=== PATIENT | male | born 1935 | race Caucasian/White ===

== ENCOUNTER 2020-09-10 10:03 | Outpatient (REF) | payer MEDICARE, SELFPAY ==
--- NOTE | 2020-09-10 | US_ITS ---
EXAMINATION: COLOR-FLOW DUPLEX IMAGING OF THE BILATERAL LOWER EXTREMITY ARTERIAL SYSTEM. VELOCITY MEASUREMENTS THROUGHOUT THE FEMORAL ARTERIES WITH ANKLE-BRACHIAL PERIPHERAL ARTERIAL TESTING. CLINICAL INFORMATION: This is an 85-year-old male with a history of hypertension, hyperlipidemia, diabetes, left distal superficial femoral artery stent. Interventional Radiologist: Alex Mohr M.D., F.S.I.R., F.Leia.C.R. Comparison is made to a previous study dated 05/29/2020 which demonstrated possible distal left superficial femoral artery stenosis. RIGHT FEMORAL RUNOFF VELOCITIES: The right common femoral artery measures 70 cm/s and biphasic. The right profunda femoral artery is 53 cm/s and is biphasic. Right proximal superficial femoral artery measures 81 cm/s and biphasic. Mid superficial femoral artery is 264 cm/s and triphasic. There is at least a 2:1 shift. Distal right superficial femoral artery measures 58 cm/s and is biphasic. Right popliteal velocity measures 58 cm/s and is biphasic. The posterior tibial artery velocity measures 46 cm/s and was biphasic. The right ankle-brachial index is 1.52. LEFT FEMORAL RUNOFF VELOCITIES: The left common femoral artery measures 65 cm/s and biphasic. The left profunda femoral artery is 66 cm/s and is biphasic. Left proximal superficial femoral artery measures 92 cm/s and triphasic. Mid superficial femoral artery is 79 cm/s and triphasic. Distal left superficial femoral artery measures 92 cm/s and is biphasic. Left popliteal velocity measures 52 cm/s and is biphasic. The posterior tibial artery velocity measures 58 cm/s and was biphasic. There is a stent seen in the distal left superficial femoral artery. The stent velocities are as follows: [place] artery proximal to the stent: 68 cm/s and triphasic. Proximal stent: 82 cm/s and triphasic. Mid stent: 92 cm/s and biphasic. Distal stent: 85 cm/s and biphasic. [place] artery distal to the stent: 91 cm/s and biphasic. The left ankle-brachial index is 1.69. US/US GILDA complete IMPRESSION: 1. There appears to be a hemodynamically significant high-grade stenosis in the mid right superficial femoral artery. This appears to be compensated with a normal right ankle-brachial index. 2. The patient is status post stent placement in the distal left superficial femoral artery. There is not a hemodynamically significant stenosis present at the present time.
--- NOTE | 2020-09-10 | US_ITS ---
EXAMINATION: COLOR-FLOW DUPLEX IMAGING OF THE BILATERAL LOWER EXTREMITY ARTERIAL SYSTEM. VELOCITY MEASUREMENTS THROUGHOUT THE FEMORAL ARTERIES WITH ANKLE-BRACHIAL PERIPHERAL ARTERIAL TESTING. CLINICAL INFORMATION: This is an 85-year-old male with a history of hypertension, hyperlipidemia, diabetes, left distal superficial femoral artery stent. Interventional Radiologist: Alex Mohr M.D., F.S.I.R., F.A.C.R. Comparison is made to a previous study dated 05/29/2020 which demonstrated possible distal left superficial femoral artery stenosis. RIGHT FEMORAL RUNOFF VELOCITIES: The right common femoral artery measures 70 cm/s and biphasic. The right profunda femoral artery is 53 cm/s and is biphasic. Right proximal superficial femoral artery measures 81 cm/s and biphasic. Mid superficial femoral artery is 264 cm/s and triphasic. There is at least a 2:1 shift. Distal right superficial femoral artery measures 58 cm/s and is biphasic. Right popliteal velocity measures 58 cm/s and is biphasic. The posterior tibial artery velocity measures 46 cm/s and was biphasic. The right ankle-brachial index is 1.52. LEFT FEMORAL RUNOFF VELOCITIES: The left common femoral artery measures 65 cm/s and biphasic. The left profunda femoral artery is 66 cm/s and is biphasic. Left proximal superficial femoral artery measures 92 cm/s and triphasic. Mid superficial femoral artery is 79 cm/s and triphasic. Distal left superficial femoral artery measures 92 cm/s and is biphasic. Left popliteal velocity measures 52 cm/s and is biphasic. The posterior tibial artery velocity measures 58 cm/s and was biphasic. There is a stent seen in the distal left superficial femoral artery. The stent velocities are as follows: [place] artery proximal to the stent: 68 cm/s and triphasic. Proximal stent: 82 cm/s and triphasic. Mid stent: 92 cm/s and biphasic. Distal stent: 85 cm/s and biphasic. [place] artery distal to the stent: 91 cm/s and biphasic. The left ankle-brachial index is 1.69. US/US arterial duplex LE BI IMPRESSION: 1. There appears to be a hemodynamically significant high-grade stenosis in the mid right superficial femoral artery. This appears to be compensated with a normal right ankle-brachial index. 2. The patient is status post stent placement in the distal left superficial femoral artery. There is not a hemodynamically significant stenosis present at the present time.
== END 2020-09-10 10:04 | disposition home or self-care (01) ==
LOC: HO.US 10:03
PROVIDERS: PCP Internal Medicine; Visit Provider Surgery Vascular Surgery
DX: I73.9 Peripheral vascular disease, unspecified (principal)
CPT/HCPCS: 93923; 93925

== ENCOUNTER → 2020-09-20 09:57 | Outpatient (BNVA) | payer MEDICARE, SELFPAY | PROVIDERS: PCP Internal Medicine; Visit Provider Surgery Vascular Surgery | DX: I83.11 Varicose veins of right lower extremity with inflammation (principal); I73.9 Peripheral vascular disease, unspecified | CPT/HCPCS: 99212 ==

== ENCOUNTER → 2020-11-01 10:08 | Outpatient (BNVA) | payer MEDICARE, SELFPAY | PROVIDERS: PCP Internal Medicine; Visit Provider Urology | DX: Z13.89 Encounter for screening for other disorder (principal) | CPT/HCPCS: Q3014 ==

== ENCOUNTER 2020-11-02 18:37 | Outpatient (REF) | payer MEDICARE, SELFPAY | END 2020-11-02 18:38 | disposition home or self-care (01) | LOC: HO.LNP 18:37 | PROVIDERS: Visit Provider Family Medicine | DX: Z20.822 Contact with and (suspected) exposure to COVID-19 (principal) | CPT/HCPCS: U0003 ==

== ENCOUNTER 2020-11-04 11:11 | Emergency (ER) | payer MEDICARE, SELFPAY ==
[2020-11-04 11:16] VITALS: BP 133/85; PULSE 132; RESP 18; TEMP 36.8; O2SAT 96; BMI 27.6
--- NOTE | 2020-11-04 11:46 | XR_ITS ---
EXAMINATION: XR CHEST CLINICAL INFORMATION: Suspected COVID pneumonia. COMPARISON: Chest done on 04/03/2018. TECHNIQUE: Frontal view of the chest was obtained. FINDINGS: Hyperinflated lung field is present bilaterally without evidence of any dense airspace consolidation. No evidence of any pulmonary venous congestion is present. Cardiac mediastinal silhouette is within normal limit. There is no pleural effusion or pneumothorax present. Overall no significant change. XR/XR chest 1V IMPRESSION: No radiographic evidence of COVID pneumonia.
[2020-11-04 12:12] LABS: COVID-19 Test Negative (Negative)
--- NOTE | 2020-11-04 12:17 | ED.GENADULT ---
HPI - General Adult General Chief complaint: General Medical Stated complaint: sore throat Time Seen by Provider: 11/04/20 11:45 Source: patient Mode of arrival: ambulatory Limitations: no limitations History of Present Illness HPI narrative: Patient complaining of sore throat for last 3 days seen for the same and urgent care center 2 days ago and started on Z-Aly no COVID testing was done patient denies any fever or chills no cough no shortness of breath no body ache no loss of taste sensation Patient feeling these symptoms of nasal congestion and sore throat since he noticed squirrel in his bedroom Related Data Home Medications Medication Instructions Recorded Confirmed amlodipine 10 mg tablet 10 mg PO DAILY 08/14/20 11/04/20 aspirin 81 mg tablet,delayed 81 mg PO DAILY 08/14/20 11/04/20 release cholecalciferol (vitamin D3) 25 25 mcg PO DAILY 08/14/20 11/04/20 mcg (1,000 unit) capsule dorzolamide 22.3 mg-timolol 6.8 1 drp OPHTHALMIC (EYE) BID 08/14/20 11/04/20 mg/mL eye drops fluticasone propionate 110 2 puff PO BID 08/14/20 11/04/20 mcg/actuation HFA aerosol inhaler latanoprost 0.005 % eye drops 1 drp OPHTHALMIC (EYE) DAILY ml 08/14/20 11/04/20 rosuvastatin 20 mg tablet 20 mg PO BEDTIME 08/14/20 11/04/20 tamsulosin 0.4 mg capsule 0.4 mg PO DAILY 08/14/20 11/04/20 furosemide 20 mg tablet 20 mg PO DAILY 11/01/20 11/04/20 losartan 50 mg PO DAILY 11/04/20 11/04/20 Previous Rx's Medication Instructions Recorded mirabegron 50 mg tablet,extended 50 mg PO DAILY 90 Days #90 tab 09/20/20 release 24 hr isosorbide mononitrate 30 mg 30 mg PO QAM #90 tab 10/16/20 tablet,extended release 24 hr azithromycin 250 mg tablet See Rx Instructions PO .COMPLEX 5 11/02/20 Days #6 tab prednisone 20 mg tablet 20 mg PO DAILY 4 Days #4 tab 11/02/20 Allergies Allergy/AdvReac Type Severity Reaction Status Date / Time ciprofloxacin [CIPROFLOXACIN] Allergy Unknown ITCHY FEET Verified 11/02/20 13:12 oxycodone [Percocet] AdvReac Unknown Unknown Verified 11/02/20 13:12 Review of Systems Review of Systems: Constitutional : No Weight loss, No Fever, No Chills ENT/Mouth : ++ sore throat, No Rhinorrhea Eyes: No Eye Pain, No Swelling Cardiovascular : No Chest Pain, no palpitations Respiratory : No Cough, No Sputum, no shortness of breath Gastrointestinal : no Nausea, No Vomiting, No Diarrhea, No abdominal Pain, no black stools Genitourinary : No Dysuria, No Urinary Frequency Musculoskeletal : No joint pain, No Myalgias, No Joint Swelling Skin : No Skin Lesions, No rash Neuro : No Weakness, No Numbness, No Dizziness, No Headache Psych : No Anxiety/Panic, No Depression Heme/Lymph: No Bruising, No Lymphadenopathy Endocrine : No Polyuria, No Polydipsia All other systems reviewed and are negative PMF Past Medical History Medical History Bladder neck contracture BPH (benign prostatic hyperplasia) CAD (coronary artery disease) COPD (chronic obstructive pulmonary disease) Hypercholesterolemia Hypertension Hypotonic bladder Paraphimosis Peripheral vascular disease Pulmonary nodule Tubular adenoma of colon Type 2 diabetes mellitus with hyperglycemia Vitamin D deficiency Surgical History H/O inguinal hernia repair H/O vascular surgery History of appendectomy History of cataract surgery History of prostate surgery Family History Family History Father No problems noted. Mother CVD (cardiovascular disease) Social History Social History Alcohol intake: never Smoking Status: Never smoker Smoked in Last 30 Days: No Use of substances other than those prescribed or required for medical reasons: No Advance Directives: No Advance Directives Information Provided: No Physical Exam Vital Signs: Vital Signs: Last Vital Signs Temp 98.2 F 11/04/20 11:16 Pulse 131 H 11/04/20 12:34 Resp 16 11/04/20 12:34 BP 113/77 11/04/20 12:34 Pulse Ox 95 11/04/20 12:34 Body Mass Index 27.6 Appearance: Alert. Oriented X3. No acute distress. Eyes: Pupils equal, round and reactive to light. ENT: Pharynx slight erythema no exudate Neck: Normal inspection. Neck supple. CVS: Normal heart rate and rhythm. Pulses normal. Respiratory: No respiratory distress. Breath sounds normal. Abdomen: Soft and nontender. Bowel sounds are present, no mass palpable, no CVA tenderness Skin: Skin warm and dry. Normal skin color. Normal skin turgor. Extremities: No lower extremity edema. Neuro: Oriented X 3. No motor deficit. No sensory deficit. Course Course Course Narrative: Patient x-ray negative COVID-19 negative strep throat is also negative with nonspecific nasal congestion likely viral patient already on Zithromax advised to continue follow with PCP Medical Decision Making Lab Data Lab results reviewed: Yes I reviewed the patient's lab results. Labs: Lab Results 11/04/20 Range/Units 11:50 COVID-19 (CARLOS) Negative (Negative) COVID-19 Clin Com See Note Discharge Plan Discharge Clinical Impression: URI (upper respiratory infection) Qualifiers: URI type: acute pharyngitis Pharyngitis/tonsillitis etiology: other specified organisms Qualified Code(s): J02.8 - Acute pharyngitis due to other specified organisms Patient Disposition: Home, Self-Care Instructions: Pharyngitis (ED) Additional Instructions: Continue antibiotic as prescribed. Follow-up with your PCP if not better Prescriptions: No Action Myrbetriq 50 mg tablet extended release 24 hr 50 mg PO DAILY 90 Days Qty: 90 RF: 2 isosorbide mononitrate 30 mg tablet extended release 24 hr 30 mg PO QAM Qty: 90 RF: 2 losartan 50 mg tablet 50 mg PO DAILY RF: 0 tamsulosin 0.4 mg capsule 0.4 mg PO DAILY RF: 0 dorzolamide-timolol 22.3-6.8 mg/mL drops 1 drp ophthalmic (eye) BID RF: 0 amlodipine 10 mg tablet 10 mg PO DAILY RF: 0 rosuvastatin 20 mg tablet 20 mg PO BEDTIME RF: 0 Flovent HFA 110 mcg/actuation HFA aerosol inhaler 2 puff PO BID RF: 0 latanoprost 0.005 % drops 1 drp ophthalmic (eye) DAILY RF: 0 aspirin [Adult Low Dose Aspirin] 81 mg tablet,delayed release (DR/EC) 81 mg PO DAILY RF: 0 cholecalciferol (vitamin D3) 25 mcg (1,000 unit) capsule 25 mcg PO DAILY RF: 0 azithromycin [Zithromax Z-Aly] 250 mg tablet See Rx Instructions PO .COMPLEX 5 Days Qty: 6 RF: 0 prednisone 20 mg tablet 20 mg PO DAILY 4 Days Qty: 4 RF: 0 furosemide 20 mg tablet 20 mg PO DAILY RF: 0 Interventions: ED Discharge Assessment Last Done: 11/04/20 13:27 Discharge Date/Time: 11/04/20 13:28
[2020-11-04 12:34] VITALS: BP 113/77; PULSE 131; RESP 16; O2SAT 95
== END 2020-11-04 13:28 | disposition home or self-care (01) ==
PROVIDERS: Emergency Provider Internal Medicine; PCP Internal Medicine
DX: J02.8 Acute pharyngitis due to other specified organisms (principal); Z20.822 Contact with and (suspected) exposure to COVID-19; Z79.899 Other long term (current) drug therapy
CPT/HCPCS: 36415; 71045; 87071; 87635; 87880; 99283; 99284

== ENCOUNTER 2020-12-04 13:34 | Outpatient (REF) | payer MEDICARE, SELFPAY ==
[2020-12-04 15:19] LABS: Hematocrit 44.8 % (42-52); Hemoglobin 14.7 g/dl (14.0-18.0); Mean Corpuscular HGB Conc 32.8 g/dl (31.0-36.0); Mean Corpuscular Hemoglobin 30.9 pg (27.0-33.0); Mean Corpuscular Volume 94.3 fL (80-98); Platelet Count 277 X10*3/uL (160-400); Red Blood Count 4.75 X10*6/uL (4.60-5.80); White Blood Count 8.1 X10*3/uL (4.8-10.8)
[2020-12-04 15:44] LABS: Anion Gap 12 (12-20); Blood Urea Nitrogen 23 mg/dL (9-16); Calcium 8.8 mg/dL (8.4-10.2); Carbon Dioxide 27 mmol/L (22-29); Chloride 107 mmol/L (96-108); Estimated Glomerular Filt Rate > 60; Glucose Random 77 mg/dL (60-115); Potassium 4.4 mmol/L (3.3-5.1); Sodium 142 mmol/L (135-145)
== END 2020-12-04 13:35 | disposition home or self-care (01) ==
LOC: HO.LAB 13:34
PROVIDERS: PCP Internal Medicine; Visit Provider Internal Medicine Cardiovascular Disease
DX: I48.92 Unspecified atrial flutter (principal); I50.30 Unspecified diastolic (congestive) heart failure; I25.10 Atherosclerotic heart disease of native coronary artery without angina pectoris; Z79.899 Other long term (current) drug therapy
CPT/HCPCS: 36415; 80048; 85027; 93005; 99212

== ENCOUNTER → 2020-12-07 11:29 | Outpatient (REF) | payer MEDICARE, SELFPAY ==
--- NOTE | 2020-12-07 11:33 | CA_ITS ---
Transthoracic Echocardiogram Patient (Last, First, Middle): Jonatan Del Toro J Gender: Male Date of : 1935 Age: 85 Procedure Date: 12/07/2020 Procedure Type: Transthoracic Echocardiogram Location: OP Height: 170.18 cm Weight: 75.3 kg BSA: 1.87 m2 Heart Rate: bpm BP: 120 / 70 mmHg Extruder Operator Helper: RAKESH Referring MD: Ferdinand Abdalla MD Environmental Services Assistant: Ferdinand Abdalla MD Symptoms: I48.92 - Unspecified atrial flutter Study Quality: Fair ECG Rhythm: Atrial flutter Conclusions: - 1. Normal LV systolic function 2. Mild biatrial enlargement 3. Normal cardiac valvular Doppler 4. Normal RV systolic pressure 5. No pericardial effusion Findings Left Ventricle Normal left ventricular size, thickness, and systolic function. The visually estimated ejection fraction is between 55-60%. Diastolic function is indeterminate on the basis of available data. Right Ventricle Mildly increased right ventricular cavity size. There is borderline right ventricular systolic function. Atria The left atrium is mildly dilated. Interatrial shunt cannot be excluded. The right atrium is mildly dilated. Aortic Valve There is mild calcification of the aortic valve. There is no aortic valve stenosis. There is no aortic valve regurgitation. Mitral Valve There is mild anterior and posterior mitral leaflet thickening. There is mild mitral annular calcification. There is trace mitral valve regurgitation. There is no mitral valve stenosis. Pulmonic Valve The pulmonic valve was not well visualized. Tricuspid Valve Likely normal tricuspid valve structure and function. There is mild tricuspid valve regurgitation. The right ventricular systolic pressure is normal. The right ventricular systolic pressure is 32 mmHg. Normal right atrial pressure. There is no evidence of pulmonary hypertension. Great Vessels All visible segments of the aorta are normal in size. The pulmonary artery was not well visualized. Venous The inferior vena cava is normal in size and collapses greater than 50% with inspiration. Pericardium/Pleural There is no evidence of pericardial effusion. Prior Study Comparison Changes noted compared to prior study dated: 10/26/2018. Compared to prior study LV systolic function is the lower although still within normal limits Measurements M-Mode Liner Measurements Normals - Women/Men AOV Cusps: 1.50 1.5-2.6 cm/m2 2D Linear Measurements IVSd: 1.12 0.6-0.9/0.6-1.0 cm LVIDd: 3.95 3.9-5.3/4.2-5.9 cm LVIDd Index: 2.11 2.4-3.2/2.2-3.1 cm/m2 LVIDs: 2.58 2.0-3.6 cm LVPWd: 1.13 0.7-1.1 cm Ao Root: 3.50 2.1-3.5 cm LA Diam: 3.80 2.7-3.8/3.0-4.0 cm LAIDs Index: 2.03 1.5-2.3 cm/m2 LV Mass: 183.77 67-162/88-224 g LV Mass Index: 98.27 43-95/49-115 g/m2 LVOT Diam: 2.10 3.0+(-)1.3 cm 2D Systolic Function EF 4C: 53.80 >55% EF 2C: 54.20 >55% EF BiP: 52.50 >55% Mitral Valve MV Pk E: 1.09 MV Decel Time: 109.00 PHT: 32.00 MVA PHT: 6.88 Decel Barren: 10.00 Aortic Valve AoV Pk Michel: 0.94 AoV Pk Grad: 4.00 LVOT LVOT Pk Michel: 0.80 LVOT Mn Michel: 0.59 LVOT VTI: 0.17 LVOT Pk Grad: 3.00 LVOT Mn Grad: 2.00 LVOT Diam: 2.10 LVOT Area: 3.46 Diastolic Function MV Pk E: 1.09 Tricuspid Valve TR Pk Michel: 2.67 TR Pk Grad: 29.00 RA Press: 3.00 RVSP: 32.00 Great Vessels Aorta Ao Root-2D: 3.50 2.0-3.7 cm Ao Asc: 3.00 2.1-3.4 cm Pulmonary Valve PV Pk Michel: 0.98 Peak PV Grad: 4.00 Updated in Other Vendor System with Status of Final Ferdinand Abdalla MD electronically signed on 12/08/2020 1:21:05 PM with status of Final
== END ==
LOC: HO.CARD 11:29
PROVIDERS: Visit Provider Internal Medicine Cardiovascular Disease
DX: I25.10 Atherosclerotic heart disease of native coronary artery without angina pectoris (principal); I48.92 Unspecified atrial flutter; I50.30 Unspecified diastolic (congestive) heart failure
CPT/HCPCS: 93306

== ENCOUNTER 2020-12-19 07:35 | Inpatient (IN) | payer OTHER, MEDICARE, SELFPAY ==
[2020-12-19] VITALS (14 sets, daily range): BP systolic 104–152; BP diastolic 61–81; PULSE 84–190; RESP 16–24; TEMP 36.2–36.7; O2SAT 85–96; BMI 27.6; BMI 26.8
--- NOTE | ~2020-12-19 | CT_ITS ---
EXAMINATION: CT CHEST WITHOUT CONTRAST CLINICAL INFORMATION: Hypoxia. Evaluate for fluid overload versus pneumonia. COMPARISON: Previous chest x-ray most recent 12/21/2020 TECHNIQUE: Multidetector volumetric CT imaging of the chest was done. Axial MIP volume rendering provided. Sagittal and coronal reformatted images were obtained. This CT examination was performed using dose optimization techniques as appropriate, variously including the following: *Automated exposure control *Adjustment of mA and/or kV according to patient size (this includes techniques or standardized protocols for targeted exams where dose is matched to indication/reason for exam; i.e. extremities or head) *Use of iterative reconstruction technique DLP: 172 mGy-cm FINDINGS: LUNGS: There is evidence of emphysema. There is a partially cystic partially solid abnormal parenchymal density or irregularly-shaped nodule in the right upper lobe. This measures approximately 3 x 5 cm in AP and transverse dimension and 1.4 cm in length axial image 178 series 4. This is new from [address] scan. There is a partially calcified irregularly shaped nodule in the right upper lobe measuring 2 x 8 mm axial image 214 series 4. This is unchanged. There is a new heterogeneous groundglass attenuation nodule in the peripheral posterior segment of the right upper lobe near the major fissure and adjacent pleural thickening axial image 218 series 4. There is innumerable small round noncalcified and calcified pulmonary nodules. The largest pulmonary nodule is a calcified left lower lobe peripheral or subpleural nodule adjacent to the fissure axial image 322 series 4. There is question of a nodule versus atelectasis or small infiltrate in the right middle lobe adjacent to the major fissure for example axial image 4 54-4 70 series 4. This measures maximum 7 x 12 mm axial image 453 series 4 that is new. There are bilateral lower lobe atelectasis or small infiltrates adjacent to the bilateral pleural effusions that is new. No evidence of pulmonary edema is seen. There is increasing volume loss to the right upper lobe. MEDIASTINUM: The visualized thyroid gland is unremarkable. The heart is upper normal in size. There is moderate to severe coronary artery calcification. There is no pericardial effusion. The thoracic aorta is normal in caliber. The pulmonary arteries are prominent, main pulmonary artery measuring 2.9 cm questionable for pulmonary artery hypertension. PLEURA: There are bilateral pleural effusions, moderate on the right and small on the left. AXILLA: No lymphadenopathy. UPPER ABDOMEN: There is a 3 x 2.2 cm left adrenal cyst with wall calcification that is stable. OSSEOUS STRUCTURES: There are severe degenerative changes of the spine with ossification of the anterior longitudinal ligament. CT/CT chest wo con IMPRESSION: Emphysema. Atelectasis or small infiltrates in both lower lobes. Question atelectasis or small infiltrate versus nodule in the right middle lobe. New irregularly-shaped partially solid partially cystic and new smaller groundglass attenuation right upper lobe nodules. Chest CT follow-up in 6-12 months recommended. No evidence of pulmonary edema. Bilateral pleural effusions, right greater than left. Coronary artery calcification.
--- NOTE | ~2020-12-19 | XR_ITS ---
EXAMINATION: XR CHEST CLINICAL INFORMATION: Shortness of breath COMPARISON: 12/19/2020 TECHNIQUE: Frontal view of the chest was obtained. FINDINGS: Lung volumes are symmetric. In comparison to the prior examination there is increased prominence of the central vasculature and surrounding interstitium suspicious for interstitial edema. Small right pleural effusion is redemonstrated. No appreciable pneumothorax. Cardiac silhouette appears near the upper limits of normal in size. Calcification is present at the aortic arch. Degenerative changes are present in the glenohumeral joints. XR/XR chest 1V IMPRESSION: Findings suspicious for worsening vascular congestion and interstitial edema.
--- NOTE | ~2020-12-19 | XR_ITS ---
EXAMINATION: XR CHEST CLINICAL INFORMATION: Shortness of breath COMPARISON: Chest radiographs 11/04/2020, 04/03/2018 TECHNIQUE: Portable upright AP view of the chest was obtained. FINDINGS: There is even distribution pulmonary vascularity with mild bronchovascular coughing. There are small bibasilar effusions, greater on left with bibasilar passive atelectasis. There is a heart is upper limits of normal size. There is no lobar segmental airspace consolidation. There is some convexity retrocardiac soft tissues which may represent tortuous descending thoracic aorta or sliding hiatal hernia. XR/XR chest 1V IMPRESSION: 1. Mild pulmonary vascular congestion with small bibasilar effusions and bibasilar passive atelectasis. 2. No lobar or segmental airspace consolidation. 3. Possible hiatal hernia or tortuous thoracoabdominal aorta.
--- NOTE | 2020-12-19 07:53 | ECG_ITS ---
Test Reason : SOB Blood Pressure : / mmHG Vent. Rate : 114 BPM Atrial Rate : 127 BPM P-R Int : 000 ms QRS Dur : 098 ms QT Int : 292 ms P-R-T Axes : 000 -13 075 degrees QTc Int : 402 ms Atrial fibrillation with rapid ventricular response Nonspecific T wave abnormality Abnormal ECG When compared to the previous EKG of Atrial fibrillation Present Referred By: Generic ED Physician Electronically Signed By:Margarito Mcarthur
--- NOTE | 2020-12-19 08:07 | PC.NURSE ---
pt placed on 4l nc d/t being spo2 85% on ra. spo2 up to 92-94% att. awaiting primary eval.
[2020-12-19 08:11] LABS: MANUAL DIFF FLAG NO
[2020-12-19 08:12] LABS: Basophils Percent Auto 0.4 % (0-2); Eosinophils Absolute Auto 0.1 X10*3/uL (0.0-0.4); Hematocrit 43.6 % (42-52); Hemoglobin 14.1 g/dl (14.0-18.0); Imm Gran Abs Auto 0.03 X10*3/uL (0.00-0.03); Imm Gran Pct Auto 0.3 % (0.0-0.4); Lymphocytes Absolute Auto 1.1 X10*3/uL (1.2-4.9); Lymphocytes Percent Auto 11.2 % (20-40); Mean Corpuscular HGB Conc 32.3 g/dl (31.0-36.0); Mean Corpuscular Hemoglobin 30.2 pg (27.0-33.0); Mean Corpuscular Volume 93.4 fL (80-98); Mean Platelet Volume 9.2 fL (9.4-12.4); Monocytes Absolute Auto 0.7 X10*3/uL (0.1-1.2); Monocytes Percent Auto 6.8 % (2-11); Neutrophils Absolute Auto 7.7 X10*3/uL (2.0-8.3); Neutrophils Percent Auto 80.3 % (45-73); Platelet Count 291 X10*3/uL (160-400); Red Blood Count 4.67 X10*6/uL (4.60-5.80); Red Cell Distribution Width 13.2 % (11.0-16.0); White Blood Count 9.6 X10*3/uL (4.8-10.8)
--- NOTE | 2020-12-19 08:21 | ED.GENADULT ---
HPI - General Adult General Chief complaint: Dyspnea Stated complaint: sob/rapid afib Time Seen by Provider: 12/19/20 08:10 Source: patient and EMS Mode of arrival: EMS History of Present Illness HPI narrative: 85-year-old male who was brought to the emergency department for evaluation shortness of breath and atrial fibrillation with rapid ventricular response. The patient states that he woke up this morning at 5:00 a.m. and had difficulty breathing. He states that he could not catch his breath. He states that the symptoms got worse therefore he called an ambulance was brought to emergency department. In route the patient was noted to have atrial fibrillation with a rate ventricular rate ranging from 125-130. His O2 saturation on room air was 85%. To paramedics, the reports that the patient was recently diagnosed with atrial fibrillation is been on metoprolol. The patient denied chest pain, fever, chills, cough, nausea, vomiting, diarrhea. Denies myalgias, arthralgias or loss of sense of taste and smell. He states he has had 1 COVID 19 vaccination and will get his 2nd 1 in 1-2 weeks. Related Data Home Medications Medication Instructions Recorded Confirmed amlodipine 10 mg tablet 10 mg PO DAILY 08/14/20 12/04/20 cholecalciferol (vitamin D3) 25 25 mcg PO DAILY 08/14/20 12/04/20 mcg (1,000 unit) capsule dorzolamide 22.3 mg-timolol 6.8 1 drp OPHTHALMIC (EYE) BID 08/14/20 12/04/20 mg/mL eye drops fluticasone propionate 110 2 puff PO BID 08/14/20 12/04/20 mcg/actuation HFA aerosol inhaler latanoprost 0.005 % eye drops 1 drp OPHTHALMIC (EYE) DAILY ml 08/14/20 12/04/20 tamsulosin 0.4 mg capsule 0.4 mg PO DAILY 08/14/20 12/04/20 losartan 50 mg PO DAILY 11/04/20 12/04/20 Previous Rx's Medication Instructions Recorded mirabegron 50 mg tablet,extended 50 mg PO DAILY 90 Days #90 tab 09/20/20 release 24 hr azithromycin 250 mg tablet See Rx Instructions PO .COMPLEX 5 11/02/20 Days #6 tab furosemide 20 mg tablet 20 mg PO DAILY 90 Days #90 tab 11/06/20 rosuvastatin 20 mg tablet 20 mg PO BEDTIME #90 tab 11/21/20 apixaban 5 mg tablet 5 mg PO BID #60 tab 12/04/20 metoprolol succinate 25 mg 25 mg PO DAILY #30 tab 12/04/20 tablet,extended release 24 hr [employer] #1 ea 12/18/20 Allergies Allergy/AdvReac Type Severity Reaction Status Date / Time ciprofloxacin [CIPROFLOXACIN] Allergy Unknown ITCHY FEET Verified 11/02/20 13:12 oxycodone [Percocet] AdvReac Unknown Unknown Verified 11/02/20 13:12 Review of Systems Review of Systems: Yes all other systems are reviewed and are negative [facility] Past Medical History [facility] Narrative: The patient states he lives with his . He denies tobacco use but states he was a former smoker and quit 50 years prior, he denies alcohol and drug use. Medical History (HFpEF) heart failure with preserved ejection fraction Atrial flutter Bladder neck contracture BPH (benign prostatic hyperplasia) CAD (coronary artery disease) COPD (chronic obstructive pulmonary disease) Hypercholesterolemia Hypertension Hypotonic bladder Paraphimosis Peripheral vascular disease Pulmonary nodule Tubular adenoma of colon Type 2 diabetes mellitus with hyperglycemia Vitamin D deficiency Surgical History H/O inguinal hernia repair H/O vascular surgery History of appendectomy History of cataract surgery History of prostate surgery Family History Family History Father No problems noted. Mother CVD (cardiovascular disease) Social History Social History Alcohol intake: never Smoking Status: Never smoker Use of substances other than those prescribed or required for medical reasons: No Advance Directives: Yes Advance Directives Information Provided: Yes Advance Directives on File: No Physical Exam Vital Signs: Vital Signs: Last Vital Signs Temp 98.1 F 12/19/20 07:48 Pulse 124 H 12/19/20 08:32 Resp 20 12/19/20 08:32 BP 134/63 12/19/20 08:32 Pulse Ox 96 12/19/20 08:32 Body Mass Index 27.6 Const: General: cooperative Orientation/consciousness: oriented to person and oriented to place Limitations: no limitations HENMT: Head: Yes normal to inspection, Yes normocephalic and Yes atraumatic Ears: external ears normal General nose exam: Normal external nose present Face and sinus: Yes normal facial exam Mouth: Normal oral and palatal mucosa present Throat: Yes posterior oropharynx normal Eyes: Periorbital: periorbital findings normal Eyelids: Yes eyelids normal Conjunctivae: conjunctivae normal Sclerae: sclerae normal Corneas: corneas normal Pupils: Equal, round and reactive pupils present Direct Ophthalmoscopy: normal light reflex Neck: Neck: Yes full ROM, Yes no lymphadenopathy, Yes no meningeal signs, Yes trachea midline and Yes supple Chest: Chest palpation & inspection: normal inspection of the chest and normal palpation of entire chest wall Resp: Effort & Inspection: normal respiratory effort and able to speak in complete sentences Auscultation: rales bilateral at the base Cardio: Rate: tachycardic Rhythm: abnormal rhythm irregularly irregular Heart sounds: S1 normal heart sound present, S2 normal heart sound present and no murmurs GI: Inspection: Yes normal to inspection Palpation (GI): Soft to palpation, nontender, no guarding, not rigid and No hepatosplenomegaly present : General: Yes no CVA tenderness Back/Spine/Pelvis: Back: no CVA tenderness Cervical Spine: normal cervical lordosis Thoracic/Lumbar Spine: thoracic and lumbar spine normal to inspection Skin: Lesions: no lesions Rashes: no rashes Wounds: no wounds Neuro: General: oriented to person, oriented to place and no meningeal signs Cranial nerves: Yes CN's II-XII intact bilaterally and Yes Equal, round and reactive pupils present Cognition (Neuro): normal cognition Motor exam (neuro): 5/5 motor strength present throughout Extrem: Other: 2+ pitting edema, symmetric, slight erythema to the right pretibial area, blanching, no increased warmth General: Yes normal to inspection and Yes full ROM Psych: Appearance: well kempt Mental Status: mental status grossly normal Speech and movement: Normal speech and movement present Affect: normal affect Attitude: cooperative Thought process: Normal thought process present Thought content: Normal thought content present Course Course Course Narrative: 85-year-old male who presents emergency department for evaluation of sudden onset of shortness of breath with atrial fibrillation with rapid ventricular response. Patient was noted to have a low O2 saturation of 85% by the paramedics and a ventricular rate of 125-130. Emergency department patient was documented to be 85% on room air and 93% on 2 L of nasal cannula. Lung exam did reveal rales at the bases and the patient does have 1+ pitting edema. I suspect the patient has CHF. I ordered a cardiac workup on this patient to include CBC, BMP,BNP, troponin, EKG, chest x-ray and COVID 19 testing. The patient's rapid rate will be treated with diltiazem 10 mg IV. 0904: The patient's heart rate did improve with the IV diltiazem. The patient's laboratory evaluation revealed an elevated BNP of 408, detectable but not elevated troponin at 5.2, chest x-ray consistent with small bilateral pleural effusions, left greater than right and mild pulmonary congestion. Given these findings, the patient's shortness of breath is most likely triggered by atrial fibrillation with a rapid ventricular response causing CHF. The patient was ordered to get Lasix 40 mg IV. Given the severity of his hypoxia, I will discuss admission with the covering hospitalist. 0918: I did order a 3 hour troponin to be done at 11:00 a.m.. The patient's COVID-19 test is negative. I did discuss the admission with the covering hospitalist the patient will be admitted for further management of his CHF and atrial fibrillation with RVR. Medical Decision Making Lab Data Result diagrams: 12/19/20 08:04 12/19/20 08:04 Labs: Lab Results 12/19/20 12/19/20 12/19/20 Range/Units 08:04 08:04 08:04 WBC 9.6 (4.8-10.8) X10*3/uL RBC 4.67 (4.60-5.80) X10*6/uL Hgb 14.1 (14.0-18.0) g/dl Hct 43.6 (42-52) % MCV 93.4 (80-98) fL MCH 30.2 (27.0-33.0) pg MCHC 32.3 (31.0-36.0) g/dl RDW 13.2 (11.0-16.0) % Plt Count 291 (160-400) X10*3/uL MPV 9.2 L (9.4-12.4) fL Immature Gran % (Auto) 0.3 (0.0-0.4) % Neut % (Auto) 80.3 H (45-73) % Lymph % (Auto) 11.2 L (20-40) % Weston % (Auto) 6.8 (2-11) % Eos % (Auto) 1.0 (0-4) % Baso % (Auto) 0.4 (0-2) % Lymph # (Auto) 1.1 L (1.2-4.9) X10*3/uL Weston # (Auto) 0.7 (0.1-1.2) X10*3/uL Eos # (Auto) 0.1 (0.0-0.4) X10*3/uL Baso # (Auto) 0.0 (0.0-0.2) X10*3/uL Abs Immat Gran (auto) 0.03 (0.00-0.03) X10*3/uL Absolute Neuts (auto) 7.7 (2.0-8.3) X10*3/uL Absolute Nucleated RBC 0.000 (0.0-0.012) X10*3/uL Nucleated RBC % (auto) 0.0 (0.0-0.2) /100WBC Hold Blue Top Sodium 142 (135-145) mmol/L Potassium 3.6 (3.3-5.1) mmol/L Chloride 109 H (96-108) mmol/L Carbon Dioxide 24 (22-29) mmol/L Anion Gap 13 (12-20) BUN 19 H (9-16) mg/dL Creatinine 0.83 (0.5-1.4) mg/dL Estim Creat Clear Calc 68.2 Estimated GFR > 60 Random Glucose 133 H D (60-115) mg/dL Calcium 8.5 (8.4-10.2) mg/dL Troponin I High Sens 5.2 (<3.5-35.0) ng/L B-Natriuretic Peptide 403 H (<100) pg/mL COVID-19 (CARLOS) (Negative) COVID-19 Clin Com 12/19/20 12/19/20 Range/Units 08:05 08:38 WBC (4.8-10.8) X10*3/uL RBC (4.60-5.80) X10*6/uL Hgb (14.0-18.0) g/dl Hct (42-52) % MCV (80-98) fL MCH (27.0-33.0) pg MCHC (31.0-36.0) g/dl RDW (11.0-16.0) % Plt Count (160-400) X10*3/uL MPV (9.4-12.4) fL Immature Gran % (Auto) (0.0-0.4) % Neut % (Auto) (45-73) % Lymph % (Auto) (20-40) % Weston % (Auto) (2-11) % Eos % (Auto) (0-4) % Baso % (Auto) (0-2) % Lymph # (Auto) (1.2-4.9) X10*3/uL Weston # (Auto) (0.1-1.2) X10*3/uL Eos # (Auto) (0.0-0.4) X10*3/uL Baso # (Auto) (0.0-0.2) X10*3/uL Abs Immat Gran (auto) (0.00-0.03) X10*3/uL Absolute Neuts (auto) (2.0-8.3) X10*3/uL Absolute Nucleated RBC (0.0-0.012) X10*3/uL Nucleated RBC % (auto) (0.0-0.2) /100WBC Hold Blue Top SEE NOTE Sodium (135-145) mmol/L Potassium (3.3-5.1) mmol/L Chloride (96-108) mmol/L Carbon Dioxide (22-29) mmol/L Anion Gap (12-20) BUN (9-16) mg/dL Creatinine (0.5-1.4) mg/dL Estim Creat Clear Calc Estimated GFR Random Glucose (60-115) mg/dL Calcium (8.4-10.2) mg/dL Troponin I High Sens (<3.5-35.0) ng/L B-Natriuretic Peptide (<100) pg/mL COVID-19 (CARLOS) Negative (Negative) COVID-19 Clin Com See Note Discharge Plan Discharge Prescriptions: No Action Myrbetriq 50 mg tablet extended release 24 hr 50 mg PO DAILY 90 Days Qty: 90 RF: 2 furosemide 20 mg tablet 20 mg PO DAILY 90 Days Qty: 90 RF: 1 rosuvastatin 20 mg tablet 20 mg PO BEDTIME Qty: 90 RF: 1 (DME) [employer] See Rx Instructions .Route .MEDSUPPLY Qty: 1 RF: 0 losartan 50 mg tablet 50 mg PO DAILY RF: 0 tamsulosin 0.4 mg capsule 0.4 mg PO DAILY RF: 0 dorzolamide-timolol 22.3-6.8 mg/mL drops 1 drp ophthalmic (eye) BID RF: 0 amlodipine 10 mg tablet 10 mg PO DAILY RF: 0 Flovent HFA 110 mcg/actuation HFA aerosol inhaler 2 puff PO BID RF: 0 latanoprost 0.005 % drops 1 drp ophthalmic (eye) DAILY RF: 0 cholecalciferol (vitamin D3) 25 mcg (1,000 unit) capsule 25 mcg PO DAILY RF: 0 azithromycin [Zithromax Z-Aly] 250 mg tablet See Rx Instructions PO .COMPLEX 5 Days Qty: 6 RF: 0 metoprolol succinate [Toprol XL] 25 mg tablet extended release 24 hr 25 mg PO DAILY Qty: 30 RF: 1 Eliquis 5 mg tablet 5 mg PO BID Qty: 60 RF: 1
[2020-12-19] MEDS: dilTIAZem HCL 50 MG/10 ML VIAL 10 MG IVPUSH ×2 (08:32→11:11)
[2020-12-19 08:35] LABS: Anion Gap 13 (12-20); Blood Urea Nitrogen 19 mg/dL (9-16); Calcium 8.5 mg/dL (8.4-10.2); Carbon Dioxide 24 mmol/L (22-29); Chloride 109 mmol/L (96-108); Creatinine Clr Calc Pharmacy 68.2; Estimated Glomerular Filt Rate > 60; Glucose Random 133 mg/dL (60-115); Potassium 3.6 mmol/L (3.3-5.1); Sodium 142 mmol/L (135-145)
[2020-12-19 08:43] LABS: B Type Natriuretic Peptide 403 pg/mL (<100); Troponin-I High Sensitivity 5.2 ng/L (<3.5-35.0)
[2020-12-19] MEDS: Furosemide 40 MG/4 ML VIAL IVPUSH (08:55)
[2020-12-19 09:15] LABS: COVID-19 Test Negative (Negative); IDNOW Serial# 9DD0AD1C
[2020-12-19 11:07] LABS: Troponin-I High Sensitivity 5.3 ng/L (<3.5-35.0)
[2020-12-19] MEDS: dilTIAZem HCL 125 MG in 0.9 % Sodium Chloride 100 ML IVCONT (11:33)
--- NOTE | 2020-12-19 12:20 | PM.IMHP ---
History of Present Illness Date of Service: 12/19/20 Chief Complaint: Shortness of breath This is a 85-year-old male with a past medical history of recently diagnosed atrial fibrillation relation on metoprolol and Eliquis, Echo in 11/2020 showing perserved EF, who is not not the greatest of historian and presents to the hospital with complaints of progressive shortness of breath which worsened significantly this morning and so he presented to the hospital. He denied any chest pain or palpitations. He reports that over the last few days he has found it difficult to breathe particularly in the morning. He denies any palpitations. He does endorse increasing bilateral lower extremity edema. He is unaware if his weight has changed. He is perseverating on the fact that he thinks his symptoms are due to a squirrel in his attic. When the patient arrived to the emergency room he was noted to be hypoxic in the mid 80s on room air upon arrival, heart rate was elevated to 120s. His blood work showed an elevated BNP with a chest x-ray consistent with fluid overload. He was given a bolus of Cardizem IV without much improvement and subsequently started on a Cardizem drip with heart rates improving into the 100s. He was also treated with a dose of IV Lasix and reportedly has already put out 1 L. Review of Systems Review of Systems: Constitutional - Awake and Alert, No apparent distress Eyes - PERRLA, EOMI Cardiovascular - Denies chest pain, denies palpitations Respiratory - shortness of breath, orthopnea Gastrointestinal - NT / ND; +BS; No rebound or guarding - No CVA tenderness Extremities - no calf tenderness bilaterally, no swelling Musculoskeletal - Normal inspection, normal ROM Skin - Warm/Dry Neurological - Alert & oriented x3, No focal deficit Psychological - Appropriate affect [facility] Medical History (HFpEF) heart failure with preserved ejection fraction Atrial flutter Bladder neck contracture BPH (benign prostatic hyperplasia) CAD (coronary artery disease) COPD (chronic obstructive pulmonary disease) Hypercholesterolemia Hypertension Hypotonic bladder Paraphimosis Peripheral vascular disease Pulmonary nodule Tubular adenoma of colon Type 2 diabetes mellitus with hyperglycemia Vitamin D deficiency Family History Father No problems noted. Mother CVD (cardiovascular disease) Surgical History H/O inguinal hernia repair H/O vascular surgery History of appendectomy History of cataract surgery History of prostate surgery Social History Alcohol intake: never Smoking Status: Never smoker Use of substances other than those prescribed or required for medical reasons: No Advance Directives: Yes Advance Directives Information Provided: Yes Advance Directives on File: No Meds Allergies Allergy/AdvReac Type Severity Reaction Status Date / Time ciprofloxacin [CIPROFLOXACIN] Allergy Unknown ITCHY FEET Verified 11/02/20 13:12 oxycodone [Percocet] AdvReac Unknown Unknown Verified 11/02/20 13:12 Active Medications: Current Medications Generic Name Dose Route Start Last Admin Trade Name Freq PRN Reason Stop Dose Admin Furosemide 20 mg 12/19/20 18:00 Furosemide 20 Mg/2 Ml Vial IVPUSH BID@0900,1800 [facility] Protocol Diltiazem HCl 125 mg/ Sodium 125 mls @ 0 mls/hr 12/19/20 11:30 12/19/20 11:33 Chloride IVCONT 5 mg/hr .Q0M KVNG 5 mls/hr Administration Protocol Per Protocol Pharmacy Consult 1 each 12/19/20 12:12 Consult Rx Perform Med Rec MISCELLANE ONCE PRN Consult order Sodium Chloride 3 ml 12/19/20 16:00 0.9 % Sodium Chloride Flush 3 Ml Syringe IVFLUSH QSHIFT [facility] Home Medications Medication Instructions Recorded Confirmed Last Taken Type amlodipine 10 mg tablet 10 mg PO DAILY 08/14/20 12/19/20 12/18/20 History cholecalciferol (vitamin D3) 25 50 mcg PO DAILY 08/14/20 12/19/20 12/18/20 History mcg (1,000 unit) capsule dorzolamide 22.3 mg-timolol 6.8 1 drp OPHTHALMIC (EYE) BID 08/14/20 12/19/20 12/18/20 History mg/mL eye drops fluticasone propionate 110 2 puff PO BID 08/14/20 12/19/20 12/18/20 History mcg/actuation HFA aerosol inhaler latanoprost 0.005 % eye drops 1 drp OPHTHALMIC (EYE) DAILY ml 08/14/20 12/19/20 12/18/20 History tamsulosin 0.4 mg capsule 0.4 mg PO DAILY 08/14/20 12/19/20 12/18/20 History losartan 50 mg PO DAILY 11/04/20 12/19/20 12/18/20 History C,E,zinc,copper [id number]-arl 1 cap PO DAILY 12/19/20 12/19/20 12/18/20 History [Ocuvite Adult 50 Plus] Lactobacill 46-B.animal-inulin 1 cap PO DAILY 12/19/20 12/19/20 Unknown History [Probiotic-10 (with inulin)] calcium carb-mag ox-zinc sulf 1 tab PO DAILY 12/19/20 12/19/20 Unknown History Physical Exam Vital Signs and Narrative: Vital Signs: Last Vital Signs Temp 98.1 F 12/19/20 07:48 Pulse 125 H 12/19/20 11:33 Resp 23 H 12/19/20 11:13 BP 134/65 12/19/20 11:33 Pulse Ox 94 12/19/20 11:13 Body Mass Index 27.6 Const: Other: Constitutional - Awake and Alert, No apparent distress Eyes - PERRLA, EOMI Cardiovascular - IRR rates initially 120s, now 100s; 2+ bilateral LE edema Respiratory - Rales throughout, saturating 95% on 3L; Gastrointestinal - NT / ND; +BS; No rebound or guarding - No CVA tenderness Extremities - +edema Musculoskeletal - Normal inspection, normal ROM Skin - Warm/Dry Neurological - Alert & oriented x3, No focal deficit Psychological - Appropriate affect Results Labs CBC and Chem 7: 12/19/20 08:04 12/19/20 08:04 Labs: Laboratory Results - last 24 hr 12/19/20 12/19/20 12/19/20 08:04 08:04 08:04 MCV 93.4 MCH 30.2 MCHC 32.3 RDW 13.2 Plt Count 291 MPV 9.2 L Immature Gran % (Auto) 0.3 Neut % (Auto) 80.3 H Lymph % (Auto) 11.2 L Pender % (Auto) 6.8 Eos % (Auto) 1.0 Baso % (Auto) 0.4 Lymph # (Auto) 1.1 L Pender # (Auto) 0.7 Eos # (Auto) 0.1 Baso # (Auto) 0.0 Abs Immat Gran (auto) 0.03 Absolute Neuts (auto) 7.7 Absolute Nucleated RBC 0.000 Nucleated RBC % (auto) 0.0 Hold Blue Top Anion Gap 13 Estim Creat Clear Calc 68.2 Estimated GFR > 60 Random Glucose 133 H D Calcium 8.5 Troponin I High Sens 5.2 B-Natriuretic Peptide 403 H COVID-19 (CARLOS) COVID-19 Clin Com 12/19/20 12/19/20 12/19/20 08:05 08:38 10:06 MCV MCH MCHC RDW Plt Count MPV Immature Gran % (Auto) Neut % (Auto) Lymph % (Auto) Pender % (Auto) Eos % (Auto) Baso % (Auto) Lymph # (Auto) Pender # (Auto) Eos # (Auto) Baso # (Auto) Abs Immat Gran (auto) Absolute Neuts (auto) Absolute Nucleated RBC Nucleated RBC % (auto) Hold Blue Top SEE NOTE Anion Gap Estim Creat Clear Calc Estimated GFR Random Glucose Calcium Troponin I High Sens 5.3 B-Natriuretic Peptide COVID-19 (CARLOS) Negative COVID-19 Clin Com See Note Imaging Radiologist's Impressions: Impressions Chest X-Ray 12/19/20 07:53 IMPRESSION: 1. Mild pulmonary vascular congestion with small bibasilar effusions and bibasilar passive atelectasis. 2. No lobar or segmental airspace consolidation. 3. Possible hiatal hernia or tortuous thoracoabdominal aorta. Assessment and Plan (1) Atrial fibrillation with rapid ventricular response: Status: Acute This is a 85 yo M with a recently diagnosed A. Fib who presents with progressive SOB and is found to be in RVR and acute CHF. 1. Acute Respiratory Failure with hypoxia due to CHF continue oxygen, wean as tolerated 2. Acute Diastolic CHF due to A. Fib Last Echo showing preserved EF IV lasix 20mg BID i/o 3. A Fib with RVR Cardizem drip - titrate to his home metoprolol Eliquis will consult cardiolgoy 4. HTN hold BP meds while on cardizem gtt, will start them if remains hypertensive (metoprolol, norvsasc, losartan) Continue other baseline meds Presumed full code -- he is specifically unable to tell me his wishes. Called , unanswered. Cast Mgmt looking into see if he has MOLST. DVT ppx - [place]
--- NOTE | 2020-12-19 12:22 | PC.NURSE ---
ASSISTED TO CHANGE BRIEF D/T SOME DAMPNESS W FREQUENT URINATIONS IN URINAL. LINEN CHANGED. PT BACK TO BED W/O ISSUE.
[2020-12-19] MEDS: Apixaban 5 MG TABLET PO ×2 (16:48→21:06)
[2020-12-19] MEDS: Furosemide 20 MG/2 ML VIAL IVPUSH (16:48)
[2020-12-19] MEDS: 0.9 % Sodium Chloride Flush 3 ML SYRINGE IVFLUSH ×2 (16:49→21:07)
[2020-12-19] MEDS: Tamsulosin HCL 0.4 MG CAPSULE PO (21:06)
[2020-12-19] MEDS: Atorvastatin Calcium 80 MG TABLET PO (21:06)
[2020-12-19] MEDS: Dorzolamide/Timolo 2.23%/0.68% 10 ML DRBTL 1 DROP EYE-BOTH (21:06)
[2020-12-20] VITALS (14 sets, daily range): BP systolic 113–161; BP diastolic 65–88; PULSE 79–138; RESP 16–28; TEMP 36.4–36.9; O2SAT 85–92
[2020-12-20] MEDS: dilTIAZem HCL 125 MG in 0.9 % Sodium Chloride 100 ML 10 MG IVCONT (03:33)
[2020-12-20 06:47] LABS: Anion Gap 13 (12-20); Carbon Dioxide 24 mmol/L (22-29); Chloride 109 mmol/L (96-108); Estimated Glomerular Filt Rate > 60; Glucose Random 135 mg/dL (60-115); Potassium 3.5 mmol/L (3.3-5.1)
[2020-12-20 06:53] LABS: Blood Urea Nitrogen 19 mg/dL (9-16); Calcium 8.2 mg/dL (8.4-10.2); Sodium 142 mmol/L (135-145)
--- NOTE | 2020-12-20 09:07 | MHC.CM.PN ---
PATIENT LIVES WITH HIS /HCP (COPY ON FILE AND ONE IN PAPER CHART.) HE HAS A CANE AND WHEELED WALKER IN THE HOME. AND CHILDREN PROVIDE MOST OF TRANSPORT NEEDS. THERE ARE NO SERVICES IN THE HOME. IMM 12/20 IN CHART.
[2020-12-20] MEDS: Cholecalciferol (Vitamin D3) 25 MCG TABLET 50 MCG PO (09:45)
[2020-12-20] MEDS: Mirabegron 50 MG TAB.ER.24H PO (09:47)
[2020-12-20] MEDS: Metoprolol Tartrate 50 MG TABLET 25 MG PO ×4 (09:47→19:27)
[2020-12-20] MEDS: Furosemide 20 MG/2 ML VIAL IVPUSH (09:49)
[2020-12-20] MEDS: Apixaban 5 MG TABLET PO ×2 (09:49→19:26)
--- NOTE | 2020-12-20 10:53 | P.CONCA_ITS ---
History of Present Illness History of Present Illness Date of Service: 12/20/20 Requesting physician: Jaylen Koch Chief complaint: sob/rapid afib Narrative: Pleasant 85-year-old gentleman who follows with Dr. Abdalla and has background history of diastolic heart failure, atrial flutter, BPH, coronary artery disease, hypertension, hyperlipidemia, peripheral vascular disease and diabetes who is presenting with shortness of breath over the last few days. He said he was short of breath for a week or so but progressively worsened and then came to the ER. He was found to be in congestive heart failure as well as was diagnosed with new onset atrial fibrillation with rapid ventricular response. He was started on Cardizem drip. He still is quite short of breath. Rates are ranging from 110 to 120s. The Toprol dose was also increased from 25 b.i.d. to q.i.d.. He was given 20 mg IV b.i.d. Lasix. [facility] Past Medical History Medical History (HFpEF) heart failure with preserved ejection fraction Atrial flutter Bladder neck contracture BPH (benign prostatic hyperplasia) CAD (coronary artery disease) COPD (chronic obstructive pulmonary disease) Hypercholesterolemia Hypertension Hypotonic bladder Paraphimosis Peripheral vascular disease Pulmonary nodule Tubular adenoma of colon Type 2 diabetes mellitus with hyperglycemia Vitamin D deficiency Family History Family History Father No problems noted. Mother CVD (cardiovascular disease) Surgical History Surgical History H/O inguinal hernia repair H/O vascular surgery History of appendectomy History of cataract surgery History of prostate surgery Social History Social History Alcohol intake: never Smoking Status: Never smoker Use of substances other than those prescribed or required for medical reasons: No Advance Directives: Yes Advance Directives Information Provided: Yes Advance Directives on File: No Do you have thoughts of harming others: None Do you have a plan to hurt others: No Plan service: Yes Current occupational status: retired Meds Allergies Allergy/AdvReac Type Severity Reaction Status Date / Time ciprofloxacin [CIPROFLOXACIN] Allergy Unknown ITCHY FEET Verified 11/02/20 13:12 oxycodone [Percocet] AdvReac Unknown Unknown Verified 11/02/20 13:12 Active Medications: Current Medications Generic Name Dose Route Start Last Admin Trade Name Freq PRN Reason Stop Dose Admin Apixaban 5 mg 12/19/20 15:31 12/20/20 09:49 Apixaban 5 Mg Tablet PO 5 mg BID KVNG Administration Atorvastatin Calcium 80 mg 12/19/20 21:00 12/19/20 21:06 Atorvastatin Calcium 80 Mg Tablet PO 80 mg BEDTIME KVNG Administration Dorzolamide/Timolol 1 drop 12/19/20 21:00 12/19/20 21:06 Dorzolamide/Timolo 2.23%/0.68% 10 Ml Drbtl EYE-BOTH 1 drop BID KVNG Administration Furosemide 20 mg 12/19/20 18:00 12/20/20 09:49 Furosemide 20 Mg/2 Ml Vial IVPUSH 20 mg BID@0900,1800 KVNG Administration Protocol Diltiazem HCl 125 mg/ Sodium 125 mls @ 0 mls/hr 12/19/20 11:30 12/20/20 07:27 Chloride IVCONT 5 mg/hr .Q0M KVNG 5 mls/hr Titration Protocol Per Protocol Latanoprost 1 drop 12/20/20 09:00 Latanoprost 0.005 % Ophth Susana 2.5 Ml Drops EYE-BOTH DAILY [facility] Metoprolol Tartrate 25 mg 12/20/20 09:00 12/20/20 09:47 Metoprolol Tartrate 50 Mg Tablet PO 25 mg QID KVNG Administration Protocol Mirabegron 50 mg 12/20/20 09:00 12/20/20 09:47 Mirabegron 50 Mg Tab.Er.24h PO 50 mg DAILY [facility] Administration Pharmacy Consult 1 each 12/19/20 12:12 Consult Rx Perform Med Rec MISCELLANE ONCE PRN Consult order Sodium Chloride 3 ml 12/19/20 16:00 12/19/20 21:07 0.9 % Sodium Chloride Flush 3 Ml Syringe IVFLUSH 3 ml QSHIFT KVNG Administration Tamsulosin HCl 0.4 mg 12/19/20 21:00 12/19/20 21:06 Tamsulosin Hcl 0.4 Mg Capsule PO 0.4 mg BEDTIME KVNG Administration Vitamin D 50 mcg 12/20/20 09:00 12/20/20 09:45 Cholecalciferol (Vitamin D3) 25 Mcg Tablet PO 50 mcg DAILY KVNG Administration Home Medications Medication Instructions Recorded Confirmed Last Taken Type amlodipine 10 mg tablet 10 mg PO DAILY 08/14/20 12/19/20 12/18/20 History cholecalciferol (vitamin D3) 25 50 mcg PO DAILY 08/14/20 12/19/20 12/18/20 History mcg (1,000 unit) capsule dorzolamide 22.3 mg-timolol 6.8 1 drp OPHTHALMIC (EYE) BID 08/14/20 12/19/20 12/18/20 History mg/mL eye drops fluticasone propionate 110 2 puff PO BID 08/14/20 12/19/20 12/18/20 History mcg/actuation HFA aerosol inhaler latanoprost 0.005 % eye drops 1 drp OPHTHALMIC (EYE) DAILY ml 08/14/20 12/19/20 12/18/20 History tamsulosin 0.4 mg capsule 0.4 mg PO DAILY 08/14/20 12/19/20 12/18/20 History losartan 50 mg PO DAILY 11/04/20 12/19/20 12/18/20 History C,E,zinc,copper 17-swmne6p-jqa 1 cap PO DAILY 12/19/20 12/19/20 12/18/20 History [Ocuvite Adult 50 Plus] Lactobacill 46-B.animal-inulin 1 cap PO DAILY 12/19/20 12/19/20 Unknown History [Probiotic-10 (with inulin)] calcium carb-mag ox-zinc sulf 1 tab PO DAILY 12/19/20 12/19/20 Unknown History Physical Exam Vital Signs: Vital Signs: Last Vital Signs Temp 98.0 F 12/20/20 07:58 Pulse 99 12/20/20 09:47 Resp 17 12/20/20 07:58 BP 143/80 H 12/20/20 09:47 Pulse Ox 92 12/20/20 07:58 Body Mass Index 26.8 GENERAL APPEARANCE: Short of breath. HEENT: unremarkable. HEAD: normocephalic, atraumatic. NECK/THYROID: no carotid bruit, JVD to angle of jaw SKIN: no suspicious lesions, warm and dry. HEART: no murmurs, irregular rate and rhythm, S1, S2 normal. LUNGS: clear to auscultation bilaterally. ABDOMEN: normal, bowel sounds present, soft, nontender, nondistended. EXTREMITIES: no clubbing, cyanosis. 2+ edema. PERIPHERAL PULSES: equal. NEUROLOGIC: nonfocal, alert and oriented. PSYCH: mood/affect full range. Results Labs and Meds Result diagrams: 12/19/20 08:04 12/20/20 05:56 Lab results: Laboratory Results - last 24 hr 12/19/20 12/20/20 10:06 05:56 Sodium 142 Potassium 3.5 Chloride 109 H Carbon Dioxide 24 Anion Gap 13 BUN 19 H Creatinine 0.78 Estim Creat Clear Calc 67.0 Estimated GFR > 60 Random Glucose 135 H Calcium 8.2 L Troponin I High Sens 5.3 Assessment and Plan (1) Atrial fibrillation with rapid ventricular response: Status: Acute (2) CHF (congestive heart failure): Qualifiers: Heart failure chronicity: acute Heart failure type: unspecified Qualified Code(s): I50.9 - Heart failure, unspecified Status: Acute 85-year-old gentleman with background of diastolic heart failure who is presenting with AFib with RVR and congestive heart failure. He was started on Cardizem drip but I do not think he is tolerating the Cardizem well appears very short of breath. I think we should stop the Cardizem. He can stay on the metoprolol and I am starting some digoxin loading dose for him. I am increasing his Lasix to 40 mg IV b.i.d.. He is significantly volume overloaded. He was started on Eliquis. Depending on his response to diuretics and metoprolol digoxin combination we will see whether we can continue a rate control strategy versus rhythm control strategy. If he does not tolerate this strategy or continues to have dyspnea despite diuresis then he may need cardioversion. He will need GAUTAM for that. He had echocardiography in November. I will not repeat transthoracic echo on him at this stage. If he continues to be fast and keep him NPO after midnight because then he may need GAUTAM cardioversion tomorrow. Thank you for allowing me to participate in the care of your patient. Please feel free to contact me if you have any questions.
[2020-12-20] MEDS: Latanoprost 0.005 % Ophth Sol 2.5 ML DROPS 1 DROP EYE-BOTH (11:01)
[2020-12-20] MEDS: Dorzolamide/Timolo 2.23%/0.68% 10 ML DRBTL 1 DROP EYE-BOTH ×2 (11:01→19:32)
[2020-12-20] MEDS: Digoxin 0.5 MG/2 ML AMPUL 0.25 MG IVPUSH ×2 (12:39→17:55)
[2020-12-20] MEDS: Furosemide 20 MG/2 ML VIAL 40 MG IVPUSH ×2 (12:41→17:58)
--- NOTE | 2020-12-20 13:02 | P.PNIM_ITS ---
Subjective Subjective Date of Service: 12/20/20 Interval History: the patient was seen and evaluated this morning Laying in bed, looks in distress, short of breath, tachypneic on oxygen law pplement Denies any fever, chills but reports dyspnea and shortness of breath No reported other overnight events. Systemic review: No fever, chills or weakness Has atrial fibrillation with RVR Reporting shortness of breath or coughing No abdominal pain, nausea or vomiting No urinary symptoms No any rash or wounds Physical Exam Vital Signs: Vital Signs: Last Vital Signs Temp 98.1 F 12/20/20 11:34 Pulse 79 12/20/20 12:47 Resp 16 12/20/20 11:34 BP 113/72 12/20/20 12:47 Pulse Ox 92 12/20/20 11:34 Body Mass Index 26.8 Const: Other: Constitutional : Alert, oriented, not in distress Neck : Normal inspection, Supple Cardiovascular : Irregularly irregular, tachycardia, S1 S2, +2 bilateral lower extremity edema Respiratory : Fair bilateral air entry, basal bilateral crackles, wheezes or rhonchi Gastrointestinal: soft, lax, Normal bowel sounds, Non tender Skin : Warm/Dry, No rash Neurological : Alert & oriented x3, No focal deficit Objective Data Current Medications Generic Name Dose Route Start Last Admin Trade Name Freq PRN Reason Stop Dose Admin Apixaban 5 mg 12/19/20 15:31 12/20/20 09:49 Apixaban 5 Mg Tablet PO 5 mg BID KVNG Administration Atorvastatin Calcium 80 mg 12/19/20 21:00 12/19/20 21:06 Atorvastatin Calcium 80 Mg Tablet PO 80 mg BEDTIME KVNG Administration Digoxin 0.25 mg 12/20/20 11:00 12/20/20 12:39 Digoxin 0.5 Mg/2 Ml Ampul IVPUSH 12/20/20 17:01 0.25 mg Q6H KVNG Administration Digoxin 0.25 mg 12/21/20 09:00 Digoxin 0.25 Mg Tablet PO DAILY KVNG Dorzolamide/Timolol 1 drop 12/19/20 21:00 12/20/20 11:01 Dorzolamide/Timolo 2.23%/0.68% 10 Ml Drbtl EYE-BOTH 1 drop BID KVNG Administration Furosemide 40 mg 12/20/20 11:00 12/20/20 12:41 Furosemide 20 Mg/2 Ml Vial IVPUSH 40 mg BID@0900,1800 KVNG Administration Protocol Latanoprost 1 drop 12/20/20 09:00 12/20/20 11:01 Latanoprost 0.005 % Ophth Susana 2.5 Ml Drops EYE-BOTH 1 drop DAILY K[facility]NG Administration Metoprolol Tartrate 25 mg 12/20/20 09:00 12/20/20 12:47 Metoprolol Tartrate 50 Mg Tablet PO 25 mg QID KVNG Administration Protocol Mirabegron 50 mg 12/20/20 09:00 12/20/20 09:47 Mirabegron 50 Mg Tab.Er.24h PO 50 mg DAILY K[facility]NG Administration Pharmacy Consult 1 each 12/19/20 12:12 Consult Rx Perform Med Rec MISCELLANE ONCE PRN Consult order Sodium Chloride 3 ml 12/19/20 16:00 12/19/20 21:07 0.9 % Sodium Chloride Flush 3 Ml Syringe IVFLUSH 3 ml QSHIFT KVNG Administration Tamsulosin HCl 0.4 mg 12/19/20 21:00 12/19/20 21:06 Tamsulosin Hcl 0.4 Mg Capsule PO 0.4 mg BEDTIME KVNG Administration Vitamin D 50 mcg 12/20/20 09:00 12/20/20 09:45 Cholecalciferol (Vitamin D3) 25 Mcg Tablet PO 50 mcg DAILY KVNG Administration Labs CBC & Chem 7: 12/19/20 08:04 12/20/20 05:56 Assessment and Plan (1) Atrial fibrillation with rapid ventricular response: Status: Acute (2) Acute respiratory failure with hypoxia: Status: Acute (3) Acute diastolic CHF (congestive heart failure): Status: Acute (4) (HFpEF) heart failure with preserved ejection fraction: Status: Acute Assessment and Plan: This is a 85 yo M with a recently diagnosed A. Fib who presents with progressive SOB and is found to be in RVR and acute CHF. Acute Respiratory Failure with hypoxia Acute Diastolic CHF Still requiring oxygen supplement to keep sats in 90s Wean down as tolerated Increase Lasix to 40 mg b.i.d. Last Echo showing preserved EF Monitor intake and output Cardiology input appreciated, will try medications otherwise will consider cardioversion To keep NPO overnight A Fib with RVR Discontinue Cardizem drip Start digoxin loading dose Start metoprolol 25 q.i.d. Continue Eliquis Given telemetry HTN Restart metoprolol Continue to hold norvsasc, losartan HLD Atorvastatin DVT ppx - Eliquis
[2020-12-20 16:33] LABS: B Type Natriuretic Peptide 371 pg/mL (<100)
[2020-12-20] MEDS: 0.9 % Sodium Chloride Flush 3 ML SYRINGE IVFLUSH ×2 (17:53→19:28)
[2020-12-20] MEDS: polyethylene glycoL 3350 17 GM POWD.PACK PO (18:37)
[2020-12-20] MEDS: Tamsulosin HCL 0.4 MG CAPSULE PO (19:28)
[2020-12-20] MEDS: Atorvastatin Calcium 80 MG TABLET PO (19:28)
[2020-12-20] MEDS: Haloperidol Lactate 5 MG/ML VIAL 2.5 MG IVPUSH (23:10)
[2020-12-21] VITALS (14 sets, daily range): BP systolic 126–165; BP diastolic 65–83; PULSE 75–126; RESP 14–22; TEMP 36–37.1; O2SAT 90–94
--- NOTE | 2020-12-21 01:39 | P.EN_ITS ---
Event Note Date of Service: 12/21/20 Event Note: Patient developed respiratory distress requiring increased O2 from 4 L to 10 L. he has wheezing. Will order a stat chest x-ray portable, order Solu- Medrol given his history of COPD, receiving Xopenex for wheezing. Patient is also in AFib with RVR, will attempt initially to control this rate with metoprolol IV pushes
--- NOTE | 2020-12-21 01:41 | PM.EVENT ---
Event Note Date of Service: 12/21/20 Event Note: Patient developed fever
[2020-12-21] MEDS: Metoprolol Tartrate 5 MG/5 ML VIAL 2.5 MG IVPUSH (02:05)
[2020-12-21] MEDS: methylPREDNISolone Sod Succ 40 MG/ML VIAL IVPUSH ×2 (02:06→15:11)
[2020-12-21 07:11] LABS: Anion Gap 14 (12-20); Blood Urea Nitrogen 19 mg/dL (9-16); Calcium 8.4 mg/dL (8.4-10.2); Carbon Dioxide 26 mmol/L (22-29); Chloride 108 mmol/L (96-108); Creatinine Clr Calc Pharmacy 69.7; Estimated Glomerular Filt Rate > 60; Glucose Random 140 mg/dL (60-115); Potassium 3.6 mmol/L (3.3-5.1); Sodium 144 mmol/L (135-145)
[2020-12-21] MEDS: Cholecalciferol (Vitamin D3) 25 MCG TABLET 50 MCG PO (09:37)
[2020-12-21] MEDS: Metoprolol Tartrate 50 MG TABLET 25 MG PO ×4 (09:38→19:59)
[2020-12-21] MEDS: Mirabegron 50 MG TAB.ER.24H PO (09:38)
[2020-12-21] MEDS: Digoxin 0.25 MG TABLET PO (09:39)
[2020-12-21] MEDS: Furosemide 20 MG/2 ML VIAL 40 MG IVPUSH (09:40)
[2020-12-21] MEDS: Apixaban 5 MG TABLET PO ×2 (09:40→20:34)
[2020-12-21] MEDS: 0.9 % Sodium Chloride Flush 3 ML SYRINGE IVFLUSH ×2 (09:42→15:11)
[2020-12-21] MEDS: Dorzolamide/Timolo 2.23%/0.68% 10 ML DRBTL 1 DROP EYE-BOTH ×2 (09:46→20:03)
[2020-12-21] MEDS: Latanoprost 0.005 % Ophth Sol 2.5 ML DROPS 1 DROP EYE-BOTH (09:46)
--- NOTE | 2020-12-21 11:27 | MHC.CM.PN ---
PER PHYSICIAN ROUNDS, PATIENT REMAINS ON IV MEDICATION. PLAN IS FOR TWO MORE DAYS HERE AND THEN DISCHARGE; LIKELY THURSDAY.
--- NOTE | 2020-12-21 11:49 | P.PNIM_ITS ---
Subjective Subjective Date of Service: 12/21/20 Interval History: the patient was seen and evaluated this morning Laying in bed, still short of breath, he tachypneic and requiring oxygen s upplement Heart rate better controlled but still running up to 100s a Denies any fever, chills but reports dyspnea and shortness of breath No reported other overnight events. Systemic review: No fever, chills or weakness Has atrial fibrillation with RVR Reporting shortness of breath or coughing No abdominal pain, nausea or vomiting No urinary symptoms No any rash or wounds Physical Exam Vital Signs: Vital Signs: Last Vital Signs Temp 98.7 F 12/21/20 11:40 Pulse 98 12/21/20 11:40 Resp 19 12/21/20 11:40 BP 144/65 H 12/21/20 11:40 Pulse Ox 94 12/21/20 11:40 Body Mass Index 26.8 Const: Other: Constitutional : Alert, oriented, not in distress Neck : Normal inspection, Supple Cardiovascular : Irregularly irregular, tachycardia, S1 S2, +2 bilateral lower extremity edema Respiratory : Fair bilateral air entry, basal bilateral crackles, wheezes or rhonchi Gastrointestinal: soft, lax, Normal bowel sounds, Non tender Skin : Warm/Dry, No rash Neurological : Alert & oriented x3, No focal deficit Objective Data Current Medications Generic Name Dose Route Start Last Admin Trade Name Pardeepq PRN Reason Stop Dose Admin Apixaban 5 mg 12/19/20 15:31 12/21/20 09:40 Apixaban 5 Mg Tablet PO 5 mg BID KVNG Administration Atorvastatin Calcium 80 mg 12/19/20 21:00 12/20/20 19:28 Atorvastatin Calcium 80 Mg Tablet PO 80 mg BEDTIME KVNG Administration Digoxin 0.25 mg 12/21/20 09:00 12/21/20 09:39 Digoxin 0.25 Mg Tablet PO 0.25 mg DAILY KVNG Administration Dorzolamide/Timolol 1 drop 12/19/20 21:00 12/21/20 09:46 Dorzolamide/Timolo 2.23%/0.68% 10 Ml Drbtl EYE-BOTH 1 drop BID KVNG Administration Furosemide 80 mg 12/21/20 18:00 Furosemide 20 Mg/2 Ml Vial IVPUSH BID@0900,1800 [facility] Protocol Latanoprost 1 drop 12/20/20 09:00 12/21/20 09:46 Latanoprost 0.005 % Ophth Susana 2.5 Ml Drops EYE-BOTH 1 drop DAILY KVNG Administration Levalbuterol HCl 1.25 mg 12/20/20 17:28 12/21/20 01:40 Levalbuterol Hcl 1.25 Mg/0.5 Ml Vial.Neb INHALE 1.25 mg Q4H PRN Administration Shortness of Breath Methylprednisolone Sodium Succinate 40 mg 12/21/20 02:00 12/21/20 02:06 Methylprednisolone Sod Succ 40 Mg/Ml Vial IVPUSH 40 mg Q12H KVNG Administration Metoprolol Tartrate 25 mg 12/20/20 09:00 12/21/20 09:38 Metoprolol Tartrate 50 Mg Tablet PO 25 mg QID KVNG Administration Protocol Mirabegron 50 mg 12/20/20 09:00 12/21/20 09:38 Mirabegron 50 Mg Tab.Er.24h PO 50 mg DAILY K[facility]NG Administration Pharmacy Consult 1 each 12/19/20 12:12 Consult Rx Perform Med Rec MISCELLANE ONCE PRN Consult order Sodium Chloride 3 ml 12/19/20 16:00 12/21/20 09:42 0.9 % Sodium Chloride Flush 3 Ml Syringe IVFLUSH 3 ml QSHIFT KVNG Administration Tamsulosin HCl 0.4 mg 12/19/20 21:00 12/20/20 19:28 Tamsulosin Hcl 0.4 Mg Capsule PO 0.4 mg BEDTIME KVNG Administration Vitamin D 50 mcg 12/20/20 09:00 12/21/20 09:37 Cholecalciferol (Vitamin D3) 25 Mcg Tablet PO 50 mcg DAILY KVNG Administration Labs CBC & Chem 7: 12/19/20 08:04 12/21/20 06:06 Assessment and Plan (1) Atrial fibrillation with rapid ventricular response: Status: Acute (2) Acute respiratory failure with hypoxia: Status: Acute (3) Acute diastolic CHF (congestive heart failure): Status: Acute (4) (HFpEF) heart failure with preserved ejection fraction: Status: Acute Assessment and Plan: This is a 85 yo M with a recently diagnosed A. Fib who presents with progressive SOB and is found to be in RVR and acute CHF. Acute Respiratory Failure with hypoxia Acute Diastolic CHF Still requiring oxygen supplement to keep sats in 90s Wean down as tolerated Increase Lasix to 80 mg b.i.d. Last Echo showing preserved EF Monitor intake and output Cardiology input appreciated, hold on cardioversion To try BiPAP at night A Fib with RVR Discontinue Cardizem drip Continue Digoxin Continue metoprolol 25 q.i.d. Continue Eliquis Given telemetry HTN Restart metoprolol Continue to hold norvsasc, losartan HLD Atorvastatin DVT ppx Eliquis
[2020-12-21] MEDS: Furosemide 40 MG/4 ML VIAL IVPUSH (12:23)
--- NOTE | 2020-12-21 14:25 | PM.PNCARD ---
Subjective Subjective Date of Service: 12/21/20 Principal diagnosis: CHF, afib Interval history: Cardiology follow up for CHF, afib. Seen at 0845. Today he is observed in bed, mostly sleepy, [place], difficult to awaken. Able to say no when asked if having sob, chest pains, palpitations. Falls back to sleep quickly. Review of Systems Review of Systems Yes Unobtainable due to mental condition Physical Exam Vital Signs: Last Vital Signs Temp 98.7 F 12/21/20 11:40 Pulse 98 12/21/20 12:23 Resp 19 12/21/20 11:40 BP 144/65 H 12/21/20 12:23 Pulse Ox 94 12/21/20 11:40 Body Mass Index 26.8 Const Other: Arousable, note to be [place], no noted discomfort, falls asleep again Neck Other: mild JVD, no bruit Resp Other: Seems unlabored, wearing O2 with cannula, lips have cyanotic color. Rales noted bilaterally Effort & Inspection: normal respiratory effort Auscultation: no rhonchi and no wheezes Cardio Jugular venous distension: no JVD and JVD Rhythm: abnormal rhythm (irregularly, irregular) Heart sounds: S1 normal heart sound present, S2 normal heart sound present, Gallop heart sound present, Murmur heart sound present and Rub heart sound present GI Inspection: Yes normal to inspection Skin Other: nails dusky Extrem Other: Pitting edema in lower extremeties. Results Labs and Meds Result diagrams: 12/19/20 08:04 12/21/20 06:06 Lab results: Laboratory Results - last 24 hr 12/20/20 12/21/20 15:44 06:06 Sodium 144 Potassium 3.6 Chloride 108 Carbon Dioxide 26 Anion Gap 14 BUN 19 H Creatinine 0.75 Estim Creat Clear Calc 69.7 Estimated GFR > 60 Random Glucose 140 H Calcium 8.4 B-Natriuretic Peptide 371 H Imaging Radiologist's impression: Impressions Chest X-Ray 12/21/20 02:00 IMPRESSION: Findings suspicious for worsening vascular congestion and interstitial edema. Progress Note: A&P Assessment and plan (1) Acute diastolic CHF (congestive heart failure): Status: Acute Assessment and Plan: HFpEF. Last echo 12/07/19 with EF 55-60%, mild biatrial enlargement, no signif valve abn. Being diuresed with IV lasix with neg fluid balance only 242cc since admit. CXR done during the night shows increased vascular congestion. Currently on 5iters with cannula and Sat 94% however Lips and nail beds have dusky appearance. He is sleepy, arouses and falls back asleep. He has noted JVD, rales and edema on exam. He needs more aggressive diuresis: will increase Lasix to 80mg BID. Recommend use of Bipap for few hours to help with oxygenation and vascular congestion. Hospitalist notified. Strict I+O monitoring, close monitoring of electrolyte and kidney function. Electrolyte replacement as warranted. Consider reducing BB if he is not improving. We will follow (2) Acute respiratory failure with hypoxia: Status: Acute (3) Atrial fibrillation with rapid ventricular response: Status: Acute Assessment and Plan: New finding of afib RVR this admit. Being treated with rate control at present. On Metoprolol 25mg QID. Tele shows afib rates 98-120s. He was started on Eliquis. Cr 0.75. GAUTAM was considered however HF not controlled at present. May still need GAUTAM CVR when HF / condition improves. Ongoing tele monitoring. (4) CAD (coronary artery disease): Problem details: Drug-eluting stent RCA April 2015, echo October 2018 65-70% with grade 1 diastolic dysfunction mild TR Status: Acute Assessment and Plan: No report or indication of chest pains. Continue Metoprolol, Atorvastatin. No aspirin as he is now on Eliquis. Fall Risk Details Current Medications: Current Medications Generic Name Dose Route Start Last Admin Trade Name Freq PRN Reason Stop Dose Admin Apixaban 5 mg 12/19/20 15:31 12/21/20 09:40 Apixaban 5 Mg Tablet PO 5 mg BID KVNG Administration Atorvastatin Calcium 80 mg 12/19/20 21:00 12/20/20 19:28 Atorvastatin Calcium 80 Mg Tablet PO 80 mg BEDTIME KVNG Administration Digoxin 0.25 mg 12/21/20 09:00 12/21/20 09:39 Digoxin 0.25 Mg Tablet PO 0.25 mg DAILY KVNG Administration Dorzolamide/Timolol 1 drop 12/19/20 21:00 12/21/20 09:46 Dorzolamide/Timolo 2.23%/0.68% 10 Ml Drbtl EYE-BOTH 1 drop BID KVNG Administration Furosemide 80 mg 12/21/20 18:00 Furosemide 20 Mg/2 Ml Vial IVPUSH BID@0900,1800 [facility] Protocol Latanoprost 1 drop 12/20/20 09:00 12/21/20 09:46 Latanoprost 0.005 % Ophth Susana 2.5 Ml Drops EYE-BOTH 1 drop DAILY KVNG Administration Levalbuterol HCl 1.25 mg 12/20/20 17:28 12/21/20 01:40 Levalbuterol Hcl 1.25 Mg/0.5 Ml Vial.Neb INHALE 1.25 mg Q4H PRN Administration Shortness of Breath Methylprednisolone Sodium Succinate 40 mg 12/21/20 02:00 12/21/20 02:06 Methylprednisolone Sod Succ 40 Mg/Ml Vial IVPUSH 40 mg Q12H KVNG Administration Metoprolol Tartrate 25 mg 12/20/20 09:00 12/21/20 12:23 Metoprolol Tartrate 50 Mg Tablet PO 25 mg QID KVNG Administration Protocol Mirabegron 50 mg 12/20/20 09:00 12/21/20 09:38 Mirabegron 50 Mg Tab.Er.24h PO 50 mg DAILY KVNG Administration Pharmacy Consult 1 each 12/19/20 12:12 Consult Rx Perform Med Rec MISCELLANE ONCE PRN Consult order Sodium Chloride 3 ml 12/19/20 16:00 12/21/20 09:42 0.9 % Sodium Chloride Flush 3 Ml Syringe IVFLUSH 3 ml QSHIFT KVNG Administration Tamsulosin HCl 0.4 mg 12/19/20 21:00 12/20/20 19:28 Tamsulosin Hcl 0.4 Mg Capsule PO 0.4 mg BEDTIME KVNG Administration Vitamin D 50 mcg 12/20/20 09:00 12/21/20 09:37 Cholecalciferol (Vitamin D3) 25 Mcg Tablet PO 50 mcg DAILY KVNG Administration Time Spent With Patient Time: Total time spent is greater than 50% in coordination of care (as documented) at patient's floor/unit and/or counseling patient: 20 Time with patient: 15 - 24 minutes
[2020-12-21] MEDS: Furosemide 20 MG/2 ML VIAL 80 MG IVPUSH (18:03)
[2020-12-21] MEDS: Atorvastatin Calcium 80 MG TABLET PO (20:01)
[2020-12-21] MEDS: Tamsulosin HCL 0.4 MG CAPSULE PO (20:01)
[2020-12-22] VITALS (11 sets, daily range): BP systolic 119–149; BP diastolic 67–80; PULSE 83–100; RESP 14–22; TEMP 35.6–36.5; O2SAT 92–98; BMI 24.3
[2020-12-22] MEDS: 0.9 % Sodium Chloride Flush 3 ML SYRINGE IVFLUSH ×4 (01:59→20:08)
[2020-12-22] MEDS: methylPREDNISolone Sod Succ 40 MG/ML VIAL IVPUSH (02:00)
[2020-12-22 07:38] LABS: Anion Gap 12 (12-20); B Type Natriuretic Peptide 444 pg/mL (<100); Blood Urea Nitrogen 29 mg/dL (9-16); Calcium 8.2 mg/dL (8.4-10.2); Carbon Dioxide 27 mmol/L (22-29); Chloride 108 mmol/L (96-108); Creatinine Clr Calc Pharmacy 63.8; Estimated Glomerular Filt Rate > 60; Glucose Random 174 mg/dL (60-115); Potassium 3.4 mmol/L (3.3-5.1); Sodium 144 mmol/L (135-145)
[2020-12-22] MEDS: Furosemide 20 MG/2 ML VIAL 80 MG IVPUSH ×2 (08:37→17:03)
[2020-12-22] MEDS: Mirabegron 50 MG TAB.ER.24H PO (08:37)
[2020-12-22] MEDS: Metoprolol Tartrate 50 MG TABLET 25 MG PO ×4 (08:37→20:06)
[2020-12-22] MEDS: Digoxin 0.25 MG TABLET PO (08:39)
[2020-12-22] MEDS: Apixaban 5 MG TABLET PO ×2 (08:39→20:06)
[2020-12-22] MEDS: predniSONE 20 MG TABLET 40 MG PO (08:39)
[2020-12-22] MEDS: Cholecalciferol (Vitamin D3) 25 MCG TABLET 50 MCG PO (08:39)
[2020-12-22] MEDS: metOLazone 2.5 MG TABLET PO (09:44)
--- NOTE | 2020-12-22 10:38 | HO.PM.IMPN ---
Subjective Subjective Date of Service: 12/22/20 Interval History: the patient was seen and evaluated this morning Laying in bed, still short of breath, a but reports feeling better Heart rate better controlled but still running up to 100s Oxygen saturation drops to 80s with minimal exertion, still on oxygen requirement Denies any fever, chills but reports dyspnea and shortness of breath No reported other overnight events. Systemic review: No fever, chills or weakness Has atrial fibrillation with RVR Reporting shortness of breath or coughing No abdominal pain, nausea or vomiting No urinary symptoms No any rash or wounds Physical Exam Vital Signs: Vital Signs: Last Vital Signs Temp 97.4 F 12/22/20 07:53 Pulse 98 12/22/20 08:39 Resp 20 12/22/20 07:53 BP 147/67 H 12/22/20 08:37 Pulse Ox 95 12/22/20 07:53 Body Mass Index 26.8 Const: Other: Constitutional : Alert, oriented, not in distress Neck : Normal inspection, Supple Cardiovascular : Irregularly irregular, tachycardia, S1 S2, +1 bilateral lower extremity edema Respiratory : Fair bilateral air entry, basal bilateral crackles, wheezes or rhonchi Gastrointestinal: soft, lax, Normal bowel sounds, Non tender Skin : Warm/Dry, No rash Neurological : Alert & oriented x3, No focal deficit Objective Data Current Medications Generic Name Dose Route Start Last Admin Trade Name Freq PRN Reason Stop Dose Admin Acetaminophen 650 mg 12/22/20 10:09 Acetaminophen 325 Mg Tablet PO Q6H PRN Pain, Mild (Pain Scale 1-3) Apixaban 5 mg 12/19/20 15:31 12/22/20 08:39 Apixaban 5 Mg Tablet PO 5 mg BID KVNG Administration Atorvastatin Calcium 80 mg 12/19/20 21:00 12/21/20 20:01 Atorvastatin Calcium 80 Mg Tablet PO 80 mg BEDTIME KVNG Administration Digoxin 0.25 mg 12/21/20 09:00 12/22/20 08:39 Digoxin 0.25 Mg Tablet PO 0.25 mg DAILY KVNG Administration Dorzolamide/Timolol 1 drop 12/19/20 21:00 12/21/20 20:03 Dorzolamide/Timolo 2.23%/0.68% 10 Ml Drbtl EYE-BOTH 1 drop BID KVNG Administration Furosemide 80 mg 12/21/20 18:00 12/22/20 08:37 Furosemide 20 Mg/2 Ml Vial IVPUSH 80 mg BID@0900,1800 KVNG Administration Protocol Latanoprost 1 drop 12/20/20 09:00 12/21/20 09:46 Latanoprost 0.005 % Ophth Susana 2.5 Ml Drops EYE-BOTH 1 drop DAILY KVNG Administration Levalbuterol HCl 1.25 mg 12/20/20 17:28 12/21/20 01:40 Levalbuterol Hcl 1.25 Mg/0.5 Ml Vial.Neb INHALE 1.25 mg Q4H PRN Administration Shortness of Breath Metoprolol Tartrate 25 mg 12/20/20 09:00 12/22/20 08:37 Metoprolol Tartrate 50 Mg Tablet PO 25 mg QID KVNG Administration Protocol Mirabegron 50 mg 12/20/20 09:00 12/22/20 08:37 Mirabegron 50 Mg Tab.Er.24h PO 50 mg DAILY KVNG Administration Pharmacy Consult 1 each 12/19/20 12:12 Consult Rx Perform Med Rec MISCELLANE ONCE PRN Consult order Prednisone 40 mg 12/22/20 09:00 12/22/20 08:39 Prednisone 20 Mg Tablet PO 12/24/20 09:01 40 mg DAILY KVNG Administration Sodium Chloride 3 ml 12/19/20 16:00 12/22/20 08:41 0.9 % Sodium Chloride Flush 3 Ml Syringe IVFLUSH 3 ml QSHIFT KVNG Administration Tamsulosin HCl 0.4 mg 12/19/20 21:00 12/21/20 20:01 Tamsulosin Hcl 0.4 Mg Capsule PO 0.4 mg BEDTIME KVNG Administration Vitamin D 50 mcg 12/20/20 09:00 12/22/20 08:39 Cholecalciferol (Vitamin D3) 25 Mcg Tablet PO 50 mcg DAILY KVNG Administration Labs CBC & Chem 7: 12/19/20 08:04 12/22/20 06:50 Assessment and Plan (1) Atrial fibrillation with rapid ventricular response: Status: Acute (2) Acute respiratory failure with hypoxia: Status: Acute (3) Acute diastolic CHF (congestive heart failure): Status: Acute (4) (HFpEF) heart failure with preserved ejection fraction: Status: Acute Assessment and Plan: This is a 85 yo M with a recently diagnosed A. Fib who presents with progressive SOB and is found to be in RVR and acute CHF. Acute Respiratory Failure with hypoxia Acute Diastolic CHF Still requiring oxygen supplement to keep sats in 90s Wean down as tolerated Received a dose of metolazone this morning Continue Lasix to 80 mg b.i.d. Last Echo showing preserved EF Monitor intake and output Cardiology input appreciated, hold on cardioversion for now and continue with diuresis and beta-demar A Fib with RVR Discontinue Cardizem drip Continue Digoxin Continue metoprolol 25 q.i.d. Continue Eliquis Given telemetry HTN Restart metoprolol Continue to hold norvsasc, losartan HLD Atorvastatin DVT ppx Eliquis
[2020-12-22] MEDS: Dorzolamide/Timolo 2.23%/0.68% 10 ML DRBTL 1 DROP EYE-BOTH ×2 (10:55→20:08)
[2020-12-22] MEDS: Latanoprost 0.005 % Ophth Sol 2.5 ML DROPS 1 DROP EYE-BOTH (10:55)
[2020-12-22] MEDS: Acetaminophen 325 MG TABLET 650 MG PO (10:57)
[2020-12-22 12:04] LABS: Magnesium 2.4 mg/dL (1.6-2.6)
--- NOTE | 2020-12-22 14:02 | P.PNCA_ITS ---
Subjective Subjective Date of Service: 12/22/20 Principal diagnosis: CHF, afib Interval history: Looks better. Still SOB. Review of Systems Review of Systems SOB Yes all other systems are reviewed and are negative Physical Exam Vital Signs: Last Vital Signs Temp 97.0 F 12/22/20 11:23 Pulse 93 12/22/20 13:25 Resp 18 12/22/20 11:23 BP 126/76 12/22/20 13:25 Pulse Ox 98 12/22/20 11:23 Body Mass Index 26.8 GENERAL APPEARANCE: Short of breath. HEENT: unremarkable. HEAD: normocephalic, atraumatic. NECK/THYROID: no carotid bruit, Mild JVD SKIN: no suspicious lesions, warm and dry. HEART: no murmurs, irregular rate and rhythm, S1, S2 normal. LUNGS: clear to auscultation bilaterally. ABDOMEN: normal, bowel sounds present, soft, nontender, nondistended. EXTREMITIES: no clubbing, cyanosis. mild edema. PERIPHERAL PULSES: equal. NEUROLOGIC: nonfocal, alert and oriented. PSYCH: mood/affect full range. Results Labs and Meds Result diagrams: 12/19/20 08:04 12/22/20 06:50 Lab results: Laboratory Results - last 24 hr 12/22/20 12/22/20 06:50 06:50 Sodium 144 Potassium 3.4 Chloride 108 Carbon Dioxide 27 Anion Gap 12 BUN 29 H D Creatinine 0.82 Estim Creat Clear Calc 63.8 Estimated GFR > 60 Random Glucose 174 H Calcium 8.2 L Magnesium 2.4 B-Natriuretic Peptide 444 H Progress Note: A&P Assessment and plan (1) Acute diastolic CHF (congestive heart failure): Status: Acute (2) Atrial fibrillation with rapid ventricular response: Status: Acute Assessment and Plan: 85-year-old male with diastolic CHF and Afib. Rates better controlled. c/w Metoprolol. Digoxin changed to 0.125 mg q 48 hours. Continue IV diuretics. We will follow along with you. Fall Risk Details Current Medications: Current Medications Generic Name Dose Route Start Last Admin Trade Name Freq PRN Reason Stop Dose Admin Acetaminophen 650 mg 12/22/20 10:09 12/22/20 10:57 Acetaminophen 325 Mg Tablet PO 650 mg Q6H PRN Administration Pain, Mild (Pain Scale 1-3) Apixaban 5 mg 12/19/20 15:31 12/22/20 08:39 Apixaban 5 Mg Tablet PO 5 mg BID KVNG Administration Atorvastatin Calcium 80 mg 12/19/20 21:00 12/21/20 20:01 Atorvastatin Calcium 80 Mg Tablet PO 80 mg BEDTIME KVNG Administration Digoxin 0.25 mg 12/21/20 09:00 12/22/20 08:39 Digoxin 0.25 Mg Tablet PO 0.25 mg DAILY KVNG Administration Dorzolamide/Timolol 1 drop 12/19/20 21:00 12/22/20 10:55 Dorzolamide/Timolo 2.23%/0.68% 10 Ml Drbtl EYE-BOTH 1 drop BID KVNG Administration Furosemide 80 mg 12/21/20 18:00 12/22/20 08:37 Furosemide 20 Mg/2 Ml Vial IVPUSH 80 mg BID@0900,1800 KVNG Administration Protocol Latanoprost 1 drop 12/20/20 09:00 12/22/20 10:55 Latanoprost 0.005 % Ophth Susana 2.5 Ml Drops EYE-BOTH 1 drop DAILY KVNG Administration Levalbuterol HCl 1.25 mg 12/20/20 17:28 12/21/20 01:40 Levalbuterol Hcl 1.25 Mg/0.5 Ml Vial.Neb INHALE 1.25 mg Q4H PRN Administration Shortness of Breath Metoprolol Tartrate 25 mg 12/20/20 09:00 12/22/20 13:25 Metoprolol Tartrate 50 Mg Tablet PO 25 mg QID KVNG Administration Protocol Mirabegron 50 mg 12/20/20 09:00 12/22/20 08:37 Mirabegron 50 Mg Tab.Er.24h PO 50 mg DAILY KVNG Administration Pharmacy Consult 1 each 12/19/20 12:12 Consult Rx Perform Med Rec MISCELLANE ONCE PRN Consult order Prednisone 40 mg 12/22/20 09:00 12/22/20 08:39 Prednisone 20 Mg Tablet PO 12/24/20 09:01 40 mg DAILY KVNG Administration Sodium Chloride 3 ml 12/19/20 16:00 12/22/20 08:41 0.9 % Sodium Chloride Flush 3 Ml Syringe IVFLUSH 3 ml QSHIFT KVNG Administration Tamsulosin HCl 0.4 mg 12/19/20 21:00 12/21/20 20:01 Tamsulosin Hcl 0.4 Mg Capsule PO 0.4 mg BEDTIME KVNG Administration Vitamin D 50 mcg 12/20/20 09:00 12/22/20 08:39 Cholecalciferol (Vitamin D3) 25 Mcg Tablet PO 50 mcg DAILY KVNG Administration Time Spent With Patient Time: Total time spent is greater than 50% in coordination of care (as document ed) at patient's floor/unit and/or counseling patient: Time with patient: 15 - 24 minutes
[2020-12-22 14:32] LABS: B Type Natriuretic Peptide 632 pg/mL (<100)
[2020-12-22] MEDS: Tamsulosin HCL 0.4 MG CAPSULE PO (20:06)
[2020-12-22] MEDS: Atorvastatin Calcium 80 MG TABLET PO (20:07)
[2020-12-23] VITALS (8 sets, daily range): BP systolic 99–139; BP diastolic 58–82; PULSE 75–93; RESP 12–22; TEMP 35.8–36.7; O2SAT 93–97
[2020-12-23 07:20] LABS: Anion Gap 12 (12-20); Blood Urea Nitrogen 38 mg/dL (9-16); Calcium 8.8 mg/dL (8.4-10.2); Carbon Dioxide 36 mmol/L (22-29); Chloride 99 mmol/L (96-108); Creatinine Clr Calc Pharmacy 53.3; Estimated Glomerular Filt Rate > 60; Glucose Random 149 mg/dL (60-115); Sodium 144 mmol/L (135-145)
[2020-12-23] MEDS: Metoprolol Tartrate 50 MG TABLET 25 MG PO (08:33)
[2020-12-23] MEDS: Apixaban 5 MG TABLET PO ×2 (08:34→21:18)
[2020-12-23] MEDS: Mirabegron 50 MG TAB.ER.24H PO (08:34)
[2020-12-23] MEDS: predniSONE 20 MG TABLET 40 MG PO (08:35)
[2020-12-23] MEDS: Cholecalciferol (Vitamin D3) 25 MCG TABLET 50 MCG PO (08:35)
[2020-12-23] MEDS: Furosemide 20 MG/2 ML VIAL 80 MG IVPUSH (08:37)
[2020-12-23] MEDS: Potassium Chloride ER 20 MEQ TAB.ER.PRT 40 MEQ PO ×2 (08:37→17:27)
[2020-12-23] MEDS: 0.9 % Sodium Chloride Flush 3 ML SYRINGE IVFLUSH ×3 (08:43→21:19)
[2020-12-23] MEDS: Latanoprost 0.005 % Ophth Sol 2.5 ML DROPS 1 DROP EYE-BOTH (08:46)
[2020-12-23] MEDS: Dorzolamide/Timolo 2.23%/0.68% 10 ML DRBTL 1 DROP EYE-BOTH ×2 (08:46→21:19)
[2020-12-23] MEDS: Digoxin 0.125 MG TABLET PO (08:48)
--- NOTE | 2020-12-23 10:21 | HO.PM.IMPN ---
Subjective Subjective Date of Service: 12/23/20 Interval History: the patient was seen and evaluated this morning Laying in bed, feels much better today, heart rate better controlled still on oxygen requirement for hypoxia on room Denies any fever, chills but reports dyspnea and shortness of breath with exertion No reported other overnight events. Systemic review: No fever, chills or weakness Has atrial fibrillation with RVR Reporting shortness of breath or coughing No abdominal pain, nausea or vomiting No urinary symptoms No any rash or wounds Physical Exam Vital Signs: Vital Signs: Last Vital Signs Temp 97.2 F 12/23/20 07:17 Pulse 85 12/23/20 08:33 Resp 21 H 12/23/20 07:17 BP 120/70 12/23/20 08:33 Pulse Ox 95 12/23/20 07:17 Body Mass Index 24.3 Const: Other: Constitutional : Alert, oriented, not in distress Neck : Normal inspection, Supple Cardiovascular : Irregularly irregular, rate controlled, S1 S2, trace bilateral lower extremity edema Respiratory : Fair bilateral air entry, fine basal bilateral crackles, wheezes or rhonchi Gastrointestinal: soft, lax, Normal bowel sounds, Non tender Skin : Warm/Dry, No rash Neurological : Alert & oriented x3, No focal deficit Objective Data Current Medications Generic Name Dose Route Start Last Admin Trade Name Freq PRN Reason Stop Dose Admin Acetaminophen 650 mg 12/22/20 10:09 12/22/20 10:57 Acetaminophen 325 Mg Tablet PO 650 mg Q6H PRN Administration Pain, Mild (Pain Scale 1-3) Apixaban 5 mg 12/19/20 15:31 12/23/20 08:34 Apixaban 5 Mg Tablet PO 5 mg BID KVNG Administration Atorvastatin Calcium 80 mg 12/19/20 21:00 12/22/20 20:07 Atorvastatin Calcium 80 Mg Tablet PO 80 mg BEDTIME KVNG Administration Digoxin 0.125 mg 12/23/20 09:00 12/23/20 08:48 Digoxin 0.125 Mg Tablet PO 0.125 mg Q2D KVNG Administration Dorzolamide/Timolol 1 drop 12/19/20 21:00 12/23/20 08:46 Dorzolamide/Timolo 2.23%/0.68% 10 Ml Drbtl EYE-BOTH 1 drop BID KVNG Administration Furosemide 40 mg 12/23/20 09:00 12/23/20 09:43 Furosemide 20 Mg/2 Ml Vial IVPUSH Not Given BID@0900,1800 KVNG Protocol Latanoprost 1 drop 12/20/20 09:00 12/23/20 08:46 Latanoprost 0.005 % Ophth Susana 2.5 Ml Drops EYE-BOTH 1 drop DAILY KVNG Administration Levalbuterol HCl 1.25 mg 12/20/20 17:28 12/21/20 01:40 Levalbuterol Hcl 1.25 Mg/0.5 Ml Vial.Neb INHALE 1.25 mg Q4H PRN Administration Shortness of Breath Metoprolol Tartrate 25 mg 12/20/20 09:00 12/23/20 08:33 Metoprolol Tartrate 50 Mg Tablet PO 25 mg QID KVNG Administration Protocol Mirabegron 50 mg 12/20/20 09:00 12/23/20 08:34 Mirabegron 50 Mg Tab.Er.24h PO 50 mg DAILY KVNG Administration Pharmacy Consult 1 each 12/19/20 12:12 Consult Rx Perform Med Rec MISCELLANE ONCE PRN Consult order Prednisone 40 mg 12/22/20 09:00 12/23/20 08:35 Prednisone 20 Mg Tablet PO 12/24/20 09:01 40 mg DAILY KVNG Administration Sodium Chloride 3 ml 12/19/20 16:00 12/23/20 08:43 0.9 % Sodium Chloride Flush 3 Ml Syringe IVFLUSH 3 ml QSHIFT KVNG Administration Tamsulosin HCl 0.4 mg 12/19/20 21:00 12/22/20 20:06 Tamsulosin Hcl 0.4 Mg Capsule PO 0.4 mg BEDTIME KNVG Administration Vitamin D 50 mcg 12/20/20 09:00 12/23/20 08:35 Cholecalciferol (Vitamin D3) 25 Mcg Tablet PO 50 mcg DAILY KVNG Administration Labs CBC & Chem 7: 12/19/20 08:04 12/23/20 06:09 Assessment and Plan (1) Atrial fibrillation with rapid ventricular response: Status: Acute (2) Acute respiratory failure with hypoxia: Status: Acute (3) Acute diastolic CHF (congestive heart failure): Status: Acute (4) (HFpEF) heart failure with preserved ejection fraction: Status: Acute Assessment and Plan: This is a 85 yo M with a recently diagnosed A. Fib who presents with progressive SOB and is found to be in RVR and acute CHF. Acute Respiratory Failure with hypoxia Acute Diastolic CHF Improving Still requiring oxygen supplement to keep sats in 90s Wean down as tolerated Decrease Lasix to 40 IV mg b.i.d. Last Echo showing preserved EF, no need to repeat per Cardiology Monitor intake and output Cardiology input appreciated, hold on cardioversion for now and continue with diuresis and beta-demar A Fib with RVR Discontinue Cardizem drip Continue Digoxin Change metoprolol 25 q.i.d. to 100 mg metoprolol succinate daily Continue Eliquis Given telemetry HTN Continue metoprolol Continue to hold norvsasc, losartan, restart losartan 1st HLD Atorvastatin DVT ppx Eliquis
[2020-12-23 13:07] LABS: B Type Natriuretic Peptide 298 pg/mL (<100)
--- NOTE | 2020-12-23 14:24 | MHC.CM.PN ---
PER REVIEW OF PROGRESS NOTE, PATIENT STILL REQUIRING O2 VIA CANNULA. CASE MANAGEMENT CONTINUING TO FOLLOW FOR DISCHARGE NEEDS.
--- NOTE | 2020-12-23 15:56 | PM.PNCARD ---
Subjective Subjective Date of Service: 12/23/20 Principal diagnosis: CHF, afib Interval history: Still short of breath. Breathing is improved but not completely. Review of Systems Review of Systems Short of breath Yes all other systems are reviewed and are negative Physical Exam Vital Signs: Last Vital Signs Temp 96.4 F L 12/23/20 15:31 Pulse 81 12/23/20 15:31 Resp 18 12/23/20 15:31 BP 120/78 12/23/20 15:31 Pulse Ox 97 12/23/20 15:31 Body Mass Index 24.3 GENERAL APPEARANCE: Short of breath. HEENT: unremarkable. HEAD: normocephalic, atraumatic. NECK/THYROID: no carotid bruit, no obvious JVD SKIN: no suspicious lesions, warm and dry. HEART: no murmurs, irregular rate and rhythm, S1, S2 normal. LUNGS: clear to auscultation bilaterally. ABDOMEN: normal, bowel sounds present, soft, nontender, nondistended. EXTREMITIES: no clubbing, cyanosis. 1+ edema at ankles. PERIPHERAL PULSES: equal. NEUROLOGIC: nonfocal, alert and oriented. PSYCH: mood/affect full range. Results Labs and Meds Result diagrams: 12/19/20 08:04 12/23/20 06:09 Lab results: Laboratory Results - last 24 hr 12/23/20 12/23/20 06:09 12:24 Sodium 144 Potassium 3.0 L Chloride 99 Carbon Dioxide 36 H Anion Gap 12 BUN 38 H Creatinine 0.98 Estim Creat Clear Calc 53.3 Estimated GFR > 60 Random Glucose 149 H Calcium 8.8 D B-Natriuretic Peptide 298 H Progress Note: A&P Assessment and plan (1) Acute diastolic CHF (congestive heart failure): Status: Acute (2) Atrial fibrillation with rapid ventricular response: Status: Acute Assessment and Plan: 85-year-old gentleman presenting with dyspnea and congestive heart failure. He is in new onset atrial fibrillation. With digoxin and metoprolol combination his heart rate controlled much better. He still is quite short of breath. Volume status mai he has improved and is close to euvolemic now. I will give him 1 more dose of IV diuretics in the afternoon and changing to p.o. diuretics tomorrow. If he continues to be short of breath and this is likely due to atrial fibrillation itself. I think we may have to consider a GAUTAM cardioversion if he continues to be short of breath despite aggressive diuresis. He is on digoxin and is hypokalemic. This increases the risk of digitoxicity. He was given 40 mg of potassium chloride in the morning. I am giving him another dose of that. I have changed him to p.o. Lasix from tomorrow morning. We will reassess him and then decide whether he needs to be cardioverted or not. Thank you for allowing me to participate in the care of your patient. Please feel free to contact me if you have any questions. Fall Risk Details Current Medications: Current Medications Generic Name Dose Route Start Last Admin Trade Name Freq PRN Reason Stop Dose Admin Acetaminophen 650 mg 12/22/20 10:09 12/22/20 10:57 Acetaminophen 325 Mg Tablet PO 650 mg Q6H PRN Administration Pain, Mild (Pain Scale 1-3) Apixaban 5 mg 12/19/20 15:31 12/23/20 08:34 Apixaban 5 Mg Tablet PO 5 mg BID KVNG Administration Atorvastatin Calcium 80 mg 12/19/20 21:00 12/22/20 20:07 Atorvastatin Calcium 80 Mg Tablet PO 80 mg BEDTIME KVNG Administration Digoxin 0.125 mg 12/23/20 09:00 12/23/20 08:48 Digoxin 0.125 Mg Tablet PO 0.125 mg Q2D KVNG Administration Dorzolamide/Timolol 1 drop 12/19/20 21:00 12/23/20 08:46 Dorzolamide/Timolo 2.23%/0.68% 10 Ml Drbtl EYE-BOTH 1 drop BID KVNG Administration Furosemide 40 mg 12/23/20 18:00 Furosemide 40 Mg/4 Ml Vial IVPUSH 12/23/20 18:01 ONCE ONE Protocol Furosemide 40 mg 12/24/20 09:00 Furosemide 40 Mg Tablet PO BID@0900,1800 KVNG Protocol Latanoprost 1 drop 12/20/20 09:00 12/23/20 08:46 Latanoprost 0.005 % Ophth Susana 2.5 Ml Drops EYE-BOTH 1 drop DAILY KVNG Administration Levalbuterol HCl 1.25 mg 12/20/20 17:28 12/21/20 01:40 Levalbuterol Hcl 1.25 Mg/0.5 Ml Vial.Neb INHALE 1.25 mg Q4H PRN Administration Shortness of Breath Metoprolol Succinate 100 mg 12/23/20 10:25 12/23/20 14:14 Metoprolol Succinate Er 100 Mg Tab.Er.24h PO Not Given DAILY KVNG Protocol Mirabegron 50 mg 12/20/20 09:00 12/23/20 08:34 Mirabegron 50 Mg Tab.Er.24h PO 50 mg DAILY KVNG Administration Pharmacy Consult 1 each 12/19/20 12:12 Consult Rx Perform Med Rec MISCELLANE ONCE PRN Consult order Prednisone 40 mg 12/22/20 09:00 12/23/20 08:35 Prednisone 20 Mg Tablet PO 12/24/20 09:01 40 mg DAILY KVNG Administration Sodium Chloride 3 ml 12/19/20 16:00 12/23/20 08:43 0.9 % Sodium Chloride Flush 3 Ml Syringe IVFLUSH 3 ml QSHIFT KVNG Administration Tamsulosin HCl 0.4 mg 12/19/20 21:00 12/22/20 20:06 Tamsulosin Hcl 0.4 Mg Capsule PO 0.4 mg BEDTIME KVNG Administration Vitamin D 50 mcg 12/20/20 09:00 12/23/20 08:35 Cholecalciferol (Vitamin D3) 25 Mcg Tablet PO 50 mcg DAILY KVNG Administration Time Spent With Patient Time: Total time spent is greater than 50% in coordination of care (as documented) at patient's floor/unit and/or counseling patient: Time with patient: 15 - 24 minutes
[2020-12-23] MEDS: Acetaminophen 325 MG TABLET 650 MG PO (17:27)
[2020-12-23] MEDS: Furosemide 40 MG/4 ML VIAL IVPUSH (17:28)
[2020-12-23] MEDS: Tamsulosin HCL 0.4 MG CAPSULE PO (21:18)
[2020-12-23] MEDS: Atorvastatin Calcium 80 MG TABLET PO (21:18)
[2020-12-24] VITALS (8 sets, daily range): BP systolic 99–147; BP diastolic 53–88; PULSE 76–101; RESP 17–20; TEMP 36.1–37.2; O2SAT 93–98
[2020-12-24 06:41] LABS: Anion Gap 11 (12-20); Blood Urea Nitrogen 43 mg/dL (9-16); Calcium 8.4 mg/dL (8.4-10.2); Carbon Dioxide 36 mmol/L (22-29); Chloride 102 mmol/L (96-108); Creatinine Clr Calc Pharmacy 53.9; Estimated Glomerular Filt Rate > 60; Glucose Random 150 mg/dL (60-115); Potassium 3.2 mmol/L (3.3-5.1); Sodium 146 mmol/L (135-145)
[2020-12-24] MEDS: Cholecalciferol (Vitamin D3) 25 MCG TABLET 50 MCG PO (08:48)
[2020-12-24] MEDS: 0.9 % Sodium Chloride Flush 3 ML SYRINGE IVFLUSH ×3 (08:48→20:16)
[2020-12-24] MEDS: Metoprolol Succinate ER 100 MG TAB.ER.24H PO (08:48)
[2020-12-24] MEDS: predniSONE 20 MG TABLET 40 MG PO (08:49)
[2020-12-24] MEDS: Mirabegron 50 MG TAB.ER.24H PO (08:49)
[2020-12-24] MEDS: Dorzolamide/Timolo 2.23%/0.68% 10 ML DRBTL 1 DROP EYE-BOTH ×2 (08:49→20:25)
[2020-12-24] MEDS: Furosemide 40 MG TABLET PO ×2 (08:49→17:24)
[2020-12-24] MEDS: Apixaban 5 MG TABLET PO ×2 (08:49→20:15)
[2020-12-24] MEDS: Latanoprost 0.005 % Ophth Sol 2.5 ML DROPS 1 DROP EYE-BOTH (09:02)
[2020-12-24] MEDS: Potassium Chloride ER 20 MEQ TAB.ER.PRT 40 MEQ PO (10:13)
--- NOTE | 2020-12-24 11:19 | MHC.CM.PN ---
PER ROUNDS discussion, Patient is not yet medically cleared for dc (Adjusting IV Lasix in hopes Kidney #'s will improve, still SOB & requiring O2). Home is the goal for dc and CM will follow for possible need to adjust the dc plan.
--- NOTE | 2020-12-24 11:29 | MHC.CM.PN ---
FEMI returned a call to Patient's Son/Jonatan @ [phone].Per Jonatan's request, FEMI reached out to and requested that she call Patient's /Herminia @ [phone], with a brief clinical update. FEMI will continue to follow.
--- NOTE | 2020-12-24 12:22 | MHC.CLN ---
RE: CONSULT RECOMMEND ADDING GLUCERNA BID TO INCREASE KCALS
--- NOTE | 2020-12-24 12:36 | P.PNCA_ITS ---
Subjective Subjective Date of Service: 12/24/20 Principal diagnosis: CHF, afib Interval history: Patient is not complain of significant shortness of breath. He complains of weakness. Remains in atrial fibrillation with controlled ventricular response. Has diuresed about 4 L since admission. He appears short of breath, using oxygen 2 L with oxygen saturation 93. No lightheadedness, syncope. Review of Systems Constitutional: Reports fatigue and Reports lethargy Cardiovascular: Denies chest pain at rest, Denies palpitations and Reports dyspnea on exertion Respiratory: Reports chest congestion and Reports dyspnea on exertion Gastrointestinal: Reports no additional gastrointestinal complaints Genitourinary: Reports no additional male genitourinary complaints Reports system reviewed and no additional complaints, except as documented Psychiatric: Reports no additional psychiatric complaints Endocrine: Reports no additional endocrine complaints, Reports fatigue and Denies palpitations Physical Exam Vital Signs: Last Vital Signs Temp 97.9 F 12/24/20 11:25 Pulse 82 12/24/20 11:25 Resp 20 12/24/20 11:25 BP 136/69 12/24/20 11:25 Pulse Ox 93 12/24/20 11:25 Body Mass Index 24.3 Const General: cooperative, comfortable and acute distress mild and respiratory Nutritional Appearance: other (Frail elderly man) Orientation/consciousness: patient oriented x3 Neck Neck: Yes trachea midline, Yes supple and Yes no JVD Chest Chest palpation & inspection: normal inspection of the chest Resp Effort & Inspection: decreased respiratory effort Auscultation: no rales, no wheezes and diminished lung sounds Cardio Rhythm: abnormal rhythm irregularly irregular Heart sounds: S1 normal heart sound present and S2 normal heart sound present GI Auscultation: normal bowel sounds Skin General skin exam: no rashes or lesions noted and ecchymosis Neuro General: patient oriented x3 and no focal motor deficits Extrem General: Yes no clubbing, cyanosis or edema Psych Appearance: grossly normal Results Labs and Meds Result diagrams: 12/19/20 08:04 12/24/20 05:51 Lab results: Laboratory Results - last 24 hr 12/23/20 12/24/20 12:24 05:51 Sodium 146 H Potassium 3.2 L Chloride 102 Carbon Dioxide 36 H Anion Gap 11 L BUN 43 H Creatinine 0.97 Estim Creat Clear Calc 53.9 Estimated GFR > 60 Random Glucose 150 H Calcium 8.4 B-Natriuretic Peptide 298 H Progress Note: A&P Assessment and plan (1) Acute respiratory failure with hypoxia: Status: Acute Assessment and Plan: Acute respiratory failure with hypoxia much improved with persistent mild hypoxemia present. Clinically appears to be euvolemic and well compensated. Question related to atelectasis versus pleural effusion. Obtain a noncontrast CT to evaluate for the same. Pursue treatment for atelectasis of present with intensive from [facility] possibly chest PT. is remained short of breath without hypoxemia with exertion will pursue rhythm control approach, see below (2) Acute diastolic CHF (congestive heart failure): Status: Acute Assessment and Plan: Acute diastolic heart failure, well diuresed 4 L since admission. Switch to p.o. Lasix. Heart failure education should be provided. Eventually will re quire rhythm control approach given progressive heart failure syndrome with persistent atrial flutter/fibrillation. Consider addition of Aldactone 12.5 mg to his regimen. Continue strict intake and output chart. Continue to trend BMP and BNP. Consider amyloidosis workup. (3) Persistent atrial fibrillation: Status: Acute Assessment and Plan: Recent onset persistent atrial flutter/fibrillation culminating in hospitalization with heart failure. Will require rhythm control approach to reestablish AV synchrony. He has been on oral anticoagulation for about 3 weeks. If his shortness of breath does not improve despite improvement of his hypoxemia, will need to pursue cardioversion synchronized. Risks and benefits were discussed with him. He is agreeable. If he has an alternative etiology for his hypoxemia, pursue treatment for the same and will pursue rhythm control approach as outpatient with synchronized cardioversion to be performed as outpatient. Rate is adequately control on current therapy. Continue the same. Will follow with the patient. Fall Risk Details Current Medications: Current Medications Generic Name Dose Route Start Last Admin Trade Name Freq PRN Reason Stop Dose Admin Acetaminophen 650 mg 12/22/20 10:09 12/23/20 17:27 Acetaminophen 325 Mg Tablet PO 650 mg Q6H PRN Administration Pain, Mild (Pain Scale 1-3) Apixaban 5 mg 12/19/20 15:31 12/24/20 08:49 Apixaban 5 Mg Tablet PO 5 mg BID KVNG Administration Atorvastatin Calcium 80 mg 12/19/20 21:00 12/23/20 21:18 Atorvastatin Calcium 80 Mg Tablet PO 80 mg BEDTIME KVNG Administration Digoxin 0.125 mg 12/23/20 09:00 12/23/20 08:48 Digoxin 0.125 Mg Tablet PO 0.125 mg Q2D KVNG Administration Dorzolamide/Timolol 1 drop 12/19/20 21:00 12/24/20 08:49 Dorzolamide/Timolo 2.23%/0.68% 10 Ml Drbtl EYE-BOTH 1 drop BID KVNG Administration Furosemide 40 mg 12/24/20 09:00 12/24/20 08:49 Furosemide 40 Mg Tablet PO 40 mg BID@0900,1800 KVNG Administration Protocol Latanoprost 1 drop 12/20/20 09:00 12/24/20 09:02 Latanoprost 0.005 % Ophth Susana 2.5 Ml Drops EYE-BOTH 1 drop DAILY KVNG Administration Levalbuterol HCl 1.25 mg 12/20/20 17:28 12/21/20 01:40 Levalbuterol Hcl 1.25 Mg/0.5 Ml Vial.Neb INHALE 1.25 mg Q4H PRN Administration Shortness of Breath Metoprolol Succinate 100 mg 12/23/20 10:25 12/24/20 08:48 Metoprolol Succinate Er 100 Mg Tab.Er.24h PO 100 mg DAILY KVNG Administration Protocol Mirabegron 50 mg 12/20/20 09:00 12/24/20 08:49 Mirabegron 50 Mg Tab.Er.24h PO 50 mg DAILY KVNG Administration Pharmacy Consult 1 each 12/19/20 12:12 Consult Rx Perform Med Rec MISCELLANE ONCE PRN Consult order Sodium Chloride 3 ml 12/19/20 16:00 12/24/20 08:48 0.9 % Sodium Chloride Flush 3 Ml Syringe IVFLUSH 3 ml QSHIFT KVNG Administration Tamsulosin HCl 0.4 mg 12/19/20 21:00 12/23/20 21:18 Tamsulosin Hcl 0.4 Mg Capsule PO 0.4 mg BEDTIME KVNG Administration Vitamin D 50 mcg 12/20/20 09:00 12/24/20 08:48 Cholecalciferol (Vitamin D3) 25 Mcg Tablet PO 50 mcg DAILY KVNG Administration Time Spent With Patient Time: Total time spent is greater than 50% in coordination of care (as documented) at patient's floor/unit and/or counseling patient: Time with patient: 25 - 35 minutes
--- NOTE | 2020-12-24 16:28 | HO.PM.IMPN ---
Subjective Subjective Date of Service: 12/25/20 Interval History: Patient seen and examined at bedside Patient was reported shortness of breath Review of Systems Constitutional - Awake and Alert, No apparent distress Eyes - PERRLA, EOMI Cardiovascular - Denies chest pain, denies palpitations Respiratory - shortness of breath, orthopnea Gastrointestinal - NT / ND; +BS; No rebound or guarding - No CVA tenderness Extremities - no calf tenderness bilaterally, no swelling Musculoskeletal - Normal inspection, normal ROM Skin - Warm/Dry Neurological - Alert & oriented x3, No focal deficit Psychological - Appropriate affect Physical Exam Vital Signs: Vital Signs: Last Vital Signs Temp 97.7 F 12/24/20 15:34 Pulse 89 12/24/20 15:34 Resp 17 12/24/20 15:34 BP 119/65 12/24/20 15:34 Pulse Ox 97 12/24/20 15:34 Body Mass Index 24.3 Const: Other: Constitutional : Alert, oriented, not in distress Neck : Normal inspection, Supple Cardiovascular : Irregularly irregular, rate controlled, S1 S2, trace bilateral lower extremity edema Respiratory : Fair bilateral air entry, fine basal bilateral crackles, wheezes or rhonchi Gastrointestinal: soft, lax, Normal bowel sounds, Non tender Skin : Warm/Dry, No rash Neurological : Alert & oriented x3, No focal deficit Objective Data Current Medications Generic Name Dose Route Start Last Admin Trade Name Freq PRN Reason Stop Dose Admin Acetaminophen 650 mg 12/22/20 10:09 12/23/20 17:27 Acetaminophen 325 Mg Tablet PO 650 mg Q6H PRN Administration Pain, Mild (Pain Scale 1-3) Apixaban 5 mg 12/19/20 15:31 12/24/20 08:49 Apixaban 5 Mg Tablet PO 5 mg BID KVNG Administration Atorvastatin Calcium 80 mg 12/19/20 21:00 12/23/20 21:18 Atorvastatin Calcium 80 Mg Tablet PO 80 mg BEDTIME KVNG Administration Digoxin 0.125 mg 12/23/20 09:00 12/23/20 08:48 Digoxin 0.125 Mg Tablet PO 0.125 mg Q2D KVNG Administration Dorzolamide/Timolol 1 drop 12/19/20 21:00 12/24/20 08:49 Dorzolamide/Timolo 2.23%/0.68% 10 Ml Drbtl EYE-BOTH 1 drop BID KVNG Administration Furosemide 40 mg 12/24/20 09:00 12/24/20 08:49 Furosemide 40 Mg Tablet PO 40 mg BID@0900,1800 KVNG Administration Protocol Latanoprost 1 drop 12/20/20 09:00 12/24/20 09:02 Latanoprost 0.005 % Ophth Susana 2.5 Ml Drops EYE-BOTH 1 drop DAILY KVNG Administration Levalbuterol HCl 1.25 mg 12/20/20 17:28 12/21/20 01:40 Levalbuterol Hcl 1.25 Mg/0.5 Ml Vial.Neb INHALE 1.25 mg Q4H PRN Administration Shortness of Breath Metoprolol Succinate 100 mg 12/23/20 10:25 12/24/20 08:48 Metoprolol Succinate Er 100 Mg Tab.Er.24h PO 100 mg DAILY KVNG Administration Protocol Mirabegron 50 mg 12/20/20 09:00 12/24/20 08:49 Mirabegron 50 Mg Tab.Er.24h PO 50 mg DAILY KVNG Administration Pharmacy Consult 1 each 12/19/20 12:12 Consult Rx Perform Med Rec MISCELLANE ONCE PRN Consult order Sodium Chloride 3 ml 12/19/20 16:00 12/24/20 08:48 0.9 % Sodium Chloride Flush 3 Ml Syringe IVFLUSH 3 ml QSHIFT KVNG Administration Tamsulosin HCl 0.4 mg 12/19/20 21:00 12/23/20 21:18 Tamsulosin Hcl 0.4 Mg Capsule PO 0.4 mg BEDTIME KVNG Administration Vitamin D 50 mcg 12/20/20 09:00 12/24/20 08:48 Cholecalciferol (Vitamin D3) 25 Mcg Tablet PO 50 mcg DAILY KVNG Administration Labs CBC & Chem 7: 12/19/20 08:04 12/25/20 09:10 Assessment and Plan (1) Atrial fibrillation with rapid ventricular response: Status: Acute (2) Acute respiratory failure with hypoxia: Status: Acute (3) Acute diastolic CHF (congestive heart failure): Status: Acute (4) (HFpEF) heart failure with preserved ejection fraction: Status: Acute Assessment and Plan: This is a 85 yo M with a recently diagnosed A. Fib who presents with progressive SOB and is found to be in RVR and acute CHF. Acute Respiratory Failure with hypoxia likely multifactorial from underlying COPD CHF atelectasis Acute Diastolic CHF improving Still requiring oxygen supplement to keep sats in 90s Wean down as tolerated Last Echo showing preserved EF, no need to repeat per Cardiology Chest CT done shows emphysema and atelectasis and pleural effusion Will start on incentive spirometry Will give nebulizer treatment A Fib with RVR improving Continue Digoxin Continue metoprolol Continue Eliquis Monitor on telemetry HTN Continue metoprolol HLD Atorvastatin DVT ppx Eliquis
[2020-12-24] MEDS: Atorvastatin Calcium 80 MG TABLET PO (20:15)
[2020-12-24] MEDS: Tamsulosin HCL 0.4 MG CAPSULE PO (20:15)
[2020-12-25] VITALS (9 sets, daily range): BP systolic 115–171; BP diastolic 58–88; PULSE 82–99; RESP 17–22; TEMP 36.3–36.8; O2SAT 95–98
[2020-12-25] MEDS: 0.9 % Sodium Chloride Flush 3 ML SYRINGE IVFLUSH ×2 (09:50→16:33)
[2020-12-25] MEDS: Cholecalciferol (Vitamin D3) 25 MCG TABLET 50 MCG PO (09:51)
[2020-12-25] MEDS: Apixaban 5 MG TABLET PO ×2 (09:51→20:39)
[2020-12-25] MEDS: Digoxin 0.125 MG TABLET PO (09:51)
[2020-12-25] MEDS: Latanoprost 0.005 % Ophth Sol 2.5 ML DROPS 1 DROP EYE-BOTH (09:52)
[2020-12-25] MEDS: Dorzolamide/Timolo 2.23%/0.68% 10 ML DRBTL 1 DROP EYE-BOTH ×2 (09:52→20:39)
[2020-12-25] MEDS: Furosemide 40 MG TABLET PO ×2 (09:52→18:21)
[2020-12-25] MEDS: Metoprolol Succinate ER 100 MG TAB.ER.24H PO (09:52)
[2020-12-25] MEDS: Mirabegron 50 MG TAB.ER.24H PO (09:52)
--- NOTE | 2020-12-25 10:06 | PM.PNCARD ---
Subjective Subjective Date of Service: 12/25/20 Principal diagnosis: CHF, afib, hypoxia Interval history: Since yesterday with incentive spirometry and heart of bed to chair, patient says his breathing is much improved. His heart rate is well controlled at this time. His oxygen saturation is improved. Denies palpitations, chest pain. Overall negative balance of 5 L Review of Systems Constitutional: Reports no additional constitutional complaints Cardiovascular: Reports no additional cardiovascular complaints and Reports dyspnea Respiratory: Reports dyspnea Gastrointestinal: Reports no additional gastrointestinal complaints Genitourinary: Reports no additional male genitourinary complaints Musculoskeletal: Reports no additional musculoskeletal complaints Reports system reviewed and no additional complaints, except as documented Psychiatric: Reports no additional psychiatric complaints Endocrine: Reports no additional endocrine complaints Physical Exam Vital Signs: Last Vital Signs Temp 97.7 F 12/25/20 07:49 Pulse 90 12/25/20 09:51 Resp 18 12/25/20 07:49 BP 160/88 H 12/25/20 07:49 Pulse Ox 98 12/25/20 07:49 Body Mass Index 24.3 Const General: cooperative, comfortable, no acute distress, alert and awake Nutritional Appearance: underweight Orientation/consciousness: patient oriented x3 Neck Neck: Yes trachea midline, Yes supple and Yes no JVD Resp Effort & Inspection: normal respiratory effort Auscultation: no rales, no wheezes and diminished lung sounds Cardio Jugular venous distension: no JVD Rhythm: abnormal rhythm irregularly irregular Heart sounds: S1 normal heart sound present and S2 normal heart sound present GI Auscultation: normal bowel sounds Skin General skin exam: no rashes or lesions noted and ecchymosis Neuro General: patient oriented x3 and no focal motor deficits Extrem General: Yes no clubbing, cyanosis or edema Psych Appearance: grossly normal Results Labs and Meds Result diagrams: 12/19/20 08:04 12/24/20 05:51 Imaging Radiologist's impression: Impressions Chest CT 12/24/20 15:00 IMPRESSION: Emphysema. Atelectasis or small infiltrates in both lower lobes. Question atelectasis or small infiltrate versus nodule in the right middle lobe. New irregularly-shaped partially solid partially cystic and new smaller groundglass attenuation right upper lobe nodules. Chest CT follow-up in 6-12 months recommended. No evidence of pulmonary edema. Bilateral pleural effusions, right greater than left. Coronary artery calcification. Progress Note: A&P Assessment and plan (1) Persistent atrial fibrillation: Status: Acute Assessment and Plan: Persistent atrial fibrillation, rate control at this time. Can increase digoxin to 0.125 mg daily. Continue metoprolol therapy. Continue full oral anticoagulation with Eliquis 5 mg b.i.d.. Currently I do not think he requires urgent cardioversion given his improving respiratory status. Will continue to monitor the patient. (2) CHF (congestive heart failure): Status: Acute Assessment and Plan: CHF which appears significantly improved with diuresis. Overall negative balance of 5 L. Switch to p.o. Lasix at 40 mg daily. Does not require more extensive diuresis at this point time. Please provide with CHF education. Continue aggressive rate control as above. However in near future as outpatient will pursue rhythm control approach. (3) Acute respiratory failure with hypoxia: Status: Acute Assessment and Plan: Hypoxemia and shortness of breath both multifactorial. CHF is improved. Has underlying atelectasis and possibly COPD. Continue incentive spirometry and chest PT. Plan for oxygen desaturation study and gradually tapering oxygen therapy. Also there is some amount of deconditioning related to hospitalization should be considered. PT consultation should be obtained for ambulation. Will sign of the case. Please let us know if there are any further issues thank you Fall Risk Details Current Medications: Current Medications Generic Name Dose Route Start Last Admin Trade Name Freq PRN Reason Stop Dose Admin Acetaminophen 650 mg 12/22/20 10:09 12/23/20 17:27 Acetaminophen 325 Mg Tablet PO 650 mg Q6H PRN Administration Pain, Mild (Pain Scale 1-3) Apixaban 5 mg 12/19/20 15:31 12/25/20 09:51 Apixaban 5 Mg Tablet PO 5 mg BID KVNG Administration Atorvastatin Calcium 80 mg 12/19/20 21:00 12/24/20 20:15 Atorvastatin Calcium 80 Mg Tablet PO 80 mg BEDTIME KVNG Administration Digoxin 0.125 mg 12/23/20 09:00 12/25/20 09:51 Digoxin 0.125 Mg Tablet PO 0.125 mg Q2D KVNG Administration Dorzolamide/Timolol 1 drop 12/19/20 21:00 12/25/20 09:52 Dorzolamide/Timolo 2.23%/0.68% 10 Ml Drbtl EYE-BOTH 1 drop BID KVNG Administration Furosemide 40 mg 12/24/20 09:00 12/25/20 09:52 Furosemide 40 Mg Tablet PO 40 mg BID@0900,1800 KVNG Administration Protocol Latanoprost 1 drop 12/20/20 09:00 12/25/20 09:52 Latanoprost 0.005 % Ophth Susana 2.5 Ml Drops EYE-BOTH 1 drop DAILY KVNG Administration Levalbuterol HCl 1.25 mg 12/24/20 18:00 12/25/20 06:22 Levalbuterol Hcl 1.25 Mg/0.5 Ml Vial.Neb INHALE Not Given RQ6H KVNG Metoprolol Succinate 100 mg 12/23/20 10:25 12/25/20 09:52 Metoprolol Succinate Er 100 Mg Tab.Er.24h PO 100 mg DAILY KVNG Administration Protocol Mirabegron 50 mg 12/20/20 09:00 12/25/20 09:52 Mirabegron 50 Mg Tab.Er.24h PO 50 mg DAILY KVNG Administration Pharmacy Consult 1 each 12/19/20 12:12 Consult Rx Perform Med Rec MISCELLANE ONCE PRN Consult order Sodium Chloride 3 ml 12/19/20 16:00 12/25/20 09:50 0.9 % Sodium Chloride Flush 3 Ml Syringe IVFLUSH 3 ml QSHIFT KVNG Administration Tamsulosin HCl 0.4 mg 12/19/20 21:00 12/24/20 20:15 Tamsulosin Hcl 0.4 Mg Capsule PO 0.4 mg BEDTIME KVNG Administration Vitamin D 50 mcg 12/20/20 09:00 12/25/20 09:51 Cholecalciferol (Vitamin D3) 25 Mcg Tablet PO 50 mcg DAILY KVNG Administration Time Spent With Patient Time: Total time spent is greater than 50% in coordination of care (as documented) at patient's floor/unit and/or counseling patient: Time with patient: 25 - 35 minutes
[2020-12-25 10:12] LABS: Anion Gap 13 (12-20); Blood Urea Nitrogen 38 mg/dL (9-16); Calcium 8.5 mg/dL (8.4-10.2); Carbon Dioxide 36 mmol/L (22-29); Chloride 99 mmol/L (96-108); Creatinine Clr Calc Pharmacy 54.5; Estimated Glomerular Filt Rate > 60; Glucose Random 218 mg/dL (60-115); Sodium 144 mmol/L (135-145)
--- NOTE | 2020-12-25 15:12 | HO.PM.IMPN ---
Subjective Subjective Date of Service: 12/25/20 Interval History: Patient seen and examined at bedside Patient was reported shortness of breath improving feeling better Review of Systems Constitutional - Awake and Alert, No apparent distress Eyes - PERRLA, EOMI Cardiovascular - Denies chest pain, denies palpitations Respiratory - shortness of breath, orthopnea Gastrointestinal - NT / ND; +BS; No rebound or guarding - No CVA tenderness Extremities - no calf tenderness bilaterally, no swelling Musculoskeletal - Normal inspection, normal ROM Skin - Warm/Dry Neurological - Alert & oriented x3, No focal deficit Psychological - Appropriate affect Physical Exam Vital Signs: Vital Signs: Last Vital Signs Temp 98.2 F 12/25/20 11:37 Pulse 91 12/25/20 11:43 Resp 17 12/25/20 11:37 BP 115/58 L 12/25/20 11:37 Pulse Ox 96 12/25/20 11:37 Body Mass Index 24.3 Const: Other: Constitutional : Alert, oriented, not in distress Neck : Normal inspection, Supple Cardiovascular : Irregularly irregular, rate controlled, S1 S2, trace bilateral lower extremity edema Respiratory : Fair bilateral air entry, fine basal bilateral crackles, wheezes or rhonchi Gastrointestinal: soft, lax, Normal bowel sounds, Non tender Skin : Warm/Dry, No rash Neurological : Alert & oriented x3, No focal deficit Objective Data Current Medications Generic Name Dose Route Start Last Admin Trade Name Freq PRN Reason Stop Dose Admin Acetaminophen 650 mg 12/22/20 10:09 12/23/20 17:27 Acetaminophen 325 Mg Tablet PO 650 mg Q6H PRN Administration Pain, Mild (Pain Scale 1-3) Apixaban 5 mg 12/19/20 15:31 12/25/20 09:51 Apixaban 5 Mg Tablet PO 5 mg BID KVNG Administration Atorvastatin Calcium 80 mg 12/19/20 21:00 12/24/20 20:15 Atorvastatin Calcium 80 Mg Tablet PO 80 mg BEDTIME KVNG Administration Digoxin 0.125 mg 12/23/20 09:00 12/25/20 09:51 Digoxin 0.125 Mg Tablet PO 0.125 mg Q2D KVNG Administration Dorzolamide/Timolol 1 drop 12/19/20 21:00 12/25/20 09:52 Dorzolamide/Timolo 2.23%/0.68% 10 Ml Drbtl EYE-BOTH 1 drop BID KVNG Administration Furosemide 40 mg 12/24/20 09:00 12/25/20 09:52 Furosemide 40 Mg Tablet PO 40 mg BID@0900,1800 KVNG Administration Protocol Latanoprost 1 drop 12/20/20 09:00 12/25/20 09:52 Latanoprost 0.005 % Ophth Susana 2.5 Ml Drops EYE-BOTH 1 drop DAILY KVNG Administration Levalbuterol HCl 1.25 mg 12/24/20 18:00 12/25/20 11:40 Levalbuterol Hcl 1.25 Mg/0.5 Ml Vial.Neb INHALE 1.25 mg RQ6H KVNG Administration Metoprolol Succinate 100 mg 12/23/20 10:25 12/25/20 09:52 Metoprolol Succinate Er 100 Mg Tab.Er.24h PO 100 mg DAILY KVNG Administration Protocol Mirabegron 50 mg 12/20/20 09:00 12/25/20 09:52 Mirabegron 50 Mg Tab.Er.24h PO 50 mg DAILY KVNG Administration Pharmacy Consult 1 each 12/19/20 12:12 Consult Rx Perform Med Rec MISCELLANE ONCE PRN Consult order Sodium Chloride 3 ml 12/19/20 16:00 12/25/20 09:50 0.9 % Sodium Chloride Flush 3 Ml Syringe IVFLUSH 3 ml QSHIFT KVNG Administration Tamsulosin HCl 0.4 mg 12/19/20 21:00 12/24/20 20:15 Tamsulosin Hcl 0.4 Mg Capsule PO 0.4 mg BEDTIME KVNG Administration Vitamin D 50 mcg 12/20/20 09:00 12/25/20 09:51 Cholecalciferol (Vitamin D3) 25 Mcg Tablet PO 50 mcg DAILY KVNG Administration Labs CBC & Chem 7: 12/19/20 08:04 12/25/20 09:10 Assessment and Plan (1) Atrial fibrillation with rapid ventricular response: Status: Acute (2) Acute respiratory failure with hypoxia: Status: Acute (3) Acute diastolic CHF (congestive heart failure): Status: Acute (4) (HFpEF) heart failure with preserved ejection fraction: Status: Acute Assessment and Plan: This is a 85 yo M with a recently diagnosed A. Fib who presents with progressive SOB and is found to be in RVR and acute CHF. Acute Respiratory Failure with hypoxia likely multifactorial from underlying COPD CHF atelectasis improved Acute Diastolic CHF improving Still requiring oxygen supplement to keep sats in 90s weaned down as tolerated Last Echo showing preserved EF, no need to repeat per Cardiology Chest CT done shows emphysema and atelectasis and pleural effusion Continue incentive spirometry Continue nebulizer treatment A Fib with RVR improving Rate improving Continue Digoxin Continue metoprolol Continue Eliquis Monitor on telemetry HTN Continue metoprolol HLD Atorvastatin DVT ppx Eliquis PT evaluation given weakness debility
[2020-12-25] MEDS: Tamsulosin HCL 0.4 MG CAPSULE PO (20:39)
[2020-12-25] MEDS: Atorvastatin Calcium 80 MG TABLET PO (20:39)
[2020-12-26] VITALS (8 sets, daily range): BP systolic 114–158; BP diastolic 65–85; PULSE 76–111; RESP 18; TEMP 36.3–36.6; O2SAT 94–100
[2020-12-26] MEDS: 0.9 % Sodium Chloride Flush 3 ML SYRINGE IVFLUSH ×3 (00:56→18:31)
[2020-12-26 06:45] LABS: Anion Gap 12 (12-20); Blood Urea Nitrogen 32 mg/dL (9-16); Carbon Dioxide 32 mmol/L (22-29); Chloride 101 mmol/L (96-108); Creatinine Clr Calc Pharmacy 70.7; Estimated Glomerular Filt Rate > 60; Glucose Random 138 mg/dL (60-115); Potassium 3.5 mmol/L (3.3-5.1); Sodium 141 mmol/L (135-145)
[2020-12-26] MEDS: Metoprolol Succinate ER 100 MG TAB.ER.24H PO (10:23)
[2020-12-26] MEDS: Furosemide 40 MG TABLET PO ×2 (10:23→18:31)
[2020-12-26] MEDS: Cholecalciferol (Vitamin D3) 25 MCG TABLET 50 MCG PO (10:23)
[2020-12-26] MEDS: Mirabegron 50 MG TAB.ER.24H PO (10:23)
[2020-12-26] MEDS: Apixaban 5 MG TABLET PO ×2 (10:23→21:33)
[2020-12-26] MEDS: Latanoprost 0.005 % Ophth Sol 2.5 ML DROPS 1 DROP EYE-BOTH (10:24)
[2020-12-26] MEDS: Dorzolamide/Timolo 2.23%/0.68% 10 ML DRBTL 1 DROP EYE-BOTH ×2 (10:24→21:34)
--- NOTE | 2020-12-26 14:26 | HO.PM.IMPN ---
Subjective Subjective Date of Service: 12/26/20 Interval History: Patient seen and examined at bedside Patient was reported shortness of breath improving feeling better Review of Systems Constitutional - Awake and Alert, No apparent distress Eyes - PERRLA, EOMI Cardiovascular - Denies chest pain, denies palpitations Respiratory - shortness of breath, orthopnea Gastrointestinal - NT / ND; +BS; No rebound or guarding - No CVA tenderness Extremities - no calf tenderness bilaterally, no swelling Musculoskeletal - Normal inspection, normal ROM Skin - Warm/Dry Neurological - Alert & oriented x3, No focal deficit Psychological - Appropriate affect Physical Exam Vital Signs: Vital Signs: Last Vital Signs Temp 97.5 F 12/26/20 07:28 Pulse 98 12/26/20 08:21 Resp 18 12/26/20 07:28 BP 139/75 12/26/20 07:28 Pulse Ox 97 12/26/20 07:28 Body Mass Index 24.3 Const: Other: Constitutional : Alert, oriented, not in distress Neck : Normal inspection, Supple Cardiovascular : Irregularly irregular, rate controlled, S1 S2, trace bilateral lower extremity edema Respiratory : Fair bilateral air entry, fine basal bilateral crackles, wheezes or rhonchi Gastrointestinal: soft, lax, Normal bowel sounds, Non tender Skin : Warm/Dry, No rash Neurological : Alert & oriented x3, No focal deficit Cardio: Other: Constitutional : Alert, oriented, not in distress Neck : Normal inspection, Supple Cardiovascular : Irregularly irregular, rate controlled, S1 S2, trace bilateral lower extremity edema Respiratory : Fair bilateral air entry, fine basal bilateral crackles, wheezes or rhonchi Gastrointestinal: soft, lax, Normal bowel sounds, Non tender Skin : Warm/Dry, No rash Neurological : Alert & oriented x3, No focal deficit Objective Data Current Medications Generic Name Dose Route Start Last Admin Trade Name Freq PRN Reason Stop Dose Admin Acetaminophen 650 mg 12/22/20 10:09 12/23/20 17:27 Acetaminophen 325 Mg Tablet PO 650 mg Q6H PRN Administration Pain, Mild (Pain Scale 1-3) Apixaban 5 mg 12/19/20 15:31 12/26/20 10:23 Apixaban 5 Mg Tablet PO 5 mg BID KVNG Administration Atorvastatin Calcium 80 mg 12/19/20 21:00 12/25/20 20:39 Atorvastatin Calcium 80 Mg Tablet PO 80 mg BEDTIME KVNG Administration Digoxin 0.125 mg 12/23/20 09:00 12/25/20 09:51 Digoxin 0.125 Mg Tablet PO 0.125 mg Q2D KVNG Administration Dorzolamide/Timolol 1 drop 12/19/20 21:00 12/26/20 10:24 Dorzolamide/Timolo 2.23%/0.68% 10 Ml Drbtl EYE-BOTH 1 drop BID KVNG Administration Furosemide 40 mg 12/24/20 09:00 12/26/20 10:23 Furosemide 40 Mg Tablet PO 40 mg BID@0900,1800 KVNG Administration Protocol Latanoprost 1 drop 12/20/20 09:00 12/26/20 10:24 Latanoprost 0.005 % Ophth Susana 2.5 Ml Drops EYE-BOTH 1 drop DAILY KVNG Administration Levalbuterol HCl 1.25 mg 12/24/20 18:00 12/26/20 12:02 Levalbuterol Hcl 1.25 Mg/0.5 Ml Vial.Neb INHALE 1.25 mg RQ6H KVNG Administration Metoprolol Succinate 100 mg 12/23/20 10:25 12/26/20 10:23 Metoprolol Succinate Er 100 Mg Tab.Er.24h PO 100 mg DAILY KVNG Administration Protocol Mirabegron 50 mg 12/20/20 09:00 12/26/20 10:23 Mirabegron 50 Mg Tab.Er.24h PO 50 mg DAILY KVNG Administration Pharmacy Consult 1 each 12/19/20 12:12 Consult Rx Perform Med Rec MISCELLANE ONCE PRN Consult order Sodium Chloride 3 ml 12/19/20 16:00 12/26/20 10:19 0.9 % Sodium Chloride Flush 3 Ml Syringe IVFLUSH 3 ml QSHIFT KVNG Administration Tamsulosin HCl 0.4 mg 12/19/20 21:00 12/25/20 20:39 Tamsulosin Hcl 0.4 Mg Capsule PO 0.4 mg BEDTIME KVNG Administration Vitamin D 50 mcg 12/20/20 09:00 12/26/20 10:23 Cholecalciferol (Vitamin D3) 25 Mcg Tablet PO 50 mcg DAILY KVNG Administration Labs CBC & Chem 7: 12/19/20 08:04 12/26/20 05:42 Assessment and Plan (1) Atrial fibrillation with rapid ventricular response: Status: Acute (2) Acute respiratory failure with hypoxia: Status: Acute (3) Acute diastolic CHF (congestive heart failure): Status: Acute (4) (HFpEF) heart failure with preserved ejection fraction: Status: Acute Assessment and Plan: This is a 85 yo M with a recently diagnosed A. Fib who presents with progressive SOB and is found to be in RVR and acute CHF. Acute Respiratory Failure with hypoxia likely multifactorial from underlying COPD CHF atelectasis improving Acute Diastolic CHF improving Wean down oxygen as tolerated Last Echo showing preserved EF, no need to repeat per Cardiology Chest CT done shows emphysema and atelectasis and pleural effusion Continue p.o. Lasix Continue incentive spirometry Continue nebulizer treatment A Fib with RVR improving Rate improving Continue Digoxin Continue metoprolol Continue Eliquis Monitor on telemetry HTN Continue metoprolol HLD Atorvastatin DVT ppx Eliquis PT evaluation given weakness debility recommended short-term rehab awaiting placement
[2020-12-26] MEDS: Tamsulosin HCL 0.4 MG CAPSULE PO (21:33)
[2020-12-26] MEDS: Atorvastatin Calcium 80 MG TABLET PO (21:33)
[2020-12-27] MEDS: 0.9 % Sodium Chloride Flush 3 ML SYRINGE IVFLUSH ×2 (00:15→10:26)
[2020-12-27 03:07] VITALS: BP 146/85; PULSE 76; RESP 18; TEMP 36.4; O2SAT 96
[2020-12-27 07:04] LABS: Anion Gap 12 (12-20); Blood Urea Nitrogen 26 mg/dL (9-16); Carbon Dioxide 33 mmol/L (22-29); Chloride 103 mmol/L (96-108); Creatinine Clr Calc Pharmacy 67.9; Estimated Glomerular Filt Rate > 60; Glucose Random 140 mg/dL (60-115); Potassium 3.5 mmol/L (3.3-5.1); Sodium 144 mmol/L (135-145)
[2020-12-27 07:14] VITALS: BP 154/74; PULSE 76; RESP 18; TEMP 36.3; O2SAT 97
[2020-12-27] MEDS: Cholecalciferol (Vitamin D3) 25 MCG TABLET 50 MCG PO (10:26)
[2020-12-27] MEDS: Furosemide 40 MG TABLET PO (10:26)
[2020-12-27] MEDS: Apixaban 5 MG TABLET PO (10:27)
[2020-12-27] MEDS: Metoprolol Succinate ER 100 MG TAB.ER.24H PO (10:27)
[2020-12-27] MEDS: Mirabegron 50 MG TAB.ER.24H PO (10:27)
[2020-12-27] MEDS: Digoxin 0.125 MG TABLET PO (10:28)
[2020-12-27] MEDS: Latanoprost 0.005 % Ophth Sol 2.5 ML DROPS 1 DROP EYE-BOTH (10:29)
[2020-12-27] MEDS: Dorzolamide/Timolo 2.23%/0.68% 10 ML DRBTL 1 DROP EYE-BOTH (10:29)
[2020-12-27 11:17] VITALS: PULSE 92; O2SAT 97
--- NOTE | 2020-12-27 11:23 | P.DS_ITS ---
DS: Providers Provider Date of Service: 12/27/20 Date of admission: 12/19/20 12:15 Primary care physician: Darcy Otero MD Consults: 12/19/20 12:15 Consult to Cardiology Routine Consulting Provider: Margarito Mcarthur Reason for consultation: a fib rvr, chf DS: Diagnosis Discharge Diagnosis (1) Atrial fibrillation with rapid ventricular response: Status: Acute (2) Acute respiratory failure with hypoxia: Status: Acute (3) Acute diastolic CHF (congestive heart failure): Status: Acute (4) (HFpEF) heart failure with preserved ejection fraction: Status: Acute DS: Medications Discharge Medications Home Medications: Home Medications Medication Instructions Recorded Confirmed cholecalciferol (vitamin D3) 25 50 mcg PO DAILY 08/14/20 12/19/20 mcg (1,000 unit) capsule dorzolamide 22.3 mg-timolol 6.8 1 drp OPHTHALMIC (EYE) BID 08/14/20 12/19/20 mg/mL eye drops fluticasone propionate 110 2 puff PO BID 08/14/20 12/19/20 mcg/actuation HFA aerosol inhaler latanoprost 0.005 % eye drops 1 drp OPHTHALMIC (EYE) DAILY ml 08/14/20 12/19/20 tamsulosin 0.4 mg capsule 0.4 mg PO DAILY 08/14/20 12/19/20 losartan 50 mg PO DAILY 11/04/20 12/19/20 Ocuvite Adult 50 Plus 1 cap PO DAILY 12/19/20 12/19/20 Probiotic-10 (with inulin) 1 cap PO DAILY 12/19/20 12/19/20 calcium carb-mag ox-zinc sulf 1 tab PO DAILY 12/19/20 12/19/20 Previous Rx's Medication Instructions Recorded mirabegron 50 mg tablet,extended 50 mg PO DAILY 90 Days #90 tab 09/20/20 release 24 hr rosuvastatin 20 mg tablet 20 mg PO BEDTIME #90 tab 11/21/20 apixaban 5 mg tablet 5 mg PO BID #60 tab 12/04/20 [employer]LIFT #1 ea 12/18/20 digoxin 0.125 mg PO DAILY #30 tab 12/27/20 furosemide 40 mg PO DAILY #60 tab 12/27/20 levalbuterol tartrate [Xopenex HFA] 1 inh INHALATION Q4-6H PRN #15 g 12/27/20 metoprolol succinate 100 mg PO DAILY #30 tab 12/27/20 DS: Summary Hospital Course Hospital Course: HPI 85-year-old male with a past medical history of recently diagnosed atrial fibrillation relation on metoprolol and Eliquis, Echo in 11/2020 showing perserved EF, who is not not the greatest of historian and presents to the hospital with complaints of progressive shortness of breath which worsened significantly this morning and so he presented to the hospital. He denied any chest pain or palpitations. He reports that over the last few days he has found it difficult to breathe particularly in the morning. He denies any palpitations. He does endorse increasing bilateral lower extremity edema. He is unaware if his weight has changed. He is perseverating on the fact that he thinks his symptoms are due to a squirrel in his attic. When the patient arrived to the emergency room he was noted to be hypoxic in the mid 80s on room air upon arrival, heart rate was elevated to 120s. His blood work showed an elevated BNP with a chest x-ray consistent with fluid overload. He was given a bolus of Cardizem IV without much improvement and subsequently started on a Cardizem drip with heart rates improving into the 100s. He was also treated with a dose of IV Lasix and reportedly has already put out 1 L. hospital course 85-year-old male admitted with acute hypoxic respiratory failure likely multifactorial from acute on chronic diastolic CHF exacerbation, underlying COPD and AFib with RVR patient was started on oxygen supplementation for Acute on chronic diastolic heart failure patient was started on IV Lasix patient was diuresed well, was seen by Cardiology , patient's breathing was i mproved switched to p.o. Lasix 40 mg daily, Lasix dose was increased from 20 mg daily to 40 mg daily and continued on losartan for AFib with RVR patient's metoprolol dose was slowly uptitrated , cardiology was consulted digoxin was added by Cardiology, patient remains in AFib,heart rate improved and remained stable , patient was started on digoxin and metoprolol dose was increased to 100 mg daily on discharge, patient was continued on Eliquis. for underlying COPD patient was started on nebulizer, CT chest also shows atelectasis, patient was continued on incentive spirometry, patient's shortness of breath improved, hypoxic was resolved, patient was weaned down to room air, patient was stable evaluated by Physical therapy recommended short-term rehab patient was discharged to short-term rehab Time Spent with Patient Time attestation: Total time spent providing and/or coordinating discharge services: Discharge coordination time: Greater than 30 minutes Physical Exam Vital Signs: Vital Signs: Last Vital Signs Temp 97.3 F 12/27/20 07:14 Pulse 92 12/27/20 11:17 Resp 18 12/27/20 07:14 BP 154/74 H 12/27/20 07:14 Pulse Ox 97 12/27/20 07:14 Body Mass Index 24.3 DS: Data Data Completed and Pending Labs on day of discharge: Laboratory Results - last 24 hr 12/27/20 05:55 Sodium 144 Potassium 3.5 Chloride 103 Carbon Dioxide 33 H Anion Gap 12 BUN 26 H Creatinine 0.77 Estim Creat Clear Calc 67.9 Estimated GFR > 60 Random Glucose 140 H Calcium 8.0 L Discharge Plan Discharge Anticipated Discharge Date/Time: 12/27/20 10:58 Patient Disposition: Xfer [facility] Referrals: Po,Darcy Langley MD [Primary Care Provider] - Discharge Medications: New furosemide 40 mg Tablet 40 mg PO DAILY Qty: 60 RF: 0 metoprolol succinate 100 mg Tablet Extended Release 24 Hr 100 mg PO DAILY Qty: 30 RF: 0 digoxin 125 mcg (0.125 mg) Tablet 0.125 mg PO DAILY Qty: 30 RF: 0 levalbuterol tartrate [Xopenex HFA] 45 mcg/actuation HFA aerosol inhaler 1 inh inhalation Q4-6H PRN (Reason: shortness of breath or wheezing) Qty: 15 RF: 0 Continued Myrbetriq 50 mg tablet extended release 24 hr 50 mg PO DAILY 90 Days Qty: 90 RF: 2 rosuvastatin 20 mg tablet 20 mg PO BEDTIME Qty: 90 RF: 1 losartan 50 mg tablet 50 mg PO DAILY RF: 0 Ocuvite Adult 50 Plus 250-5-1 mg Capsule 1 cap PO DAILY RF: 0 calcium carb-mag ox-zinc sulf 333-133-5 mg Tablet 1 tab PO DAILY RF: 0 Probiotic-10 (with inulin) 10 billion cell -100 mg Capsule 1 cap PO DAILY RF: 0 tamsulosin 0.4 mg capsule 0.4 mg PO DAILY RF: 0 dorzolamide-timolol 22.3-6.8 mg/mL drops 1 drp ophthalmic (eye) BID RF: 0 fluticasone propionate 110 mcg/actuation HFA aerosol inhaler 2 puff PO BID RF: 0 latanoprost 0.005 % drops 1 drp ophthalmic (eye) DAILY RF: 0 cholecalciferol (vitamin D3) 25 mcg (1,000 unit) capsule 50 mcg PO DAILY RF: 0 Eliquis 5 mg tablet 5 mg PO BID Qty: 60 RF: 1 Discontinued furosemide 20 mg tablet 20 mg PO DAILY 90 Days Qty: 90 RF: 1 amlodipine 10 mg tablet 10 mg PO DAILY RF: 0 metoprolol succinate [Toprol XL] 25 mg tablet extended release 24 hr 25 mg PO DAILY Qty: 30 RF: 1 No Action (DME) LYDIA ROJAS See Rx Instructions .Route .MEDSUPPLY Qty: 1 RF: 0 Discharge Orders: Discharge Order (Routine); Ordered 12/27/20 Ordered By: Vicente Arerola Diet: low salt diet Activity on Discharge: As tolerated Stand Alone Forms: Patient Portal Discharge page Care Plan Goals: Prevent rehospitalization Health Concerns: CHF Plan of Treatment: see above
[2020-12-27 11:29] VITALS: BP 92/52; PULSE 67; RESP 16; TEMP 36.2; O2SAT 97
[2020-12-27 13:44] LABS: COVID-19 Test Negative (Negative)
== END 2020-12-27 14:30 | disposition skilled nursing facility (03) | DRG 291 ==
LOC: HO.ED 09:19 → HO.S3 13:17 → HO.IMC 12-23 19:29
PROVIDERS: Student in an Organized Health Care Education/Training Program; Admitting Provider Family Medicine; Emergency Provider Emergency Medicine Emergency Medical Services; PCP Internal Medicine; Visit Provider Internal Medicine
DX: I11.0 Hypertensive heart disease with heart failure (principal); J96.01 Acute respiratory failure with hypoxia; I48.19 Other persistent atrial fibrillation; I50.33 Acute on chronic diastolic (congestive) heart failure; I25.10 Atherosclerotic heart disease of native coronary artery without angina pectoris; E78.5 Hyperlipidemia, unspecified; J44.9 Chronic obstructive pulmonary disease, unspecified; Z20.822 Contact with and (suspected) exposure to COVID-19; Z79.01 Long term (current) use of anticoagulants; Z79.51 Long term (current) use of inhaled steroids; Z79.899 Other long term (current) drug therapy
CPT/HCPCS: 36415; 71045; 71250; 80048; 83735; 83880; 84484; 85025; 87635; 93005; 94640; 96365; 96367; 96375; 96376; 97110; 97162; 99285; J1160; J1940; J2920

== ENCOUNTER → 2020-12-26 10:13 | Outpatient (REF) | payer MEDICARE, SELFPAY | LOC: HO.CARD 10:13 | PROVIDERS: Visit Provider Internal Medicine Cardiovascular Disease | DX: Z13.89 Encounter for screening for other disorder (principal) ==

== ENCOUNTER → 2021-02-04 14:07 | Outpatient (REF) | payer MEDICARE, SELFPAY ==
--- NOTE | 2021-02-04 14:35 | ECG_ITS ---
Hook-up date: 2021-02-04 14:18:00 Duration: 40:50:00 Test Indications: UNSPECIFIED ATRIAL FIBRILLATION Medications: 50039 QRS complexes 106 Ventricular ectopics which represent <1 % of total QRS comp. 1507 Supraventricular ectopics which represent 2 % of total QRS comp. * Paced QRS complexs which represent % of total QRS comp. VENTRICULAR ECTOPY 101 Isolated 10 Bigeminal Cycles 3 Couplets 0 Runs 0 Beats in Runs * Beats LONGEST at * BPM at :: -- * Beats FASTEST at * BPM at :: -- SUPRAVENTRICULAR ECTOPY 1222 Isolated 74 Couplets 32 Runs 137 Beats in Runs 14 Beats LONGEST at 96 BPM at 06:18:21 2021-02-05 3 Beats FASTEST at 153 BPM at 11:24:18 2021-02-05 HEART RATES 43 MIN at 04:59:43 2021-02-05 55 AVG 133 MAX at 11:24:18 2021-02-05 LONGEST RR 1.4320 secs at 07:01:04 2021-02-05 S-T LEVELS Channel 1 - 128 mm at 14:18:00 2021-02-04 - 128 mm at 14:18:00 2021-02-04 Channel 2 - 128 mm at 14:18:00 2021-02-04 - 128 mm at 14:18:00 2021-02-04 Channel 3 - 128 mm at 03:33:71 -- - 128 mm at 03:33:71 Basic rhythm Normal sinus rhythm Frequent Sinus bradycardia , 80% of time HR < 60 bpm Frequent Premature atrial complexes No sustained Atrial fibrillation Patient did not report any symptoms in the diary Referred By: Ferdinand Abdalla Overread By: FERDINAND ABDALLA MD
== END ==
LOC: HO.CARD 14:07
PROVIDERS: PCP Internal Medicine; Visit Provider Internal Medicine
DX: I48.91 Unspecified atrial fibrillation (principal)
CPT/HCPCS: 93225; 93226

== ENCOUNTER 2021-02-21 14:30 | Outpatient (REF) | payer MEDICARE, SELFPAY ==
--- NOTE | ~2021-02-21 | US_ITS ---
EXAMINATION: US VENOUS ULTRASOUND WITH DOPPLER LOWER EXTREMITY, RIGHT CLINICAL INFORMATION: Right lower leg pain and edema COMPARISON: November 08, 2018 and November 03, 2018 TECHNIQUE: Ultrasound of the deep veins is performed from the hip to the calf with compression sonography and color and pulse Doppler assessment. Spectral analysis with color-flow imaging is performed. FINDINGS: There is normal venous compression and respiratory variation and augmented flow. The visualized common femoral vein, superficial femoral vein, profunda femoral vein, popliteal vein, and the trifurcation region shows no evidence of deep venous thrombosis. No popliteal artery aneurysm. No popliteal fossa cyst. Patient is status post previous greater saphenous vein radiofrequency ablation with small remnant seen. There is some subcutaneous edema seen within the calf. If the patient's symptoms persist, followup ultrasound in 5 days 7 days might be of value to exclude proximal propagation from a non-visualized calf vein. US/US venous duplex LE RT IMPRESSION: No acute DVT demonstrated in the right lower extremity.
== END 2021-02-21 14:31 | disposition home or self-care (01) ==
LOC: HO.US 14:30
PROVIDERS: PCP Internal Medicine; Visit Provider Internal Medicine
DX: M79.661 Pain in right lower leg (principal); M79.89 Other specified soft tissue disorders
CPT/HCPCS: 93971

== ENCOUNTER 2021-02-27 07:43 | Outpatient (REF) | payer MEDICARE, SELFPAY ==
--- NOTE | ~2021-02-27 | XR_ITS ---
EXAMINATION: XR KNEE, STANDING AP, BILATERAL XR KNEE, RIGHT CLINICAL INFORMATION: Pain in right knee. COMPARISON: Standing AP knees 04/20/2017, radiographs left knee 03/28/2017 TECHNIQUE: Standing AP view of both knees is performed. Additional lateral and axial patellar views of the right knee are also obtained. FINDINGS: Right: There is no fracture, dislocation, or destructive process. There are osteoarthritic changes, greatest medial knee joint compartment with prominent joint narrowing, marginal osteophytes, and secondary genu varus. There is no erosive change or definite chondrocalcinosis. Axial view patella shows no lateralization or tilting. There is a moderate suprapatellar effusion. Hoffa's fat pad appears normal. There are scattered atherosclerotic calcifications vasculature, some may also be Monckeberg medial calcific sclerosis. Left: There is prominent narrowing medial knee joint compartment with secondary genu varus and marginal osteophytes. No visible erosive change or chondrocalcinosis. There is an intravascular stent seen mid femoral artery and scattered atherosclerotic calcifications vasculature. XR/XR knee standing BI IMPRESSION: 1. Right: Prominent osteoarthritic changes, greatest medial knee joint compartment with associated moderate effusion and genu varus. Atherosclerotic calcifications vasculature. 2. Left: Osteoarthritic changes medial knee joint compartment with secondary genu varus. Atherosclerotic calcifications vasculature. Mid femoral intravascular stent.
--- NOTE | ~2021-02-27 | XR_ITS ---
EXAMINATION: XR KNEE, STANDING AP, BILATERAL XR KNEE, RIGHT CLINICAL INFORMATION: Pain in right knee. COMPARISON: Standing AP knees 04/20/2017, radiographs left knee 03/28/2017 TECHNIQUE: Standing AP view of both knees is performed. Additional lateral and axial patellar views of the right knee are also obtained. FINDINGS: Right: There is no fracture, dislocation, or destructive process. There are osteoarthritic changes, greatest medial knee joint compartment with prominent joint narrowing, marginal osteophytes, and secondary genu varus. There is no erosive change or definite chondrocalcinosis. Axial view patella shows no lateralization or tilting. There is a moderate suprapatellar effusion. Hoffa's fat pad appears normal. There are scattered atherosclerotic calcifications vasculature, some may also be Monckeberg medial calcific sclerosis. Left: There is prominent narrowing medial knee joint compartment with secondary genu varus and marginal osteophytes. No visible erosive change or chondrocalcinosis. There is an intravascular stent seen mid femoral artery and scattered atherosclerotic calcifications vasculature. XR/XR knee RT 2V IMPRESSION: 1. Right: Prominent osteoarthritic changes, greatest medial knee joint compartment with associated moderate effusion and genu varus. Atherosclerotic calcifications vasculature. 2. Left: Osteoarthritic changes medial knee joint compartment with secondary genu varus. Atherosclerotic calcifications vasculature. Mid femoral intravascular stent.
== END 2021-02-27 07:44 | disposition home or self-care (01) ==
LOC: HO.HOSX 07:43
PROVIDERS: Visit Provider Physician Assistant
DX: M17.11 Unilateral primary osteoarthritis, right knee (principal)
CPT/HCPCS: 20610; 73560; 73565; 99202; J1040

== ENCOUNTER 2021-03-20 14:25 | Inpatient (IN) | payer OTHER, MEDICARE, SELFPAY ==
[2021-03-20] VITALS (8 sets, daily range): BP systolic 161–228; BP diastolic 73–89; PULSE 51–56; RESP 14–22; TEMP 36.4–36.8; O2SAT 95–96; BMI 24.3
--- NOTE | 2021-03-20 | ECG_ITS ---
Test Reason : HIGH BLOOD PRESSURE Blood Pressure : / mmHG Vent. Rate : 053 BPM Atrial Rate : 053 BPM P-R Int : 182 ms QRS Dur : 102 ms QT Int : 436 ms P-R-T Axes : 066 009 071 degrees QTc Int : 409 ms Sinus bradycardia Otherwise normal ECG When compared with ECG of 19-DEC-2020 07:45, Sinus rhythm has replaced Atrial fibrillation Vent. rate has decreased BY 61 BPM Nonspecific T wave abnormality no longer evident in Lateral leads Referred By: Petey Villar Electronically Signed By:BENEDICTO YBARRA MD
--- NOTE | ~2021-03-20 | CT_ITS ---
EXAMINATION: CT HEAD WITHOUT CONTRAST CLINICAL INFORMATION: Hypertensive COMPARISON: Head CT May 12, 2011 TECHNIQUE: Contiguous axial imaging was performed from the skull base to vertex without intravenous administration of contrast. This CT examination was performed using dose optimization techniques as appropriate, variously including the following: *Automated exposure control *Adjustment of mA and/or kV according to patient size (this includes techniques or standardized protocols for targeted exams where dose is matched to indication/reason for exam; i.e. extremities or head) *Use of iterative reconstruction technique DLP: 719 mGy-cm FINDINGS: There is no evidence of acute intracranial hemorrhage or territorial infarction. No abnormal mass effect or midline shift is appreciated. Seo-white differentiation is well preserved. No extra-axial fluid collections. The ventricular system and cortical sulci are prominent, consistent with volume loss. There are areas of low density in the periventricular and subcortical white matter, most consistent with sequelae of microvascular ischemic change. The osseous structures and soft tissues are normal. There are calcifications of the cavernous internal carotid arteries. The visualized paranasal sinuses and mastoid air cells are well aerated. CT/CT head/brain wo con IMPRESSION: Chronic microvascular ischemic changes with no CT evidence of acute intracranial abnormality.
--- NOTE | ~2021-03-20 | US_ITS ---
EXAMINATION: ULTRASOUND RENAL DOPPLER CLINICAL INFORMATION: Rule out renal artery stenosis. COMPARISON: Abdominal ultrasound dated 04/03/2018. TECHNIQUE: Multiple 2D grayscale and duplex Doppler ultrasound images of the renal arteries were obtained. FINDINGS: The right kidney measures 11.6 cm. There is no hydronephrosis or nephrolithiasis. Arterial velocities are as follows: Intrarenal: Resistive index, 0.83 Right renal artery: [place]: 77 cm/sec Mid: 96 cm/sec Proximal: 63 cm/sec The right renal vein demonstrated normal venous waveforms. The left kidney measures 10.8 cm. There is no hydronephrosis or nephrolithiasis. Intrarenal: Resistive index 0.76 Left renal artery: [place]um: 82 cm/sec Mid: 101 cm/sec Proximal: 61 cm/sec The left renal vein demonstrated normal venous waveforms. Aortic velocities measure up to 92 cm/sec. Renal to aortic velocity ratios are within the range of normal. Normal low resistance arterial wave forms are noted in both renal arteries. The visualized inferior vena cava is unremarkable. US/US renal doppler IMPRESSION: No hemodynamically significant renal artery stenosis.
--- NOTE | ~2021-03-20 | CT_ITS ---
EXAMINATION: CT HEAD WITHOUT CONTRAST (STROKE PROTOCOL) CLINICAL INFORMATION: Stroke protocol. Acute blindness COMPARISON: CT head 921 TECHNIQUE: Contiguous axial imaging was performed from the skull base to vertex without intravenous administration of contrast. This CT examination was performed using dose optimization techniques as appropriate, variously including the following: *Automated exposure control *Adjustment of mA and/or kV according to patient size (this includes techniques or standardized protocols for targeted exams where dose is matched to indication/reason for exam; i.e. extremities or head) *Use of iterative reconstruction technique DLP: 11:15 mGy-cm FINDINGS: There is no intracranial hemorrhage, hematoma, or extra-axial fluid collection. The there is no edema or mass effect. The lateral ventricles are symmetrical but enlarged and so are the cortical sulci. There is diffuse periventricular hypodensity in both cerebral hemispheres without mass effect. There is no acute infarct or mass lesion. The calvarium appears intact. There is no pneumocephalus or orbital emphysema. The visualized sinuses and middle ears and mastoid air cells show no significant mucosal thickening. There are no air-fluid levels. CT/CT head for stroke IMPRESSION: No acute intracranial process seen. There is moderate cerebral volume loss with chronic small vessel microangiopathy. This critical result was discussed with Dr. Ramey at 1:33 p.M. It was ascertained that the content and urgency of the report was understood at the time of direct communication.
--- NOTE | ~2021-03-20 | XR_ITS ---
EXAMINATION: XR CHEST CLINICAL INFORMATION: Shortness of breath, exacerbation CHF. COMPARISON: Chest radiographs 12/21/2020, 12/19/2020 TECHNIQUE: Portable upright AP x2 views of the chest was obtained. FINDINGS: There is hyperinflation/COPD. The heart is normal in size. There is even distribution of pulmonary vascularity which may suggest mild elevated pulmonary venous pressures. Otherwise, there is no vascular engorgement, airspace consolidation, or effusion. The hilar and mediastinal contours are unremarkable. No acute bony abnormality. XR/XR chest 1V IMPRESSION: 1. Hyperinflation/COPD. 2. If in distribution pulmonary vascularity which may suggest mild elevated pulmonary venous pressures. 3. No airspace consolidation or effusion.
--- NOTE | ~2021-03-20 | US_ITS ---
EXAMINATION: US VENOUS ULTRASOUND WITH DOPPLER LOWER EXTREMITY, BILATERAL CLINICAL INFORMATION: Bilateral leg swelling COMPARISON: 02/21/2021 TECHNIQUE: Ultrasound of the deep veins is performed from the hip to the calf with compression sonography and color and pulse Doppler assessment. Spectral analysis with color-flow imaging is performed. FINDINGS: RIGHT: There is normal venous compression and respiratory variation and augmented flow. The visualized common femoral vein, superficial femoral vein, profunda femoral vein, popliteal vein, and the trifurcation region shows no evidence of deep venous thrombosis. There is no significant popliteal fossa cyst. LEFT: There is normal venous compression and respiratory variation and augmented flow. The visualized common femoral vein, superficial femoral vein, profunda femoral vein, popliteal vein, and the trifurcation region shows no evidence of deep venous thrombosis. There is no significant popliteal fossa cyst. If the patient's symptoms persist, followup ultrasound in 5 days 7 days might be of value to exclude proximal propagation from a non-visualized calf vein. US/US venous duplex LE BI IMPRESSION: No DVT demonstrated in the bilateral lower extremity.
--- NOTE | ~2021-03-20 | CT_ITS ---
EXAMINATION: CT ANGIOGRAM CHEST WITH AND WITHOUT CONTRAST (CT PULMONARY ANGIOGRAM FOR PE) CLINICAL INFORMATION: Leg swelling. Shortness of breath. Evaluate for a pulmonary embolism. COMPARISON: Chest radiograph done earlier the same day. CT chest dated 12/24/2020. TECHNIQUE: Prior to contrast administration, noncontrast localization images were obtained. Subsequently, multidetector volumetric imaging was performed from the thoracic inlet to below the diaphragms following the administration of 61 mL Omnipaque 350 intravenous contrast. No contrast reaction reported. Sagittal, coronal, and MIP oblique sagittal reformatted images were obtained on the CT workstation, uploaded to PACS, and reviewed. This CT examination was performed using dose optimization techniques as appropriate, variously including the following: *Automated exposure control. *Adjustment of mA and/or kV according to patient size (this includes techniques or standardized protocols for targeted exams where dose is matched to indication/reason for exam; i.e. extremities or head). *Use of iterative reconstruction technique. Total exam dose-length product 232 mGy-cm. FINDINGS: QUALITY OF STUDY/CONTRAST BOLUS: Satisfactory. PULMONARY ARTERIES: No central or segmental pulmonary emboli. THORACIC AORTA: No thoracic aortic dilatation or dissection. Atherosclerotic calcifications. LUNG: Prominent emphysematous changes are redemonstrated, most significant within the lung apices. Linear scarring versus atelectasis redemonstrated within the central right lung apex with associated nodularity. A nodular component measures approximately 0.7 x 0.5 cm (previously 0.5 x 0.4 cm on the prior examination). There is associated parenchymal distortion. Additional irregular nodularity anteriorly within the right upper lobe with associated calcification. This measures approximately 1.1 x 0.4 cm in greatest axial dimension (previously 1.1 x 0.4 cm). Associated parenchymal distortion is redemonstrated. Subpleural nodularity redemonstrated along the right major and minor fissures, similar when compared to the prior examination. Dependent atelectasis within the left lower lobe. No new large pulmonary nodule, mass, or confluent airspace consolidation. PLEURA: Resolution of the previously seen small right-sided pleural effusion. No new pleural effusion or pneumothorax. MEDIASTINUM: Mild cardiomegaly, slightly increased when compared to the prior examination. No pericardial effusion. No significant superior mediastinal or hilar lymphadenopathy. No evidence of septal bowing or right heart strain. CHEST WALL/AXILLA: No axillary or internal mammary lymphadenopathy. OSSEOUS STRUCTURES: No acute or suspicious osseous abnormality. UPPER ABDOMEN: Redemonstration of a left adrenal cyst with wall calcifications, unchanged. Otherwise, the visualized upper abdominal structures are unremarkable. No reflux of contrast into the hepatic veins to suggest elevated right heart pressures. CT/CT angio chest PE protocol IMPRESSION: 1. No CT angiographic evidence of acute pulmonary embolism. 2. Prominent emphysematous changes are redemonstrated with left lower lobe dependent atelectasis. No new large pulmonary mass or confluent airspace consolidation. 3. Multiple bilateral pulmonary nodules are redemonstrated. A central right upper lobe pulmonary nodule has slightly increased in size when compared to the prior examination now measuring up to 0.7 cm (previously 0.5 cm on a similar axial image). Additional pulmonary nodules appear similar when compared to the prior examination. 4. No new lymphadenopathy. 5. Additional findings are unchanged. VTE: Negative.
--- NOTE | 2021-03-20 15:41 | ED.GENADULT ---
HPI - General Adult General Chief complaint: Dyspnea Stated complaint: legs swollen, feet swollen Time Seen by Provider: 03/20/21 15:27 Source: patient Mode of arrival: ambulatory Limitations: no limitations History of Present Illness HPI narrative: Patient presents to the ED for shortness of breath and increased swelling of lower extremities past couple days. Patient recently discharged for CHF exacerbation. Patient states he has been compliant with his Lasix. Patient denies any URI symptoms. Patient stating feeling shortness of breath. Related Data Home Medications Medication Instructions Recorded Confirmed cholecalciferol (vitamin D3) 25 25 mcg PO DAILY 08/14/20 03/20/21 mcg (1,000 unit) capsule dorzolamide 22.3 mg-timolol 6.8 1 drp OPHTHALMIC (EYE) BID 08/14/20 03/20/21 mg/mL eye drops latanoprost 0.005 % eye drops 1 drp OPHTHALMIC (EYE) BEDTIME ml 08/14/20 03/20/21 tamsulosin 0.4 mg capsule 0.4 mg PO DAILY 08/14/20 03/20/21 Ocuvite Adult 50 Plus 1 cap PO DAILY 12/19/20 03/20/21 Probiotic-10 (with inulin) 1 cap PO DAILY 12/19/20 03/20/21 calcium carb-mag ox-zinc sulf 1 tab PO DAILY 12/19/20 03/20/21 sennosides [senna] 17.2 mg PO BEDTIME PRN 03/20/21 03/20/21 Previous Rx's Medication Instructions Recorded mirabegron 50 mg tablet,extended 50 mg PO DAILY 90 Days #90 tab 09/20/20 release 24 hr rosuvastatin 20 mg tablet 20 mg PO BEDTIME #90 tab 11/21/20 [employer]LIFT #1 ea 12/18/20 furosemide 40 mg tablet 40 mg PO DAILY #60 tab 01/17/21 fluticasone propionate 110 2 puff PO BID #3 ea 01/30/21 mcg/actuation HFA aerosol inhaler metoprolol succinate 100 mg 100 mg PO DAILY 90 Days #90 tab 01/30/21 tablet,extended release 24 hr losartan 100 mg tablet 100 mg PO DAILY #90 tab 02/28/21 apixaban 5 mg tablet 5 mg PO BID 90 Days #180 tab 03/08/21 digoxin 125 mcg (0.125 mg) tablet 125 mcg PO DAILY #90 tab 03/19/21 wheelchair #1 ea 03/19/21 Allergies Allergy/AdvReac Type Severity Reaction Status Date / Time ciprofloxacin [CIPROFLOXACIN] Allergy Unknown ITCHY FEET Verified 03/20/21 15:01 oxycodone [Percocet] AdvReac Unknown Unknown Verified 03/20/21 15:01 Review of Systems Review of Systems: Yes all other systems are reviewed and are negative Constitutional: Constitutional: Reports as per HPI and Reports no additional constitutional complaints Eyes: Eyes: Reports as per HPI and Reports no additional eye complaints ENT: Reports system reviewed and no additional complaints, except as documented and Reports as per HPI Cardiovascular: Cardiovascular: Reports as per HPI, Reports no additional cardiovascular complaints, Denies chest pain and Reports dyspnea Respiratory: Respiratory: Reports as per HPI, Reports no additional respiratory complaints and Reports dyspnea Gastrointestinal: Gastrointestinal: Reports as per HPI and Reports no additional gastrointestinal complaints Genitourinary: Genitourinary: Reports no additional male genitourinary complaints and Reports as per HPI Musculoskeletal: Musculoskeletal: Reports no additional musculoskeletal complaints and Reports as per HPI Comments: Lower extremity swelling or pitting edema. Neurologic: Reports system reviewed and no additional complaints, except as documented and Reports as per HPI Psychiatric: Psychiatric: Reports no additional psychiatric complaints and Reports as per HPI [facility] Past Medical History Medical History (Updated 03/20/21 @ 21:53 by LIZZY De Oliveira) (HFpEF) heart failure with preserved ejection fraction Atrial flutter Bladder neck contracture BPH (benign prostatic hyperplasia) CAD (coronary artery disease) COPD (chronic obstructive pulmonary disease) Hypercholesterolemia Hypertension Hypotonic bladder Pain and swelling of right lower leg Paraphimosis Peripheral vascular disease Pulmonary nodule Right knee pain Tubular adenoma of colon Type 2 diabetes mellitus with hyperglycemia Vitamin D deficiency Surgical History H/O inguinal hernia repair H/O vascular surgery History of appendectomy History of cataract surgery History of colonoscopy History of prostate surgery Family History Family History Father No problems noted. Mother CVD (cardiovascular disease) Social History Social History Alcohol intake: former Patient Tobacco Use Status: Never used Tobacco Advance Directives: No Advance Directives Information Provided: Yes service: Yes Current occupational status: retired Physical Exam Vital Signs: Vital Signs: Last Vital Signs Temp 98.2 F 03/20/21 21:31 Pulse 53 03/20/21 21:31 Resp 15 03/20/21 21:31 BP 184/88 H 03/20/21 21:31 Pulse Ox 95 03/20/21 21:31 Body Mass Index 24.3 Const: General: cooperative, healthy appearing, comfortable, no acute distress, well developed, alert and awake Orientation/consciousness: patient oriented x3 HENMT: Head: Yes normal to inspection, Yes No palpable skull fracture present, Yes normocephalic, Yes atraumatic, No abrasion, No Preciado's sign, No contusion, No cranial bruits, No hematoma, No laceration, No occipital foramen tenderness, No palpable skull fracture, No raccoon eyes, No scalp lesion, No scalp tenderness, No Temporal artery tenderness present and No periorbital ecchymosis Eyes: General: appearance normal, both eyes and all related structures Neck: Neck: Yes normal visual inspection and Yes full ROM Chest: Chest palpation & inspection: normal inspection of the chest and normal palpation of entire chest wall Resp: Effort & Inspection: normal respiratory effort and able to speak in complete sentences Auscultation: clear to auscultation bilaterally Cardio: Jugular venous distension: JVD (mild) Heart sounds: S1 normal heart sound present and S2 normal heart sound present GI: Inspection: Yes normal to inspection and No abdominal wall ecchymosis Palpation (GI): Soft to palpation, not firm, nontender, no guarding and not rigid : General: No CVA tenderness and Yes no CVA tenderness Back/Spine/Pelvis: Back: no CVA tenderness, No CVA tenderness and No back tenderness Skin: General skin exam: no rashes or lesions noted and elasticity normal Neuro: General: patient oriented x3, gait normal and CN's II-XI intact bilaterally Cranial nerves: Yes CN's II-XII intact bilaterally Extrem: Other: Lower extremities positive for pitting edema 2+ swelling. Negative for redness or calf tenderness General: Yes normal to inspection and Yes full ROM Psych: Appearance: grossly normal, well kempt and not disheveled Course Course Course Narrative: History physical exam indicate CHF exacerbation. Patient lungs are clear and O2 saturation room air 97%. Was an x-ray to check for fluid overload. Will give Lasix and nitropaste. Patient hypertensive. Reevaluation(s) Reevaluation #1: Patient's BNP came only 298. Chest x-ray negative for cardiomegaly. Chest x-ray shows some pulmonary vascular congestion. Due to chest x-ray negative for cardiomegaly and BNP only 200, will send patient to chest CT to rule out PE and also bilateral lower extremity ultrasounds. Awaiting EKG Reevaluation #2: Patient's EKG negative STEMI. Bilateral lower extremity ultrasound negative for DVT. Blood pressure improved. Head CT came back normal. Chest CT negative for PE. Case presented hospitalist for admission for hypertensive urgency and CHF exacerbation. Dr. Munson accepted case. Time: 21:52 Medical Decision Making MDM Narrative Medical decision making narrative: Hypertensive urgency. CHF exacerbation. Lab Data Result diagrams: 03/20/21 15:52 03/20/21 15:52 Labs: Lab Results 03/20/21 03/20/21 03/20/21 Range/Units 15:52 15:52 15:52 WBC 6.4 (4.8-10.8) X10*3/uL RBC 4.31 L (4.60-5.80) X10*6/uL Hgb 13.3 L (14.0-18.0) g/dl Hct 40.3 L (42-52) % MCV 93.5 (80-98) fL MCH 30.9 (27.0-33.0) pg MCHC 33.0 (31.0-36.0) g/dl RDW 13.2 (11.0-16.0) % Plt Count 240 (160-400) X10*3/uL MPV 9.1 L (9.4-12.4) fL Immature Gran % (Auto) 0.3 (0.0-0.4) % Neut % (Auto) 70.4 (45-73) % Lymph % (Auto) 18.6 L (20-40) % [place] % (Auto) 8.8 (2-11) % Eos % (Auto) 1.3 (0-4) % Baso % (Auto) 0.6 (0-2) % Lymph # (Auto) 1.2 (1.2-4.9) X10*3/uL [place] # (Auto) 0.6 (0.1-1.2) X10*3/uL Eos # (Auto) 0.1 (0.0-0.4) X10*3/uL Baso # (Auto) 0.0 (0.0-0.2) X10*3/uL Abs Immat Gran (auto) 0.02 (0.00-0.03) X10*3/uL Absolute Neuts (auto) 4.5 (2.0-8.3) X10*3/uL Absolute Nucleated RBC 0.000 (0.0-0.012) X10*3/uL Nucleated RBC % (auto) 0.0 (0.0-0.2) /100WBC PT 16.6 H (10.8-13.0) SEC INR 1.4 H (0.9-1.1) APTT 34.6 (24.1-38.0) SEC Sodium 143 (135-145) mmol/L Potassium 3.7 (3.3-5.1) mmol/L Chloride 108 (96-108) mmol/L Carbon Dioxide 29 (22-29) mmol/L Anion Gap 10 L (12-20) BUN 16 (9-16) mg/dL Creatinine 0.77 (0.5-1.4) mg/dL Estim Creat Clear Calc 67.9 Estimated GFR > 60 Random Glucose 98 (60-115) mg/dL Calcium 8.9 D (8.4-10.2) mg/dL Total Bilirubin 0.9 (0.0-1.0) mg/dL AST 18 (5-37) U/L ALT 14 (0-40) U/L Alkaline Phosphatase 81 (39-117) U/L Troponin I High Sens (<3.5-35.0) ng/L B-Natriuretic Peptide (<100) pg/mL Total Protein 5.8 L (6.5-8.0) g/dL Albumin 3.8 (3.5-5.0) g/dL COVID-19 (CARLOS) (Negative) COVID-19 Clin Com 03/20/21 03/20/21 03/20/21 Range/Units 15:52 18:12 20:22 WBC (4.8-10.8) X10*3/uL RBC (4.60-5.80) X10*6/uL Hgb (14.0-18.0) g/dl Hct (42-52) % MCV (80-98) fL MCH (27.0-33.0) pg MCHC (31.0-36.0) g/dl RDW (11.0-16.0) % Plt Count (160-400) X10*3/uL MPV (9.4-12.4) fL Immature Gran % (Auto) (0.0-0.4) % Neut % (Auto) (45-73) % Lymph % (Auto) (20-40) % [place]linger % (Auto) (2-11) % Eos % (Auto) (0-4) % Baso % (Auto) (0-2) % Lymph # (Auto) (1.2-4.9) X10*3/uL [place] # (Auto) (0.1-1.2) X10*3/uL Eos # (Auto) (0.0-0.4) X10*3/uL Baso # (Auto) (0.0-0.2) X10*3/uL Abs Immat Gran (auto) (0.00-0.03) X10*3/uL Absolute Neuts (auto) (2.0-8.3) X10*3/uL Absolute Nucleated RBC (0.0-0.012) X10*3/uL Nucleated RBC % (auto) (0.0-0.2) /100WBC PT (10.8-13.0) SEC INR (0.9-1.1) APTT (24.1-38.0) SEC Sodium (135-145) mmol/L Potassium (3.3-5.1) mmol/L Chloride (96-108) mmol/L Carbon Dioxide (22-29) mmol/L Anion Gap (12-20) BUN (9-16) mg/dL Creatinine (0.5-1.4) mg/dL Estim Creat Clear Calc Estimated GFR Random Glucose (60-115) mg/dL Calcium (8.4-10.2) mg/dL Total Bilirubin (0.0-1.0) mg/dL AST (5-37) U/L ALT (0-40) U/L Alkaline Phosphatase (39-117) U/L Troponin I High Sens 11.4 13.8 (<3.5-35.0) ng/L B-Natriuretic Peptide 298 H (<100) pg/mL Total Protein (6.5-8.0) g/dL Albumin (3.5-5.0) g/dL COVID-19 (CARLOS) Negative (Negative) COVID-19 Clin Com See Note ECG Data Interpretation: Sinus bradycardia. Ventricular rate 53. Peer interval 182 MT is 102. QTC 409. Negative STEMI Discharge Plan Discharge Clinical Impression: CHF (congestive heart failure), Hypertensive crisis Patient Disposition: Admitted As Inpatient
[2021-03-20] MEDS: Furosemide 40 MG/4 ML VIAL IVPUSH (15:54)
[2021-03-20] MEDS: Nitroglycerin 2 % Oint 1 GM Packet 0.5 INCH TRANSDERMA (15:54)
[2021-03-20 15:57] LABS: MANUAL DIFF FLAG NO
[2021-03-20 16:06] LABS: Basophils Percent Auto 0.6 % (0-2); Eosinophils Absolute Auto 0.1 X10*3/uL (0.0-0.4); Eosinophils Percent Auto 1.3 % (0-4); Hematocrit 40.3 % (42-52); Hemoglobin 13.3 g/dl (14.0-18.0); INTERNATIONAL NORM RATIO 1.4 (0.9-1.1); Imm Gran Abs Auto 0.02 X10*3/uL (0.00-0.03); Imm Gran Pct Auto 0.3 % (0.0-0.4); Lymphocytes Absolute Auto 1.2 X10*3/uL (1.2-4.9); Lymphocytes Percent Auto 18.6 % (20-40); Mean Corpuscular Hemoglobin 30.9 pg (27.0-33.0); Mean Corpuscular Volume 93.5 fL (80-98); Mean Platelet Volume 9.1 fL (9.4-12.4); Monocytes Absolute Auto 0.6 X10*3/uL (0.1-1.2); Monocytes Percent Auto 8.8 % (2-11); Neutrophils Absolute Auto 4.5 X10*3/uL (2.0-8.3); Neutrophils Percent Auto 70.4 % (45-73); Platelet Count 240 X10*3/uL (160-400); Prothrombin Time 16.6 SEC (10.8-13.0); Red Blood Count 4.31 X10*6/uL (4.60-5.80); Red Cell Distribution Width 13.2 % (11.0-16.0); White Blood Count 6.4 X10*3/uL (4.8-10.8)
[2021-03-20 16:09] LABS: Partial Thromboplastin Time 34.6 SEC (24.1-38.0)
[2021-03-20 16:25] LABS: Alanine Aminotransferase 14 U/L (0-40); Albumin Level 3.8 g/dL (3.5-5.0); Alkaline Phosphatase 81 U/L (39-117); Anion Gap 10 (12-20); Aspartate Amino Transferase 18 U/L (5-37); Bilirubin Total 0.9 mg/dL (0.0-1.0); Blood Urea Nitrogen 16 mg/dL (9-16); Calcium 8.9 mg/dL (8.4-10.2); Carbon Dioxide 29 mmol/L (22-29); Chloride 108 mmol/L (96-108); Creatinine Clr Calc Pharmacy 67.9; Estimated Glomerular Filt Rate > 60; Glucose Random 98 mg/dL (60-115); Potassium 3.7 mmol/L (3.3-5.1); Sodium 143 mmol/L (135-145); Total Protein 5.8 g/dL (6.5-8.0)
[2021-03-20 16:29] LABS: B Type Natriuretic Peptide 298 pg/mL (<100); Troponin-I High Sensitivity 11.4 ng/L (<3.5-35.0)
[2021-03-20 18:40] LABS: COVID-19 Test Negative (Negative)
[2021-03-20] MEDS: iohexoL 350 MG/ML 100 ML INFUS..BTL IV (19:01)
--- NOTE | 2021-03-20 20:38 | P.HPHOSP_ITS ---
History of Present Illness Date of Service: 03/20/21 Chief Complaint: SOB 85-year-old male with a past medical history of hypertension, hyperlipidemia, diabetes, coronary artery disease, CHF, history of a flutter on Eliquis, peripheral vascular disease, history of pulmonary nodule, COPD, BPH presented to the hospital with a chief complaint of shortness of breath. Patient reported that over the past 2-3 days he has been having shortness of breath and increased leg swelling. Mentions that his shortness of breath has been gradually worsening. Denies any orthopnea or PND. Denies any chest pain or palpitations. Denies any fever chills cough, GI or symptoms. Review of all other systems is negative except mentioned above Patient denies any headaches or blurry visions. ER course: Per ER team patient noted to have nonfocal examination but noted to have crackles on exam; blood pressure noted to be elevated with systolic in 226. Patient was given Lasix and nitro patch; subsequently his blood pressure im proved to systolic 165. Venous duplex was negative for any DVT. CT angio was also ordered with ER team. [facility] Medical History (HFpEF) heart failure with preserved ejection fraction Atrial flutter Bladder neck contracture BPH (benign prostatic hyperplasia) CAD (coronary artery disease) COPD (chronic obstructive pulmonary disease) Hypercholesterolemia Hypertension Hypotonic bladder Pain and swelling of right lower leg Paraphimosis Peripheral vascular disease Pulmonary nodule Right knee pain Tubular adenoma of colon Type 2 diabetes mellitus with hyperglycemia Vitamin D deficiency Family History Father No problems noted. Mother CVD (cardiovascular disease) Surgical History H/O inguinal hernia repair H/O vascular surgery History of appendectomy History of cataract surgery History of colonoscopy History of prostate surgery Social History Household Members: Spouse Housing: House Do you presently have visiting nurse or other home services: No Alcohol intake: former Patient Tobacco Use Status: Never used Tobacco Use of substances other than those prescribed or required for medical reasons: No Currently Displaying Signs/Symptoms of Drug Intoxication Withdrawal: No Have you been hit, kicked, punched, or otherwise hurt by someone within the past year? If so, by whom?: No Do you feel safe in your current relationship?: No Is there a partner from a previous relationship who is making you feel unsafe now?: No Are you made to feel afraid or neglected: No Advance Directives: No Advance Directives Information Provided: Yes Do you have thoughts of harming others: None Do you have a plan to hurt others: No Plan Recently lost weight without trying: No Eating poorly because of decreased appetite: No Nutrition Risks: No Nutritional Risk Poor oral hygiene: No service: Yes Current occupational status: retired Meds Allergies Allergy/AdvReac Type Severity Reaction Status Date / Time ciprofloxacin [CIPROFLOXACIN] Allergy Unknown ITCHY FEET Verified 03/20/21 15:01 oxycodone [Percocet] AdvReac Unknown Unknown Verified 03/20/21 15:01 Active Medications: Current Medications Generic Name Dose Route Start Last Admin Trade Name Freq PRN Reason Stop Dose Admin Acetaminophen 650 mg 03/20/21 20:31 Acetaminophen 325 Mg Tablet PO Q6H PRN Pain, Mild (Pain Scale 1-3) Furosemide 40 mg 03/21/21 08:00 Furosemide 40 Mg/4 Ml Vial IVPUSH BIDWM [facility] Protocol Insulin Human Lispro 0 unit 03/20/21 21:00 Insulin Lispro 100 Unit/Ml 3 Ml Vial SUBCUT QIDACHS [facility] Protocol Magnesium Hydroxide 30 ml 03/20/21 20:31 Milk Of Magnesia 30 Ml Oral.Susp PO DAILY PRN Constipation Nitroglycerin 0.4 mg 03/20/21 20:31 Nitroglycerin 0.4 Mg Tab.Subl SUBLINGUAL Q5M PRN Chest Pain Pharmacy Consult 1 each 03/20/21 19:58 Consult Rx Perform Med Rec MISCELLANE ONCE PRN Consult order Sodium Chloride 3 ml 03/21/21 00:00 0.9 % Sodium Chloride Flush 3 Ml Syringe IVFLUSH QSHIFT [facility] Home Medications Medication Instructions Recorded Confirmed Last Taken Type cholecalciferol (vitamin D3) 25 25 mcg PO DAILY 08/14/20 03/20/21 03/20/21 History mcg (1,000 unit) capsule dorzolamide 22.3 mg-timolol 6.8 1 drp OPHTHALMIC (EYE) BID 08/14/20 03/20/21 03/20/21 History mg/mL eye drops latanoprost 0.005 % eye drops 1 drp OPHTHALMIC (EYE) BEDTIME ml 08/14/2007/0203/19/21 History tamsulosin 0.4 mg capsule 0.4 mg PO DAILY 08/14/20 03/20/21 03/20/21 History Ocuvite Adult 50 Plus 1 cap PO DAILY 12/19/20 03/20/21 03/20/21 History Probiotic-10 (with inulin) 1 cap PO DAILY 12/19/20 03/20/21 03/20/21 History calcium carb-mag ox-zinc sulf 1 tab PO DAILY 12/19/20 03/20/21 03/20/21 History sennosides [senna] 17.2 mg PO BEDTIME PRN 03/20/21 03/20/21 Unknown History Physical Exam Vital Signs and Narrative: Vital Signs: Last Vital Signs Temp 97.9 F 03/20/21 18:00 Pulse 54 03/20/21 20:26 Resp 18 03/20/21 20:26 BP 207/87 H 03/20/21 20:26 Pulse Ox 95 03/20/21 20:26 Body Mass Index 24.3 Gen: Appears be in no acute distress HEENT: NCAT, Moist mucosa. Pulmonary: Mildly coarse breath sounds, fair air entry; basal crackles present CVS: Normal S1-S2 Abdomen: BS+, Soft, Nontender Extremities: Warm well perfused; 2+ pitting edema Neuro: Alert and awake. Results Labs CBC and Chem 7: 03/23/21 15:11 03/23/21 15:11 Labs: Laboratory Results - last 24 hr 03/20/21 03/20/21 03/20/21 15:52 15:52 15:52 MCV 93.5 MCH 30.9 MCHC 33.0 RDW 13.2 Plt Count 240 MPV 9.1 L Immature Gran % (Auto) 0.3 Neut % (Auto) 70.4 Lymph % (Auto) 18.6 L [place] % (Auto) 8.8 Eos % (Auto) 1.3 Baso % (Auto) 0.6 Lymph # (Auto) 1.2 [place] # (Auto) 0.6 Eos # (Auto) 0.1 Baso # (Auto) 0.0 Abs Immat Gran (auto) 0.02 Absolute Neuts (auto) 4.5 Absolute Nucleated RBC 0.000 Nucleated RBC % (auto) 0.0 PT 16.6 H INR 1.4 H APTT 34.6 Anion Gap 10 L Estim Creat Clear Calc 67.9 Estimated GFR > 60 Random Glucose 98 Calcium 8.9 D Total Bilirubin 0.9 AST 18 ALT 14 Alkaline Phosphatase 81 Troponin I High Sens B-Natriuretic Peptide Total Protein 5.8 L Albumin 3.8 COVID-19 (CARLOS) COVID-19 Clin Com 03/20/21 03/20/21 15:52 18:12 MCV MCH MCHC RDW Plt Count MPV Immature Gran % (Auto) Neut % (Auto) Lymph % (Auto) [place] % (Auto) Eos % (Auto) Baso % (Auto) Lymph # (Auto) [place] # (Auto) Eos # (Auto) Baso # (Auto) Abs Immat Gran (auto) Absolute Neuts (auto) Absolute Nucleated RBC Nucleated RBC % (auto) PT INR APTT Anion Gap Estim Creat Clear Calc Estimated GFR Random Glucose Calcium Total Bilirubin AST ALT Alkaline Phosphatase Troponin I High Sens 11.4 B-Natriuretic Peptide 298 H Total Protein Albumin COVID-19 (CARLOS) Negative COVID-19 Clin Com See Note Imaging Radiologist's Impressions: Impressions Chest X-Ray 03/20/21 15:46 IMPRESSION: 1. Hyperinflation/COPD. 2. If in distribution pulmonary vascularity which may suggest mild elevated pulmonary venous pressures. 3. No airspace consolidation or effusion. Chest CTA 03/20/21 16:44 IMPRESSION: 1. No CT angiographic evidence of acute pulmonary embolism. 2. Prominent emphysematous changes are redemonstrated with left lower lobe dependent atelectasis. No new large pulmonary mass or confluent airspace consolidation. 3. Multiple bilateral pulmonary nodules are redemonstrated. A central right upper lobe pulmonary nodule has slightly increased in size when compared to the prior examination now measuring up to 0.7 cm (previously 0.5 cm on a similar axial image). Additional pulmonary nodules appear similar when compared to the prior examination. 4. No new lymphadenopathy. 5. Additional findings are unchanged. VTE: Negative. Head CT 03/20/21 16:44 IMPRESSION: Chronic microvascular ischemic changes with no CT evidence of acute intracranial abnormality. Venous Duplex 03/20/21 16:44 IMPRESSION: No DVT demonstrated in the bilateral lower extremity. Assessment and Plan (1) CHF (congestive heart failure): Qualifiers: Heart failure chronicity: acute Heart failure type: unspecified Qualified Code(s): I50.9 - Heart failure, unspecified Status: Acute 85-year-old male with a past medical history of hypertension, hyper lipidemia, diabetes, coronary artery disease, CHF, a flutter on Eliquis, osteoarthritis, peripheral vascular disease, BPH, COPD presented to the hospital with a chief complaint of shortness of breath and leg swelling; noted to be in acute CHF. Admitted for further management. Acute CHF: Continue IV Lasix b.i.d.. Echocardiogram Cardiology consult Telemetry Initial troponin negative, follow-up troponin pending EKG nonischemic I's and O's and daily weights Hypertensive urgency: Patient blood pressure improved with nitro patch in the ER. Continue home medications. Will monitor. hyperlipidemia: Continue home medications Diabetes: Insulin sliding scale History of a flutter: Continue home Eliquis. History of COPD: Nebulizations p.r.n. Code status: Full code
[2021-03-20 20:58] LABS: Troponin-I High Sensitivity 13.8 ng/L (<3.5-35.0)
--- NOTE | 2021-03-20 21:01 | PHA.MEDREC ---
Pharmacy Consult ? Medication Reconciliation Pharmacy has completed the medication reconciliation.
[2021-03-20 21:42] LABS: Glucose, Whole Blood 62 mg/dL (60-115)
--- NOTE | 2021-03-20 21:42 | PC.NURSE ---
PATIENT BLOOD SUGAR CHECK WAS 62 ,RN AWARE ,PATIENT HAD MILK AND PUDDING
[2021-03-21] VITALS (17 sets, daily range): BP systolic 149–220; BP diastolic 66–84; PULSE 54–75; RESP 18–22; TEMP 36.1–36.9; O2SAT 92–95; BMI 23.7
[2021-03-21] MEDS: hydrALAZINE HCl 20 MG/ML VIAL 10 MG IVPUSH ×2 (02:26→05:16)
[2021-03-21] MEDS: 0.9 % Sodium Chloride Flush 3 ML SYRINGE IVFLUSH ×4 (02:27→20:12)
[2021-03-21 05:00] LABS: MANUAL DIFF FLAG NO
[2021-03-21 05:07] LABS: Basophils Absolute Auto 0.1 X10*3/uL (0.0-0.2); Basophils Percent Auto 0.7 % (0-2); Eosinophils Absolute Auto 0.1 X10*3/uL (0.0-0.4); Eosinophils Percent Auto 1.5 % (0-4); Hematocrit 42.3 % (42-52); Hemoglobin 14.1 g/dl (14.0-18.0); Imm Gran Abs Auto 0.02 X10*3/uL (0.00-0.03); Imm Gran Pct Auto 0.2 % (0.0-0.4); Lymphocytes Absolute Auto 1.3 X10*3/uL (1.2-4.9); Lymphocytes Percent Auto 15.4 % (20-40); Mean Corpuscular HGB Conc 33.3 g/dl (31.0-36.0); Mean Corpuscular Hemoglobin 30.7 pg (27.0-33.0); Mean Platelet Volume 9.1 fL (9.4-12.4); Monocytes Absolute Auto 0.8 X10*3/uL (0.1-1.2); Monocytes Percent Auto 9.2 % (2-11); Neutrophils Absolute Auto 6.2 X10*3/uL (2.0-8.3); Platelet Count 260 X10*3/uL (160-400); Red Cell Distribution Width 13.2 % (11.0-16.0); White Blood Count 8.6 X10*3/uL (4.8-10.8)
[2021-03-21 05:46] LABS: Anion Gap 14 (12-20); Blood Urea Nitrogen 15 mg/dL (9-16); Calcium 8.8 mg/dL (8.4-10.2); Carbon Dioxide 24 mmol/L (22-29); Chloride 107 mmol/L (96-108); Creatinine Clr Calc Pharmacy 78.1; Estimated Glomerular Filt Rate > 60; Glucose Random 96 mg/dL (60-115); Potassium 3.2 mmol/L (3.3-5.1); Sodium 142 mmol/L (135-145)
--- NOTE | 2021-03-21 06:28 | PC.NURSE ---
P: BP 220/80. HR 50's I: Pt assessed. Asymptomatic. No complaints of INIGUEZ. Pt confused. Forgetful to where he is or why he is here. made aware. Order for PRN 10mg IV Hydralazine. Given at 02:26 with minimal effect. BP rechecked and still 199/84. HR 60's. MD made aware and order for another dose of PRN 10mg IV Hydralazine given at 05:16. E: BP rechecked at 06:15 - 166/67, HR 50-60's. Will cont. to monitor and pass to oncoming RN
--- NOTE | 2021-03-21 07:30 | CA_ITS ---
Transthoracic Echocardiogram Patient (Last, First, Middle): Jonatan Del Toro J Gender: Male Date of : 1935 Age: 85 Procedure Date: 03/21/2021 Procedure Type: Transthoracic Echocardiogram Location: [facility] [place] Height: 170.18 cm Weight: 68.49 kg BSA: 1.79 m2 Heart Rate: bpm BP: 166 / 67 mmHg Dust Sampler: OSCAR Referring MD: Greg Munson MD Remote Broadcast Technician: Ferdinand Abdalla MD Symptoms: chf Study Quality: Technically Difficult ECG Rhythm: Sinus Conclusions: - 1. Normal LV systolic function with impaired relaxation filling pattern 2. Mildly elevated right ventricular systolic pressure Findings Left Ventricle Normal left ventricular size, thickness, and systolic function. The visually estimated ejection fraction is between 55-60%. Spectral Doppler is indicative of an impaired relaxation filling pattern. E/E prime ratio is between 8 and 15 consistent with indeterminate filling pressures. Pericardium/Pleural There is no evidence of pericardial effusion. Measurements Mitral Valve MV Pk E: 0.48 MV PK A: 0.78 MV Decel Time: 375.00 E/A: 0.60 E'Lateral: 6.09 E'Medial: 4.13 E/E' Med: 11.50 E/E' Lat: 7.80 PHT: 110.00 MVA PHT: 2.00 Decel Moffat: 1.27 Diastolic Function MV Pk E: 0.48 MV Pk A: 0.78 E/A: 0.60 E'Medial: 4.13 E/E' Med: 11.50 E' Laterial: 6.09 E/E' Lat: 7.80 Tricuspid Valve TR Pk Michel: 3.19 TR Pk Grad: 41.00 RA Press: 3.00 RVSP: 44.00 Updated in Other Vendor System with Status of Final Ferdinand Abdalla MD electronically signed on 03/21/2021 5:42:47 PM with status of Final
[2021-03-21 07:48] LABS: Glucose, Whole Blood 103 mg/dL (60-115)
[2021-03-21] MEDS: Labetalol HCL 100 MG/20 ML VIAL 10 MG IVPUSH (08:45)
[2021-03-21] MEDS: Cholecalciferol (Vitamin D3) 25 MCG TABLET PO (08:53)
[2021-03-21] MEDS: Furosemide 40 MG TABLET PO (08:53)
[2021-03-21] MEDS: Tamsulosin HCL 0.4 MG CAPSULE PO (08:53)
[2021-03-21] MEDS: Apixaban 5 MG TABLET PO ×2 (08:53→20:12)
[2021-03-21] MEDS: Mirabegron 50 MG TAB.ER.24H PO (08:53)
[2021-03-21] MEDS: Losartan Potassium 50 MG TABLET 100 MG PO (09:59)
[2021-03-21] MEDS: Metoprolol Succinate ER 100 MG TAB.ER.24H PO (10:00)
[2021-03-21] MEDS: Digoxin 0.125 MG TABLET PO (10:00)
[2021-03-21] MEDS: Dorzolamide/Timolo 2.23%/0.68% 10 ML DRBTL 1 DROP EYE-BOTH ×2 (10:00→20:12)
[2021-03-21 11:33] LABS: Glucose, Whole Blood 156 mg/dL (60-115)
--- NOTE | 2021-03-21 12:48 | PM.CNCAR ---
History of Present Illness History of Present Illness Date of Service: 03/21/21 <VEGA Lawson - Last Filed: 03/21/21 13:31> 03/21/21 <Ferdinand Abdalla MD - Last Filed: 03/21/21 16:29> Requesting physician: Greg Munson <VEGA Lawson - Last Filed: 03/21/21 13:31> Consult reason: hypertension and congestive heart failure <VEGA Lawson - Last Filed: 03/21/21 13:31> Chief complaint: CHF <VEGA Lawson - Last Filed: 03/21/21 13:31> Narrative: Jonatan is an 85 yo male with PMH of HTN, HLD, DM, CAD with RCA stent, HFpEF, paroxysmal atrial fibrillation who presented to the ED with shortness of breath and leg edema. He was noted to have BP up to 228/88. CXR showed evidence of pulm vascular congestion. CTA was neg for PE. LE ultrasound showed no DVT. BNP 298. EKG nonischemic. He was treated with Nitropaste and given IV lasix. He was admitted to he IMC unit and Cardiology consulted for further evaluation and treatment. Today he tells me that in the last week he has noticed increasing shortness of breath and leg swelling. He has been able to lay down and sleep in his bed. No coughing or recent illness. His home BPs have been elevated to 200/90. He has been taking all meds as directed, with 's assistance. He strictly follows a low salt diet. At home he does only light physical activity. Today he reports that his breathing is feeling easier. No chest pains, palpitation, dizziness, PND, orthopnea. Leg edema has improved some since yesterday. Slept well last night. <VEGA Lawson - Last Filed: 03/21/21 13:31> Review of Systems Review of Systems: as above <VEGA Lawson - Last Filed: 03/21/21 13:31> Yes all other systems are reviewed and are negative <VEGA Laswon - Last Filed: 03/21/21 13:31> [facility] Past Medical History Medical History: Medical History (HFpEF) heart failure with preserved ejection fraction Atrial flutter Bladder neck contracture BPH (benign prostatic hyperplasia) CAD (coronary artery disease) COPD (chronic obstructive pulmonary disease) Hypercholesterolemia Hypertension Hypotonic bladder Pain and swelling of right lower leg Paraphimosis Peripheral vascular disease Pulmonary nodule Right knee pain Tubular adenoma of colon Type 2 diabetes mellitus with hyperglycemia Vitamin D deficiency <VEGA Lawson - Last Filed: 03/21/21 13:31> Family History Family History: Family History Father No problems noted. Mother CVD (cardiovascular disease) <VEGA Lawson - Last Filed: 03/21/21 13:31> Surgical History Surgical History: Surgical History H/O inguinal hernia repair H/O vascular surgery History of appendectomy History of cataract surgery History of colonoscopy History of prostate surgery <VEGA Lawson - Last Filed: 03/21/21 13:31> Social History Social History: Social History Household Members: Spouse Housing: House Do you presently have visiting nurse or other home services: No Alcohol intake: former Patient Tobacco Use Status: Never used Tobacco Use of substances other than those prescribed or required for medical reasons: No Currently Displaying Signs/Symptoms of Drug Intoxication Withdrawal: No Have you been hit, kicked, punched, or otherwise hurt by someone within the past year? If so, by whom?: No Do you feel safe in your current relationship?: No Is there a partner from a previous relationship who is making you feel unsafe now?: No Are you made to feel afraid or neglected: No Advance Directives: No Advance Directives Information Provided: Yes Do you have thoughts of harming others: None Do you have a plan to hurt others: No Plan Recently lost weight without trying: No Eating poorly because of decreased appetite: No Nutrition Risks: No Nutritional Risk Poor oral hygiene: No service: Yes Current occupational status: retired <VEGA Lawson - Last Filed: 03/21/21 13:31> Meds Allergies/Adverse reactions: Allergies Allergy/AdvReac Type Severity Reaction Status Date / Time ciprofloxacin [CIPROFLOXACIN] Allergy Unknown ITCHY FEET Verified 03/20/21 15:01 oxycodone [Percocet] AdvReac Unknown Unknown Verified 03/20/21 15:01 <VEGA Lawson - Last Filed: 03/21/21 13:31> Active Medications: Current Medications Generic Name Dose Route Start Last Admin Trade Name Freq PRN Reason Stop Dose Admin Acetaminophen 650 mg 03/20/21 20:31 Acetaminophen 325 Mg Tablet PO Q6H PRN Pain, Mild (Pain Scale 1-3) Albuterol/Ipratropium 3 ml 03/20/21 20:43 Albuterol/Iprat 2.5/0.5mg 3 Ml Ampul.Neb INHALE RQ4H PRN Shortness of Breath/Wheezing Amlodipine Besylate 5 mg 03/21/21 11:30 Amlodipine Besylate 5 Mg Tablet PO DAILY [facility] Protocol Apixaban 5 mg 03/21/21 09:00 03/21/21 08:53 Apixaban 5 Mg Tablet PO 5 mg BID KV[facility] Administration Atorvastatin Calcium 80 mg 03/21/21 21:00 Atorvastatin Calcium 80 Mg Tablet PO BEDTIME KVNG Digoxin 0.125 mg 03/21/21 09:00 03/21/21 10:00 Digoxin 0.125 Mg Tablet PO 0.125 mg DAILY [facility] Administration Dorzolamide/Timolol 1 drop 03/21/21 09:00 03/21/21 10:00 Dorzolamide/Timolo 2.23%/0.68% 10 Ml Drbtl EYE-BOTH 1 drop BID KVNG Administration Furosemide 40 mg 03/22/21 09:00 Furosemide 40 Mg Tablet PO DAILY [facility] Protocol Insulin Human Lispro 0 unit 03/20/21 21:00 03/21/21 08:25 Insulin Lispro 100 Unit/Ml 3 Ml Vial SUBCUT Not Given QIDACHS [facility] Protocol Labetalol HCl 10 mg 03/20/21 22:56 03/21/21 08:45 Labetalol Hcl 100 Mg/20 Ml Vial IVPUSH 10 mg Q4H PRN Administration BP>180/90 Latanoprost 1 drop 03/21/21 21:00 Latanoprost 0.005 % Ophth Susana 2.5 Ml Drops EYE-BOTH BEDTIME KVNG Losartan Potassium 100 mg 03/21/21 09:00 03/21/21 09:59 Losartan Potassium 50 Mg Tablet PO 100 mg DAILY [facility] Administration Protocol Magnesium Hydroxide 30 ml 03/20/21 20:31 Milk Of Magnesia 30 Ml Oral.Susp PO DAILY PRN Constipation Metoprolol Succinate 100 mg 03/21/21 09:00 03/21/21 10:00 Metoprolol Succinate Er 100 Mg Tab.Er.24h PO 100 mg DAILY K[facility] Administration Protocol Mirabegron 50 mg 03/21/21 09:00 03/21/21 08:53 Mirabegron 50 Mg Tab.Er.24h PO 50 mg DAILY [facility] Administration Multivitamins/Minerals 1 tab 03/21/21 09:00 03/21/21 08:53 Vits A,C,E/Lutein/Minerals Tablet PO 1 tab DAILY [facility] Administration Nitroglycerin 0.4 mg 03/20/21 20:31 Nitroglycerin 0.4 Mg Tab.Subl SUBLINGUAL Q5M PRN Chest Pain Non-Formulary Medication 1 tab 03/21/21 09:00 Calcium Carb-Mag Ox-Zinc Sulf PO DAILY [facility] Non-Formulary Medication 1 cap 03/21/21 09:00 Lactobacill 46-B.Animal-Inulin [Probiotic-10 (With Inulin)] PO DAILY [facility] Pharmacy Consult 1 each 03/20/21 19:58 Consult Rx Perform Med Rec MISCELLANE ONCE PRN Consult order Senna 17.2 mg 03/20/21 22:59 Sennosides 8.6 Mg Tablet PO BEDTIME PRN Constipation Sodium Chloride 3 ml 03/21/21 00:00 03/21/21 08:45 0.9 % Sodium Chloride Flush 3 Ml Syringe IVFLUSH 3 ml QSHIFT [facility] Administration Spironolactone 12.5 mg 03/21/21 11:30 Spironolactone 25 Mg Tablet PO DAILY [facility] Protocol Tamsulosin HCl 0.4 mg 03/21/21 09:00 03/21/21 08:53 Tamsulosin Hcl 0.4 Mg Capsule PO 0.4 mg DAILY [facility] Administration Vitamin D 25 mcg 03/21/21 09:00 03/21/21 08:53 Cholecalciferol (Vitamin D3) 25 Mcg Tablet PO 25 mcg DAILY [facility] Administration VEGA Rodriguez - Last Filed: 03/21/21 13:31> Home medications: Home Medications Medication Instructions Recorded Confirmed Last Taken Type cholecalciferol (vitamin D3) 25 25 mcg PO DAILY 08/14/20 03/20/21 03/20/21 History mcg (1,000 unit) capsule dorzolamide 22.3 mg-timolol 6.8 1 drp OPHTHALMIC (EYE) BID 08/14/20 03/20/21 03/20/21 History mg/mL eye drops latanoprost 0.005 % eye drops 1 drp OPHTHALMIC (EYE) BEDTIME ml 08/14/20 03/20/21 03/19/21 History tamsulosin 0.4 mg capsule 0.4 mg PO DAILY 08/14/20 03/20/21 03/20/21 History Ocuvite Adult 50 Plus 1 cap PO DAILY 12/19/20 03/20/21 03/20/21 History Probiotic-10 (with inulin) 1 cap PO DAILY 12/19/20 03/20/21 03/20/21 History calcium carb-mag ox-zinc sulf 1 tab PO DAILY 12/19/20 03/20/21 03/20/21 History sennosides [senna] 17.2 mg PO BEDTIME PRN 03/20/21 03/20/21 Unknown History <VEGA Lawson - Last Filed: 03/21/21 13:31> Physical Exam Vital Signs: Vital Signs: Last Vital Signs Temp 97.7 F 03/21/21 12:00 Pulse 54 03/21/21 12:00 Resp 20 03/21/21 12:00 BP 184/76 H 03/21/21 12:00 Pulse Ox 94 03/21/21 12:00 Body Mass Index 23.7 <ESTEBAN LawsonC - Last Filed: 03/21/21 13:31> Const: General: cooperative, no acute distress, alert and awake <VEGA Lawson - Last Filed: 03/21/21 13:31> Orientation/consciousness: patient oriented x3 <VEGA Lawson - Last Filed: 03/21/21 13:31> Neck: Neck: Yes normal visual inspection and Yes no JVD <VEGA Lawson - Last Filed: 03/21/21 13:31> Resp: Effort & Inspection: normal respiratory effort, able to speak in complete sentences and not labored <Jackie Tabor NPC - Last Filed: 03/21/21 13:31> Auscultation: clear to auscultation bilaterally, no crackles, no rales, no rhonchi and no wheezes <ESTEBAN LawsonC - Last Filed: 03/21/21 13:31> Cardio: Other: irregularly irregular <Jackie Tabor NP-C - Last Filed: 03/21/21 13:31> Palpation: normal PMI <Jackie IDALIA Tabor-C - Last Filed: 03/21/21 13:31> Rate: regular rate <Jackie Tabor NP - Last Filed: 03/21/21 13:31> Heart sounds: S1 normal heart sound present and S2 normal heart sound present <Jackie Tabor NP - Last Filed: 03/21/21 13:31> Peripheral pulses: Peripheral pulses 2+ throughout <Jackie Tabor NP-C - Last Filed: 03/21/21 13:31> GI: Inspection: Yes normal to inspection <Jackie Tabor NP-C - Last Filed: 03/21/21 13:31> Neuro: General: patient oriented x3 <Jackie Tabor NPC - Last Filed: 03/21/21 13:31> Extrem: Other: soft pitting edema around lower legs near ankles <Jackie Tabor NPC - Last Filed: 03/21/21 13:31> Results Labs and Meds Result diagrams: : 03/21/21 04:18 03/21/21 04:18 <Jackie Tabor NPC - Last Filed: 03/21/21 13:31> Lab results: Laboratory Results - last 24 hr 03/20/21 03/20/21 03/20/21 15:52 15:52 15:52 WBC 6.4 RBC 4.31 L Hgb 13.3 L Hct 40.3 L MCV 93.5 MCH 30.9 MCHC 33.0 RDW 13.2 Plt Count 240 MPV 9.1 L Immature Gran % (Auto) 0.3 Neut % (Auto) 70.4 Lymph % (Auto) 18.6 L [place] % (Auto) 8.8 Eos % (Auto) 1.3 Baso % (Auto) 0.6 Lymph # (Auto) 1.2 [place] # (Auto) 0.6 Eos # (Auto) 0.1 Baso # (Auto) 0.0 Abs Immat Gran (auto) 0.02 Absolute Neuts (auto) 4.5 Absolute Nucleated RBC 0.000 Nucleated RBC % (auto) 0.0 PT 16.6 H INR 1.4 H APTT 34.6 Sodium 143 Potassium 3.7 Chloride 108 Carbon Dioxide 29 Anion Gap 10 L BUN 16 Creatinine 0.77 Estim Creat Clear Calc 67.9 Estimated GFR > 60 POC Glucose Random Glucose 98 Calcium 8.9 D Total Bilirubin 0.9 AST 18 ALT 14 Alkaline Phosphatase 81 Troponin I High Sens B-Natriuretic Peptide Total Protein 5.8 L Albumin 3.8 COVID-19 (CARLOS) COVID-19 [facility] 03/20/21 03/20/21 03/20/21 15:52 18:12 20:22 WBC RBC Hgb Hct MCV MCH MCHC RDW Plt Count MPV Immature Gran % (Auto) Neut % (Auto) Lymph % (Auto) [place] % (Auto) Eos % (Auto) Baso % (Auto) Lymph # (Auto) [place] # (Auto) Eos # (Auto) Baso # (Auto) Abs Immat Gran (auto) Absolute Neuts (auto) Absolute Nucleated RBC Nucleated RBC % (auto) PT INR APTT Sodium Potassium Chloride Carbon Dioxide Anion Gap BUN Creatinine Estim Creat Clear Calc Estimated GFR POC Glucose Random Glucose Calcium Total Bilirubin AST ALT Alkaline Phosphatase Troponin I High Sens 11.4 13.8 B-Natriuretic Peptide 298 H Total Protein Albumin COVID-19 (CARLOS) Negative COVID-19 Clin Com See Note 03/20/21 03/21/21 03/21/21 21:36 04:18 04:18 WBC 8.6 RBC 4.60 Hgb 14.1 Hct 42.3 MCV 92.0 MCH 30.7 MCHC 33.3 RDW 13.2 Plt Count 260 MPV 9.1 L Immature Gran % (Auto) 0.2 Neut % (Auto) 73.0 Lymph % (Auto) 15.4 L [place] % (Auto) 9.2 Eos % (Auto) 1.5 Baso % (Auto) 0.7 Lymph # (Auto) 1.3 [place] # (Auto) 0.8 Eos # (Auto) 0.1 Baso # (Auto) 0.1 Abs Immat Gran (auto) 0.02 Absolute Neuts (auto) 6.2 Absolute Nucleated RBC 0.000 Nucleated RBC % (auto) 0.0 PT INR APTT Sodium 142 Potassium 3.2 L Chloride 107 Carbon Dioxide 24 Anion Gap 14 BUN 15 Creatinine 0.67 Estim Creat Clear Calc 78.1 Estimated GFR > 60 POC Glucose 62 Random Glucose 96 Calcium 8.8 Total Bilirubin AST ALT Alkaline Phosphatase Troponin I High Sens B-Natriuretic Peptide Total Protein Albumin COVID-19 (CARLOS) COVID-19 [employer] 03/21/21 03/21/21 07:10 11:13 WBC RBC Hgb Hct MCV MCH MCHC RDW Plt Count MPV Immature Gran % (Auto) Neut % (Auto) Lymph % (Auto) [place] % (Auto) Eos % (Auto) Baso % (Auto) Lymph # (Auto) [place] # (Auto) Eos # (Auto) Baso # (Auto) Abs Immat Gran (auto) Absolute Neuts (auto) Absolute Nucleated RBC Nucleated RBC % (auto) PT INR APTT Sodium Potassium Chloride Carbon Dioxide Anion Gap BUN Creatinine Estim Creat Clear Calc Estimated GFR POC Glucose 103 156 H Random Glucose Calcium Total Bilirubin AST ALT Alkaline Phosphatase Troponin I High Sens B-Natriuretic Peptide Total Protein Albumin COVID-19 (CARLOS) COVID-19 Clin Com <VEGA Lawson - Last Filed: 03/21/21 13:31> Imaging Radiologist's impression: Impressions Chest X-Ray 03/20/21 15:46 IMPRESSION: 1. Hyperinflation/COPD. 2. If in distribution pulmonary vascularity which may suggest mild elevated pulmonary venous pressures. 3. No airspace consolidation or effusion. Chest CTA 03/20/21 16:44 IMPRESSION: 1. No CT angiographic evidence of acute pulmonary embolism. 2. Prominent emphysematous changes are redemonstrated with left lower lobe dependent atelectasis. No new large pulmonary mass or confluent airspace consolidation. 3. Multiple bilateral pulmonary nodules are redemonstrated. A central right upper lobe pulmonary nodule has slightly increased in size when compared to the prior examination now measuring up to 0.7 cm (previously 0.5 cm on a similar axial image). Additional pulmonary nodules appear similar when compared to the prior examination. 4. No new lymphadenopathy. 5. Additional findings are unchanged. VTE: Negative. Head CT 03/20/21 16:44 IMPRESSION: Chronic microvascular ischemic changes with no CT evidence of acute intracranial abnormality. Venous Duplex 03/20/21 16:44 IMPRESSION: No DVT demonstrated in the bilateral lower extremity. <VEGA Lawson - Last Filed: 03/21/21 13:31> Assessment and Plan (1) Acute on chronic diastolic (congestive) heart failure: Status: Acute <VEGA Lawson - Last Filed: 03/21/21 13:31> Admit with increased sob, leg edema. Findings consistent with mild fluid overload, likely related to uncontrolled hypertension. He has hx of HFpEF. Has been on Lasix 40mg daily at home. Being diuresed with IV lasix, with neg fluid balance 2170 cc since admit. Breathing reported to be improved. Has soft pitting low leg edema, No JVD or rales on exam. Will change his Lasix back to PO. Continue with strict I+O monitoring. Close monitoring of electrolyte and kidney function. Last echo 12/07/20 with EF 55-60%, mild biatrial enlargment, unable to determine diastolic function as he was in AF at that time. Will check limited echo to reassess EF, diastolic function, now that he is in SR. Will start on Aldactone 12.5mg daily and Amlodipine for better BP control. Will check BNP in am. We will follow. <VEGA Lawson - Last Filed: 03/21/21 13:31> Case discussed with Jackie Tabor. Patient is feeling better. Leg edema is improved. Shortness of breath is improved. Heart failure improved significantly with patient diuresed 2 L. Switch to oral Lasix therapy. Also add Aldactone to his regimen. Echocardiogram is pending. Strict intake and output chart. Trend BMP and BNP tomorrow morning. Better control of blood pressure, see below. Will need to consider evaluation for cardiac amyloidosis. <Ferdinand Abdalla MD - Last Filed: 03/21/21 16:29> (2) Hypertensive crisis: Status: Acute <VEGA Lawson - Last Filed: 03/21/21 13:31> BP elevated at 228/88 on admit. Home BPs also reported as being elevated to 200/90 recently. Has been compliant with meds and diet. Has known hx of CAD. Will check a renal artery duplex to assess for LIZZETH. Will add Aldactone and Amlodipine 5mg daily for BP control. Continue Losartan, Metoprolol, Lasix. Ongoing BP monitoring. <VEGA Lawson - Last Filed: 03/21/21 13:31> Significantly elevated blood pressure in elderly gentlemen. Need to rule out renal artery stenosis. Renal duplex to be obtained. Add Norvasc and Aldactone to his regimen. Trend BMP especially potassium level. Low-salt diet to be pursued. Continue losartan, metoprolol and Lasix. Continue to monitor blood pressure closely. <Ferdinand Abdalla MD - Last Filed: 03/21/21 16:29> (3) Hypertension: Qualifiers: Hypertension type: essential hypertension Qualified Code(s): I10 - Essential (primary) hypertension <VEGA Lawson - Last Filed: 03/21/21 13:31> Status: Acute <VEGA Lawson - Last Filed: 03/21/21 13:31> (4) CAD (coronary artery disease): Qualifiers: Associated angina: without angina Coronary Disease-Associated Artery/Lesion type: [place] artery [place] vs. transplanted heart: [place] heart Qualified Code(s): I25.10 - Atherosclerotic heart disease of [place] coronary artery without angina pectoris <VEGA Lawson - Last Filed: 03/21/21 13:31> Status: Acute <VEGA Lawson - Last Filed: 03/21/21 13:31> Hx of CAD with RCA stent 2014. No reports of CP. Troponin normal. EKG nonischemic. Continue meds for stable CAD including Metoprolol, atorvastatin. Not on aspirin as he is on Eliquis. <VEGA Lawson - Last Filed: 03/21/21 13:31> (5) Paroxysmal A-fib: Status: Acute <VEGA Lawson - Last Filed: 03/21/21 13:31> Hx of PAF. Tele shows SR, rates 60-70. Currently suppressed with Metoprolol. Has been on Digoxin which we will stop at this time since he is in SR. Continue Eliquis for anticoagulation. No bleeding issues. <VEGA Lawson - Last Filed: 03/21/21 13:31> Paroxysmal atrial fibrillation currently in sinus rhythm. No role for digoxin which can be discontinued. Continue metoprolol therapy. Continue full oral anticoagulation, currently on apixaban 5 mg b.i.d.. Will follow with the patient. <Ferdinand Abdalla MD - Last Filed: 03/21/21 16:29> Procedures Date of Service Date of Service: 03/21/21 <VEGA Lawson - Last Filed: 03/21/21 13:31>
[2021-03-21] MEDS: Spironolactone 25 MG TABLET 12.5 MG PO (12:51)
[2021-03-21] MEDS: Insulin Lispro 100 UNIT/ML 3 ML VIAL SUBCUT ×2 (12:52→16:34)
[2021-03-21] MEDS: amLODIPine Besylate 5 MG TABLET PO (12:52)
--- NOTE | 2021-03-21 12:54 | MHC.CM.PN ---
CM met with Patient at bedside and addressed IMM, providing him with the original and placing a copy on the chart. Patient lives in a house with his /HCP and he was active with [facility] for PT in the home [employer]. Patient's goal is to return home and resume these services and CM has initiated and will follow for dc planning.PCP is Dr. Darcy BROOKS.
--- NOTE | 2021-03-21 13:05 | MHC.CM.PN ---
CM confirmed home services with Patient's - Patient has had [facility] in the past and is requesting a new referral again today. Referral has been made and CM will follow.
--- NOTE | 2021-03-21 15:44 | PC.NURSE ---
Pt BP difficult to manage. Remains high in the 180's systolic. This RN administered PRN Labetolol this morning with good effect and BP came down to the 140's systolic. This afternoon pt manual BP 180/67 and HR 57. Unable to administer PRN Labetolol at this time d/t pt HR. Dr. Mcknight made aware and awaiting new orders.
[2021-03-21 16:21] LABS: Glucose, Whole Blood 435 mg/dL (60-115)
[2021-03-21 16:24] LABS: Glucose, Whole Blood 157 mg/dL (60-115)
--- NOTE | 2021-03-21 16:26 | PC.NURSE ---
Pt POC came back at 435 - POC rechecked on another finger and came back at 157.
--- NOTE | 2021-03-21 16:41 | HO.PM.IMPN ---
Subjective Subjective Date of Service: 03/21/21 Interval History: Seen in f/u for heart failure, presently not sob Review of Systems Gen: no fever Resp: no sob, no cough CV: no chest, no MARQUIS, no leg edema GI: No n/v, no abd pain Neuro: confused Physical Exam Vital Signs: Vital Signs: Last Vital Signs Temp 97.8 F 03/21/21 15:29 Pulse 60 03/21/21 15:29 Resp 20 03/21/21 15:29 BP 180/67 H 03/21/21 15:29 Pulse Ox 94 03/21/21 15:29 Body Mass Index 23.7 General: AO X 1, no acute distress Resp: rales at base CVS: iregular,s1 s2. 1+edema GI: +BS, NT, no distention Skin: No rash Neuro: motor grossly intact Psych: appropriate affect Objective Data Current Medications Generic Name Dose Route Start Last Admin Trade Name Freq PRN Reason Stop Dose Admin Acetaminophen 650 mg 03/20/21 20:31 Acetaminophen 325 Mg Tablet PO Q6H PRN Pain, Mild (Pain Scale 1-3) Albuterol/Ipratropium 3 ml 03/20/21 20:43 Albuterol/Iprat 2.5/0.5mg 3 Ml Ampul.Neb INHALE RQ4H PRN Shortness of Breath/Wheezing Amlodipine Besylate 5 mg 03/21/21 11:30 03/21/21 12:52 Amlodipine Besylate 5 Mg Tablet PO 5 mg DAILY [facility] Administration Protocol Apixaban 5 mg 03/21/21 09:00 03/21/21 08:53 Apixaban 5 Mg Tablet PO 5 mg BID [facility] Administration Atorvastatin Calcium 80 mg 03/21/21 21:00 Atorvastatin Calcium 80 Mg Tablet PO BEDTIME [facility] Dorzolamide/Timolol 1 drop 03/21/21 09:00 03/21/21 10:00 Dorzolamide/Timolo 2.23%/0.68% 10 Ml Drbtl EYE-BOTH 1 drop BID [facility] Administration Furosemide 40 mg 03/22/21 09:00 Furosemide 40 Mg Tablet PO DAILY [facility] Protocol Insulin Human Lispro 0 unit 03/20/21 21:00 03/21/21 16:34 Insulin Lispro 100 Unit/Ml 3 Ml Vial SUBCUT 2 unit QIDACHS [facility] Administration Protocol Labetalol HCl 10 mg 03/20/21 22:56 03/21/21 08:45 Labetalol Hcl 100 Mg/20 Ml Vial IVPUSH 10 mg Q4H PRN Administration BP>180/90 Latanoprost 1 drop 03/21/21 21:00 Latanoprost 0.005 % Ophth Susana 2.5 Ml Drops EYE-BOTH BEDTIME [facility] Losartan Potassium 100 mg 03/21/21 09:00 03/21/21 09:59 Losartan Potassium 50 Mg Tablet PO 100 mg DAILY [facility] Administration Protocol Magnesium Hydroxide 30 ml 03/20/21 20:31 Milk Of Magnesia 30 Ml Oral.Susp PO DAILY PRN Constipation Metoprolol Succinate 100 mg 03/21/21 09:00 03/21/21 10:00 Metoprolol Succinate Er 100 Mg Tab.Er.24h PO 100 mg DAILY [facility] Administration Protocol Mirabegron 50 mg 03/21/21 09:00 03/21/21 08:53 Mirabegron 50 Mg Tab.Er.24h PO 50 mg DAILY [facility] Administration Multivitamins/Minerals 1 tab 03/21/21 09:00 03/21/21 08:53 Vits A,C,E/Lutein/Minerals Tablet PO 1 tab DAILY [facility] Administration Nitroglycerin 0.4 mg 03/20/21 20:31 Nitroglycerin 0.4 Mg Tab.Subl SUBLINGUAL Q5M PRN Chest Pain Non-Formulary Medication 1 tab 03/21/21 09:00 Calcium Carb-Mag Ox-Zinc Sulf PO DAILY [facility] Non-Formulary Medication 1 cap 03/21/21 09:00 Lactobacill 46-B.Animal-Inulin [Probiotic-10 (With Inulin)] PO DAILY [facility] Pharmacy Consult 1 each 03/20/21 19:58 Consult Rx Perform Med Rec MISCELLANE ONCE PRN Consult order Senna 17.2 mg 03/20/21 22:59 Sennosides 8.6 Mg Tablet PO BEDTIME PRN Constipation Sodium Chloride 3 ml 03/21/21 00:00 03/21/21 16:34 0.9 % Sodium Chloride Flush 3 Ml Syringe IVFLUSH 3 ml QSHIFT [facility] Administration Spironolactone 12.5 mg 03/21/21 11:30 03/21/21 12:51 Spironolactone 25 Mg Tablet PO 12.5 mg DAILY [facility] Administration Protocol Tamsulosin HCl 0.4 mg 03/21/21 09:00 03/21/21 08:53 Tamsulosin Hcl 0.4 Mg Capsule PO 0.4 mg DAILY [facility] Administration Vitamin D 25 mcg 03/21/21 09:00 03/21/21 08:53 Cholecalciferol (Vitamin D3) 25 Mcg Tablet PO 25 mcg DAILY [facility] Administration Labs CBC & Chem 7: 03/21/21 04:18 03/21/21 04:18 Assessment and Plan (1) CHF (congestive heart failure): Status: Acute Assessment and Plan: 85-year-old male with a past medical history of hypertension, hyperlipidemia, diabetes, coronary artery disease, CHF, a flutter on Eliquis, osteoarthritis, peripheral vascular disease, BPH, COPD presented to the hospital with a chief complaint of shortness of breath and leg swelling; noted to be in acute CHF. Admitted for further management. Acute CHF: likely trigered by high BP Continue IV Lasix, follow electrolytes Echocardiogram today Cardiology input noted Hypertensive urgency: Blood pressue is generally better but remain high, we could adjust meds further with increase in Aldactone and Norvasc by tomorrow, if BP is extremely we can give very low dose of IV hydralazine hyperlipidemia: Continue home medications Diabetes: Insulin sliding scale AFIB: Continue home Eliquis. Metoprolol for rate control History of COPD: Nebulizations p.r.n. Code status: Full code
[2021-03-21 20:08] LABS: Glucose, Whole Blood 104 mg/dL (60-115)
[2021-03-21] MEDS: Latanoprost 0.005 % Ophth Sol 2.5 ML DROPS 1 DROP EYE-BOTH (20:12)
[2021-03-21] MEDS: Atorvastatin Calcium 80 MG TABLET PO (20:12)
[2021-03-22] VITALS (15 sets, daily range): BP systolic 127–220; BP diastolic 60–92; PULSE 56–70; RESP 18–20; TEMP 36–36.7; O2SAT 93–96; BMI 23.6
[2021-03-22] MEDS: Labetalol HCL 100 MG/20 ML VIAL 10 MG IVPUSH (03:10)
[2021-03-22] MEDS: hydrALAZINE HCl 20 MG/ML VIAL 5 MG IVPUSH ×2 (04:23→09:53)
[2021-03-22 07:10] LABS: B Type Natriuretic Peptide 204 pg/mL (<100)
[2021-03-22 07:18] LABS: Glucose, Whole Blood 136 mg/dL (60-115)
[2021-03-22] MEDS: Cholecalciferol (Vitamin D3) 25 MCG TABLET PO (08:31)
[2021-03-22] MEDS: Losartan Potassium 50 MG TABLET 100 MG PO (08:31)
[2021-03-22] MEDS: Tamsulosin HCL 0.4 MG CAPSULE PO (08:31)
[2021-03-22] MEDS: amLODIPine Besylate 5 MG TABLET PO ×2 (08:31→11:14)
[2021-03-22] MEDS: Spironolactone 25 MG TABLET 12.5 MG PO ×2 (08:31→11:13)
[2021-03-22] MEDS: Metoprolol Succinate ER 100 MG TAB.ER.24H PO (08:31)
[2021-03-22] MEDS: Furosemide 40 MG TABLET PO (08:32)
[2021-03-22] MEDS: 0.9 % Sodium Chloride Flush 3 ML SYRINGE IVFLUSH ×2 (08:32→23:50)
[2021-03-22] MEDS: Mirabegron 50 MG TAB.ER.24H PO (08:32)
[2021-03-22] MEDS: Apixaban 5 MG TABLET PO ×2 (08:47→20:42)
[2021-03-22] MEDS: Dorzolamide/Timolo 2.23%/0.68% 10 ML DRBTL 1 DROP EYE-BOTH ×2 (09:53→20:47)
[2021-03-22 11:32] LABS: Glucose, Whole Blood 126 mg/dL (60-115)
[2021-03-22 11:35] LABS: Anion Gap 12 (12-20); Blood Urea Nitrogen 14 mg/dL (9-16); Calcium 8.6 mg/dL (8.4-10.2); Carbon Dioxide 24 mmol/L (22-29); Chloride 108 mmol/L (96-108); Creatinine Clr Calc Pharmacy 78.1; Estimated Glomerular Filt Rate > 60; Glucose Random 121 mg/dL (60-115); Potassium 3.4 mmol/L (3.3-5.1); Sodium 141 mmol/L (135-145)
--- NOTE | 2021-03-22 11:50 | P.PNCA_ITS ---
Subjective Subjective Date of Service: 03/22/21 <VEGA Lawson - Last Filed: 03/22/21 12:03> 03/22/21 <Ferdinand Abdalla MD - Last Filed: 03/22/21 14:21> Principal diagnosis: Acute on chronic diastolic HF, hypertensive crisis <VEGA Lawson - Last Filed: 03/22/21 12:03> Interval history: Cardiology follow up for the above. Seen at 0840. Today he reports feeling good. He no longer has shortness of breath and says his leg swelling looks better. No chest pains or pressure. no palpitation, dizziness, orthopnea. Steady on feet when out of bed this am. BP has been running high. No headache or vision changes. <VEGA Lawson - Last Filed: 03/22/21 12:03> Review of Systems Review of Systems as above <VEGA Lawson - Last Filed: 03/22/21 12:03> Yes all other systems are reviewed and are negative <VEGA Lawson - Last Filed: 03/22/21 12:03> Physical Exam Vital Signs: Last Vital Signs Temp 97.3 F 03/22/21 11:29 Pulse 56 03/22/21 11:29 Resp 18 03/22/21 11:29 BP 158/71 H 03/22/21 11:29 Pulse Ox 96 03/22/21 11:29 Body Mass Index 23.6 <VEGA Lawson - Last Filed: 03/22/21 12:03> Const General: cooperative, no acute distress, alert and awake <VEGA Lawson - Last Filed: 03/22/21 12:03> Orientation/consciousness: patient oriented x3 <VEGA Lawson - Last Filed: 03/22/21 12:03> Neck Neck: Yes normal visual inspection and Yes no JVD <VEGA Lawson - Last Filed: 03/22/21 12:03> Resp Effort & Inspection: normal respiratory effort, able to speak in complete sentences and not labored <VEGA Lawson - Last Filed: 03/22/21 12:03> Auscultation: clear to auscultation bilaterally, no crackles, no rales, no rhonchi and no wheezes <Jackie TaborIDALIAC - Last Filed: 03/22/21 12:03> Cardio Palpation: normal PMI <Jackiedenise TaborIDALAIC - Last Filed: 03/22/21 12:03> Rate: regular rate <[facility]ona [facility] - Last Filed: 03/22/21 12:03> Rhythm: regular rhythm <[facility] Sharona [facility] - Last Filed: 03/22/21 12:03> Heart sounds: S1 normal heart sound present and S2 normal heart sound present <[facility] Sharona[facility] - Last Filed: 03/22/21 12:03> Peripheral pulses: Peripheral pulses 2+ throughout <[facility] Sharona[facility] - Last Filed: 03/22/21 12:03> GI Inspection: Yes normal to inspection <[facility] SharonaIDALIA-C - Last Filed: 03/22/21 12:03> Neuro General: patient oriented x3 <[facility]ona[facility] - Last Filed: 03/22/21 12:03> Extrem Other: some pitting edema around ankles <Jackie SharonaIDALIA-C - Last Filed: 03/22/21 12:03> General: Yes normal to inspection <[facility] Sharona [employer] TEACHER-C - Last Filed: 03/22/21 12:03> Results Labs and Meds Result diagrams: : 03/21/21 04:18 03/22/21 10:33 <Jackie TaborIDALIAC - Last Filed: 03/22/21 12:03> Lab results: Laboratory Results - last 24 hr 03/21/21 03/21/21 03/21/21 16:15 16:21 20:03 Sodium Potassium Chloride Carbon Dioxide Anion Gap BUN Creatinine Estim Creat Clear Calc Estimated GFR POC Glucose 435 H* 157 H 104 Random Glucose Calcium B-Natriuretic Peptide 03/22/21 03/22/21 03/22/21 05:43 07:11 10:33 Sodium 141 Potassium 3.4 Chloride 108 Carbon Dioxide 24 Anion Gap 12 BUN 14 Creatinine 0.67 Estim Creat Clear Calc 78.1 Estimated GFR > 60 POC Glucose 136 H Random Glucose 121 H Calcium 8.6 B-Natriuretic Peptide 204 H 03/22/21 11:29 Sodium Potassium Chloride Carbon Dioxide Anion Gap BUN Creatinine Estim Creat Clear Calc Estimated GFR POC Glucose 126 H Random Glucose Calcium B-Natriuretic Peptide <VEGA Lawson - Last Filed: 03/22/21 12:03> Progress Note: A&P Assessment and plan (1) Acute on chronic diastolic (congestive) heart failure: Status: Acute <VEGA Lawson - Last Filed: 03/22/21 12:03> Assessment and Plan: Admit with increased sob, leg edema. Findings consistent with mild fluid overload, likely related to uncontrolled hypertension. He has hx of HFpEF. Has been on Lasix 40mg daily at home. Was initially diuresed with IV lasix then changed to po yesterday. Fluid balance Neg 3 liters since admit. Breathing reported to be improved. Has soft pitting ankle edema, No JVD or rales on exam. Limited echo yesterday shows EF 55-60%, RVSP 44mmhg ( mildly increased) Continue Lasix 40mg daily. Continue with strict I+O monitoring during admit. <VEGA Lawson - Last Filed: 03/22/21 12:03> Patient seen and examined. Case discussed with Jackie. Patient clinically appears to be euvolemic and well compensated. Has diuresed well. Continue p.o. Lasix therapy. Low-salt diet recommended. Continue intake and output chart. CHF education to be provided to the patient. Better blood pressure control, see below. <Ferdinand Abdalla MD - Last Filed: 03/22/21 14:21> (2) Hypertensive crisis: Status: Acute <VEGA Lawson - Last Filed: 03/22/21 12:03> Assessment and Plan: BP elevated at 228/88 on admit. Home BPs also reported as being elevated to 200/90 recently at home. Has been compliant with meds and diet. Has known hx of CAD. Amlodipine and Aldactone were added yesterday. BPs still uncontrolled. Renal artery duplex to assess for LIZZETH, pending for this am. Will increase Aldactone to 25mg daily and increase Amlodipine 10mg daily for better BP control. Check BMP today, tomorrow. Continue Losartan, Metoprolol, Lasix. Ongoing BP monitoring. We will consider evaluation for cardiac amyloidosis going forward. <VEGA Lawson - Last Filed: 03/22/21 12:03> Patient remains significantly hypertensive. Renal duplex to assess for renal artery stenosis. Increase Aldactone to 25 mg daily and Norvasc to 10 mg daily as above. Continue losartan and metoprolol therapy. Continue to monitor blood pressure closely. <Ferdinand Abdalla MD - Last Filed: 03/22/21 14:21> (3) CAD (coronary artery disease): Status: Acute <VEGA Lawson - Last Filed: 03/22/21 12:03> Assessment and Plan: Hx of CAD with RCA stent 2014. No reports of CP. Troponin normal. EKG nonischemic. Continue meds for stable CAD including Metoprolol, atorvastatin. Not on aspirin as he is on Eliquis. <VEGA Lawson - Last Filed: 03/22/21 12:03> (4) Paroxysmal A-fib: Status: Acute <VEGA Lawson - Last Filed: 03/22/21 12:03> Assessment and Plan: Hx of PAF. Tele shows SR, rates 60-70. Currently suppressed with Metoprolol. Has been on Digoxin which we stopped since he is in SR. Continue Eliquis for anticoagulation. No bleeding issues. <VEGA Lawson - Last Filed: 03/22/21 12:03> Paroxysmal atrial fibrillation. Sinus rhythm at current time. Continue rhythm control approach as much as possible. Continue full oral anticoagulation with Eliquis. Will follow with the patient. <Ferdinand Abdalla MD - Last Filed: 03/22/21 14:21> Fall Risk Details Current Medications: Current Medications Generic Name Dose Route Start Last Admin Trade Name Freq PRN Reason Stop Dose Admin Acetaminophen 650 mg 03/20/21 20:31 Acetaminophen 325 Mg Tablet PO Q6H PRN Pain, Mild (Pain Scale 1-3) Albuterol/Ipratropium 3 ml 03/20/21 20:43 Albuterol/Iprat 2.5/0.5mg 3 Ml Ampul.Neb INHALE RQ4H PRN Shortness of Breath/Wheezing Amlodipine Besylate 10 mg 03/23/21 09:00 Amlodipine Besylate 10 Mg Tablet PO DAILY [facility] Protocol Apixaban 5 mg 03/21/21 09:00 03/22/21 08:47 Apixaban 5 Mg Tablet PO 5 mg BID [facility] Administration Atorvastatin Calcium 80 mg 03/21/21 21:00 03/21/21 20:12 Atorvastatin Calcium 80 Mg Tablet PO 80 mg BEDTIME [facility] Administration Dorzolamide/Timolol 1 drop 03/21/21 09:00 03/22/21 09:53 Dorzolamide/Timolo 2.23%/0.68% 10 Ml Drbtl EYE-BOTH 1 drop BID [facility] Administration Furosemide 40 mg 03/22/21 09:00 03/22/21 08:32 Furosemide 40 Mg Tablet PO 40 mg DAILY [facility] Administration Protocol Hydralazine HCl 5 mg 03/21/21 16:53 03/22/21 09:53 Hydralazine Hcl 20 Mg/Ml Vial IVPUSH 5 mg Q6H PRN Administration SBP>180 Protocol Insulin Human Lispro 0 unit 03/20/21 21:00 03/22/21 08:29 Insulin Lispro 100 Unit/Ml 3 Ml Vial SUBCUT Not Given QIDACHS [facility] Protocol Labetalol HCl 10 mg 03/20/21 22:56 03/22/21 03:10 Labetalol Hcl 100 Mg/20 Ml Vial IVPUSH 10 mg Q4H PRN Administration BP>180/90 Latanoprost 1 drop 03/21/21 21:00 03/21/21 20:12 Latanoprost 0.005 % Ophth Susana 2.5 Ml Drops EYE-BOTH 1 drop BEDTIME [facility] Administration Losartan Potassium 100 mg 03/21/21 09:00 03/22/21 08:31 Losartan Potassium 50 Mg Tablet PO 100 mg DAILY [facility] Administration Protocol Magnesium Hydroxide 30 ml 03/20/21 20:31 Milk Of Magnesia 30 Ml Oral.Susp PO DAILY PRN Constipation Metoprolol Succinate 100 mg 03/21/21 09:00 03/22/21 08:31 Metoprolol Succinate Er 100 Mg Tab.Er.24h PO 100 mg DAILY [facility] Administration Protocol Mirabegron 50 mg 03/21/21 09:00 03/22/21 08:32 Mirabegron 50 Mg Tab.Er.24h PO 50 mg DAILY [facility] Administration Multivitamins/Minerals 1 tab 03/21/21 09:00 03/22/21 08:31 Vits A,C,E/Lutein/Minerals Tablet PO 1 tab DAILY [facility] Administration Nitroglycerin 0.4 mg 03/20/21 20:31 Nitroglycerin 0.4 Mg Tab.Subl SUBLINGUAL Q5M PRN Chest Pain Non-Formulary Medication 1 tab 03/21/21 09:00 Calcium Carb-Mag Ox-Zinc Sulf PO DAILY [facility] Non-Formulary Medication 1 cap 03/21/21 09:00 Lactobacill 46-B.Animal-Inulin [Probiotic-10 (With Inulin)] PO DAILY [facility] Senna 17.2 mg 03/20/21 22:59 Sennosides 8.6 Mg Tablet PO BEDTIME PRN Constipation Sodium Chloride 3 ml 03/21/21 00:00 03/22/21 08:32 0.9 % Sodium Chloride Flush 3 Ml Syringe IVFLUSH 3 ml QSHIFT [facility] Administration Spironolactone 25 mg 03/23/21 09:00 Spironolactone 25 Mg Tablet PO DAILY [facility] Protocol Tamsulosin HCl 0.4 mg 03/21/21 09:00 03/22/21 08:31 Tamsulosin Hcl 0.4 Mg Capsule PO 0.4 mg DAILY [facility] Administration Vitamin D 25 mcg 03/21/21 09:00 03/22/21 08:31 Cholecalciferol (Vitamin D3) 25 Mcg Tablet PO 25 mcg DAILY [facility] Administration <VEGA Lawson - Last Filed: 03/22/21 12:03> Time Spent With Patient Time: Total time spent is greater than 50% in coordination of care (as documented) at patient's floor/unit and/or counseling patient: 22 <VEGA Lawson - Last Filed: 03/22/21 12:03> Time with patient: 15 - 24 minutes <VEGA Lawson - Last Filed: 03/22/21 12:03> Procedures Date of Service Date of Service: 03/22/21 <VEGA Lawson - Last Filed: 03/22/21 12:03>
--- NOTE | 2021-03-22 13:10 | P.PNIM_ITS ---
Subjective Subjective Date of Service: 03/22/21 Interval History: Seen in f/u for heart failure, better with sob, still has slight leg edema, confused ? baseline is not clear Review of Systems Review of Systems: Yes Unobtainable due to mental status Physical Exam Vital Signs: Vital Signs: Last Vital Signs Temp 97.3 F 03/22/21 11:29 Pulse 56 03/22/21 11:29 Resp 18 03/22/21 11:29 BP 158/71 H 03/22/21 11:29 Pulse Ox 96 03/22/21 11:29 Body Mass Index 23.6 Const: Other: General: AO to self only, no acute distress Resp: CTA bilateral CVS: S1,S2,RRR, trace leg edema evette GI: +BS, NT, no distention Skin: No rash Neuro: motor grossly intact Psych: flat affect Objective Data Current Medications Generic Name Dose Route Start Last Admin Trade Name Freq PRN Reason Stop Dose Admin Acetaminophen 650 mg 03/20/21 20:31 Acetaminophen 325 Mg Tablet PO Q6H PRN Pain, Mild (Pain Scale 1-3) Albuterol/Ipratropium 3 ml 03/20/21 20:43 Albuterol/Iprat 2.5/0.5mg 3 Ml Ampul.Neb INHALE RQ4H PRN Shortness of Breath/Wheezing Amlodipine Besylate 10 mg 03/23/21 09:00 Amlodipine Besylate 10 Mg Tablet PO DAILY [facility] Protocol Apixaban 5 mg 03/21/21 09:00 03/22/21 08:47 Apixaban 5 Mg Tablet PO 5 mg BID [facility] Administration Atorvastatin Calcium 80 mg 03/21/21 21:00 03/21/21 20:12 Atorvastatin Calcium 80 Mg Tablet PO 80 mg BEDTIME [facility] Administration Dorzolamide/Timolol 1 drop 03/21/21 09:00 03/22/21 09:53 Dorzolamide/Timolo 2.23%/0.68% 10 Ml Drbtl EYE-BOTH 1 drop BID [facility] Administration Furosemide 40 mg 03/22/21 09:00 03/22/21 08:32 Furosemide 40 Mg Tablet PO 40 mg DAILY [facility] Administration Protocol Hydralazine HCl 5 mg 03/21/21 16:53 03/22/21 09:53 Hydralazine Hcl 20 Mg/Ml Vial IVPUSH 5 mg Q6H PRN Administration SBP>180 Protocol Insulin Human Lispro 0 unit 03/20/21 21:00 03/22/21 11:52 Insulin Lispro 100 Unit/Ml 3 Ml Vial SUBCUT Not Given QIDACHS [facility] Protocol Labetalol HCl 10 mg 03/20/21 22:56 03/22/21 03:10 Labetalol Hcl 100 Mg/20 Ml Vial IVPUSH 10 mg Q4H PRN Administration BP>180/90 Latanoprost 1 drop 03/21/21 21:00 03/21/21 20:12 Latanoprost 0.005 % Ophth Susana 2.5 Ml Drops EYE-BOTH 1 drop BEDTIME [facility] Administration Losartan Potassium 100 mg 03/21/21 09:00 03/22/21 08:31 Losartan Potassium 50 Mg Tablet PO 100 mg DAILY [facility] Administration Protocol Magnesium Hydroxide 30 ml 03/20/21 20:31 Milk Of Magnesia 30 Ml Oral.Susp PO DAILY PRN Constipation Metoprolol Succinate 100 mg 03/21/21 09:00 03/22/21 08:31 Metoprolol Succinate Er 100 Mg Tab.Er.24h PO 100 mg DAILY [facility] Administration Protocol Mirabegron 50 mg 03/21/21 09:00 03/22/21 08:32 Mirabegron 50 Mg Tab.Er.24h PO 50 mg DAILY [facility] Administration Multivitamins/Minerals 1 tab 03/21/21 09:00 03/22/21 08:31 Vits A,C,E/Lutein/Minerals Tablet PO 1 tab DAILY [facility] Administration Nitroglycerin 0.4 mg 03/20/21 20:31 Nitroglycerin 0.4 Mg Tab.Subl SUBLINGUAL Q5M PRN Chest Pain Non-Formulary Medication 1 tab 03/21/21 09:00 Calcium Carb-Mag Ox-Zinc Sulf PO DAILY [facility] Non-Formulary Medication 1 cap 03/21/21 09:00 Lactobacill 46-B.Animal-Inulin [Probiotic-10 (With Inulin)] PO DAILY [facility] Senna 17.2 mg 03/20/21 22:59 Sennosides 8.6 Mg Tablet PO BEDTIME PRN Constipation Sodium Chloride 3 ml 03/21/21 00:00 03/22/21 08:32 0.9 % Sodium Chloride Flush 3 Ml Syringe IVFLUSH 3 ml QSHIFT [facility] Administration Spironolactone 25 mg 03/23/21 09:00 Spironolactone 25 Mg Tablet PO DAILY [facility] Protocol Tamsulosin HCl 0.4 mg 03/21/21 09:00 03/22/21 08:31 Tamsulosin Hcl 0.4 Mg Capsule PO 0.4 mg DAILY [facility] Administration Vitamin D 25 mcg 03/21/21 09:00 03/22/21 08:31 Cholecalciferol (Vitamin D3) 25 Mcg Tablet PO 25 mcg DAILY [facility] Administration Labs CBC & Chem 7: 03/21/21 04:18 03/22/21 10:33 Assessment and Plan (1) CHF (congestive heart failure): Status: Acute Assessment and Plan: 85-year-old male with a past medical history of hypertension, hyperlipidemia, diabetes, coronary artery disease, CHF, a flutter on Eliquis, osteoarthritis, peripheral vascular disease, BPH, COPD presented to the hospital with a chief complaint of shortness of breath and leg swelling; noted to be in acute CHF. Admitted for further management. Acute CHF: likely trigered by high BP, clinically is better, less, less leg edema Has been transitioned to oral Lasix Echocardiogram 03/21, normal EF continue toprol, aldactone and Losartan check electrolytes Hypertensive urgency: SBP was over 200 on admission is much better with med adjustement continue toprol xl 100, norvasc up to 10, Aladctone 25, losartan 100. BP is currently within normal limit hyperlipidemia: Lipitor Diabetes: Insulin sliding scale AFIB: Continue home Eliquis. Metoprolol for rate control. No longer on dig due to sinus rythm History of COPD: Nebulizations p.r.n. PT eval and discharge over the weekend Code status: Full code
[2021-03-22 14:47] LABS: Anion Gap 16 (12-20); Blood Urea Nitrogen 15 mg/dL (9-16); Calcium 8.5 mg/dL (8.4-10.2); Carbon Dioxide 21 mmol/L (22-29); Chloride 108 mmol/L (96-108); Creatinine Clr Calc Pharmacy 76.9; Estimated Glomerular Filt Rate > 60; Glucose Random 116 mg/dL (60-115); Potassium 3.8 mmol/L (3.3-5.1); Sodium 141 mmol/L (135-145)
--- NOTE | 2021-03-22 14:50 | MHC.CM.PN ---
Addendum entered by Sharon Ramos RN 03/22/21 16:09: CM MET W/PT WHO IS AGREEABLE TO GO TO STR AT [facility], GOVIND NOTIFIED AT 4:05PM, MIKAL FROM [facility] IS COVERING ADMISSIONS FOR W/E IN CASE PT IS READY FOR D/C. Original Note: IMM 03/22/21, CM MET W/PT WHO ARE RECOMMENDING STR, CONTACTED PT'S GOVIND AT 2:40PM TO DISCUSS D/C PLAN, PER PT'S SHE & PT PREFER HOME W/SERVICES W/[facility] HOWEVER THEY WERE HAPPY W/ CARE AT [facility], REFERRAL TO BE PLACED IN ANTICIPATION, CM CONTACTED NATHANIEL TO VERIFY IF THEY COULD PROVIDE HOME PT. CM TO CONT TO FOLLOW. D/C PLAN HOME W/[facility] FOR SN/PT VS [facility] FOR STR, FAMILY VS BLS TRANSPORT
[2021-03-22 16:11] LABS: Glucose, Whole Blood 115 mg/dL (60-115)
[2021-03-22 20:17] LABS: Glucose, Whole Blood 148 mg/dL (60-115)
[2021-03-22] MEDS: Atorvastatin Calcium 80 MG TABLET PO (20:42)
[2021-03-22] MEDS: Latanoprost 0.005 % Ophth Sol 2.5 ML DROPS 1 DROP EYE-BOTH (20:47)
[2021-03-23] VITALS (15 sets, daily range): BP systolic 101–210; BP diastolic 48–89; PULSE 55–67; RESP 17–18; TEMP 36.2–37.2; O2SAT 92–96; BMI 22.9
--- NOTE | 2021-03-23 | ECG_ITS ---
Test Reason : AMS Blood Pressure : / mmHG Vent. Rate : 060 BPM Atrial Rate : 060 BPM P-R Int : 174 ms QRS Dur : 088 ms QT Int : 438 ms P-R-T Axes : 098 -25 006 degrees QTc Int : 438 ms Sinus rhythm with Premature supraventricular complexes Septal infarct , age undetermined Abnormal ECG When compared to the previous EKG of No significant changes seen Referred By: [facility] Electronically Signed By:BENEDICTO YBARRA MD
[2021-03-23 07:17] LABS: Glucose, Whole Blood 110 mg/dL (60-115)
[2021-03-23] MEDS: hydrALAZINE HCl 20 MG/ML VIAL 5 MG IVPUSH (08:19)
[2021-03-23] MEDS: Furosemide 40 MG TABLET PO (08:21)
[2021-03-23] MEDS: Apixaban 5 MG TABLET PO ×2 (08:21→21:29)
[2021-03-23] MEDS: Cholecalciferol (Vitamin D3) 25 MCG TABLET PO (08:22)
[2021-03-23] MEDS: Tamsulosin HCL 0.4 MG CAPSULE PO (08:22)
[2021-03-23] MEDS: 0.9 % Sodium Chloride Flush 3 ML SYRINGE IVFLUSH ×3 (08:24→21:29)
[2021-03-23] MEDS: Mirabegron 50 MG TAB.ER.24H PO (08:25)
[2021-03-23] MEDS: Dorzolamide/Timolo 2.23%/0.68% 10 ML DRBTL 1 DROP EYE-BOTH ×2 (09:33→21:32)
[2021-03-23] MEDS: Losartan Potassium 50 MG TABLET 100 MG PO (09:33)
[2021-03-23] MEDS: Metoprolol Succinate ER 100 MG TAB.ER.24H PO (09:33)
[2021-03-23] MEDS: Spironolactone 25 MG TABLET PO (09:34)
[2021-03-23] MEDS: amLODIPine Besylate 10 MG TABLET PO (09:34)
[2021-03-23 11:45] LABS: Glucose, Whole Blood 133 mg/dL (60-115)
[2021-03-23 13:00] LABS: Glucose, Whole Blood 99 mg/dL (60-115)
--- NOTE | 2021-03-23 13:13 | PM.PNCARD ---
Subjective Subjective Date of Service: 03/23/21 Principal diagnosis: Acute on chronic diastolic HF, hypertensive crisis Interval history: Patient very confused this morning. Blood pressure is on the lower side. Monitor shows sinus bradycardia Review of Systems Review of Systems Yes Unobtainable due to mental status Reports confusion Psychiatric: Reports confusion Physical Exam Vital Signs: Last Vital Signs Temp 97.8 F 03/23/21 11:50 Pulse 57 03/23/21 13:00 Resp 18 03/23/21 11:50 BP 128/62 03/23/21 13:00 Pulse Ox 96 03/23/21 13:00 Body Mass Index 22.9 Const General: no acute distress, awake and confusion Nutritional Appearance: thin Orientation/consciousness: confusion Neck Neck: Yes trachea midline, Yes supple and Yes no JVD Resp Effort & Inspection: normal respiratory effort Auscultation: clear to auscultation bilaterally Cardio Jugular venous distension: no JVD Rate: regular rate Rhythm: regular rhythm Heart sounds: S1 normal heart sound present and S2 normal heart sound present Neuro General: moves all extremities and confusion Extrem General: Yes no clubbing, cyanosis or edema Results Labs and Meds Result diagrams: 03/21/21 04:18 03/22/21 14:07 Lab results: Laboratory Results - last 24 hr 03/22/21 03/22/21 03/22/21 14:07 16:05 20:11 Sodium 141 Potassium 3.8 Chloride 108 Carbon Dioxide 21 L Anion Gap 16 BUN 15 Creatinine 0.68 Estim Creat Clear Calc 76.9 Estimated GFR > 60 POC Glucose 115 148 H Random Glucose 116 H Calcium 8.5 03/23/21 03/23/21 03/23/21 07:07 11:37 12:56 Sodium Potassium Chloride Carbon Dioxide Anion Gap BUN Creatinine Estim Creat Clear Calc Estimated GFR POC Glucose 110 133 H 99 Random Glucose Calcium Imaging Radiologist's impression: Impressions Renal Ultrasound 03/22/21 15:25 IMPRESSION: No hemodynamically significant renal artery stenosis. Progress Note: A&P Assessment and plan (1) Confusion: Status: Acute Assessment and Plan: Acute confusion elderly man could be due to lot of different issues. However there was sudden reduction in his blood pressure, potential causing cerebral hypoperfusion. I agree with the stat brain CT to evaluate for intracranial pathology. He has nonfocal neurologic exam. Consider neurology consultation. Evaluate for other metabolic causes for encephalopathy as well. (2) Paroxysmal A-fib: Status: Acute Assessment and Plan: Paroxysmal atrial fibrillation, currently on full oral anticoagulation with Eliquis. Continue the same unless there is any contraindication. Continue metoprolol therapy with rate adequately controlled and patient in sinus rhythm at current time. (3) CHF (congestive heart failure): Status: Acute Assessment and Plan: CHF on admission due to hypertensive crisis, with diuresis has done well and has remained euvolemic. On oral diuretic therapy. Continue Lasix 40 mg daily. Blood pressure is now corrected and may be over corrected causing his confusion. Hold amlodipine therapy. Monitor blood pressure closely. May require permissive hypertension in this elderly gentleman with chronic hypertension. Fall Risk Details Current Medications: Current Medications Generic Name Dose Route Start Last Admin Trade Name Freq PRN Reason Stop Dose Admin Acetaminophen 650 mg 03/20/21 20:31 Acetaminophen 325 Mg Tablet PO Q6H PRN Pain, Mild (Pain Scale 1-3) Albuterol/Ipratropium 3 ml 03/20/21 20:43 Albuterol/Iprat 2.5/0.5mg 3 Ml Ampul.Neb INHALE RQ4H PRN Shortness of Breath/Wheezing Amlodipine Besylate 10 mg 03/23/21 09:00 03/23/21 09:34 Amlodipine Besylate 10 Mg Tablet PO 10 mg DAILY [facility] Administration Protocol Apixaban 5 mg 03/21/21 09:00 03/23/21 08:21 Apixaban 5 Mg Tablet PO 5 mg BID [facility] Administration Atorvastatin Calcium 80 mg 03/21/21 21:00 03/22/21 20:42 Atorvastatin Calcium 80 Mg Tablet PO 80 mg BEDTIME [facility] Administration Dorzolamide/Timolol 1 drop 03/21/21 09:00 03/23/21 09:33 Dorzolamide/Timolo 2.23%/0.68% 10 Ml Drbtl EYE-BOTH 1 drop BID [facility] Administration Furosemide 40 mg 03/22/21 09:00 03/23/21 08:21 Furosemide 40 Mg Tablet PO 40 mg DAILY [facility] Administration Protocol Insulin Human Lispro 0 unit 03/20/21 21:00 03/23/21 11:53 Insulin Lispro 100 Unit/Ml 3 Ml Vial SUBCUT Not Given QIDACHS [facility] Protocol Labetalol HCl 10 mg 03/20/21 22:56 03/22/21 03:10 Labetalol Hcl 100 Mg/20 Ml Vial IVPUSH 10 mg Q4H PRN Administration BP>180/90 Latanoprost 1 drop 03/21/21 21:00 03/22/21 20:47 Latanoprost 0.005 % Ophth Susana 2.5 Ml Drops EYE-BOTH 1 drop BEDTIME [facility] Administration Losartan Potassium 100 mg 03/21/21 09:00 03/23/21 09:33 Losartan Potassium 50 Mg Tablet PO 100 mg DAILY [facility] Administration Protocol Magnesium Hydroxide 30 ml 03/20/21 20:31 Milk Of Magnesia 30 Ml Oral.Susp PO DAILY PRN Constipation Metoprolol Succinate 100 mg 03/21/21 09:00 03/23/21 09:33 Metoprolol Succinate Er 100 Mg Tab.Er.24h PO 100 mg DAILY [facility] Administration Protocol Mirabegron 50 mg 03/21/21 09:00 03/23/21 08:25 Mirabegron 50 Mg Tab.Er.24h PO 50 mg DAILY [facility] Administration Multivitamins/Minerals 1 tab 03/21/21 09:00 03/23/21 08:22 Vits A,C,E/Lutein/Minerals Tablet PO 1 tab DAILY [facility] Administration Nitroglycerin 0.4 mg 03/20/21 20:31 Nitroglycerin 0.4 Mg Tab.Subl SUBLINGUAL Q5M PRN Chest Pain Non-Formulary Medication 1 tab 03/21/21 09:00 Calcium Carb-Mag Ox-Zinc Sulf PO DAILY [facility] Non-Formulary Medication 1 cap 03/21/21 09:00 Lactobacill 46-B.Animal-Inulin [Probiotic-10 (With Inulin)] PO DAILY [facility] Senna 17.2 mg 03/20/21 22:59 Sennosides 8.6 Mg Tablet PO BEDTIME PRN Constipation Sodium Chloride 3 ml 03/21/21 00:00 03/23/21 08:24 0.9 % Sodium Chloride Flush 3 Ml Syringe IVFLUSH 3 ml QSHIFT [facility] Administration Spironolactone 25 mg 03/23/21 09:00 03/23/21 09:34 Spironolactone 25 Mg Tablet PO 25 mg DAILY [facility] Administration Protocol Tamsulosin HCl 0.4 mg 03/21/21 09:00 03/23/21 08:22 Tamsulosin Hcl 0.4 Mg Capsule PO 0.4 mg DAILY [facility] Administration Vitamin D 25 mcg 03/21/21 09:00 03/23/21 08:22 Cholecalciferol (Vitamin D3) 25 Mcg Tablet PO 25 mcg DAILY [facility] Administration Time Spent With Patient Time: Total time spent is greater than 50% in coordination of care (as documented) at patient's floor/unit and/or counseling patient: Time with patient: 15 - 24 minutes Procedures Date of Service Date of Service: 03/23/21
--- NOTE | 2021-03-23 13:58 | P.PNIM_ITS ---
Subjective Subjective Date of Service: 03/23/21 Interval History: Seen in f/u for heart failure and difficult to control HTN. He became acutely confused this morning with no focal neurological deficit althogh it seem as if he cannot see. His blood pressures have fluctuated widely this mor delores, starting at 210/84 and droping to 101/51 2 huors later and has now gone up again to 181/74 following IVF. He had a stat CT of the head reviewed with radiology and thus far no acute finding. Neuro has been consulted. Sugar level 99 Review of Systems Review of Systems: Yes Unobtainable due to mental status Physical Exam Vital Signs: Vital Signs: Last Vital Signs Temp 97.8 F 03/23/21 11:50 Pulse 60 03/23/21 13:57 Resp 18 03/23/21 11:50 BP 174/62 H 03/23/21 13:57 Pulse Ox 96 03/23/21 13:00 Body Mass Index 22.9 Const: Other: Constitutional Awake and Alert, very confused Neck Supple, No lymphadenopathy Cardiovascular RRR, No M/R/G, S1 S2, No S3 S4, No pedal edema Respiratory Lungs clear, No respiratory distress Gastrointestinal Non tender, Non-distended Skin No rash Neurological He is very confused, he moves both arm freely without any apparent finding of weakness, cranial nerve exam is difficulty to assess as he is not follwing command, see to blink you extend wave hand accros his face Psychological Appropriate flat Objective Data Current Medications Generic Name Dose Route Start Last Admin Trade Name Freq PRN Reason Stop Dose Admin Acetaminophen 650 mg 03/20/21 20:31 Acetaminophen 325 Mg Tablet PO Q6H PRN Pain, Mild (Pain Scale 1-3) Albuterol/Ipratropium 3 ml 03/20/21 20:43 Albuterol/Iprat 2.5/0.5mg 3 Ml Ampul.Neb INHALE RQ4H PRN Shortness of Breath/Wheezing Amlodipine Besylate 10 mg 03/23/21 09:00 03/23/21 09:34 Amlodipine Besylate 10 Mg Tablet PO 10 mg DAILY [facility] Administration Protocol Apixaban 5 mg 03/21/21 09:00 03/23/21 08:21 Apixaban 5 Mg Tablet PO 5 mg BID [facility] Administration Atorvastatin Calcium 80 mg 03/21/21 21:00 03/22/21 20:42 Atorvastatin Calcium 80 Mg Tablet PO 80 mg BEDTIME [facility] Administration Dorzolamide/Timolol 1 drop 03/21/21 09:00 03/23/21 09:33 Dorzolamide/Timolo 2.23%/0.68% 10 Ml Drbtl EYE-BOTH 1 drop BID [facility] Administration Furosemide 40 mg 03/22/21 09:00 03/23/21 08:21 Furosemide 40 Mg Tablet PO 40 mg DAILY [facility] Administration Protocol Insulin Human Lispro 0 unit 03/20/21 21:00 03/23/21 11:53 Insulin Lispro 100 Unit/Ml 3 Ml Vial SUBCUT Not Given QIDACHS [facility] Protocol Labetalol HCl 10 mg 03/20/21 22:56 03/22/21 03:10 Labetalol Hcl 100 Mg/20 Ml Vial IVPUSH 10 mg Q4H PRN Administration BP>180/90 Latanoprost 1 drop 03/21/21 21:00 03/22/21 20:47 Latanoprost 0.005 % Ophth Susana 2.5 Ml Drops EYE-BOTH 1 drop BEDTIME [facility] Administration Losartan Potassium 100 mg 03/21/21 09:00 03/23/21 09:33 Losartan Potassium 50 Mg Tablet PO 100 mg DAILY [facility] Administration Protocol Magnesium Hydroxide 30 ml 03/20/21 20:31 Milk Of Magnesia 30 Ml Oral.Susp PO DAILY PRN Constipation Metoprolol Succinate 100 mg 03/21/21 09:00 03/23/21 09:33 Metoprolol Succinate Er 100 Mg Tab.Er.24h PO 100 mg DAILY [facility] Administration Protocol Mirabegron 50 mg 03/21/21 09:00 03/23/21 08:25 Mirabegron 50 Mg Tab.Er.24h PO 50 mg DAILY [facility] Administration Multivitamins/Minerals 1 tab 03/21/21 09:00 03/23/21 08:22 Vits A,C,E/Lutein/Minerals Tablet PO 1 tab DAILY [facility] Administration Nitroglycerin 0.4 mg 03/20/21 20:31 Nitroglycerin 0.4 Mg Tab.Subl SUBLINGUAL Q5M PRN Chest Pain Non-Formulary Medication 1 tab 03/21/21 09:00 Calcium Carb-Mag Ox-Zinc Sulf PO DAILY [facility] Non-Formulary Medication 1 cap 03/21/21 09:00 Lactobacill 46-B.Animal-Inulin [Probiotic-10 (With Inulin)] PO DAILY [facility] Senna 17.2 mg 03/20/21 22:59 Sennosides 8.6 Mg Tablet PO BEDTIME PRN Constipation Sodium Chloride 3 ml 03/21/21 00:00 03/23/21 08:24 0.9 % Sodium Chloride Flush 3 Ml Syringe IVFLUSH 3 ml QSHIFT [facility] Administration Spironolactone 25 mg 03/23/21 09:00 03/23/21 09:34 Spironolactone 25 Mg Tablet PO 25 mg DAILY [facility] Administration Protocol Tamsulosin HCl 0.4 mg 03/21/21 09:00 03/23/21 08:22 Tamsulosin Hcl 0.4 Mg Capsule PO 0.4 mg DAILY [facility] Administration Vitamin D 25 mcg 03/21/21 09:00 03/23/21 08:22 Cholecalciferol (Vitamin D3) 25 Mcg Tablet PO 25 mcg DAILY [facility] Administration Labs CBC & Chem 7: 03/23/21 15:11 03/23/21 15:11 Assessment and Plan (1) CHF (congestive heart failure): Status: Acute Assessment and Plan: 85-year-old male with a past medical history of hypertension, hyperlipidemia, diabetes, coronary artery disease, CHF, a flutter on Eliquis, osteoarthritis, peripheral vascular disease, BPH, COPD presented to the hospital with a chief complaint of shortness of breath and leg swelling; noted to be in acute CHF. Admitted for further management. Acue AMS: No focal neuro deficit, CT head stat is unremarkable, His is on eliquis which would preclude him from getting tPA. Would avoid rapid drop in blood pressure. Neuro consult. If symptoms persists, he might need MRI. Neuro checks Q2. Acute CHF: likely trigered by high BP, clinically is better, less, less leg edema Continue Oral Lasix. Echocardiogram 03/21, normal EF continue toprol, aldactone and Losartan electrolytes have been normal Hypertensive urgency with very variable BP as stated above. continue toprol xl 100, norvasc up to 10, Aladctone 25, losartan 100. BP is currently within normal limit. Avoid any additional medication hyperlipidemia: Lipitor Diabetes: Insulin sliding scale AFIB: Continue home Eliquis. Metoprolol for rate control. No longer on dig due to sinus rythm History of COPD: Nebulizations p.r.n. I tried reaching out to the but could not reach her and will again try later. PT eval and discharge over the weekend Code status: Full code
--- NOTE | 2021-03-23 14:18 | PM.NEUROCN ---
History of Present Illness Data of Consult Service Date: 03/23/21 Primary Care Provider: Jazzmine Otero MD 85 years old man with underlying history of atrial flutter on anticoagulation and hypertension that was quite high earlier and at 1 point was noted to be less than 100 systolic. He was noted to have sudden change in mental status and difficulty speaking. Stroke protocol was initiated. I examined him in emergency room when he came down for CT scan. After that his CT scan was reviewed and he was examined again. He was unable to provide any meaningful history only kept on stating, somebody help me?. Review of Systems Review of Systems: Unable to perform review of system questioning [facility] Past Medical History Medical History (HFpEF) heart failure with preserved ejection fraction Atrial flutter Bladder neck contracture BPH (benign prostatic hyperplasia) CAD (coronary artery disease) COPD (chronic obstructive pulmonary disease) Hypercholesterolemia Hypertension Hypotonic bladder Pain and swelling of right lower leg Paraphimosis Peripheral vascular disease Pulmonary nodule Right knee pain Tubular adenoma of colon Type 2 diabetes mellitus with hyperglycemia Vitamin D deficiency Family History Family History Father No problems noted. Mother CVD (cardiovascular disease) Surgical History Surgical History H/O inguinal hernia repair H/O vascular surgery History of appendectomy History of cataract surgery History of colonoscopy History of prostate surgery Social History Social History Household Members: Spouse Housing: House Do you presently have visiting nurse or other home services: No Alcohol intake: former Patient Tobacco Use Status: Never used Tobacco Use of substances other than those prescribed or required for medical reasons: No Currently Displaying Signs/Symptoms of Drug Intoxication Withdrawal: No Have you been hit, kicked, punched, or otherwise hurt by someone within the past year? If so, by whom?: No Do you feel safe in your current relationship?: No Is there a partner from a previous relationship who is making you feel unsafe now?: No Are you made to feel afraid or neglected: No Advance Directives: No Advance Directives Information Provided: Yes Do you have thoughts of harming others: None Do you have a plan to hurt others: No Plan Recently lost weight without trying: No Eating poorly because of decreased appetite: No Nutrition Risks: No Nutritional Risk Poor oral hygiene: No service: Yes Current occupational status: retired Meds Allergies Allergy/AdvReac Type Severity Reaction Status Date / Time ciprofloxacin [CIPROFLOXACIN] Allergy Unknown ITCHY FEET Verified 03/20/21 15:01 oxycodone [Percocet] AdvReac Unknown Unknown Verified 03/20/21 15:01 Active Medications: Current Medications Generic Name Dose Route Start Last Admin Trade Name Freq PRN Reason Stop Dose Admin Acetaminophen 650 mg 03/20/21 20:31 Acetaminophen 325 Mg Tablet PO Q6H PRN Pain, Mild (Pain Scale 1-3) Albuterol/Ipratropium 3 ml 03/20/21 20:43 Albuterol/Iprat 2.5/0.5mg 3 Ml Ampul.Neb INHALE RQ4H PRN Shortness of Breath/Wheezing Amlodipine Besylate 10 mg 03/23/21 09:00 03/23/21 09:34 Amlodipine Besylate 10 Mg Tablet PO 10 mg DAILY [facility] Administration Protocol Apixaban 5 mg 03/21/21 09:00 03/23/21 08:21 Apixaban 5 Mg Tablet PO 5 mg BID [facility] Administration Atorvastatin Calcium 80 mg 03/21/21 21:00 03/22/21 20:42 Atorvastatin Calcium 80 Mg Tablet PO 80 mg BEDTIME [facility] Administration Dorzolamide/Timolol 1 drop 03/21/21 09:00 03/23/21 09:33 Dorzolamide/Timolo 2.23%/0.68% 10 Ml Drbtl EYE-BOTH 1 drop BID [facility] Administration Furosemide 40 mg 03/22/21 09:00 03/23/21 08:21 Furosemide 40 Mg Tablet PO 40 mg DAILY [facility] Administration Protocol Sodium Chloride 1,000 mls @ 999 mls/hr 03/23/21 14:15 Ns IVCONT 03/23/21 15:15 .Q1H1M [facility] Insulin Human Lispro 0 unit 03/20/21 21:00 03/23/21 11:53 Insulin Lispro 100 Unit/Ml 3 Ml Vial SUBCUT Not Given QIDACHS [facility] Protocol Labetalol HCl 10 mg 03/20/21 22:56 03/22/21 03:10 Labetalol Hcl 100 Mg/20 Ml Vial IVPUSH 10 mg Q4H PRN Administration BP>180/90 Latanoprost 1 drop 03/21/21 21:00 03/22/21 20:47 Latanoprost 0.005 % Ophth Susana 2.5 Ml Drops EYE-BOTH 1 drop BEDTIME [facility] Administration Losartan Potassium 100 mg 03/21/21 09:00 03/23/21 09:33 Losartan Potassium 50 Mg Tablet PO 100 mg DAILY [facility] Administration Protocol Magnesium Hydroxide 30 ml 03/20/21 20:31 Milk Of Magnesia 30 Ml Oral.Susp PO DAILY PRN Constipation Metoprolol Succinate 100 mg 03/21/21 09:00 03/23/21 09:33 Metoprolol Succinate Er 100 Mg Tab.Er.24h PO 100 mg DAILY [facility] Administration Protocol Mirabegron 50 mg 03/21/21 09:00 03/23/21 08:25 Mirabegron 50 Mg Tab.Er.24h PO 50 mg DAILY [facility] Administration Multivitamins/Minerals 1 tab 03/21/21 09:00 03/23/21 08:22 Vits A,C,E/Lutein/Minerals Tablet PO 1 tab DAILY [facility] Administration Nitroglycerin 0.4 mg 03/20/21 20:31 Nitroglycerin 0.4 Mg Tab.Subl SUBLINGUAL Q5M PRN Chest Pain Non-Formulary Medication 1 tab 03/21/21 09:00 Calcium Carb-Mag Ox-Zinc Sulf PO DAILY [facility] Non-Formulary Medication 1 cap 03/21/21 09:00 Lactobacill 46-B.Animal-Inulin [Probiotic-10 (With Inulin)] PO DAILY [facility] Senna 17.2 mg 03/20/21 22:59 Sennosides 8.6 Mg Tablet PO BEDTIME PRN Constipation Sodium Chloride 3 ml 03/21/21 00:00 03/23/21 08:24 0.9 % Sodium Chloride Flush 3 Ml Syringe IVFLUSH 3 ml QSHIFT [facility] Administration Spironolactone 25 mg 03/23/21 09:00 03/23/21 09:34 Spironolactone 25 Mg Tablet PO 25 mg DAILY [facility] Administration Protocol Tamsulosin HCl 0.4 mg 03/21/21 09:00 03/23/21 08:22 Tamsulosin Hcl 0.4 Mg Capsule PO 0.4 mg DAILY [facility] Administration Vitamin D 25 mcg 03/21/21 09:00 03/23/21 08:22 Cholecalciferol (Vitamin D3) 25 Mcg Tablet PO 25 mcg DAILY [facility] Administration Home Medications Medication Instructions Recorded Confirmed Last Taken Type cholecalciferol (vitamin D3) 25 25 mcg PO DAILY 08/14/20 03/20/21 03/20/21 History mcg (1,000 unit) capsule dorzolamide 22.3 mg-timolol 6.8 1 drp OPHTHALMIC (EYE) BID 08/14/20 03/20/21 03/20/21 History mg/mL eye drops latanoprost 0.005 % eye drops 1 drp OPHTHALMIC (EYE) BEDTIME ml 08/14/20 03/20/21 03/19/21 History tamsulosin 0.4 mg capsule 0.4 mg PO DAILY 08/14/20 03/20/21 03/20/21 History Ocuvite Adult 50 Plus 1 cap PO DAILY 12/19/20 03/20/21 03/20/21 History Probiotic-10 (with inulin) 1 cap PO DAILY 12/19/20 03/20/21 03/20/21 History calcium carb-mag ox-zinc sulf 1 tab PO DAILY 12/19/20 03/20/21 03/20/21 History sennosides [senna] 17.2 mg PO BEDTIME PRN 03/20/21 03/20/21 Unknown History Physical Exam Vital Signs: Vital Signs: Last Vital Signs Temp 97.8 F 03/23/21 11:50 Pulse 60 03/23/21 13:57 Resp 18 03/23/21 11:50 BP 174/62 H 03/23/21 13:57 Pulse Ox 96 03/23/21 13:00 Body Mass Index 22.9 He was somewhat drowsy and not cooperative. He was in mild distress. Sometime he would open his eyes but mostly he was keeping his eyes closed and resisting eye opening. He kept on stating ?somebody help me?. He understood some of my questioning when he told me his name. He squeeze my hand when I ask him to do some other simple things he said he could not do it or he just did not follow through. There was no gaze deviation or eye jerking. He was able to take his each hand port under his head. He was not moving his legs that much but able to wiggle toes. Deep tendon reflexes were absent with flexor plantars. Face was symmetrical. Results Labs CBC & Chem 7: 03/21/21 04:18 03/22/21 14:07 Labs: BMP 03/22/21 14:07 Sodium 141 Potassium 3.8 Chloride 108 Carbon Dioxide 21 L BUN 15 Creatinine 0.68 Calcium 8.5 his not contrast head CT did not reveal any acute abnormality. His left MCA seems to be dense. This hyperdensity was also noted in his previous scan. Assessment and Plan (1) Encephalopathy: Status: Acute 84 years old man with underlying history of atrial flutter on anticoagulation had sudden change in mental status with no obvious focality. This was not suggestive of stroke. I would consider possibility of seizure disorder if no other explanation for encephalopathy was noted. An EEG is recommended. If EEG was not available, and his mental status did not improve, I would try treating him with christi Malcolm to see if it would respond. Procedures Date of Service Date of Service: 03/23/21
[2021-03-23] MEDS: 0.9 % Sodium Chloride 1,000 ML 999 ML IVCONT (14:37)
--- NOTE | 2021-03-23 14:41 | PC.NURSE ---
1245 Pt had a change in mental status and could not follow direction. Pt stated that he cannot see anything . Neuro checks done, pt weak with bilateral and grasps. Dr. Mcknight made aware and stroke protocol put into place. Pt BP 112/48 HR 57. 1L NS bolus given and pt taken for head CT. Will continue to monitor.
--- NOTE | 2021-03-23 15:29 | MHC.STROKE ---
[address] ROBERTS HE WAS ACTIVATING STROKE PROTOCOL, STAT CT HEAD DONE, NO BLEED. ONSET OF SYMPTOMS 1245 ACCORDING TO NURSES NOTES. I IMMEDIATELY REACHED DR EDEN AND HE CONTACTED DR ROBERTS. I REVEWED RECORD AND PATIETN IS CURRENTLY TAKING ELIQUIS WHICH IS AN EXCLUSION FOR TPA. CTA H/N TO IDENTIFY LVO IF RECOMMENDED OR INDICATED, MAY NOT BE A THROMBECTOMY CANDIDATE. THIS INFORMATION WAS RELAYED TO DR ANN ND DR ROBERTS.
[2021-03-23 15:32] LABS: Hematocrit 46.6 % (42-52); Hemoglobin 15.5 g/dl (14.0-18.0); Mean Corpuscular HGB Conc 33.3 g/dl (31.0-36.0); Mean Corpuscular Hemoglobin 31.1 pg (27.0-33.0); Mean Corpuscular Volume 93.4 fL (80-98); Mean Platelet Volume 9.2 fL (9.4-12.4); Platelet Count 303 X10*3/uL (160-400); Red Blood Count 4.99 X10*6/uL (4.60-5.80); Red Cell Distribution Width 13.6 % (11.0-16.0); White Blood Count 12.6 X10*3/uL (4.8-10.8)
[2021-03-23 15:46] LABS: Ammonia 36 umol/L (13-55)
[2021-03-23 15:57] LABS: Alanine Aminotransferase 16 U/L (0-40); Alkaline Phosphatase 99 U/L (39-117); Anion Gap 13 (12-20); Aspartate Amino Transferase 19 U/L (5-37); Bilirubin Direct 0.6 mg/dL (0.0-0.5); Bilirubin Total 1.5 mg/dL (0.0-1.0); Blood Urea Nitrogen 22 mg/dL (9-16); Calcium 8.6 mg/dL (8.4-10.2); Carbon Dioxide 25 mmol/L (22-29); Chloride 108 mmol/L (96-108); Creatinine Clr Calc Pharmacy 67.9; Estimated Glomerular Filt Rate > 60; Glucose Random 105 mg/dL (60-115); Potassium 3.8 mmol/L (3.3-5.1); Sodium 142 mmol/L (135-145); Total Protein 6.3 g/dL (6.5-8.0)
[2021-03-23 16:14] LABS: Glucose Urine UA NEG (NEG); Leukocyte Esterase Urine NEG (NEG); Nitrite Urine NEG (NEG); Urine Blood NEG (NEG); Urine Ketones NEG (NEG); Urine Protein NEG (NEG-TRACE)
[2021-03-23 16:15] LABS: TSH reflex Free T4 1.55 uIU/mL (0.32-4.0)
[2021-03-23 16:17] LABS: Appearance Urine HAZY; Color Urine YELLOW
[2021-03-23 16:18] LABS: Troponin-I High Sensitivity 27.2 ng/L (<3.5-35.0)
[2021-03-23 16:27] LABS: Bacteria Urine TRACE /LPF; RBC Urine 0 /HPF (0); WBC Urine 0 /HPF (0-4)
[2021-03-23 16:30] LABS: Glucose, Whole Blood 118 mg/dL (60-115)
[2021-03-23 20:23] LABS: Glucose, Whole Blood 148 mg/dL (60-115)
[2021-03-23] MEDS: Atorvastatin Calcium 80 MG TABLET PO (21:28)
[2021-03-23] MEDS: Latanoprost 0.005 % Ophth Sol 2.5 ML DROPS 1 DROP EYE-BOTH (21:32)
[2021-03-24] VITALS (10 sets, daily range): BP systolic 135–185; BP diastolic 60–92; PULSE 54–60; RESP 18; TEMP 36.3–37; O2SAT 94–96; BMI 23.4
[2021-03-24] MEDS: Losartan Potassium 50 MG TABLET 100 MG PO (05:28)
--- NOTE | 2021-03-24 06:40 | PC.NURSE ---
Patient's BP 185/84, HR [address] Munson notified and instructed this RN to give AM meds early. Clarified which one(s) MD instructed 100mg PO Losartan, med administered.
[2021-03-24 07:46] LABS: Glucose, Whole Blood 112 mg/dL (60-115)
[2021-03-24] MEDS: Furosemide 40 MG TABLET PO (10:15)
[2021-03-24] MEDS: amLODIPine Besylate 10 MG TABLET PO (10:16)
[2021-03-24] MEDS: Mirabegron 50 MG TAB.ER.24H PO (10:16)
[2021-03-24] MEDS: Apixaban 5 MG TABLET PO ×2 (10:17→21:47)
[2021-03-24] MEDS: 0.9 % Sodium Chloride Flush 3 ML SYRINGE IVFLUSH ×3 (10:17→21:48)
[2021-03-24] MEDS: Cholecalciferol (Vitamin D3) 25 MCG TABLET PO (10:17)
[2021-03-24] MEDS: Dorzolamide/Timolo 2.23%/0.68% 10 ML DRBTL 1 DROP EYE-BOTH ×2 (10:17→21:47)
[2021-03-24] MEDS: Tamsulosin HCL 0.4 MG CAPSULE PO (10:18)
[2021-03-24] MEDS: Spironolactone 25 MG TABLET PO (10:19)
[2021-03-24 11:22] LABS: Glucose, Whole Blood 105 mg/dL (60-115)
--- NOTE | 2021-03-24 13:06 | P.PNIM_ITS ---
Subjective Subjective Date of Service: 03/24/21 Interval History: Seen in f/u for heart failure and difficult to control HTN. He is intermittently confused with a more pronounced episode of confusion yesterday, had stroke work up that was negative. And now seems to be back to a baseline confusion--I have tried reaching out to but always getting answering machine, and left message to return my call. He seem better today however, oriented to self only, however was able to give me the correct phone number. His blood pressure is in general better but remains high and heart failure is improved. Physical Exam Vital Signs: Vital Signs: Last Vital Signs Temp 97.3 F 03/24/21 11:44 Pulse 57 03/24/21 11:44 Resp 18 03/24/21 11:44 BP 174/79 H 03/24/21 11:44 Pulse Ox 95 03/24/21 08:00 Body Mass Index 23.4 Const: Other: Constitutional Awake and Alert, oriented to self only HEENT--Eye Neck Supple, No lymphadenopathy Cardiovascular RRR, No M/R/G, S1 S2, No S3 S4, trace pedal edema Respiratory Lungs clear, No respiratory distress Gastrointestinal Non tender, Non-distended Skin No rash Neurological He is confused, he has no focal deficit, movees all extremities, Psychological Appropriate flat Objective Data Current Medications Generic Name Dose Route Start Last Admin Trade Name George PRN Reason Stop Dose Admin Acetaminophen 650 mg 03/20/21 20:31 Acetaminophen 325 Mg Tablet PO Q6H PRN Pain, Mild (Pain Scale 1-3) Albuterol/Ipratropium 3 ml 03/20/21 20:43 Albuterol/Iprat 2.5/0.5mg 3 Ml Ampul.Neb INHALE RQ4H PRN Shortness of Breath/Wheezing Amlodipine Besylate 10 mg 03/23/21 09:00 03/24/21 10:16 Amlodipine Besylate 10 Mg Tablet PO 10 mg DAILY KVNG Administration Protocol Apixaban 5 mg 03/21/21 09:00 03/24/21 10:17 Apixaban 5 Mg Tablet PO 5 mg BID KVNG Administration Atorvastatin Calcium 80 mg 03/21/21 21:00 03/23/21 21:28 Atorvastatin Calcium 80 Mg Tablet PO 80 mg BEDTIME KVNG Administration Dorzolamide/Timolol 1 drop 03/21/21 09:00 03/24/21 10:17 Dorzolamide/Timolo 2.23%/0.68% 10 Ml Drbtl EYE-BOTH 1 drop BID KVNG Administration Furosemide 40 mg 03/22/21 09:00 03/24/21 10:15 Furosemide 40 Mg Tablet PO 40 mg DAILY KVNG Administration Protocol Insulin Human Lispro 0 unit 03/20/21 21:00 03/24/21 11:24 Insulin Lispro 100 Unit/Ml 3 Ml Vial SUBCUT Not Given QIDACHS [facility] Protocol Labetalol HCl 10 mg 03/20/21 22:56 03/22/21 03:10 Labetalol Hcl 100 Mg/20 Ml Vial IVPUSH 10 mg Q4H PRN Administration BP>180/90 Latanoprost 1 drop 03/21/21 21:00 03/23/21 21:32 Latanoprost 0.005 % Ophth Susana 2.5 Ml Drops EYE-BOTH 1 drop BEDTIME KVNG Administration Losartan Potassium 100 mg 03/21/21 09:00 03/24/21 05:28 Losartan Potassium 50 Mg Tablet PO 100 mg DAILY [facility] Administration Protocol Magnesium Hydroxide 30 ml 03/20/21 20:31 Milk Of Magnesia 30 Ml Oral.Susp PO DAILY PRN Constipation Metoprolol Succinate 100 mg 03/21/21 09:00 03/24/21 10:18 Metoprolol Succinate Er 100 Mg Tab.Er.24h PO Not Given DAILY [facility] Protocol Mirabegron 50 mg 03/21/21 09:00 03/24/21 10:16 Mirabegron 50 Mg Tab.Er.24h PO 50 mg DAILY KVNG Administration Multivitamins/Minerals 1 tab 03/21/21 09:00 03/24/21 10:19 Vits A,C,E/Lutein/Minerals Tablet PO 1 tab DAILY KVNG Administration Nitroglycerin 0.4 mg 03/20/21 20:31 Nitroglycerin 0.4 Mg Tab.Subl SUBLINGUAL Q5M PRN Chest Pain Senna 17.2 mg 03/20/21 22:59 Sennosides 8.6 Mg Tablet PO BEDTIME PRN Constipation Sodium Chloride 3 ml 03/21/21 00:00 03/24/21 10:17 0.9 % Sodium Chloride Flush 3 Ml Syringe IVFLUSH 3 ml QSHIFT KVNG Administration Spironolactone 25 mg 03/23/21 09:00 03/24/21 10:19 Spironolactone 25 Mg Tablet PO 25 mg DAILY KVNG Administration Protocol Tamsulosin HCl 0.4 mg 03/21/21 09:00 03/24/21 10:18 Tamsulosin Hcl 0.4 Mg Capsule PO 0.4 mg DAILY KVNG Administration Vitamin D 25 mcg 03/21/21 09:00 03/24/21 10:17 Cholecalciferol (Vitamin D3) 25 Mcg Tablet PO 25 mcg DAILY KVNG Administration Labs CBC & Chem 7: 03/23/21 15:11 03/23/21 15:11 Assessment and Plan (1) CHF (congestive heart failure): Status: Acute Assessment and Plan: 85-year-old male with a past medical history of hypertension, hyperlipidemia, d iabetes, coronary artery disease, CHF, a flutter on Eliquis, osteoarthritis, peripheral vascular disease, BPH, COPD presented to the hospital with a chief complaint of shortness of breath and leg swelling; noted to be in acute CHF. Admitted for further management. Confusion likely from delirium from being in the hospital, CT of head was unremarkable. Seen by Neuro and will do EEG tomorrow. Holding on starting keppra now unremarkable, Acute CHF: likely trigered by high BP, clinically is better, less, less leg edema Continue Oral Lasix. Echocardiogram 03/21, normal EF continue toprol, aldactone and Losartan electrolytes have been normal Hypertensive urgency with very variable BP as stated above. continue toprol xl 100, norvasc up to 10, Aladctone 25, losartan 100. BP is currently within normal limit. Hold off lowering BP further at this time hyperlipidemia: Lipitor Diabetes: Insulin sliding scale AFIB: Continue home Eliquis. Metoprolol for rate control. No longer on dig due to sinus rythm History of COPD: Nebulizations p.r.n. I spoke to Raquel over the phone and updated her, she says that PT eval and discharge over the weekend Code status: Full code
[2021-03-24 16:18] LABS: Glucose, Whole Blood 122 mg/dL (60-115)
[2021-03-24 20:13] LABS: Glucose, Whole Blood 134 mg/dL (60-115)
[2021-03-24] MEDS: Latanoprost 0.005 % Ophth Sol 2.5 ML DROPS 1 DROP EYE-BOTH (21:47)
[2021-03-24] MEDS: Atorvastatin Calcium 80 MG TABLET PO (21:47)
[2021-03-25 03:17] VITALS: BP 184/84; PULSE 56; RESP 20; TEMP 37; O2SAT 94
[2021-03-25 04:28] LABS: Folate 13.9 ng/mL (> or = 4.0); Vitamin B12 409 pg/mL (200-900)
[2021-03-25 05:42] VITALS: BMI 23.3
[2021-03-25 07:12] LABS: Glucose, Whole Blood 104 mg/dL (60-115)
[2021-03-25 07:58] VITALS: BP 180/80; PULSE 58; RESP 20; TEMP 36.4; O2SAT 95
[2021-03-25] MEDS: 0.9 % Sodium Chloride Flush 3 ML SYRINGE IVFLUSH (08:54)
[2021-03-25 08:55] VITALS: BP 180/80; PULSE 58
[2021-03-25] MEDS: Losartan Potassium 50 MG TABLET 100 MG PO (08:55)
[2021-03-25] MEDS: Metoprolol Succinate ER 100 MG TAB.ER.24H PO (08:55)
[2021-03-25] MEDS: Cholecalciferol (Vitamin D3) 25 MCG TABLET PO (08:55)
[2021-03-25] MEDS: Tamsulosin HCL 0.4 MG CAPSULE PO (08:55)
[2021-03-25] MEDS: Furosemide 40 MG TABLET PO (08:55)
[2021-03-25] MEDS: Mirabegron 50 MG TAB.ER.24H PO (08:55)
[2021-03-25] MEDS: amLODIPine Besylate 10 MG TABLET PO (08:55)
[2021-03-25] MEDS: Spironolactone 25 MG TABLET PO (08:55)
[2021-03-25] MEDS: Dorzolamide/Timolo 2.23%/0.68% 10 ML DRBTL 1 DROP EYE-BOTH (08:56)
[2021-03-25] MEDS: Apixaban 5 MG TABLET PO (08:56)
[2021-03-25 11:21] VITALS: BP 124/60; PULSE 53; RESP 21; TEMP 36.4; O2SAT 95
[2021-03-25 11:23] LABS: Glucose, Whole Blood 157 mg/dL (60-115)
[2021-03-25] MEDS: Insulin Lispro 100 UNIT/ML 3 ML VIAL SUBCUT (11:37)
--- NOTE | 2021-03-25 12:17 | MHC.CM.PN ---
Per ROUNDS discussion, Patient will be medically cleared for dc to STR/SNF today. Patient will dc to [facility] today at 2PM, via [facility]. CM spoke with /Herminia at [phone] and addressed IMM in person with Patien, providing him with the original and placing a copy on the chart. Patient and Herminia are aware of and agreeable to the dc plan.
--- NOTE | 2021-03-25 13:07 | PM.DS ---
DS: Providers Provider Date of Service: 03/25/21 Date of admission: 03/20/21 20:30 Primary care physician: Darcy Otero MD Consults: 03/20/21 20:31 Consult to Cardiology Routine Consulting Provider: Ferdinand Abdalla Reason for consultation: chf 03/23/21 13:26 Consult to Neurology Routine Consulting Provider: [facility] Reason for consultation: Stroke DS: Diagnosis Discharge Diagnosis (1) CHF (congestive heart failure): Status: Acute (2) Confusion: Status: Acute DS: Medications Discharge Medications Home Medications: Home Medications Medication Instructions Recorded Confirmed cholecalciferol (vitamin D3) 25 25 mcg PO DAILY 08/14/20 03/20/21 mcg (1,000 unit) capsule dorzolamide 22.3 mg-timolol 6.8 1 drp OPHTHALMIC (EYE) BID 08/14/20 03/20/21 mg/mL eye drops latanoprost 0.005 % eye drops 1 drp OPHTHALMIC (EYE) BEDTIME ml 08/14/20 03/20/21 tamsulosin 0.4 mg capsule 0.4 mg PO DAILY 08/14/20 03/20/21 Ocuvite Adult 50 Plus 1 cap PO DAILY 12/19/20 03/20/21 Probiotic-10 (with inulin) 1 cap PO DAILY 12/19/20 03/20/21 calcium carb-mag ox-zinc sulf 1 tab PO DAILY 12/19/20 03/20/21 sennosides [senna] 17.2 mg PO BEDTIME PRN 03/20/21 03/20/21 Previous Rx's Medication Instructions Recorded mirabegron 50 mg tablet,extended 50 mg PO DAILY 90 Days #90 tab 09/20/20 release 24 hr rosuvastatin 20 mg tablet 20 mg PO BEDTIME #90 tab 11/21/20 [employer]IFT #1 ea 12/18/20 furosemide 40 mg tablet 40 mg PO DAILY #60 tab 01/17/21 fluticasone propionate 110 2 puff PO BID #3 ea 01/30/21 mcg/actuation HFA aerosol inhaler metoprolol succinate 100 mg 100 mg PO DAILY 90 Days #90 tab 01/30/21 tablet,extended release 24 hr losartan 100 mg tablet 100 mg PO DAILY #90 tab 02/28/21 apixaban 5 mg tablet 5 mg PO BID 90 Days #180 tab 03/08/21 digoxin 125 mcg (0.125 mg) tablet 125 mcg PO DAILY #90 tab 03/19/21 wheelchair #1 ea 03/22/21 DS: Summary Hospital Course Hospital Course: [facility]ision [facility] Chief Complaint: SOB 85-year-old male with a past medical history of hypertension, hyperlipidemia, diabetes, coronary artery disease, CHF, history of a flutter on Eliquis, peripheral vascular disease, history of pulmonary nodule, COPD, BPH presented to the hospital with a chief complaint of shortness of breath. Patient reported that over the past 2-3 days he has been having shortness of breath and increased leg swelling. Mentions that his shortness of breath has been gradually worsening. Denies any orthopnea or PND. Denies any chest pain or palpitations. Denies any fever chills cough, GI or symptoms. ER course: He had crackles on exam; blood pressure noted to be elevated with systolic in 226. Patient was givenIV Lasix and nitro patch; subsequently his blood pressure improved to systolic 165. Venous duplex was negative for any DVT. CT angio was negative for PE. BNP level was 298, CXR showed mild pulmonary edema. Troponin level was normal and no ischemic changes on ECG. He was admitted for heart failure and uncontrolled HTN. During hospitalization, he was noted to have periods of confusion. Hospital course: Acute diastolic CHF exacerbation: This was likely precipitated by accelerated HTN. He was succesfully treated with IV diuretics and once improved was switched back to his home dose of Lasix 40 m dailtion. Additional Aldactone 25 mg daily was added to his regimen, saqib with Losartant 100 mg daily and metoprolol 100 mg daily. he had an Echocardiogram 03/21, normal EF. Electrolytes have been normal Hypertensive urgency, he presented with SBP > 200, and continued to have high BP. He continued toprol xl 100, norvasc was added and titrated up to 10, Aldactone 25 added, and continued 25, losartan 100. his blood pressure has significantly improved, presently 124/60. hyperlipidemia: To resume Rozuvastatin 20 daily Diabetes: Insulin sliding scale AFIB: Continue home Eliquis. Metoprolol for rate control. Digoxin has been discontinued as he is sinus rythm History of COPD: Nebulizations p.r.n. Periods of confusion--likely delirium from been in the hospital, work up has included negative UA, folic acid, B12, negative head CT and was seen by Dr. varma and recommend an EEG and if to start Keppra if did not iprove. Patient has clearly improved and has not demonstrated any evidence os seizure. Will arrange for outpatient EEG. When discuss with , she indicated that he get mild confusion from time to time, I suspect that he has some cognitive impairment and may benefit from dementia work up once he is back to baseline. Time Spent with Patient Time attestation: Total time spent providing and/or coordinating discharge services: Discharge coordination time: Greater than 30 minutes Quality: Stroke Does the patient have a stroke diagnosis?: No Physical Exam Vital Signs: Vital Signs: Last Vital Signs Temp 97.5 F 03/25/21 11: Pulse 53 03/25/21 11:21 Resp 21 H 03/25/21 11:21 BP 124/60 03/25/21 11:21 Pulse Ox 95 03/25/21 11:21 Body Mass Index 23.3 Const: Other: Constitutional Awake and Alert, No apparent distress Neck Supple, No lymphadenopathy Cardiovascular RRR, No M/R/G, S1 S2, No S3 S4, No pedal edema Respiratory Lungs clear, No respiratory distress Gastrointestinal Non tender, Non-distended Skin No rash Neurological Alert & oriented x2 Psychological Appropriate affect DS: Data Data Completed and Pending Labs on day of discharge: Laboratory Results - last 24 hr 03/23/21 03/24/21 03/24/21 15:10 16:09 20:01 POC Glucose 122 H 134 H Vitamin B12 409 Folate 13.9 03/25/21 03/25/21 07:08 11:19 POC Glucose 104 157 H Vitamin B12 Folate Discharge Plan Discharge Anticipated Discharge Date/Time: 03/25/21 12:57 Patient Disposition: Xfer SNF Discharge Diagnosis: CHF, HTN urgency Referrals: [facility] [Outside] - 1 Week Po,Darcy Langley MD [Primary Care Provider] - 1 Week Discharge Medications: New sennosides [Senna Lax] 8.6 mg Tablet 17.2 mg PO BEDTIME PRN (Reason: Constipation) Qty: 30 RF: 0 spironolactone 25 mg Tablet 25 mg PO DAILY Qty: 30 RF: 0 amlodipine 10 mg Tablet 10 mg PO DAILY Qty: 30 RF: 0 Continued Myrbetriq 50 mg tablet extended release 24 hr 50 mg PO DAILY 90 Days Qty: 90 RF: 2 rosuvastatin 20 mg tablet 20 mg PO BEDTIME Qty: 90 RF: 1 (DME) [employer] ST[employer]LIFT See Rx Instructions .Route .MEDSUPPLY Qty: 1 RF: 0 furosemide 40 mg tablet 40 mg PO DAILY Qty: 60 RF: 11 metoprolol succinate 100 mg tablet extended release 24 hr 100 mg PO DAILY 90 Days Qty: 90 RF: 1 fluticasone propionate 110 mcg/actuation HFA aerosol inhaler 2 puff PO BID Qty: 3 RF: 3 losartan 100 mg tablet 100 mg PO DAILY Qty: 90 RF: 3 Eliquis 5 mg tablet 5 mg PO BID 90 Days Qty: 180 RF: 1 Ocuvite Adult 50 Plus 250-5-1 mg Capsule 1 cap PO DAILY RF: 0 calcium carb-mag ox-zinc sulf 333-133-5 mg Tablet 1 tab PO DAILY RF: 0 Probiotic-10 (with inulin) 10 billion cell -100 mg Capsule 1 cap PO DAILY RF: 0 sennosides [senna] 8.6 mg Tablet 17.2 mg PO BEDTIME PRN (Reason: Constipation) RF: 0 tamsulosin 0.4 mg capsule 0.4 mg PO DAILY RF: 0 dorzolamide-timolol 22.3-6.8 mg/mL drops 1 drp ophthalmic (eye) BID RF: 0 latanoprost 0.005 % drops 1 drp ophthalmic (eye) BEDTIME RF: 0 cholecalciferol (vitamin D3) 25 mcg (1,000 unit) capsule 25 mcg PO DAILY RF: 0 Discontinued digoxin 125 mcg (0.125 mg) tablet 125 mcg PO DAILY Qty: 90 RF: 1 No [employer] (DME) wheelchair See Rx Instructions .Route .MEDSUPPLY Qty: 1 RF: 0 Discharge Orders: Discharge Order (Routine); Ordered 03/25/21 Ordered By: Guicho Mcknight Diet: advance to usual diet Activity on Discharge: As tolerated Stand Alone Forms: Patient Portal Discharge page Other Ambulatory Orders: EEG ambulatory (Routine) Timeframe: 1 Week Facility: [facility] - Location: Radiology Ordered By: Guicho Mcknight Care Plan Goals: prevent rehospitalization, prevent exacerbation of heart failure and control atrial fibrilation Health Concerns: Heart failure, uncontrolled HTN, and confusion Plan of Treatment: Take all medications as recommended nd follow up with your Doctor in a week Assessment: See above
== END 2021-03-25 15:58 | disposition skilled nursing facility (03) | DRG 304 ==
LOC: HO.ED 19:43 → HO.EDOVER 20:54 → HO.IMC 21:14
PROVIDERS: Internal Medicine; Nurse Practitioner Family; Physician Assistant; Admitting Provider Hospitalist; Emergency Provider Emergency Medicine; PCP Internal Medicine; Visit Provider Internal Medicine
DX: I16.9 Hypertensive crisis, unspecified (principal); I50.33 Acute on chronic diastolic (congestive) heart failure; F05 Delirium due to known physiological condition; I11.0 Hypertensive heart disease with heart failure; Z88.5 Allergy status to narcotic agent; Z79.01 Long term (current) use of anticoagulants; Z79.52 Long term (current) use of systemic steroids; Z79.899 Other long term (current) drug therapy
CPT/HCPCS: 36415; 70450; 71045; 71275; 80048; 80053; 80076; 81001; 82140; 82607; 82746; 82947; 83880; 84443; 84484; 85025; 85027; 85610; 85730; 87635; 93005; 93308; 93970; 93975; 97162; 99285; J1940; Q9967

== ENCOUNTER 2021-04-09 14:30 | Emergency (ER) | payer OTHER, MEDICARE, SELFPAY ==
--- NOTE | ~2021-04-09 | XR_ITS ---
EXAMINATION: XR CHEST CLINICAL INFORMATION: Altered mental status COMPARISON: Previous chest x-ray most recent 03/20/2021 TECHNIQUE: Frontal view of the chest was obtained. FINDINGS: The cardiac and mediastinal contours are stable. The lungs are clear. There is no pleural effusion or pneumothorax. There are degenerative changes of the spine and at the shoulder joints. XR/XR chest 1V IMPRESSION: No evidence for acute disease in the chest.
--- NOTE | ~2021-04-09 | CT_ITS ---
EXAMINATION: CT HEAD WITHOUT CONTRAST CLINICAL INFORMATION: Change in mental status COMPARISON: 04/09/2001 TECHNIQUE: Contiguous axial imaging was performed from the skull base to vertex without intravenous administration of contrast. This CT examination was performed using dose optimization techniques as appropriate, variously including the following: *Automated exposure control *Adjustment of mA and/or kV according to patient size (this includes techniques or standardized protocols for targeted exams where dose is matched to indication/reason for exam; i.e. extremities or head) *Use of iterative reconstruction technique DLP: 654 mGy-cm FINDINGS: No midline shift. No mass effect. There is no hemorrhage. The basilar cisterns appear patent. The posterior fossa risk grossly within normal limits. There is no extra-axial collection. White matter ischemic changes are noted. Review of the bone windows does not demonstrate evidence for fracture. These visualized sinuses are grossly clear. CT/CT head/brain wo con IMPRESSION: No acute intracranial pathology. Atrophy and chronic white matter ischemic change noted
--- NOTE | ~2021-04-09 | CT_ITS ---
EXAMINATION: CT BRAIN AND CT CERVICAL SPINE WITHOUT CONTRAST CLINICAL INFORMATION: Fall, head injury and neck tenderness. Rule out fracture COMPARISON: CT brain 03/23/2021 TECHNIQUE: Axial 5 mm thin and reformatted 2 mm thin sagittal and coronal images of brain were obtained. Subsequently axial 3 mm thin and reformatted 2 mm thin sagittal and coronal images of cervical spine were obtained. DLP 1022 FINDINGS: The exam is limited secondary to patient motion. Brain: There is no acute intra-axial, extra-axial bleed, masses or midline shift. No acute infarction in evolution. The lateral ventricles are symmetrical in size and configuration moderately enlarged. There is diffuse periventricular hypodensity suggestive of chronic small vessel ischemic changes. There is bilateral basal ganglia calcifications. Bone windows reveal no calvarial abnormality. There is scalp soft tissue are normal. Bilateral paranasal sinuses and mastoid air cells are well-aerated. Cervical spine: There is normal cervical lordosis. The vertebral heights and alignment is normal. There is loss of C6-C7 disc height. Rest of the disc heights are normal. There is no visible acute fracture, dislocation or lytic process seen. There is bilateral apical parenchymal scarring or atelectasis. There is moderate desiccation of left C4-C5 and right C3-C4 facet joint hypertrophy and arthropathy. No visible acute fracture, dislocation seen. CT/CT cervical spine wo con IMPRESSION: Limited exam secondary to patient motion. No acute intracranial process seen. 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 No acute fracture, dislocation or subluxation. There are degenerative disc changes C6-C7 disc levels with ventral spondylosis. Chronic bilateral apical lung changes
--- NOTE | ~2021-04-09 | XR_ITS ---
EXAMINATION: RIGHT SHOULDER, RIGHT KNEE AND RIGHT HAND CLINICAL INFORMATION: Status post fall with pain, bruising to right shoulder. COMPARISON: None TECHNIQUE: Right shoulder 4 views. Right knee 4 views. Right hand 3 views. FINDINGS: Right shoulder: There is a mild reduction in the right AC joint space with inferior spurring. The glenohumeral joint spaces is reduced. There is mild cephalic subluxation of humeral head in relation to the glenoid likely RC degeneration or tear. Right knee: There is loss of medial and patellofemoral compartment joint space with suprapatellar joint effusion. There is superior patellar spurring. No loose bodies, acute fracture or dislocation seen. Right hand: There is loss of the DIP joint third digit with periarticular spurring. There is loss of PIP and DIP joints of all digits. The MCP joints and the anterior carpal joints are maintained normal. No visible acute fracture, dislocation or subluxation seen. The soft tissues are normal. XR/XR hand RT min 3V IMPRESSION: No acute fracture seen. There is cephalic subluxation of humeral head in relation to glenoid likely RC degeneration. There is arthritic spurring right AC joint. Mild degenerative changes medial and patellofemoral compartment right knee with suprapatellar joint effusion. Mild suprapatellar joint effusion. Degenerative changes PIP and DIP joints. No visible acute fracture, dislocation or subluxation seen.
--- NOTE | ~2021-04-09 | XR_ITS ---
EXAMINATION: RIGHT SHOULDER, RIGHT KNEE AND RIGHT HAND CLINICAL INFORMATION: Status post fall with pain, bruising to right shoulder. COMPARISON: None TECHNIQUE: Right shoulder 4 views. Right knee 4 views. Right hand 3 views. FINDINGS: Right shoulder: There is a mild reduction in the right AC joint space with inferior spurring. The glenohumeral joint spaces is reduced. There is mild cephalic subluxation of humeral head in relation to the glenoid likely RC degeneration or tear. Right knee: There is loss of medial and patellofemoral compartment joint space with suprapatellar joint effusion. There is superior patellar spurring. No loose bodies, acute fracture or dislocation seen. Right hand: There is loss of the DIP joint third digit with periarticular spurring. There is loss of PIP and DIP joints of all digits. The MCP joints and the anterior carpal joints are maintained normal. No visible acute fracture, dislocation or subluxation seen. The soft tissues are normal. XR/XR knee RT 4V IMPRESSION: No acute fracture seen. There is cephalic subluxation of humeral head in relation to glenoid likely RC degeneration. There is arthritic spurring right AC joint. Mild degenerative changes medial and patellofemoral compartment right knee with suprapatellar joint effusion. Mild suprapatellar joint effusion. Degenerative changes PIP and DIP joints. No visible acute fracture, dislocation or subluxation seen.
--- NOTE | ~2021-04-09 | XR_ITS ---
EXAMINATION: RIGHT SHOULDER, RIGHT KNEE AND RIGHT HAND CLINICAL INFORMATION: Status post fall with pain, bruising to right shoulder. COMPARISON: None TECHNIQUE: Right shoulder 4 views. Right knee 4 views. Right hand 3 views. FINDINGS: Right shoulder: There is a mild reduction in the right AC joint space with inferior spurring. The glenohumeral joint spaces is reduced. There is mild cephalic subluxation of humeral head in relation to the glenoid likely RC degeneration or tear. Right knee: There is loss of medial and patellofemoral compartment joint space with suprapatellar joint effusion. There is superior patellar spurring. No loose bodies, acute fracture or dislocation seen. Right hand: There is loss of the DIP joint third digit with periarticular spurring. There is loss of PIP and DIP joints of all digits. The MCP joints and the anterior carpal joints are maintained normal. No visible acute fracture, dislocation or subluxation seen. The soft tissues are normal. XR/XR shoulder RT min 2V IMPRESSION: No acute fracture seen. There is cephalic subluxation of humeral head in relation to glenoid likely RC degeneration. There is arthritic spurring right AC joint. Mild degenerative changes medial and patellofemoral compartment right knee with suprapatellar joint effusion. Mild suprapatellar joint effusion. Degenerative changes PIP and DIP joints. No visible acute fracture, dislocation or subluxation seen.
--- NOTE | ~2021-04-09 | CT_ITS ---
EXAMINATION: CT BRAIN AND CT CERVICAL SPINE WITHOUT CONTRAST CLINICAL INFORMATION: Fall, head injury and neck tenderness. Rule out fracture COMPARISON: CT brain 03/23/2021 TECHNIQUE: Axial 5 mm thin and reformatted 2 mm thin sagittal and coronal images of brain were obtained. Subsequently axial 3 mm thin and reformatted 2 mm thin sagittal and coronal images of cervical spine were obtained. DLP 1022 FINDINGS: The exam is limited secondary to patient motion. Brain: There is no acute intra-axial, extra-axial bleed, masses or midline shift. No acute infarction in evolution. The lateral ventricles are symmetrical in size and configuration moderately enlarged. There is diffuse periventricular hypodensity suggestive of chronic small vessel ischemic changes. There is bilateral basal ganglia calcifications. Bone windows reveal no calvarial abnormality. There is scalp soft tissue are normal. Bilateral paranasal sinuses and mastoid air cells are well-aerated. Cervical spine: There is normal cervical lordosis. The vertebral heights and alignment is normal. There is loss of C6-C7 disc height. Rest of the disc heights are normal. There is no visible acute fracture, dislocation or lytic process seen. There is bilateral apical parenchymal scarring or atelectasis. There is moderate desiccation of left C4-C5 and right C3-C4 facet joint hypertrophy and arthropathy. No visible acute fracture, dislocation seen. CT/CT head/brain wo con IMPRESSION: Limited exam secondary to patient motion. No acute intracranial process seen. 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 No acute fracture, dislocation or subluxation. There are degenerative disc changes C6-C7 disc levels with ventral spondylosis. Chronic bilateral apical lung changes
[2021-04-09 14:48] VITALS: BP 126/52; PULSE 62; RESP 16; TEMP 37.1; O2SAT 96; BMI 23.1
--- NOTE | 2021-04-09 15:28 | ED.FALL ---
HPI - Fall General Chief Complaint: Fall <Mateusz Del Toro MD - Last Filed: 04/09/21 16:47> Stated Complaint: Mechanical fall <Mateusz Del Toro MD - Last Filed: 04/09/21 16:47> Time Seen by Provider: 04/09/21 14:41 <Mateusz Del Toro MD - Last Filed: 04/09/21 16:47> Source: patient <Mateusz Del Toro MD - Last Filed: 04/09/21 16:47> Mode of arrival: EMS <Mateusz Del Toro MD - Last Filed: 04/09/21 16:47> Limitations: no limitations <Mateusz Del Toro MD - Last Filed: 04/09/21 16:47> History of Present Illness HPI Narrative: 86-year-old male who presents emergency department for evaluation of injuries from a fall. The patient has been mild dementia and has difficulty recounting the details of his injuries. According to the nursing notes, the patient was getting out of a car and fell sustaining an injury to the right side of his head. The patient had a laceration to the right lateral orbital area, right knee and right hand. He was placed in C-spine collar and transported to the emergency department for evaluation. The patient does have a history of paroxysmal atrial fibrillation and he takes apixaban. He has no complaints at this time. He states he was not ill prior to the fall. <Mateusz Del Toro MD - Last Filed: 04/09/21 16:47> Related Data Home Medications: Home Medications Medication Instructions Recorded Confirmed cholecalciferol (vitamin D3) 25 25 mcg PO DAILY 08/14/20 04/09/21 mcg (1,000 unit) capsule dorzolamide 22.3 mg-timolol 6.8 1 drp OPHTHALMIC (EYE) BID 08/14/20 04/10/21 mg/mL eye drops latanoprost 0.005 % eye drops 1 drp OPHTHALMIC (EYE) BEDTIME ml 08/14/20 04/09/21 tamsulosin 0.4 mg capsule 0.4 mg PO DAILY 08/14/20 04/09/21 Ocuvite Adult 50 Plus 1 cap PO DAILY 12/19/20 04/09/21 Probiotic-10 (with inulin) 1 cap PO DAILY 12/19/20 04/09/21 calcium carb-mag ox-zinc sulf 1 tab PO DAILY 12/19/20 04/09/21 sennosides [senna] 17.2 mg PO BEDTIME PRN 03/20/21 04/09/21 digoxin 1 tab PO DAILY 04/10/21 04/10/21 Previous Rx's Medication Instructions Recorded mirabegron 50 mg tablet,extended 50 mg PO DAILY 90 Days #90 tab 09/20/20 release 24 hr rosuvastatin 20 mg tablet 20 mg PO BEDTIME #90 tab 11/21/20 ACORN STAIRLIFT #1 ea 12/18/20 furosemide 40 mg tablet 40 mg PO DAILY #60 tab 01/17/21 fluticasone propionate 110 2 puff PO BID #3 ea 01/30/21 mcg/actuation HFA aerosol inhaler metoprolol succinate 100 mg 100 mg PO DAILY 90 Days #90 tab 01/30/21 tablet,extended release 24 hr losartan 100 mg tablet 100 mg PO DAILY #90 tab 02/28/21 apixaban 5 mg tablet 5 mg PO BID 90 Days #180 tab 03/08/21 wheelchair #1 ea 03/22/21 sennosides [Senna Lax] 17.2 mg PO BEDTIME PRN #30 tab 03/25/21 spironolactone 25 mg PO DAILY #30 tab 03/25/21 <Mateusz Del Toro MD - Last Filed: 04/09/21 16:47> Allergies/Adverse Reactions: Allergies Allergy/AdvReac Type Severity Reaction Status Date / Time ciprofloxacin [CIPROFLOXACIN] Allergy Unknown ITCHY FEET Verified 03/20/21 15:01 oxycodone [Percocet] AdvReac Unknown Unknown Verified 03/20/21 15:01 <Mateusz Del Toro MD - Last Filed: 04/09/21 16:47> Review of Systems Review of Systems: Yes all other systems are reviewed and are negative <Mateusz Del Toro MD - Last Filed: 04/09/21 16:47> [facility] Past Medical History Medical History: Medical History (HFpEF) heart failure with preserved ejection fraction Atrial flutter Bladder neck contracture BPH (benign prostatic hyperplasia) CAD (coronary artery disease) CHF (congestive heart failure) Confusion COPD (chronic obstructive pulmonary disease) Hypercholesterolemia Hypertension Hypotonic bladder Pain and swelling of right lower leg Paraphimosis Peripheral vascular disease Pulmonary nodule Right knee pain Tubular adenoma of colon Type 2 diabetes mellitus with hyperglycemia Vitamin D deficiency <Mateusz Del Toro MD - Last Filed: 04/09/21 16:47> Surgical History: Surgical History H/O inguinal hernia repair H/O vascular surgery History of appendectomy History of cataract surgery History of colonoscopy History of prostate surgery <Mateusz Del Toro MD - Last Filed: 04/09/21 16:47> Family History Family History: Family History Father No problems noted. Mother CVD (cardiovascular disease) <Mateusz Del Toro MD - Last Filed: 04/09/21 16:47> Social History Social History: Social History Household Members: Spouse Housing: House Do you presently have visiting nurse or other home services: No Alcohol intake: never Patient Tobacco Use Status: Never used Tobacco Use of substances other than those prescribed or required for medical reasons: No Advance Directives: No Advance Directives Information Provided: No service: Yes Current occupational status: retired <Mateusz Del Toro MD - Last Filed: 04/09/21 16:47> Physical Exam Vital Signs: Vital Signs: Last Vital Signs Temp 97.6 F 04/11/21 04:57 Pulse 66 04/11/21 09:06 Resp 22 H 04/11/21 07:30 BP 152/69 H 04/11/21 09:05 Pulse Ox 95 04/11/21 07:30 Body Mass Index 23.1 <Mateusz Del Toro MD - Last Filed: 04/09/21 16:47> Vital Signs: Last Vital Signs Temp 97.6 F 04/11/21 04:57 Pulse 66 04/11/21 09:06 Resp 22 H 04/11/21 07:30 BP 152/69 H 04/11/21 09:05 Pulse Ox 95 04/11/21 07:30 Body Mass Index 23.1 <Zuleima Swain MD - Last Filed: 04/09/21 19:04> Vital Signs: Last Vital Signs Temp 97.6 F 04/11/21 04:57 Pulse 66 04/11/21 09:06 Resp 22 H 04/11/21 07:30 BP 152/69 H 04/11/21 09:05 Pulse Ox 95 04/11/21 07:30 Body Mass Index 23.1 <LIZZY Bassett - Last Filed: 04/10/21 13:59> Vital Signs: Last Vital Signs Temp 97.6 F 04/11/21 04:57 Pulse 66 04/11/21 09:06 Resp 22 H 04/11/21 07:30 BP 152/69 H 04/11/21 09:05 Pulse Ox 95 04/11/21 07:30 Body Mass Index 23.1 <LIZZY Engel - Last Filed: 04/11/21 13:32> Const: Other: Elderly male, oriented to person and place, lacks insight as to why his hearing cannot recount the details of his fall, patient is hard of hearing but does have hearing aids. <Mateusz Del Toro MD - Last Filed: 04/09/21 16:47> HENMT: Other: patient has a 3.5 cm laceration to the right eyebrow extending along the right lateral orbital ridge, this is a full skin thickness laceration. Patient has no tenderness with palpation of this area. <Mateusz Del Toro MD - Last Filed: 04/09/21 16:47> Head: Yes atraumatic <Mateusz Del Toro MD - Last Filed: 04/09/21 16:47> Ears: external ears normal <Mateusz Del Toro MD - Last Filed: 04/09/21 16:47> General nose exam: Normal external nose present <Mateusz Del Toro MD - Last Filed: 04/09/21 16:47> Face and sinus: Yes laceration ( As described above) <Mateusz Del Toro MD - Last Filed: 04/09/21 16:47> Mouth: Normal oral and palatal mucosa present <MD Gildardo Haynes Last Filed: 04/09/21 16:47> Throat: Yes posterior oropharynx normal <MD Gildardo Haynes Last Filed: 04/09/21 16:47> Eyes: Periorbital: periorbital findings normal <MD Gildardo Haynes Last Filed: 04/09/21 16:47> Eyelids: Yes eyelids normal <MD Gildardo Haynes Last Filed: 04/09/21 16:47> Conjunctivae: conjunctivae normal <MD Gildardo Haynes Last Filed: 04/09/21 16:47> Sclerae: sclerae normal <MD Gildardo Haynes Last Filed: 04/09/21 16:47> Corneas: corneas normal <MD Gildardo Haynes Last Filed: 04/09/21 16:47> Pupils: Equal, round and reactive pupils present <MD Gildardo Haynes Last Filed: 04/09/21 16:47> Direct Ophthalmoscopy: normal light reflex <MD Gildardo Haynes Last Filed: 04/09/21 16:47> Neck: Neck: Yes full ROM, Yes no lymphadenopathy, Yes no meningeal signs, Yes trachea midline, Yes supple and Yes tender (no point C-spine tenderness but the patient does have diffuse neck tendern) <MD Gildardo Haynes Last Filed: 04/09/21 16:47> Chest: Chest palpation & inspection: normal inspection of the chest and normal palpation of entire chest wall <MD Gildardo Haynes Last Filed: 04/09/21 16:47> Resp: Effort & Inspection: normal respiratory effort and able to speak in complete sentences <MD Gildardo Haynes Last Filed: 04/09/21 16:47> Auscultation: clear to auscultation bilaterally <MD Gildardo Haynes Last Filed: 04/09/21 16:47> Cardio: Rate: regular rate <MD Gildardo Haynes Last Filed: 04/09/21 16:47> Rhythm: regular rhythm <MD Gildardo Haynes Last Filed: 04/09/21 16:47> Heart sounds: S1 normal heart sound present, S2 normal heart sound present and no murmurs <Mateusz Del Toro MD - Last Filed: 04/09/21 16:47> GI: Inspection: Yes normal to inspection <Matuesz Del Toro MD - Last Filed: 04/09/21 16:47> Palpation (GI): Soft to palpation, nontender, no guarding, not rigid and No hepatosplenomegaly present <Mateusz Del Toro MD - Last Filed: 04/09/21 16:47> : General: Yes no CVA tenderness <Mateusz Del Toro MD - Last Filed: 04/09/21 16:47> Back/Spine/Pelvis: Back: no CVA tenderness <Mateusz Del Toro MD - Last Filed: 04/09/21 16:47> Cervical Spine: normal cervical lordosis <Mateusz Del Toro MD - Last Filed: 04/09/21 16:47> Thoracic/Lumbar Spine: thoracic and lumbar spine normal to inspection <Mateusz Del Toro MD - Last Filed: 04/09/21 16:47> Skin: Lesions: no lesions <Mateusz Del Toro MD - Last Filed: 04/09/21 16:47> Rashes: no rashes <Mateusz Del Toro MD - Last Filed: 04/09/21 16:47> Wounds: no wounds <Mateusz Del Toro MD - Last Filed: 04/09/21 16:47> Neuro: General: no meningeal signs <Mateusz Del Toro MD - Last Filed: 04/09/21 16:47> Cranial nerves: Yes Equal, round and reactive pupils present <MD Gildardo Haynes Last Filed: 04/09/21 16:47> Cognition (Neuro): normal cognition <Mateusz Del Toro MD - Last Filed: 04/09/21 16:47> Motor exam (neuro): 5/5 motor strength present throughout <Mateusz Del Toro MD - Last Filed: 04/09/21 16:47> Extrem: Other: Abrasion to right knee <Mateusz Del Toro MD - Last Filed: 04/09/21 16:47> General: Yes normal to inspection and Yes full ROM <Mateusz Del Toro MD - Last Filed: 04/09/21 16:47> Psych: Speech and movement: Normal speech and movement present <Mateusz Del Toro MD - Last Filed: 04/09/21 16:47> Affect: normal affect <Mateusz Del Toro MD - Last Filed: 04/09/21 16:47> Attitude: cooperative <Mateusz Del Toro MD - Last Filed: 04/09/21 16:47> Course Course Course Narrative: 86-year-old male who presents emergency department for evaluation of injuries from a fall. The patient does have laceration to the right eyebrows/ lateral orbit which is a full skin laceration requiring repair. The patient also has skin avulsion to the right 3rd finger over the dorsal MCP joint. The patient is on apixaban for atrial fibrillation. Therefore I ordered blood work, CT scan of the head and neck. the patient's facial laceration was repaired by me. The patient's right knee abrasion and right hand abrasions were cleaned and dressed by nursing staff. 1645: Patient's laboratory evaluation [place] [address], H&H were normal. Patient's INR was slightly elevated at 1.3. Chemistries revealed an elevated BUN of 25 and elevated glucose of 142. urinalysis was negative. The patient's CT scan of the head and cervical spine are pending. The patient's care was turned over to my colleague, Dr. Zuleima Swain. <Mateusz Del Toro MD - Last Filed: 04/09/21 16:47> I received sign-out from Dr. Moncada, patient's head CT does not show any acute pathology. Patient has remained calm and cooperative, patient is ready for discharge. However, when I spoke to the patient's , she is concerned that she will not be able to take care of her . She cannot help him get out of the chair. They are requesting more time for short-term rehab. I discussed this with Araceli our spring encaser, patient will stay in the ED for a physical therapy and case management evaluation in the morning. <Zuleima Swain MD - Last Filed: 04/09/21 19:04> Reevaluation(s) Reevaluation #1: 04/11/2021-- physician observation completed. No complaints overnight, patient will be transferred reported to [facility] at 2:00 p.m. Should continue Doxycycline and Keflex for cellulitis x9 more days <LIZZY Engel - Last Filed: 04/11/21 13:32> Time: 13:30 <LIZZY Engel - Last Filed: 04/11/21 13:32> Procedures Laceration Right eyebrow/facial laceration: Site: face <Mateusz Del Toro MD - Last Filed: 04/09/21 16:47> Side (If applicable): left <Mateusz Del Toro MD - Last Filed: 04/09/21 16:47> Size (cm): 3.5 <Mateusz Del Toro MD - Last Filed: 04/09/21 16:47> Description: linear and stellate <Mateusz Del Toro MD - Last Filed: 04/09/21 16:47> Depth: simple, single layer <Mateusz Del Toro MD - Last Filed: 04/09/21 16:47> Local Anesthetic: lidocaine 1% <Mateusz Del Toro MD - Last Filed: 04/09/21 16:47> Amount of anesthesia used (mL): 10 <Mateusz Del Toro MD - Last Filed: 04/09/21 16:47> Pre-repair: wound explored <Mateusz Del Toro MD - Last Filed: 04/09/21 16:47> Skin layer closed with: nylon <Mateusz Del Toro MD - Last Filed: 04/09/21 16:47> Size (cm): 3-0 <Mateusz Del Toro MD - Last Filed: 04/09/21 16:47> Number of sutures: 10 <Mateusz Del Toro MD - Last Filed: 04/09/21 16:47> Technique: simple, interrupted <Mateusz Del Toro MD - Last Filed: 04/09/21 16:47> MDM - Fall Lab Data Result diagrams: : 04/10/21 19:40 04/10/21 20:39 <Mateusz Del Toro MD - Last Filed: 04/09/21 16:47> Labs: Lab Results 04/09/21 04/09/21 04/09/21 Range/Units 15:47 15:47 15:47 WBC 11.8 H (4.8-10.8) X10*3/uL RBC 4.46 L (4.60-5.80) X10*6/uL Hgb 13.8 L (14.0-18.0) g/dl Hct 41.7 L (42-52) % MCV 93.5 (80-98) fL MCH 30.9 (27.0-33.0) pg MCHC 33.1 (31.0-36.0) g/dl RDW 13.0 (11.0-16.0) % Plt Count 290 (160-400) X10*3/uL MPV 9.1 L (9.4-12.4) fL Immature Gran % (Auto) 0.6 H (0.0-0.4) % Neut % (Auto) 79.8 H (45-73) % Lymph % (Auto) 10.7 L (20-40) % [place] % (Auto) 7.4 (2-11) % Eos % (Auto) 0.9 (0-4) % Baso % (Auto) 0.6 (0-2) % Lymph # (Auto) 1.3 (1.2-4.9) X10*3/uL [place] # (Auto) 0.9 (0.1-1.2) X10*3/uL Eos # (Auto) 0.1 (0.0-0.4) X10*3/uL Baso # (Auto) 0.1 (0.0-0.2) X10*3/uL Abs Immat Gran (auto) 0.07 H (0.00-0.03) X10*3/uL Absolute Neuts (auto) 9.4 H (2.0-8.3) X10*3/uL Absolute Nucleated RBC 0.000 (0.0-0.012) X10*3/uL Nucleated RBC % (auto) 0.0 (0.0-0.2) /100WBC PT 15.4 H (10.8-13.0) SEC INR 1.3 H (0.9-1.1) APTT 31.5 (24.1-38.0) SEC Sodium 141 (135-145) mmol/L Potassium 4.1 (3.3-5.1) mmol/L Chloride 106 (96-108) mmol/L Carbon Dioxide 25 (22-29) mmol/L Anion Gap 14 (12-20) BUN 25 H (9-16) mg/dL Creatinine 0.99 (0.5-1.4) mg/dL Estim Creat Clear Calc 53.7 Estimated GFR > 60 POC Glucose (60-115) mg/dL Random Glucose 142 H D (60-115) mg/dL Calcium 8.8 (8.4-10.2) mg/dL Total Bilirubin 0.5 (0.0-1.0) mg/dL AST 16 (5-37) U/L ALT 15 (0-40) U/L Alkaline Phosphatase 93 (39-117) U/L Total Protein 6.1 L (6.5-8.0) g/dL Albumin 3.9 (3.5-5.0) g/dL Urine Color Urine Appearance Urine pH (5.0-8.0) Ur Specific [place] (1.005-1.025) Urine Protein (NEG-TRACE) MG/DL Urine Glucose (UA) (NEG) MG/DL Urine Ketones (NEG) MG/DL Urine Blood (NEG) Urine Nitrite (NEG) Ur Leukocyte Esterase (NEG) COVID-19 (CARLOS) (Negative) COVID-19 Clin Com 04/10/21 04/10/21 04/10/21 Range/Units 09:06 19:40 20:39 WBC 12.2 H (4.8-10.8) X10*3/uL RBC 4.61 (4.60-5.80) X10*6/uL Hgb 14.3 (14.0-18.0) g/dl Hct 42.9 (42-52) % MCV 93.1 (80-98) fL MCH 31.0 (27.0-33.0) pg MCHC 33.3 (31.0-36.0) g/dl RDW 13.0 (11.0-16.0) % Plt Count 240 (160-400) X10*3/uL MPV 9.7 (9.4-12.4) fL Immature Gran % (Auto) 0.4 (0.0-0.4) % Neut % (Auto) 74.3 H (45-73) % Lymph % (Auto) 15.0 L (20-40) % [place] % (Auto) 8.9 (2-11) % Eos % (Auto) 0.8 (0-4) % Baso % (Auto) 0.6 (0-2) % Lymph # (Auto) 1.8 (1.2-4.9) X10*3/uL [place] # (Auto) 1.1 (0.1-1.2) X10*3/uL Eos # (Auto) 0.1 (0.0-0.4) X10*3/uL Baso # (Auto) 0.1 (0.0-0.2) X10*3/uL Abs Immat Gran (auto) 0.05 H (0.00-0.03) X10*3/uL Absolute Neuts (auto) 9.1 H (2.0-8.3) X10*3/uL Absolute Nucleated RBC 0.000 (0.0-0.012) X10*3/uL Nucleated RBC % (auto) 0.0 (0.0-0.2) /100WBC PT (10.8-13.0) SEC INR (0.9-1.1) APTT (24.1-38.0) SEC Sodium 143 (135-145) mmol/L Potassium 4.0 (3.3-5.1) mmol/L Chloride 108 (96-108) mmol/L Carbon Dioxide 27 (22-29) mmol/L Anion Gap 12 (12-20) BUN 17 H (9-16) mg/dL Creatinine 0.77 (0.5-1.4) mg/dL Estim Creat Clear Calc 69.0 Estimated GFR > 60 POC Glucose (60-115) mg/dL Random Glucose 116 H (60-115) mg/dL Calcium 8.9 (8.4-10.2) mg/dL Total Bilirubin (0.0-1.0) mg/dL AST (5-37) U/L ALT (0-40) U/L Alkaline Phosphatase (39-117) U/L Total Protein (6.5-8.0) g/dL Albumin (3.5-5.0) g/dL Urine Color Urine Appearance Urine pH (5.0-8.0) Ur Specific [place] (1.005-1.025) Urine Protein (NEG-TRACE) MG/DL Urine Glucose (UA) (NEG) MG/DL Urine Ketones (NEG) MG/DL Urine Blood (NEG) Urine Nitrite (NEG) Ur Leukocyte Esterase (NEG) COVID-19 (CARLOS) Negative (Negative) COVID-19 Clin Com See Note 04/11/21 04/11/21 Range/Units 00:40 04:07 WBC (4.8-10.8) X10*3/uL RBC (4.60-5.80) X10*6/uL Hgb (14.0-18.0) g/dl Hct (42-52) % MCV (80-98) fL MCH (27.0-33.0) pg MCHC (31.0-36.0) g/dl RDW (11.0-16.0) % Plt Count (160-400) X10*3/uL MPV (9.4-12.4) fL Immature Gran % (Auto) (0.0-0.4) % Neut % (Auto) (45-73) % Lymph % (Auto) (20-40) % [place] % (Auto) (2-11) % Eos % (Auto) (0-4) % Baso % (Auto) (0-2) % Lymph # (Auto) (1.2-4.9) X10*3/uL [place] # (Auto) (0.1-1.2) X10*3/uL Eos # (Auto) (0.0-0.4) X10*3/uL Baso # (Auto) (0.0-0.2) X10*3/uL Abs Immat Gran (auto) (0.00-0.03) X10*3/uL Absolute Neuts (auto) (2.0-8.3) X10*3/uL Absolute Nucleated RBC (0.0-0.012) X10*3/uL Nucleated RBC % (auto) (0.0-0.2) /100WBC PT (10.8-13.0) SEC INR (0.9-1.1) APTT (24.1-38.0) SEC Sodium (135-145) mmol/L Potassium (3.3-5.1) mmol/L Chloride (96-108) mmol/L Carbon Dioxide (22-29) mmol/L Anion Gap (12-20) BUN (9-16) mg/dL Creatinine (0.5-1.4) mg/dL Estim Creat Clear Calc Estimated GFR POC Glucose 103 (60-115) mg/dL Random Glucose (60-115) mg/dL Calcium (8.4-10.2) mg/dL Total Bilirubin (0.0-1.0) mg/dL AST (5-37) U/L ALT (0-40) U/L Alkaline Phosphatase (39-117) U/L Total Protein (6.5-8.0) g/dL Albumin (3.5-5.0) g/dL Urine Color YELLOW Urine Appearance CLEAR Urine pH 6.0 (5.0-8.0) Ur Specific [place] 1.020 (1.005-1.025) Urine Protein NEG (NEG-TRACE) MG/DL Urine Glucose (UA) NEG (NEG) MG/DL Urine Ketones NEG (NEG) MG/DL Urine Blood NEG (NEG) Urine Nitrite NEG (NEG) Ur Leukocyte Esterase NEG (NEG) COVID-19 (CARLOS) (Negative) COVID-19 Clin Com <Mateusz Del Toro MD - Last Filed: 04/09/21 16:47> Lab Results 04/09/21 04/09/21 04/09/21 Range/Units 15:47 15:47 15:47 WBC 11.8 H (4.8-10.8) X10*3/uL RBC 4.46 L (4.60-5.80) X10*6/uL Hgb 13.8 L (14.0-18.0) g/dl Hct 41.7 L (42-52) % MCV 93.5 (80-98) fL MCH 30.9 (27.0-33.0) pg MCHC 33.1 (31.0-36.0) g/dl RDW 13.0 (11.0-16.0) % Plt Count 290 (160-400) X10*3/uL MPV 9.1 L (9.4-12.4) fL Immature Gran % (Auto) 0.6 H (0.0-0.4) % Neut % (Auto) 79.8 H (45-73) % Lymph % (Auto) 10.7 L (20-40) % [place] % (Auto) 7.4 (2-11) % Eos % (Auto) 0.9 (0-4) % Baso % (Auto) 0.6 (0-2) % Lymph # (Auto) 1.3 (1.2-4.9) X10*3/uL [place] # (Auto) 0.9 (0.1-1.2) X10*3/uL Eos # (Auto) 0.1 (0.0-0.4) X10*3/uL Baso # (Auto) 0.1 (0.0-0.2) X10*3/uL Abs Immat Gran (auto) 0.07 H (0.00-0.03) X10*3/uL Absolute Neuts (auto) 9.4 H (2.0-8.3) X10*3/uL Absolute Nucleated RBC 0.000 (0.0-0.012) X10*3/uL Nucleated RBC % (auto) 0.0 (0.0-0.2) /100WBC PT 15.4 H (10.8-13.0) SEC INR 1.3 H (0.9-1.1) APTT 31.5 (24.1-38.0) SEC Sodium 141 (135-145) mmol/L Potassium 4.1 (3.3-5.1) mmol/L Chloride 106 (96-108) mmol/L Carbon Dioxide 25 (22-29) mmol/L Anion Gap 14 (12-20) BUN 25 H (9-16) mg/dL Creatinine 0.99 (0.5-1.4) mg/dL Estim Creat Clear Calc 53.7 Estimated GFR > 60 POC Glucose (60-115) mg/dL Random Glucose 142 H D (60-115) mg/dL Calcium 8.8 (8.4-10.2) mg/dL Total Bilirubin 0.5 (0.0-1.0) mg/dL AST 16 (5-37) U/L ALT 15 (0-40) U/L Alkaline Phosphatase 93 (39-117) U/L Total Protein 6.1 L (6.5-8.0) g/dL Albumin 3.9 (3.5-5.0) g/dL Urine Color Urine Appearance Urine pH (5.0-8.0) Ur Specific [place] (1.005-1.025) Urine Protein (NEG-TRACE) MG/DL Urine Glucose (UA) (NEG) MG/DL Urine Ketones (NEG) MG/DL Urine Blood (NEG) Urine Nitrite (NEG) Ur Leukocyte Esterase (NEG) COVID-19 (CARLOS) (Negative) COVID-19 Clin Com 04/10/21 04/10/21 04/10/21 Range/Units 09:06 19:40 20:39 WBC 12.2 H (4.8-10.8) X10*3/uL RBC 4.61 (4.60-5.80) X10*6/uL Hgb 14.3 (14.0-18.0) g/dl Hct 42.9 (42-52) % MCV 93.1 (80-98) fL MCH 31.0 (27.0-33.0) pg MCHC 33.3 (31.0-36.0) g/dl RDW 13.0 (11.0-16.0) % Plt Count 240 (160-400) X10*3/uL MPV 9.7 (9.4-12.4) fL Immature Gran % (Auto) 0.4 (0.0-0.4) % Neut % (Auto) 74.3 H (45-73) % Lymph % (Auto) 15.0 L (20-40) % [place] % (Auto) 8.9 (2-11) % Eos % (Auto) 0.8 (0-4) % Baso % (Auto) 0.6 (0-2) % Lymph # (Auto) 1.8 (1.2-4.9) X10*3/uL [place] # (Auto) 1.1 (0.1-1.2) X10*3/uL Eos # (Auto) 0.1 (0.0-0.4) X10*3/uL Baso # (Auto) 0.1 (0.0-0.2) X10*3/uL Abs Immat Gran (auto) 0.05 H (0.00-0.03) X10*3/uL Absolute Neuts (auto) 9.1 H (2.0-8.3) X10*3/uL Absolute Nucleated RBC 0.000 (0.0-0.012) X10*3/uL Nucleated RBC % (auto) 0.0 (0.0-0.2) /100WBC PT (10.8-13.0) SEC INR (0.9-1.1) APTT (24.1-38.0) SEC Sodium 143 (135-145) mmol/L Potassium 4.0 (3.3-5.1) mmol/L Chloride 108 (96-108) mmol/L Carbon Dioxide 27 (22-29) mmol/L Anion Gap 12 (12-20) BUN 17 H (9-16) mg/dL Creatinine 0.77 (0.5-1.4) mg/dL Estim Creat Clear Calc 69.0 Estimated GFR > 60 POC Glucose (60-115) mg/dL Random Glucose 116 H (60-115) mg/dL Calcium 8.9 (8.4-10.2) mg/dL Total Bilirubin (0.0-1.0) mg/dL AST (5-37) U/L ALT (0-40) U/L Alkaline Phosphatase (39-117) U/L Total Protein (6.5-8.0) g/dL Albumin (3.5-5.0) g/dL Urine Color Urine Appearance Urine pH (5.0-8.0) Ur Specific [place] (1.005-1.025) Urine Protein (NEG-TRACE) MG/DL Urine Glucose (UA) (NEG) MG/DL Urine Ketones (NEG) MG/DL Urine Blood (NEG) Urine Nitrite (NEG) Ur Leukocyte Esterase (NEG) COVID-19 (CARLOS) Negative (Negative) COVID-19 Clin Com See Note 04/11/21 04/11/21 Range/Units 00:40 04:07 WBC (4.8-10.8) X10*3/uL RBC (4.60-5.80) X10*6/uL Hgb (14.0-18.0) g/dl Hct (42-52) % MCV (80-98) fL MCH (27.0-33.0) pg MCHC (31.0-36.0) g/dl RDW (11.0-16.0) % Plt Count (160-400) X10*3/uL MPV (9.4-12.4) fL Immature Gran % (Auto) (0.0-0.4) % Neut % (Auto) (45-73) % Lymph % (Auto) (20-40) % [place] % (Auto) (2-11) % Eos % (Auto) (0-4) % Baso % (Auto) (0-2) % Lymph # (Auto) (1.2-4.9) X10*3/uL [place] # (Auto) (0.1-1.2) X10*3/uL Eos # (Auto) (0.0-0.4) X10*3/uL Baso # (Auto) (0.0-0.2) X10*3/uL Abs Immat Gran (auto) (0.00-0.03) X10*3/uL Absolute Neuts (auto) (2.0-8.3) X10*3/uL Absolute Nucleated RBC (0.0-0.012) X10*3/uL Nucleated RBC % (auto) (0.0-0.2) /100WBC PT (10.8-13.0) SEC INR (0.9-1.1) APTT (24.1-38.0) SEC Sodium (135-145) mmol/L Potassium (3.3-5.1) mmol/L Chloride (96-108) mmol/L Carbon Dioxide (22-29) mmol/L Anion Gap (12-20) BUN (9-16) mg/dL Creatinine (0.5-1.4) mg/dL Estim Creat Clear Calc Estimated GFR POC Glucose 103 (60-115) mg/dL Random Glucose (60-115) mg/dL Calcium (8.4-10.2) mg/dL Total Bilirubin (0.0-1.0) mg/dL AST (5-37) U/L ALT (0-40) U/L Alkaline Phosphatase (39-117) U/L Total Protein (6.5-8.0) g/dL Albumin (3.5-5.0) g/dL Urine Color YELLOW Urine Appearance CLEAR Urine pH 6.0 (5.0-8.0) Ur Specific [place] 1.020 (1.005-1.025) Urine Protein NEG (NEG-TRACE) MG/DL Urine Glucose (UA) NEG (NEG) MG/DL Urine Ketones NEG (NEG) MG/DL Urine Blood NEG (NEG) Urine Nitrite NEG (NEG) Ur Leukocyte Esterase NEG (NEG) COVID-19 (CARLOS) (Negative) COVID-19 Clin Com <Zuleima Swain MD - Last Filed: 04/09/21 19:04> Lab Results 04/09/21 04/09/21 04/09/21 Range/Units 15:47 15:47 15:47 WBC 11.8 H (4.8-10.8) X10*3/uL RBC 4.46 L (4.60-5.80) X10*6/uL Hgb 13.8 L (14.0-18.0) g/dl Hct 41.7 L (42-52) % MCV 93.5 (80-98) fL MCH 30.9 (27.0-33.0) pg MCHC 33.1 (31.0-36.0) g/dl RDW 13.0 (11.0-16.0) % Plt Count 290 (160-400) X10*3/uL MPV 9.1 L (9.4-12.4) fL Immature Gran % (Auto) 0.6 H (0.0-0.4) % Neut % (Auto) 79.8 H (45-73) % Lymph % (Auto) 10.7 L (20-40) % [place] % (Auto) 7.4 (2-11) % Eos % (Auto) 0.9 (0-4) % Baso % (Auto) 0.6 (0-2) % Lymph # (Auto) 1.3 (1.2-4.9) X10*3/uL [place] # (Auto) 0.9 (0.1-1.2) X10*3/uL Eos # (Auto) 0.1 (0.0-0.4) X10*3/uL Baso # (Auto) 0.1 (0.0-0.2) X10*3/uL Abs Immat Gran (auto) 0.07 H (0.00-0.03) X10*3/uL Absolute Neuts (auto) 9.4 H (2.0-8.3) X10*3/uL Absolute Nucleated RBC 0.000 (0.0-0.012) X10*3/uL Nucleated RBC % (auto) 0.0 (0.0-0.2) /100WBC PT 15.4 H (10.8-13.0) SEC INR 1.3 H (0.9-1.1) APTT 31.5 (24.1-38.0) SEC Sodium 141 (135-145) mmol/L Potassium 4.1 (3.3-5.1) mmol/L Chloride 106 (96-108) mmol/L Carbon Dioxide 25 (22-29) mmol/L Anion Gap 14 (12-20) BUN 25 H (9-16) mg/dL Creatinine 0.99 (0.5-1.4) mg/dL Estim Creat Clear Calc 53.7 Estimated GFR > 60 POC Glucose (60-115) mg/dL Random Glucose 142 H D (60-115) mg/dL Calcium 8.8 (8.4-10.2) mg/dL Total Bilirubin 0.5 (0.0-1.0) mg/dL AST 16 (5-37) U/L ALT 15 (0-40) U/L Alkaline Phosphatase 93 (39-117) U/L Total Protein 6.1 L (6.5-8.0) g/dL Albumin 3.9 (3.5-5.0) g/dL Urine Color Urine Appearance Urine pH (5.0-8.0) Ur Specific [place] (1.005-1.025) Urine Protein (NEG-TRACE) MG/DL Urine Glucose (UA) (NEG) MG/DL Urine Ketones (NEG) MG/DL Urine Blood (NEG) Urine Nitrite (NEG) Ur Leukocyte Esterase (NEG) COVID-19 (CARLOS) (Negative) COVID-19 Clin Com 04/10/21 04/10/2104/10/21 Range/Units 09:06 19:40 20:39 WBC 12.2 H (4.8-10.8) X10*3/uL RBC 4.61 (4.60-5.80) X10*6/uL Hgb 14.3 (14.0-18.0) g/dl Hct 42.9 (42-52) % MCV 93.1 (80-98) fL MCH 31.0 (27.0-33.0) pg MCHC 33.3 (31.0-36.0) g/dl RDW 13.0 (11.0-16.0) % Plt Count 240 (160-400) X10*3/uL MPV 9.7 (9.4-12.4) fL Immature Gran % (Auto) 0.4 (0.0-0.4) % Neut % (Auto) 74.3 H (45-73) % Lymph % (Auto) 15.0 L (20-40) % [place] % (Auto) 8.9 (2-11) % Eos % (Auto) 0.8 (0-4) % Baso % (Auto) 0.6 (0-2) % Lymph # (Auto) 1.8 (1.2-4.9) X10*3/uL [place] # (Auto) 1.1 (0.1-1.2) X10*3/uL Eos # (Auto) 0.1 (0.0-0.4) X10*3/uL Baso # (Auto) 0.1 (0.0-0.2) X10*3/uL Abs Immat Gran (auto) 0.05 H (0.00-0.03) X10*3/uL Absolute Neuts (auto) 9.1 H (2.0-8.3) X10*3/uL Absolute Nucleated RBC 0.000 (0.0-0.012) X10*3/uL Nucleated RBC % (auto) 0.0 (0.0-0.2) /100WBC PT (10.8-13.0) SEC INR (0.9-1.1) APTT (24.1-38.0) SEC Sodium 143 (135-145) mmol/L Potassium 4.0 (3.3-5.1) mmol/L Chloride 108 (96-108) mmol/L Carbon Dioxide 27 (22-29) mmol/L Anion Gap 12 (12-20) BUN 17 H (9-16) mg/dL Creatinine 0.77 (0.5-1.4) mg/dL Estim Creat Clear Calc 69.0 Estimated GFR > 60 POC Glucose (60-115) mg/dL Random Glucose 116 H (60-115) mg/dL Calcium 8.9 (8.4-10.2) mg/dL Total Bilirubin (0.0-1.0) mg/dL AST (5-37) U/L ALT (0-40) U/L Alkaline Phosphatase (39-117) U/L Total Protein (6.5-8.0) g/dL Albumin (3.5-5.0) g/dL Urine Color Urine Appearance Urine pH (5.0-8.0) Ur Specific [place] (1.005-1.025) Urine Protein (NEG-TRACE) MG/DL Urine Glucose (UA) (NEG) MG/DL Urine Ketones (NEG) MG/DL Urine Blood (NEG) Urine Nitrite (NEG) Ur Leukocyte Esterase (NEG) COVID-19 (CARLOS) Negative (Negative) COVID-19 Clin Com See Note 04/11/21 04/11/21 Range/Units 00:40 04:07 WBC (4.8-10.8) X10*3/uL RBC (4.60-5.80) X10*6/uL Hgb (14.0-18.0) g/dl Hct (42-52) % MCV (80-98) fL MCH (27.0-33.0) pg MCHC (31.0-36.0) g/dl RDW (11.0-16.0) % Plt Count (160-400) X10*3/uL MPV (9.4-12.4) fL Immature Gran % (Auto) (0.0-0.4) % Neut % (Auto) (45-73) % Lymph % (Auto) (20-40) % [place] % (Auto) (2-11) % Eos % (Auto) (0-4) % Baso % (Auto) (0-2) % Lymph # (Auto) (1.2-4.9) X10*3/uL [place] # (Auto) (0.1-1.2) X10*3/uL Eos # (Auto) (0.0-0.4) X10*3/uL Baso # (Auto) (0.0-0.2) X10*3/uL Abs Immat Gran (auto) (0.00-0.03) X10*3/uL Absolute Neuts (auto) (2.0-8.3) X10*3/uL Absolute Nucleated RBC (0.0-0.012) X10*3/uL Nucleated RBC % (auto) (0.0-0.2) /100WBC PT (10.8-13.0) SEC INR (0.9-1.1) APTT (24.1-38.0) SEC Sodium (135-145) mmol/L Potassium (3.3-5.1) mmol/L Chloride (96-108) mmol/L Carbon Dioxide (22-29) mmol/L Anion Gap (12-20) BUN (9-16) mg/dL Creatinine (0.5-1.4) mg/dL Estim Creat Clear Calc Estimated GFR POC Glucose 103 (60-115) mg/dL Random Glucose (60-115) mg/dL Calcium (8.4-10.2) mg/dL Total Bilirubin (0.0-1.0) mg/dL AST (5-37) U/L ALT (0-40) U/L Alkaline Phosphatase (39-117) U/L Total Protein (6.5-8.0) g/dL Albumin (3.5-5.0) g/dL Urine Color YELLOW Urine Appearance CLEAR Urine pH 6.0 (5.0-8.0) Ur Specific [place] 1.020 (1.005-1.025) Urine Protein NEG (NEG-TRACE) MG/DL Urine Glucose (UA) NEG (NEG) MG/DL Urine Ketones NEG (NEG) MG/DL Urine Blood NEG (NEG) Urine Nitrite NEG (NEG) Ur Leukocyte Esterase NEG (NEG) COVID-19 (CARLOS) (Negative) COVID-19 Clin Com <LIZZY Bassett - Last Filed: 04/10/21 13:59> Lab Results 04/09/21 04/09/21 04/09/21 Range/Units 15:47 15:47 15:47 WBC 11.8 H (4.8-10.8) X10*3/uL RBC 4.46 L (4.60-5.80) X10*6/uL Hgb 13.8 L (14.0-18.0) g/dl Hct 41.7 L (42-52) % MCV 93.5 (80-98) fL MCH 30.9 (27.0-33.0) pg MCHC 33.1 (31.0-36.0) g/dl RDW 13.0 (11.0-16.0) % Plt Count 290 (160-400) X10*3/uL MPV 9.1 L (9.4-12.4) fL Immature Gran % (Auto) 0.6 H (0.0-0.4) % Neut % (Auto) 79.8 H (45-73) % Lymph % (Auto) 10.7 L (20-40) % [place] % (Auto) 7.4 (2-11) % Eos % (Auto) 0.9 (0-4) % Baso % (Auto) 0.6 (0-2) % Lymph # (Auto) 1.3 (1.2-4.9) X10*3/uL [place] # (Auto) 0.9 (0.1-1.2) X10*3/uL Eos # (Auto) 0.1 (0.0-0.4) X10*3/uL Baso # (Auto) 0.1 (0.0-0.2) X10*3/uL Abs Immat Gran (auto) 0.07 H (0.00-0.03) X10*3/uL Absolute Neuts (auto) 9.4 H (2.0-8.3) X10*3/uL Absolute Nucleated RBC 0.000 (0.0-0.012) X10*3/uL Nucleated RBC % (auto) 0.0 (0.0-0.2) /100WBC PT 15.4 H (10.8-13.0) SEC INR 1.3 H (0.9-1.1) APTT 31.5 (24.1-38.0) SEC Sodium 141 (135-145) mmol/L Potassium 4.1 (3.3-5.1) mmol/L Chloride 106 (96-108) mmol/L Carbon Dioxide 25 (22-29) mmol/L Anion Gap 14 (12-20) BUN 25 H (9-16) mg/dL Creatinine 0.99 (0.5-1.4) mg/dL Estim Creat Clear Calc 53.7 Estimated GFR > 60 POC Glucose (60-115) mg/dL Random Glucose 142 H D (60-115) mg/dL Calcium 8.8 (8.4-10.2) mg/dL Total Bilirubin 0.5 (0.0-1.0) mg/dL AST 16 (5-37) U/L ALT 15 (0-40) U/L Alkaline Phosphatase 93 (39-117) U/L Total Protein 6.1 L (6.5-8.0) g/dL Albumin 3.9 (3.5-5.0) g/dL Urine Color Urine Appearance Urine pH (5.0-8.0) Ur Specific [place] (1.005-1.025) Urine Protein (NEG-TRACE) MG/DL Urine Glucose (UA) (NEG) MG/DL Urine Ketones (NEG) MG/DL Urine Blood (NEG) Urine Nitrite (NEG) Ur Leukocyte Esterase (NEG) COVID-19 (CARLOS) (Negative) COVID-19 Clin Com 04/10/21 04/10/21 04/10/21 Range/Units 09:06 19:40 20:39 WBC 12.2 H (4.8-10.8) X10*3/uL RBC 4.61 (4.60-5.80) X10*6/uL Hgb 14.3 (14.0-18.0) g/dl Hct 42.9 (42-52) % MCV 93.1 (80-98) fL MCH 31.0 (27.0-33.0) pg MCHC 33.3 (31.0-36.0) g/dl RDW 13.0 (11.0-16.0) % Plt Count 240 (160-400) X10*3/uL MPV 9.7 (9.4-12.4) fL Immature Gran % (Auto) 0.4 (0.0-0.4) % Neut % (Auto) 74.3 H (45-73) % Lymph % (Auto) 15.0 L (20-40) % [place] % (Auto) 8.9 (2-11) % Eos % (Auto) 0.8 (0-4) % Baso % (Auto) 0.6 (0-2) % Lymph # (Auto) 1.8 (1.2-4.9) X10*3/uL [place] # (Auto) 1.1 (0.1-1.2) X10*3/uL Eos # (Auto) 0.1 (0.0-0.4) X10*3/uL Baso # (Auto) 0.1 (0.0-0.2) X10*3/uL Abs Immat Gran (auto) 0.05 H (0.00-0.03) X10*3/uL Absolute Neuts (auto) 9.1 H (2.0-8.3) X10*3/uL Absolute Nucleated RBC 0.000 (0.0-0.012) X10*3/uL Nucleated RBC % (auto) 0.0 (0.0-0.2) /100WBC PT (10.8-13.0) SEC INR (0.9-1.1) APTT (24.1-38.0) SEC Sodium 143 (135-145) mmol/L Potassium 4.0 (3.3-5.1) mmol/L Chloride 108 (96-108) mmol/L Carbon Dioxide 27 (22-29) mmol/L Anion Gap 12 (12-20) BUN 17 H (9-16) mg/dL Creatinine 0.77 (0.5-1.4) mg/dL Estim Creat Clear Calc 69.0 Estimated GFR > 60 POC Glucose (60-115) mg/dL Random Glucose 116 H (60-115) mg/dL Calcium 8.9 (8.4-10.2) mg/dL Total Bilirubin (0.0-1.0) mg/dL AST (5-37) U/L ALT (0-40) U/L Alkaline Phosphatase (39-117) U/L Total Protein (6.5-8.0) g/dL Albumin (3.5-5.0) g/dL Urine Color Urine Appearance Urine pH (5.0-8.0) Ur Specific [place] (1.005-1.025) Urine Protein (NEG-TRACE) MG/DL Urine Glucose (UA) (NEG) MG/DL Urine Ketones (NEG) MG/DL Urine Blood (NEG) Urine Nitrite (NEG) Ur Leukocyte Esterase (NEG) COVID-19 (CARLOS) Negative (Negative) COVID-19 Clin Com See Note 04/11/21 04/11/21 Range/Units 00:40 04:07 WBC (4.8-10.8) X10*3/uL RBC (4.60-5.80) X10*6/uL Hgb (14.0-18.0) g/dl Hct (42-52) % MCV (80-98) fL MCH (27.0-33.0) pg MCHC (31.0-36.0) g/dl RDW (11.0-16.0) % Plt Count (160-400) X10*3/uL MPV (9.4-12.4) fL Immature Gran % (Auto) (0.0-0.4) % Neut % (Auto) (45-73) % Lymph % (Auto) (20-40) % [place] % (Auto) (2-11) % Eos % (Auto) (0-4) % Baso % (Auto) (0-2) % Lymph # (Auto) (1.2-4.9) X10*3/uL [place] # (Auto) (0.1-1.2) X10*3/uL Eos # (Auto) (0.0-0.4) X10*3/uL Baso # (Auto) (0.0-0.2) X10*3/uL Abs Immat Gran (auto) (0.00-0.03) X10*3/uL Absolute Neuts (auto) (2.0-8.3) X10*3/uL Absolute Nucleated RBC (0.0-0.012) X10*3/uL Nucleated RBC % (auto) (0.0-0.2) /100WBC PT (10.8-13.0) SEC INR (0.9-1.1) APTT (24.1-38.0) SEC Sodium (135-145) mmol/L Potassium (3.3-5.1) mmol/L Chloride (96-108) mmol/L Carbon Dioxide (22-29) mmol/L Anion Gap (12-20) BUN (9-16) mg/dL Creatinine (0.5-1.4) mg/dL Estim Creat Clear Calc Estimated GFR POC Glucose 103 (60-115) mg/dL Random Glucose (60-115) mg/dL Calcium (8.4-10.2) mg/dL Total Bilirubin (0.0-1.0) mg/dL AST (5-37) U/L ALT (0-40) U/L Alkaline Phosphatase (39-117) U/L Total Protein (6.5-8.0) g/dL Albumin (3.5-5.0) g/dL Urine Color YELLOW Urine Appearance CLEAR Urine pH 6.0 (5.0-8.0) Ur Specific [place] 1.020 (1.005-1.025) Urine Protein NEG (NEG-TRACE) MG/DL Urine Glucose (UA) NEG (NEG) MG/DL Urine Ketones NEG (NEG) MG/DL Urine Blood NEG (NEG) Urine Nitrite NEG (NEG) Ur Leukocyte Esterase NEG (NEG) COVID-19 (CARLOS) (Negative) COVID-19 Clin Com <LIZZY Engel - Last Filed: 04/11/21 13:32> Imaging Data CT scan - head: Radiologist's impression: TECHNIQUE: Axial 5 mm thin and reformatted 2 mm thin sagittal and coronal images of brain were obtained. Subsequently axial 3 mm thin and reformatted 2 mm thin sagittal and coronal images of cervical spine were obtained. DLP 1022 FINDINGS: The exam is limited secondary to patient motion. Brain: There is no acute intra-axial, extra-axial bleed, masses or midline shift. No acute infarction in evolution. The lateral ventricles are symmetrical in size and configuration moderately enlarged. There is diffuse periventricular hypodensity suggestive of chronic small vessel ischemic changes. There is bilateral basal ganglia calcifications. Bone windows reveal no calvarial abnormality. There is scalp soft tissue are normal. Bilateral paranasal sinuses and mastoid air cells are well-aerated. Cervical spine: There is normal cervical lordosis. The vertebral heights and alignment is normal. There is loss of C6-C7 disc height. Rest of the disc heights are normal. There is no visible acute fracture, dislocation or lytic process seen. There is bilateral apical parenchymal scarring or atelectasis. There is moderate desiccation of left C4-C5 and right C3-C4 facet joint hypertrophy and arthropathy. No visible acute fracture, dislocation seen. CT/CT head/brain wo con IMPRESSION: Limited exam secondary to patient motion. No acute intracranial process seen. 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 No acute fracture, dislocation or subluxation. There are degenerative disc changes C6-C7 disc levels with ventral spondylosis. Chronic bilateral apical lung changes <Zuleima Swain MD - Last Filed: 04/09/21 19:04> Discharge Plan Discharge Clinical Impression: Cellulitis, Fall <Mateusz Del Toro MD - Last Filed: 04/09/21 16:47> Patient Disposition: Xfer SNF <Mateusz Del Toro MD - Last Filed: 04/09/21 16:47> Transfer Details: [facility] at 2pm <Mateusz Del Toro MD - Last Filed: 04/09/21 16:47> [facility] at 2pm <Zuleima Swain MD - Last Filed: 04/09/21 19:04> [facility] at 2pm <LIZZY Bassett - Last Filed: 04/10/21 13:59> [facility] at 2pm <LIZZY Engel - Last Filed: 04/11/21 13:32> Prescriptions: No Action Myrbetriq 50 mg tablet extended release 24 hr 50 mg PO DAILY 90 Days Qty: 90 RF: 2 rosuvastatin 20 mg tablet 20 mg PO BEDTIME Qty: 90 RF: 1 (DME) AC[employer] STAIRLIFT See Rx Instructions .Route .MEDSUPPLY Qty: 1 RF: 0 furosemide 40 mg tablet 40 mg PO DAILY Qty: 60 RF: 11 metoprolol succinate 100 mg tablet extended release 24 hr 100 mg PO DAILY 90 Days Qty: 90 RF: 1 fluticasone propionate 110 mcg/actuation HFA aerosol inhaler 2 puff PO BID Qty: 3 RF: 3 losartan 100 mg tablet 100 mg PO DAILY Qty: 90 RF: 3 Eliquis 5 mg tablet 5 mg PO BID 90 Days Qty: 180 RF: 1 (DME) wheelchair See Rx Instructions .Route .MEDSUPPLY Qty: 1 RF: 0 digoxin 125 mcg (0.125 mg) tablet 1 tab PO DAILY RF: 0 Ocuvite Adult 50 Plus 250-5-1 mg Capsule 1 cap PO DAILY RF: 0 calcium carb-mag ox-zinc sulf 333-133-5 mg Tablet 1 tab PO DAILY RF: 0 Probiotic-10 (with inulin) 10 billion cell -100 mg Capsule 1 cap PO DAILY RF: 0 sennosides [senna] 8.6 mg Tablet 17.2 mg PO BEDTIME PRN (Reason: Constipation) RF: 0 sennosides [Senna Lax] 8.6 mg Tablet 17.2 mg PO BEDTIME PRN (Reason: Constipation) Qty: 30 RF: 0 spironolactone 25 mg Tablet 25 mg PO DAILY Qty: 30 RF: 0 tamsulosin 0.4 mg capsule 0.4 mg PO DAILY RF: 0 dorzolamide-timolol 22.3-6.8 mg/mL drops 1 drp ophthalmic (eye) BID RF: 0 latanoprost 0.005 % drops 1 drp ophthalmic (eye) BEDTIME RF: 0 cholecalciferol (vitamin D3) 25 mcg (1,000 unit) capsule 25 mcg PO DAILY RF: 0 <Mateusz Del Toro MD - Last Filed: 04/09/21 16:47> Referrals: [facility] [Outside] - 2 days <Mateusz Del Toro MD - Last Filed: 04/09/21 16:47> ED Observation ED Observation Progress Notes 1: Progress Note: 04/10/21 - 08:35 LIZZY Bassett Physician observation continued. Patient had an uneventful night. patient mildly hypertensive at 141/68 otherwise other vitals are within normal limits. Patient asymptomatic from this. Med reconciliation just completed by myself. Patient is currently awake with one-to-one sitter at bedside. Denies any complaints or concerns at this time. Alert and oriented x1. No focal Neuro deficits are noted. Patient is at baseline for mentation. Lungs clear to auscultation. CV RRR. Abdomen is soft and nontender. Patient ate 100% of his breakfast and was able to ambulate with a walker with physical therapy. therefore patient is now being followed by case management for possible placement will continue to monitor. <LIZZY Bassett - Last Filed: 04/10/21 13:59>
[2021-04-09 15:52] LABS: MANUAL DIFF FLAG NO
[2021-04-09 15:57] LABS: Basophils Absolute Auto 0.1 X10*3/uL (0.0-0.2); Basophils Percent Auto 0.6 % (0-2); Eosinophils Absolute Auto 0.1 X10*3/uL (0.0-0.4); Eosinophils Percent Auto 0.9 % (0-4); Hematocrit 41.7 % (42-52); Hemoglobin 13.8 g/dl (14.0-18.0); Imm Gran Abs Auto 0.07 X10*3/uL (0.00-0.03); Imm Gran Pct Auto 0.6 % (0.0-0.4); Lymphocytes Absolute Auto 1.3 X10*3/uL (1.2-4.9); Lymphocytes Percent Auto 10.7 % (20-40); Mean Corpuscular HGB Conc 33.1 g/dl (31.0-36.0); Mean Corpuscular Hemoglobin 30.9 pg (27.0-33.0); Mean Corpuscular Volume 93.5 fL (80-98); Mean Platelet Volume 9.1 fL (9.4-12.4); Monocytes Absolute Auto 0.9 X10*3/uL (0.1-1.2); Monocytes Percent Auto 7.4 % (2-11); Neutrophils Absolute Auto 9.4 X10*3/uL (2.0-8.3); Neutrophils Percent Auto 79.8 % (45-73); Platelet Count 290 X10*3/uL (160-400); Red Blood Count 4.46 X10*6/uL (4.60-5.80); White Blood Count 11.8 X10*3/uL (4.8-10.8)
[2021-04-09] MEDS: Lidocaine HCl 1 % MPF 5 ML VIAL INFILTRATI ×2 (16:00)
[2021-04-09 16:03] LABS: INTERNATIONAL NORM RATIO 1.3 (0.9-1.1); Prothrombin Time 15.4 SEC (10.8-13.0)
[2021-04-09 16:06] LABS: Partial Thromboplastin Time 31.5 SEC (24.1-38.0)
[2021-04-09 16:19] LABS: Alanine Aminotransferase 15 U/L (0-40); Albumin Level 3.9 g/dL (3.5-5.0); Alkaline Phosphatase 93 U/L (39-117); Anion Gap 14 (12-20); Aspartate Amino Transferase 16 U/L (5-37); Bilirubin Total 0.5 mg/dL (0.0-1.0); Blood Urea Nitrogen 25 mg/dL (9-16); Calcium 8.8 mg/dL (8.4-10.2); Carbon Dioxide 25 mmol/L (22-29); Chloride 106 mmol/L (96-108); Creatinine Clr Calc Pharmacy 53.7; Estimated Glomerular Filt Rate > 60; Glucose Random 142 mg/dL (60-115); Potassium 4.1 mmol/L (3.3-5.1); Sodium 141 mmol/L (135-145); Total Protein 6.1 g/dL (6.5-8.0)
[2021-04-09 19:28] VITALS: BP 141/68; PULSE 60; RESP 16; TEMP 36.5; O2SAT 96
--- NOTE | 2021-04-09 21:18 | MHC.CM.ED ---
CM attempted to meet with pt. Very confused. Does not know where he is. Does not remember falling. Does not know he has laceration that needed stitches. Herminia and daughter, Daylin at bedside. tells CM that pt is very weakened and fell in driveway when they came home from STR at [facility]. Herminia does not feel she can care for him at this time in his weak state. HCP is Herminia and it is on file. Pt is a and gets his hearing aides at [facility], but has no other veterans services and does not use the [place] pharmacy. PCP is Jonatan Zarate. Pt to have PT evaluation in the am. would like pt to return to [facility]. Herminia states pt was to receive home PT/OT and VNA services from [facility], to begin tomorrow.CM had long discussion with Herminia and Daylin regarding plan of care in the future, including home aides through agency to help with pt at home and LTC. Given financial services contact brochure and CM contact card. Given area home health agencies. is elderly and has already been caring for patient at home prior to recent health issues leading to STR. Pt is confused, but re-directable. Herminia requesting telephone call from CM in am after PT evaluation with updates. CM to follow for d/c needs.
[2021-04-10] VITALS (12 sets, daily range): BP systolic 130–162; BP diastolic 53–68; PULSE 58–66; RESP 15–167; TEMP 36.4–36.7; O2SAT 92–96
--- NOTE | 2021-04-10 07:30 | PC.NURSE ---
PT SEEN BY PHYSICAL THERAPY. 1:1 SITTER AT BEDSIDE.
--- NOTE | 2021-04-10 08:05 | PC.NURSE ---
SITTER D/C'D, PT A/O X 1, CALM/CO-OP. PT PLACED IN HOSP BED WITH BED ALARM. NO BEHAVIORAL ISSUES NOTED.
--- NOTE | 2021-04-10 08:30 | PC.NURSE ---
pt a/o x 1 no sob/sukhdev noted skin pink warm drys speaks in full sentences. pt incontinent of large amt of urine, complete bed change, . pt ate 100% of breakfast. pt amb with walker with physical therapist
[2021-04-10 09:37] LABS: COVID-19 Test Negative (Negative)
[2021-04-10] MEDS: Furosemide 40 MG TABLET PO (10:24)
[2021-04-10] MEDS: Mirabegron 50 MG TAB.ER.24H PO (10:24)
[2021-04-10] MEDS: Losartan Potassium 50 MG TABLET 100 MG PO (10:24)
[2021-04-10] MEDS: Spironolactone 25 MG TABLET PO (10:24)
[2021-04-10] MEDS: Apixaban 5 MG TABLET PO (10:25)
[2021-04-10] MEDS: cephALEXin 500 MG CAPSULE PO ×2 (10:26→17:02)
[2021-04-10] MEDS: Digoxin 0.125 MG TABLET PO (10:27)
[2021-04-10] MEDS: Cholecalciferol (Vitamin D3) 25 MCG TABLET PO (10:27)
[2021-04-10] MEDS: Tamsulosin HCL 0.4 MG CAPSULE PO (10:29)
[2021-04-10] MEDS: Metoprolol Succinate ER 100 MG TAB.ER.24H PO (10:30)
[2021-04-10] MEDS: Dorzolamide/Timolo 2.23%/0.68% 10 ML DRBTL 1 DROP EYE-BOTH (10:32)
[2021-04-10] MEDS: Fluticasone Propionate 100 MCG BLST.W.DEV 2 PUFF INHALE (10:32)
--- NOTE | 2021-04-10 12:28 | MHC.CM.ED ---
Patient remains in ER. Clinical updates sent to [facility] via [employer]. Per Rosy at [facility], it is documented patient has a sitter. Patient will need to be sitter and behavior free for 24 hours. Sitter d/c'd. Spoke with patient's , Herminia via telephone. Above information provided. Herminia verbalizes understanding and will be in to see patient today. Continue to monitor for d/c needs.
[2021-04-10] MEDS: QUEtiapine Fumarate 25 MG TABLET PO (17:03)
--- NOTE | 2021-04-10 19:22 | MHC.CM.ED ---
Family requested to speak with CM. , Herminia and daughter, Daylin at bedside. Both are very concerned about the patient's mental status. Pt is very confused, is hallucinating, seeing water and picking at the uyen. Pt is unable to eat, and is spitting out food. Requesting water, and then spitting it out in the bed. Pt does not know who his family is. This is a major change in the patients mental status from yesterday. CM immediately spoke with Maria Harp and explained above. Also explained that pt fell yesterday and hit his head on the pavement, sustaining a laceration over his right eye , requiring sutures. Maria Lopez concerned about ? concussion syndrome, ? bleed. Will get CT scan. Family notified regarding further work-up. CM will follow for D/C needs.
[2021-04-10 19:47] LABS: MANUAL DIFF FLAG NO
[2021-04-10 19:49] LABS: Basophils Absolute Auto 0.1 X10*3/uL (0.0-0.2); Basophils Percent Auto 0.6 % (0-2); Eosinophils Absolute Auto 0.1 X10*3/uL (0.0-0.4); Eosinophils Percent Auto 0.8 % (0-4); Hematocrit 42.9 % (42-52); Hemoglobin 14.3 g/dl (14.0-18.0); Imm Gran Abs Auto 0.05 X10*3/uL (0.00-0.03); Imm Gran Pct Auto 0.4 % (0.0-0.4); Lymphocytes Absolute Auto 1.8 X10*3/uL (1.2-4.9); Mean Corpuscular HGB Conc 33.3 g/dl (31.0-36.0); Mean Corpuscular Volume 93.1 fL (80-98); Mean Platelet Volume 9.7 fL (9.4-12.4); Monocytes Absolute Auto 1.1 X10*3/uL (0.1-1.2); Monocytes Percent Auto 8.9 % (2-11); Neutrophils Absolute Auto 9.1 X10*3/uL (2.0-8.3); Neutrophils Percent Auto 74.3 % (45-73); Platelet Count 240 X10*3/uL (160-400); Red Blood Count 4.61 X10*6/uL (4.60-5.80); White Blood Count 12.2 X10*3/uL (4.8-10.8)
--- NOTE | 2021-04-10 19:56 | PC.NURSE ---
PATIENT CONTINUE TO REFUSED VITALS SIGNS TO BE TAKEN ,RN AWARE .
[2021-04-10] MEDS: LORazepam 2 MG/ML VIAL 1 MG IM (20:01)
--- NOTE | 2021-04-10 20:11 | PC.NURSE ---
Pt medicated with im ativan to facilitate ct scan.
[2021-04-10 21:20] LABS: Anion Gap 12 (12-20); Blood Urea Nitrogen 17 mg/dL (9-16); Calcium 8.9 mg/dL (8.4-10.2); Carbon Dioxide 27 mmol/L (22-29); Chloride 108 mmol/L (96-108); Estimated Glomerular Filt Rate > 60; Glucose Random 116 mg/dL (60-115); Sodium 143 mmol/L (135-145)
--- NOTE | 2021-04-10 22:17 | MHC.CM.ED ---
CM accompanied Maria SIDE DOOR WORKER to speak with family regarding pt labs and CT scan. CT scan unchanged, WBC slightly increased but overall labs improving. Have not yet obtained a urine. Family asked many questions regarding pt AMS. Maria explained that pt may have a concussion from his fall, but the CT scan would not show it. Also explained that if pt has a UTI, that could explain pt AMS. Also spoke at length with family regarding dementia and changing environments causing increased confusion. Family understands and are very saddened. Asked if pt would be admitted to hospital, Maria explained that pt does not meet criteria for admission at this time. Maria spoke to family about completing a MOLST, or at least having a family conversation about just what the pt would want. After some discussion and clarification, Herminia (/HCP) completed a MOLST. Pt is a DNR/DNI, may use CPAP, may transfer to hospital. Do NOT use dialysis, artificial hydration or nutrition. Form signed by Herminia, HCP, and Maria Webb SIDE DOOR WORKER. Family has CM contact card. CM will follow for d/c needs. CM unable to Fax Attach MOLST in [employer]. System malfunction. Will call [employer] help line in am.
[2021-04-11] VITALS: BP 144/56; PULSE 61; RESP 16; TEMP 36.5; O2SAT 94
--- NOTE | 2021-04-11 00:13 | PC.NURSE ---
Pt remains difficult to arouse due to previous ativan administration. Pt was refusing po at 1900, 2000, 2100. Multiple attempts were made to administer night meds, but pt is unable to full wake up due to above previous administration. Will attempt to get urine sample upon next awakening.
--- NOTE | 2021-04-11 00:28 | PC.NURSE ---
Per Maria FRIEDMAN, okay to obtain ua via straight cath.
--- NOTE | 2021-04-11 00:45 | PC.NURSE ---
straight cath preformed- tolerated well.
[2021-04-11 00:49] LABS: Appearance Urine CLEAR; Color Urine YELLOW; Glucose Urine UA NEG (NEG); Leukocyte Esterase Urine NEG (NEG); Nitrite Urine NEG (NEG); Urine Blood NEG (NEG); Urine Ketones NEG (NEG); Urine Protein NEG (NEG-TRACE)
[2021-04-11 04:11] LABS: Glucose, Whole Blood 103 mg/dL (60-115)
--- NOTE | 2021-04-11 04:31 | PC.NURSE ---
ATTEMPTED 3X TO GIVE PT ANTIBIOTIC FOR CELLULITIC PROCESS. PT TOLD THIS RN TO LEAVE HIM ALONE AND GO TO [facility]. BGL CHECK. AWARE.
[2021-04-11 04:57] VITALS: BP 158/55; PULSE 64; RESP 16; TEMP 36.4; O2SAT 92
--- NOTE | 2021-04-11 04:59 | PC.NURSE ---
PATIENT WAS INCONIENT OF URINE TIMES 2 ON THIS SHIFT .
--- NOTE | 2021-04-11 07:27 | PC.NURSE ---
report taken from mary orellana pt here for fall, continuing to remain in er as case mgmt d/t fall at home. pt was recently dc from [facility] for similar issue, pt is too weak for to continue to care for at home. pt also continues to have appearance of worsening ams, negative workup following family concern after worsening of ams during time in er. pt molst form updated by family w provider and case mgmt. pt appears to be sleeping in stretcher on first contact w this rn, rr even/unlabored, sat appears to be 89% on ra in supine position, pt w hx of sleep apnea. head of bed elevated to semi fowlers, ra sat up to 95%. wctm for dc needs.
[2021-04-11 07:30] VITALS: BP 152/69; PULSE 66; RESP 22; O2SAT 95
--- NOTE | 2021-04-11 08:06 | PC.NURSE ---
pt continues to sleep, will allow pt rest until 0900.
--- NOTE | 2021-04-11 08:34 | MHC.CM.ED ---
Patient remains in ER. Patient has been sitter free. However, IM Ativan was needed to help facilitate a head CT. Clinical updates sent to [facility] via [employer]. But anticipate patient will need to be IM/IV medication free for 24 hours. Continue to monitor for d/c needs.
[2021-04-11 09:04] VITALS: BP 146/70; PULSE 66
[2021-04-11] MEDS: Metoprolol Succinate ER 100 MG TAB.ER.24H PO (09:04)
[2021-04-11 09:05] VITALS: BP 152/69
[2021-04-11] MEDS: Tamsulosin HCL 0.4 MG CAPSULE PO (09:05)
[2021-04-11] MEDS: Spironolactone 25 MG TABLET PO (09:05)
[2021-04-11] MEDS: Cholecalciferol (Vitamin D3) 25 MCG TABLET PO (09:05)
[2021-04-11] MEDS: Mirabegron 50 MG TAB.ER.24H PO (09:05)
[2021-04-11] MEDS: Apixaban 5 MG TABLET PO (09:05)
[2021-04-11] MEDS: Losartan Potassium 50 MG TABLET 100 MG PO (09:05)
[2021-04-11 09:06] VITALS: PULSE 66
[2021-04-11] MEDS: Fluticasone Propionate 100 MCG BLST.W.DEV 2 PUFF INHALE (09:06)
[2021-04-11] MEDS: cephALEXin 500 MG CAPSULE PO (09:06)
[2021-04-11] MEDS: Digoxin 0.125 MG TABLET PO (09:06)
[2021-04-11] MEDS: Dorzolamide/Timolo 2.23%/0.68% 10 ML DRBTL 1 DROP EYE-BOTH (09:06)
[2021-04-11] MEDS: Furosemide 40 MG TABLET PO (09:06)
--- NOTE | 2021-04-11 09:20 | PC.NURSE ---
pt family at bedside, alert to name once hearing aids placed in. pt medicated per emar, appears calm and cooperative w this rn. given copious amounts of water with medications, able to hold water pitcher on own. able to formulate organized thought process regarding hearing aids and batteries. pt family sts this is much improved mental status from yesterday.
--- NOTE | 2021-04-11 13:17 | MHC.CM.ED ---
[facility] is able to offer a bed today. Patient can leave at 2pm. [facility] booked. Med nec with chart. Patient, Raquel, daughter Arlyn Mao RN and Ana BALL aware. Continue to monitor for d/c needs.
--- NOTE | 2021-04-11 14:11 | PC.NURSE ---
Report given to [facility] rehab at this time
== END 2021-04-11 14:39 | disposition skilled nursing facility (03) ==
PROVIDERS: Nurse Practitioner Family; Physician Assistant Medical; Emergency Provider Emergency Medicine Emergency Medical Services
DX: L03.113 Cellulitis of right upper limb (principal); M25.461 Effusion, right knee; S01.111A Laceration without foreign body of right eyelid and periocular area, initial encounter; S80.211A Abrasion, right knee, initial encounter; S60.511A Abrasion of right hand, initial encounter; V48.4XXA Person boarding or alighting a car injured in noncollision transport accident, initial encounter; Z20.822 Contact with and (suspected) exposure to COVID-19; F03.90 Unspecified dementia, unspecified severity, without behavioral disturbance, psychotic disturbance, mood disturbance, and anxiety; I48.0 Paroxysmal atrial fibrillation; I10 Essential (primary) hypertension; E78.00 Pure hypercholesterolemia, unspecified; E11.9 Type 2 diabetes mellitus without complications; J44.9 Chronic obstructive pulmonary disease, unspecified; Y93.89 Activity, other specified; Y92.9 Unspecified place or not applicable; Y99.9 Unspecified external cause status; Z79.01 Long term (current) use of anticoagulants; Z79.02 Long term (current) use of antithrombotics/antiplatelets; Z79.899 Other long term (current) drug therapy
CPT/HCPCS: 12013; 36415; 70450; 71045; 72125; 73030; 73130; 73564; 80048; 80053; 81003; 82947; 85025; 85610; 85730; 87635; 96372; 97162; 99285; J2060

== ENCOUNTER 2021-05-22 12:05 | Outpatient (REF) | payer MEDICARE, SELFPAY ==
[2021-05-22 12:18] LABS: Hematocrit 39.1 % (42-52); Hemoglobin 12.7 g/dl (14.0-18.0); Mean Corpuscular HGB Conc 32.5 g/dl (31.0-36.0); Mean Corpuscular Hemoglobin 30.8 pg (27.0-33.0); Mean Corpuscular Volume 94.9 fL (80-98); Mean Platelet Volume 9.5 fL (9.4-12.4); Platelet Count 283 X10*3/uL (160-400); Red Blood Count 4.12 X10*6/uL (4.60-5.80); Red Cell Distribution Width 13.2 % (11.0-16.0); White Blood Count 9.8 X10*3/uL (4.8-10.8)
[2021-05-22 12:52] LABS: Alanine Aminotransferase 18 U/L (0-40); Albumin Level 3.9 g/dL (3.5-5.0); Alkaline Phosphatase 68 U/L (39-117); Anion Gap 12 (12-20); Aspartate Amino Transferase 15 U/L (5-37); Bilirubin Total 0.7 mg/dL (0.0-1.0); Blood Urea Nitrogen 15 mg/dL (9-16); Calcium 8.8 mg/dL (8.4-10.2); Carbon Dioxide 26 mmol/L (22-29); Chloride 107 mmol/L (96-108); Estimated Glomerular Filt Rate > 60; Glucose Random 132 mg/dL (60-115); Potassium 4.1 mmol/L (3.3-5.1); Sodium 141 mmol/L (135-145); Total Protein 6.2 g/dL (6.5-8.0)
[2021-05-22 12:59] LABS: B Type Natriuretic Peptide 196 pg/mL (<100)
[2021-05-22 13:12] LABS: TSH reflex Free T4 1.01 uIU/mL (0.32-4.0)
== END 2021-05-22 12:06 | disposition home or self-care (01) ==
LOC: HO.LNP 12:05
PROVIDERS: Visit Provider Internal Medicine
DX: I11.0 Hypertensive heart disease with heart failure (principal); I50.32 Chronic diastolic (congestive) heart failure
CPT/HCPCS: 80053; 83880; 84443; 85027

== ENCOUNTER → 2021-07-23 13:06 | Outpatient (BNVA) | payer MEDICARE, SELFPAY | PROVIDERS: PCP Internal Medicine; Visit Provider Urology | DX: N32.0 Bladder-neck obstruction (principal) | CPT/HCPCS: 51798; 99212 ==

== ENCOUNTER → 2021-10-22 13:45 | Outpatient (BNVA) | payer MEDICARE, SELFPAY | PROVIDERS: PCP Internal Medicine; Referring Provider Internal Medicine; Visit Provider Internal Medicine Cardiovascular Disease | DX: I95.9 Hypotension, unspecified (principal); I48.0 Paroxysmal atrial fibrillation; I11.0 Hypertensive heart disease with heart failure; I50.31 Acute diastolic (congestive) heart failure; Z79.01 Long term (current) use of anticoagulants; Z79.899 Other long term (current) drug therapy | CPT/HCPCS: 99212 ==

== ENCOUNTER 2021-12-20 14:12 | Outpatient (REF) | payer MEDICARE, SELFPAY ==
--- NOTE | ~2021-12-20 | XR_ITS ---
EXAMINATION: XR KNEE, RIGHT CLINICAL INFORMATION: Knee pain. COMPARISON: None TECHNIQUE: Four views of the right knee. FINDINGS: There is genu varus deformity of the knee with severe loss of medial and moderate loss of patellofemoral compartment joint space. There is superior patellar enthesophyte and a small anterior superior patellar enthesophyte the insertion of quadriceps tendon. Mild joint effusion is noted. No loose bodies or bony erosive changes. XR/XR knee RT 2V IMPRESSION: Mild degenerative varus deformity right knee. Degenerative changes medial and patellofemoral compartment with periarticular spurring. No acute fracture or dislocation seen.
[2021-12-20 14:37] LABS: MANUAL DIFF FLAG NO
[2021-12-20 15:23] LABS: Basophils Absolute Auto 0.1 X10*3/uL (0.0-0.2); Basophils Percent Auto 0.7 % (0-2); Eosinophils Absolute Auto 0.1 X10*3/uL (0.0-0.4); Eosinophils Percent Auto 1.2 % (0-4); Hematocrit 43.3 % (42.0-52.0); Hemoglobin 13.8 g/dl (14.0-18.0); Imm Gran Abs Auto 0.07 X10*3/uL (0.00-0.03); Imm Gran Pct Auto 0.8 % (0.0-0.4); Immature Retic Fraction 11.2 % (2.3-13.4); Lymphocytes Absolute Auto 1.8 X10*3/uL (1.2-4.9); Lymphocytes Percent Auto 20.5 % (20-40); Mean Corpuscular HGB Conc 31.9 g/dl (31.0-36.0); Mean Corpuscular Hemoglobin 30.9 pg (27.0-33.0); Mean Corpuscular Volume 96.9 fL (80.0-98.0); Mean Platelet Volume 9.1 fL (9.4-12.4); Monocytes Absolute Auto 0.7 X10*3/uL (0.1-1.2); Monocytes Percent Auto 8.4 % (2-11); Neutrophils Absolute Auto 6.1 x10*3/uL (2.0-8.3); Neutrophils Percent Auto 68.4 % (45-73); Platelet Count 299 X10*3/uL (160-400); Red Blood Count 4.47 X10*6/uL (4.60-5.80); Red Cell Distribution Width 12.6 % (11.0-16.0); Retic HGB Equivalent 35.9 pg (30.0-35.0); Reticulocyte Percent 1.9 % (0.5-1.8); Reticulocytes Absolute 0.085 X10*6/uL (0.026-0.095); White Blood Count 8.9 X10*3/uL (4.8-10.8)
[2021-12-20 15:46] LABS: B Type Natriuretic Peptide 102 pg/mL (<100)
[2021-12-20 15:52] LABS: Alanine Aminotransferase 24 U/L (0-40); Albumin Level 4.6 g/dL (3.5-5.0); Alkaline Phosphatase 76 U/L (39-117); Anion Gap 14 (12-20); Aspartate Amino Transferase 19 U/L (5-37); Bilirubin Total 0.7 mg/dL (0.0-1.0); Blood Urea Nitrogen 29 mg/dL (9-16); Calcium 9.9 mg/dL (8.4-10.2); Carbon Dioxide 28 mmol/L (22-29); Chloride 103 mmol/L (96-108); Cholesterol 150 mg/dL; Estimated Glomerular Filt Rate > 60; Glucose Random 76 mg/dL (60-115); HDL Cholesterol 48 mg/dL; Iron 83 mcg/dL (45-160); LDL Cholesterol Calculated 86 mg/dl; Percent Iron Saturation 19 % (15-50); Sodium 140 mmol/L (135-145); Total Iron Binding Capacity 434 mcg/dL (228-428); Total Protein 7.5 g/dL (6.5-8.0); Triglycerides 80 mg/dL; Unsaturated Iron Binding 351 ug/dL
[2021-12-20 16:11] LABS: Estimated Average Glucose 126 mg/dL; Hemoglobin A1C 150.4336 umol/L
[2021-12-20 16:15] LABS: Ferritin 41 ng/mL (20-250); Free T4 (Free Thyroxine) 1.14 ng/dL (0.71-1.85); Thyroid Stimulating Hormone 1.44 uIU/mL (0.32-4.0)
[2021-12-20 16:25] LABS: Folate 14.6 ng/mL (> or = 4.0); Vitamin B12 514 pg/mL (200-900)
== END 2021-12-20 14:13 | disposition home or self-care (01) ==
LOC: HO.LAB 14:12
PROVIDERS: PCP Internal Medicine; Visit Provider Internal Medicine
DX: E78.00 Pure hypercholesterolemia, unspecified (principal); I48.0 Paroxysmal atrial fibrillation; E11.65 Type 2 diabetes mellitus with hyperglycemia; I50.33 Acute on chronic diastolic (congestive) heart failure; I48.19 Other persistent atrial fibrillation; M25.561 Pain in right knee
CPT/HCPCS: 36415; 73560; 80053; 80061; 82607; 82728; 82746; 83036; 83540; 83880; 84439; 84443; 85025; 85045

== ENCOUNTER 2021-12-23 | Outpatient (REF) | payer MEDICARE, SELFPAY ==
[2021-12-30 16:38] LABS: Appearance Urine CLEAR; Color Urine STRAW
[2021-12-30 16:39] LABS: Glucose Urine UA NEG (NEG); Leukocyte Esterase Urine NEG (NEG); Nitrite Urine NEG (NEG); PH 6.5 (5.0-8.0); RBC Urine 0-2 /HPF (0); Squamous Epithelial Cell Urine TRACE /LPF; Urine Blood NEG (NEG); Urine Ketones NEG (NEG); Urine Protein NEG (NEG-TRACE); WBC Urine 0 /HPF (0-4)
== END 2021-12-23 00:01 | disposition home or self-care (01) ==
LOC: HO.LNP
PROVIDERS: Visit Provider Internal Medicine
DX: R35.0 Frequency of micturition (principal)
CPT/HCPCS: 81001

== ENCOUNTER → 2022-01-22 13:33 | Outpatient (BNVA) | payer MEDICARE, SELFPAY | PROVIDERS: PCP Internal Medicine; Visit Provider Urology | DX: N31.2 Flaccid neuropathic bladder, not elsewhere classified (principal) | CPT/HCPCS: 51798; 99212 ==

== ENCOUNTER → 2022-06-10 13:38 | Outpatient (BNVA) | payer MEDICARE, SELFPAY | PROVIDERS: PCP Internal Medicine; Referring Provider Internal Medicine; Visit Provider Internal Medicine Cardiovascular Disease | DX: I48.0 Paroxysmal atrial fibrillation (principal); I50.31 Acute diastolic (congestive) heart failure | CPT/HCPCS: 93005; 99212 ==

== ENCOUNTER 2022-12-03 08:39 | Outpatient (REF) | payer MEDICARE, SELFPAY ==
[2022-12-03 12:00] LABS: Hematocrit 40.3 % (42.0-52.0); Hemoglobin 12.8 g/dl (14.0-18.0); Mean Corpuscular HGB Conc 31.8 g/dl (31.0-36.0); Mean Corpuscular Hemoglobin 29.5 pg (27.0-33.0); Mean Corpuscular Volume 92.9 fL (80.0-98.0); Mean Platelet Volume 9.4 fL (9.4-12.4); Platelet Count 293 X10*3/uL (160-400); Red Blood Count 4.34 X10*6/uL (4.60-5.80); Red Cell Distribution Width 12.8 % (11.0-16.0); White Blood Count 7.8 X10*3/uL (4.8-10.8)
[2022-12-03 12:41] LABS: B Type Natriuretic Peptide 193 pg/mL (<100)
[2022-12-03 12:42] LABS: Anion Gap 12 (12-20); Blood Urea Nitrogen 22 mg/dL (9-16); Calcium 9.1 mg/dL (8.4-10.2); Carbon Dioxide 25 mmol/L (22-29); Chloride 107 mmol/L (96-108); Estimated Glomerular Filt Rate > 60; Glucose Random 91 mg/dL (60-115); Potassium 4.4 mmol/L (3.3-5.1); Sodium 140 mmol/L (135-145)
== END 2022-12-03 08:40 | disposition home or self-care (01) ==
LOC: HO.LAB 08:39
PROVIDERS: Internal Medicine Cardiovascular Disease; PCP Internal Medicine; Visit Provider Urology
DX: I50.31 Acute diastolic (congestive) heart failure (principal); I48.0 Paroxysmal atrial fibrillation; N31.2 Flaccid neuropathic bladder, not elsewhere classified
CPT/HCPCS: 36415; 51798; 80048; 83880; 85027; 99212

== ENCOUNTER → 2023-05-14 13:03 | Outpatient (REF) | payer MEDICARE, SELFPAY ==
--- NOTE | 2023-05-14 13:07 | CA_ITS ---
Transthoracic Echocardiogram Patient (Last, First, Middle): Jonatan Del Toro J Gender: Male Date of : 1935 Age: 88 Procedure Date: 05/14/2023 Procedure Type: Transthoracic Echocardiogram Location: OP Height: 170.18 cm Weight: 64.86 kg BSA: 1.75 m2 Heart Rate: bpm BP: 118 / 72 mmHg [employer] Pcb Draftsman: OLIVE Referring MD: Ferdinand Abdalla MD Symptoms: I50.31 - Acute diastolic (congestive) heart failure Study Quality: Adequate ECG Rhythm: Undetermined Conclusions: - The left ventricular systolic function is normal. The calculated ejection fraction is 60% by biplane method. - Evidence suggests grade I (mild) diastolic dysfunction. - No obvious valvular pathology seen on this study. - Mild pulmonary hypertension is present. Findings Left Ventricle Normal left ventricular cavity size. There is mildly increased left ventricular wall thickness. The left ventricular systolic function is normal. The calculated ejection fraction is 60% by biplane method. There is no evidence of regional wall motion abnormalities. E/E prime ratio is <8, consistent with normal filling pressures. Evidence suggests grade I (mild) diastolic dysfunction. Right Ventricle Normal right ventricular cavity size and systolic function. Atria Both atria are normal in size. Aortic Valve There is mild calcification of the aortic valve. There is no aortic valve stenosis. There is no aortic valve regurgitation. Mitral Valve The mitral valve appears normal. There is no mitral valve regurgitation. There is no mitral valve stenosis. Pulmonic Valve The pulmonic valve is likely normal. Tricuspid Valve There is mild tricuspid valve regurgitation. Mild pulmonary hypertension is present. Great Vessels The asc aorta is normal in size. Venous The inferior vena cava is normal in size and collapses greater than 50% with inspiration. Pericardium/Pleural There is no evidence of pericardial effusion. Prior Study Comparison No significant change compared to prior study dated: 03/21/2021. Recommendations, Care & Conclusions No obvious valvular pathology seen on this study. Measurements 2D Linear Measurements IVSd: 1.14 0.6-0.9/0.6-1.0 cm LVIDd: 4.47 3.9-5.3/4.2-5.9 cm LVIDd Index: 2.55 2.4-3.2/2.2-3.1 cm/m2 LVIDs: 2.97 2.0-3.6 cm LVPWd: 1.04 0.7-1.1 cm LA Diam: 3.40 2.7-3.8/3.0-4.0 cm LAIDs Index: 1.94 1.5-2.3 cm/m2 LV Mass: 212.96 67-162/88-224 g LV Mass Index: 121.69 43-95/49-115 g/m2 LVOT Diam: 2.10 3.0+(-)1.3 cm 2D Systolic Function EF 4C: 63.40 >55% EF 2C: 61.60 >55% EF BiP: 60.40 >55% Mitral Valve MV Pk E: 0.45 MV PK A: 0.85 MV Decel Time: 390.00 E/A: 0.50 E'Lateral: 8.38 E'Medial: 5.77 E/E' Med: 7.70 E/E' Lat: 5.30 PHT: 114.00 MVA PHT: 1.93 Decel Taliaferro: 1.14 Aortic Valve AoV Pk Michel: 1.27 AoV Mn Michel: 0.87 AoV VTI: 0.28 AoV Pk Grad: 6.00 Aov Mn Grad: 3.00 LAISHA Cont.VTI: 2.98 LVOT LVOT Pk Michel: 0.95 LVOT Mn Michel: 0.63 LVOT VTI: 0.24 LVOT Pk Grad: 4.00 LVOT Mn Grad: 2.00 LVOT Diam: 2.10 LVOT Area: 3.46 Diastolic Function MV Pk E: 0.45 MV Pk A: 0.85 E/A: 0.50 E'Medial: 5.77 E/E' Med: 7.70 E' Laterial: 8.38 E/E' Lat: 5.30 Right Ventricle TAPSE (mm): 25.60 TVS' Michel: 15.80 Tricuspid Valve TR Pk Michel: 2.86 TR Pk Grad: 33.00 RA Press: 3.00 RVSP: 36.00 Great Vessels Aorta Sinus of Valsalva: 4.28 2.0-3.[address] [place]: 2.72 1.7-3.4 cm Ao Asc: 3.80 2.1-3.4 cm Updated in Other Vendor System with Status of Final Wan Conley MD electronically signed on 05/16/2023 12:27:30 PM with status of Final
== END ==
LOC: HO.CARD 13:03
PROVIDERS: PCP Internal Medicine; Visit Provider Internal Medicine Cardiovascular Disease
DX: I50.31 Acute diastolic (congestive) heart failure (principal)
CPT/HCPCS: 93306

== ENCOUNTER → 2023-05-14 13:07 | Outpatient (BNV) | payer MEDICARE, SELFPAY | PROVIDERS: PCP Internal Medicine; Visit Provider Internal Medicine | DX: I50.31 Acute diastolic (congestive) heart failure (principal) | CPT/HCPCS: 93306 ==

== ENCOUNTER 2023-06-03 10:37 | Outpatient (AMB) | payer MEDICARE, SELFPAY ==
--- NOTE | 2023-06-03 10:37 | MHC.OFFVIS ---
Intake Intake Visit Reasons: 6m follow up/PVR Intake Note: Patient is present for Telephone Follow up Urology Med: Myrbetriq, Antibiotic Allergy: Cipro Blood Thinner: Eliquis Pharmacy: [facility]erg[facility] ciprofloxacin [CIPROFLOXACIN] Allergy (Unknown, Verified 06/03/23 10:40) ITCHY FEET oxycodone [Percocet] Adverse Reaction (Unknown, Verified 06/03/23 10:40) Unknown Medication List - Last Reconciled 06/03/23 by Isauro Brock MD [[facility] As directed] apixaban (Eliquis) 5 mg PO BID C,E,zinc,copper 50-evixr1f-fwg 250-5-1 mg (Ocuvite Adult 50 Plus) 1 cap PO DAILY calcium carb-mag ox-zinc sulf 333-133-5 mg 1 tab PO DAILY cholecalciferol (vitamin D3) 25 mcg PO DAILY dorzolamide-timolol 22.3-6.8 mg/mL 1 drp ophthalmic (eye) BID fluticasone propionate 110 mcg/actuation 2 puffs PO BID furosemide 40 mg PO DAILY Lactobacill 46-B.animal-inulin 10 billion cell -100 mg (Probiotic-10 (with inulin)) 1 cap PO DAILY latanoprost 0.005% 1 drp ophthalmic (eye) BEDTIME metoprolol succinate ER 50 mg PO DAILY mirabegron ER (Myrbetriq) 50 mg PO DAILY 90 days omeprazole 20 mg PO DAILY rosuvastatin 20 mg PO BEDTIME spironolactone 25 mg See Protocol PO DAILY tamsulosin 0.4 mg PO BEDTIME 90 days [wheelchair As directed] HPI HPI Comments History of Present Illness Details Jonatan is a pleasant male. He is a patient of Dr. Otero. He is seen for the following urologic conditions - lower urinary tract symptoms - neurogenic bladder Telemedicine Evaluation 15 min Consultation DoximBragster Geovanny Video attempted Stable on tamsulosin Would like to remain on Myrbetriq Prescription refill provided Lower urinary tract symptoms Previous history of urinary retention Had responded well to course of self catheterization Prostate procedure 2016 Previous therapy using Myrbetriq 50 mg and tamsulosin Happy with current urinary performance [facility] Medical History Confusion Pain and swelling of right lower leg Right knee pain Persistent atrial fibrillation Acute diastolic CHF (congestive heart failure) CHF (congestive heart failure) (HFpEF) heart failure with preserved ejection fraction Atrial flutter Hypotonic bladder Bladder neck contracture Paraphimosis Type 2 diabetes mellitus with hyperglycemia BPH (benign prostatic hyperplasia) Peripheral vascular disease Pulmonary nodule Hypertension CAD (coronary artery disease) COPD (chronic obstructive pulmonary disease) Vitamin D deficiency Hypercholesterolemia Tubular adenoma of colon Surgical History H/O inguinal hernia repair H/O vascular surgery History of appendectomy History of cataract surgery History of colonoscopy History of prostate surgery Family History Father No problems noted. Mother CVD (cardiovascular disease) Social History Household Members: Spouse Housing: House Do you presently have visiting nurse or other home services: No Alcohol intake: never Patient Tobacco Use Status: Former Tobacco user Tobacco use type: Cigarette Smoked in Last 30 Days: No e-Cigarette/Vaping Use: Never Used Second Hand Smoke Exposure: No Use of substances other than those prescribed or required for medical reasons: No Advance Directives: Yes Advance Directives on File: Yes Advance Directives Date on File: 04/11/21 service: Yes Current occupational status: retired Cognitive needs: Yes Hearing needs: Yes Vision needs: Yes Review of Systems Const All systems reviewed & are unremarkable except as noted in HPI and below Reports no additional complaints Resp Reports no additional complaints GI Reports no additional complaints Reports as per HPI Musc Reports no additional complaints Physical Exam Telemedicine evaluation Appropriate responses Regular breathing rate and rhythm HEENT Head: Yes normal to inspection Ears: hearing grossly normal bilaterally Eyes General: appearance normal, both eyes and all related structures Neck Neck: Yes normal visual inspection Chest Chest palpation & inspection: normal inspection of the chest Resp Effort & Inspection: normal respiratory effort and able to speak in complete sentences Assessment & Plan Assessment & Plan (1) Frequency of micturition: Code(s): R35.0 - Frequency of micturition (2) 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 No major barriers to patient understanding were identified. An opportunity to ask questions regarding the treatment plan was provided. All questions were answered. The patient expressed understanding and agreement with the above treatment plan. The patient is aware they should contact our office by phone for worsening of their current condition or the appearance of new urologic symptoms. Compliance is encouraged with any medications and followup testing that is ordered. It is a privilege to participate in the urologic care of your patient. If you have any questions or concerns regarding treatment for the above conditions, or other urologic issues, please do not hesitate to contact me. The office telephone contact is [phone]. This note is constructed using voice recognition software. While every effort has been made to ensure accuracy vacuum technician errors may have been included. Yours sincerely, Dr Isauro Brock MD, [facility] - Urology Providers of Expert, Compassionate Care for the Genitourinary System Telehealth Telehealth Location of provider rendering services: practice address Location of patient: address on file Patient Identification confirmed using: Name, : Yes Telehealth method: video Patient verbally consented to treatment: Yes Patient verbally consented to billing insurance company: Yes Patient informed of any privacy concerns related to visit: Yes Coding Level of Care Code Tele Est Pt Level 3 (04282) Diagnoses Frequency of micturition R35.0 Hypotonic bladder N31.2
== END 2023-06-03 12:14 | disposition home or self-care (01) ==
LOC: HO.HUSH 10:37
PROVIDERS: PCP Internal Medicine; Visit Provider Urology
DX: R35.0 Frequency of micturition (principal); N31.2 Flaccid neuropathic bladder, not elsewhere classified
CPT/HCPCS: 99213

== ENCOUNTER → 2023-06-03 10:37 | Outpatient (BNVA) | payer MEDICARE, SELFPAY | PROVIDERS: PCP Internal Medicine; Visit Provider Urology ==

== ENCOUNTER 2023-06-09 10:37 | Outpatient (REF) | payer MEDICARE, SELFPAY ==
[2023-06-09 12:25] LABS: Anion Gap 11 (12-20); Blood Urea Nitrogen 24 mg/dL (9-16); Calcium 9.4 mg/dL (8.4-10.2); Carbon Dioxide 27 mmol/L (22-29); Chloride 104 mmol/L (96-108); Estimated Glomerular Filt Rate > 60; Glucose Random 102 mg/dL (60-115); Potassium 4.4 mmol/L (3.3-5.1); Sodium 138 mmol/L (135-145)
== END 2023-06-09 10:38 | disposition home or self-care (01) ==
LOC: HO.LAB 10:37
PROVIDERS: PCP Internal Medicine; Referring Provider Internal Medicine; Visit Provider Internal Medicine Cardiovascular Disease
DX: I48.0 Paroxysmal atrial fibrillation (principal); I50.31 Acute diastolic (congestive) heart failure; Z79.899 Other long term (current) drug therapy
CPT/HCPCS: 36415; 80048; 93005; 99212

== ENCOUNTER 2023-06-09 10:37 | Outpatient (AMB) | payer MEDICARE, SELFPAY ==
--- NOTE | 2023-06-09 10:47 | MHC.OFFVIS ---
Intake Vital Signs 06/09/23 10:53 Height 5 ft 6 in Weight 152 lb 1.903 oz BMI 24.5 BP 122/74 Blood Pressure Location Lt brachial Position Sitting Pulse 61 Intake Visit Reasons: 6 mth f/up Intake Note: 6 month follow-up feeling ok Physical Fitness Teacher Required: No Allergies ciprofloxacin [CIPROFLOXACIN] Allergy (Unknown, Verified 06/03/23 10:40) ITCHY FEET oxycodone [Percocet] Adverse Reaction (Unknown, Verified 06/03/23 10:40) Unknown Medication List - Last Reconciled 06/09/23 by Ferdinand Abdalla MD [[employer]LIFT As directed] apixaban (Eliquis) 5 mg PO BID C,E,zinc,copper 32-[id number]-lwu 250-5-1 mg (Ocuvite Adult 50 Plus) 1 cap PO DAILY calcium carb-mag ox-zinc sulf 333-133-5 mg 1 tab PO DAILY cholecalciferol (vitamin D3) 25 mcg PO DAILY dorzolamide-timolol 22.3-6.8 mg/mL 1 drp ophthalmic (eye) BID fluticasone propionate 110 mcg/actuation 2 puffs PO BID furosemide 40 mg PO DAILY Lactobacill 46-B.animal-inulin 10 billion cell -100 mg (Probiotic-10 (with inulin)) 1 cap PO DAILY latanoprost 0.005% 1 drp ophthalmic (eye) BEDTIME metoprolol succinate ER 50 mg PO DAILY mirabegron ER (Myrbetriq) 50 mg PO DAILY 90 days omeprazole 20 mg PO DAILY rosuvastatin 20 mg PO BEDTIME spironolactone 25 mg See Protocol PO DAILY tamsulosin 0.4 mg PO BEDTIME 90 days [wheelchair As directed] HPI HPI Comments History of Present Illness Details Jonatan comes for follow-up. He has been doing well over the last 6 months. No worsening shortness of breath or orthopnea PND. No significant leg edema. Weight has remained stable. He comes in the office in a wheelchair but around the house he walks mostly without support. No falls. No bleeding issues or neurologic events. No prolonged palpitations irregular heartbeat. [facility] Medical History (HFpEF) heart failure with preserved ejection fraction Acute diastolic CHF (congestive heart failure) Atrial flutter Bladder neck contracture BPH (benign prostatic hyperplasia) CAD (coronary artery disease) CHF (congestive heart failure) Confusion COPD (chronic obstructive pulmonary disease) Hypercholesterolemia Hypertension Hypotonic bladder Pain and swelling of right lower leg Paraphimosis Peripheral vascular disease Persistent atrial fibrillation Pulmonary nodule Right knee pain Tubular adenoma of colon Type 2 diabetes mellitus with hyperglycemia Vitamin D deficiency Surgical History H/O inguinal hernia repair H/O vascular surgery History of appendectomy History of cataract surgery History of colonoscopy History of prostate surgery Family History Father No problems noted. Mother CVD (cardiovascular disease) Social History Household Members: Spouse Housing: House Do you presently have visiting nurse or other home services: No Alcohol intake: never Patient Tobacco Use Status: Former Tobacco user Tobacco use type: Cigarette e-Cigarette/Vaping Use: Never Used Second Hand Smoke Exposure: No service: Yes Current occupational status: retired Cognitive needs: Yes Hearing needs: Yes Vision needs: Yes Review of Systems Const Denies chills, Denies fatigue, Denies fever(s), Denies frequent falls, Denies weakness, Denies weight gain and Denies weight loss ENT Denies dizziness Card Denies chest pain, Denies leg edema, Denies lightheadedness, Denies palpitations, Denies dyspnea, Denies dyspnea on exertion, Denies orthopnea and Denies other (loss of consciousness) Resp Denies cough, Denies dyspnea and Denies dyspnea on exertion GI Denies hematochezia and Denies change in stool character Musc Denies abnormal gait, Denies muscle weakness, Denies numbness, Denies radiating pain into limb and Denies tingling Neuro Denies abnormal gait, Denies dizziness, Denies frequent falls, Denies numbness, Denies tingling and Denies weakness Endo Denies fatigue and Denies palpitations Physical Exam Vital Signs: Last Vital Signs Pulse 61 06/09/23 10:53 BP 122/74 06/09/23 10:53 BMI result Body Mass Index 24.5 Last Vital Signs Temp 97.8 F 03/23/21 11:50 Pulse 57 03/23/21 13:00 Resp 18 03/23/21 11:50 BP 128/62 03/23/21 13:00 Pulse Ox 96 03/23/21 13:00 Body Mass Index 22.9 Const General: no acute distress and awake Nutritional Appearance: thin and other (Frail elderly) Limitations: wheelchair Neck Neck: Yes trachea midline, Yes supple and Yes no JVD Resp Effort & Inspection: normal respiratory effort Auscultation: clear to auscultation bilaterally Cardio Jugular venous distension: no JVD Rate: regular rate Rhythm: regular rhythm Heart sounds: S1 normal heart sound present and S2 normal heart sound present Neuro General: moves all extremities Extrem General: Yes no clubbing, cyanosis or edema Office Procedures EKG Details: EKG shows normal sinus rhythm sinus arrhythmia with septal QS pattern [id number], Complete Assessment & Plan Assessment & Plan (1) (HFpEF) heart failure with preserved ejection fraction: Code(s): I50.30 - Unspecified diastolic (congestive) heart failure Qualifiers: Heart failure chronicity: acute Qualified Code(s): I50.31 - Acute diastolic (congestive) heart failure Plan: heart failure preserved ejection fraction, clinically euvolemic and well compensated. No hospitalizations last 6 months. Goals of therapy were discussed. Continue current therapy. Continue current diuretic regimen. Daily weight monitoring avoidance of salt loading was discussed advised to call me with any new symptoms. Continue spironolactone therapy for neurohormonal modulation. Semi annual renal function test should be pursued. Continue rhythm control approach. (2) Paroxysmal A-fib: Code(s): I48.0 - Paroxysmal atrial fibrillation Plan: Atrial fibrillation has remained suppressed on current medical therapy. Continue current metoprolol therapy. Continue full oral anticoagulation, currently on Eliquis 5 mg b.i.d.. Semi annual renal function test is recommended. Will follow up in the clinic in 6 months time, sooner p.r.n.. Thank you for allowing me to partake in his care Orders: Orders Basic Metabolic Panel Today I48.0 - Paroxysmal atrial fibrillation Coding Level of Care Code Est Pt Level 4 (19746) Diagnoses (HFpEF) heart failure with preserved ejection fraction I50.31 Heart failure chronicity: acute Paroxysmal A-fib I48.0 CPT Codes EKG - CPT: 16436-[id number], Complete ([id number])
[2023-06-09 10:53] VITALS: BP 122/74; PULSE 61; BMI 24.5
== END 2023-06-09 11:17 | disposition home or self-care (01) ==
PROVIDERS: PCP Internal Medicine; Referring Provider Internal Medicine; Visit Provider Internal Medicine Cardiovascular Disease
DX: I50.31 Acute diastolic (congestive) heart failure (principal); I48.0 Paroxysmal atrial fibrillation
CPT/HCPCS: 93010; 99214

== ENCOUNTER 2023-06-18 15:30 | Emergency (ER) | payer MEDICARE, SELFPAY ==
--- NOTE | ~2023-06-18 | CT_ITS ---
EXAMINATION: CT HEAD WITHOUT CONTRAST CLINICAL INFORMATION: Unwitnessed fall on Eliquis COMPARISON: 04/10/2021 TECHNIQUE: Contiguous axial imaging was performed from the skull base to vertex without intravenous administration of contrast. This CT examination was performed using dose optimization techniques as appropriate, variously including the following: *Automated exposure control *Adjustment of mA and/or kV according to patient size (this includes techniques or standardized protocols for targeted exams where dose is matched to indication/reason for exam; i.e. extremities or head) *Use of iterative reconstruction technique DLP: 720 mGy-cm FINDINGS: CT examination of the brain shows age-related involutional changes with prominence of the ventricles and sulci. Periventricular white matter hypodensities are evident, likely on the basis of chronic microvascular ischemic disease. No acute hemorrhage, mass effect or shift is evident. In the posterior fossa, the brainstem, cerebellum and fourth ventricle are unremarkable. The orbits and bony calvarium are intact. The paranasal sinuses and mastoid air cells are well pneumatized and clear. CT/CT head/brain wo IV con IMPRESSION: Age-related involutional changes and microvascular disease. No acute hemorrhage, mass effect or shift. No acute intracranial pathology or significant interval change since 04/10/2021.
--- NOTE | ~2023-06-18 | CT_ITS ---
EXAMINATION: CT CERVICAL SPINE WITHOUT CONTRAST CLINICAL INFORMATION: Unwitnessed fall on patella questions COMPARISON: Prior cervical spine CT of 04/09/2021 TECHNIQUE: Multiple helical unenhanced images were acquired through the cervical spine. Reformatted coronal and sagittal images were created from the helical data set. This CT examination was performed using dose optimization techniques as appropriate, variously including the following: *Automated exposure control *Adjustment of mA and/or kV according to patient size (this includes techniques or standardized protocols for targeted exams where dose is matched to indication/reason for exam; i.e. extremities or head) *Use of iterative reconstruction technique DLP: 256 mGy-cm FINDINGS: CT examination shows no prevertebral soft tissue swelling. Vertebral body L height and alignment are maintained. No fracture or subluxation is detected. The odontoid process, atlantoaxial articulation, cervicomedullary and cervicothoracic junctions are intact. Advanced multilevel degenerative disc disease is evident commensurate with age, with associated hypertrophic and spondylotic changes and uncovertebral joint hypertrophy throughout the cervical spine, but most severe at C6-C7, and C5-C6. No suspicious soft tissue masses evident in the neck. There is no adenopathy. Emphysematous changes are noted in the lung apices. CT/CT cervical spine wo IV con IMPRESSION: 1. No detected cervical spine fracture or subluxation. Fleischner guidelines were followed.
--- NOTE | ~2023-06-18 | XR_ITS ---
EXAMINATION: XR KNEE, LEFT CLINICAL INFORMATION: Pain fall COMPARISON: X-ray the left knee February 2021 and March 2017 TECHNIQUE: AP and lateral views of the left knee FINDINGS: Medial compartment: There is moderate joint space narrowing. Marginal osteophytes. Findings compatible with moderate osteoarthritis. Lateral compartment marginal osteophytes without joint space narrowing indicative of mild to moderate osteoarthritis. Patellofemoral compartment: marginal osteophytes indicative of at least mild osteoarthritis. Small joint effusion Prominent arterial calcification. Vascular Stent noted in the distal thigh unchanged. XR/XR knee LT 2V IMPRESSION: Osteoarthritis of the left knee probably unchanged compared with most recent x-rays. Small joint effusion. No fracture.
[2023-06-18 15:34] VITALS: BP 125/62; PULSE 65; O2SAT 95
[2023-06-18 15:37] VITALS: BMI 23.1
[2023-06-18 15:38] VITALS: BP 148/67; PULSE 68; RESP 18; TEMP 36.6; O2SAT 96
--- NOTE | 2023-06-18 16:07 | ED_ITS ---
HPI - Extremity Injury (Lower) General Chief Complaint: Extremity Injury, Lower Stated Complaint: Unwit fall,L knee pain, no loc, on thinners Time Seen by Provider: 06/18/23 15:45 Source: patient Mode of arrival: EMS Limitations: no limitations History of Present Illness HPI Narrative: Patient comes to the emergency room complaining of a fall. The fall was unwitnessed, patient lives at home with his . Patient states that he believes he did not hit his head or loss consciousness, patient takes Eliquis. Patient complaining of a skin tear on the dorsal aspect of the left foot. Patient denies any headache or neck pain. Patient complaining of pain in the dorsum of his foot where the skin tear is, mild knee pain, otherwise patient states that he feels well. Related Data Home Medications Medication Instructions Recorded Confirmed cholecalciferol (vitamin D3) 25 25 mcg PO DAILY 08/14/20 06/09/23 mcg (1,000 unit) capsule dorzolamide 22.3 mg-timolol 6.8 1 drp ophthalmic (eye) BID 08/14/20 06/09/23 mg/mL eye drops latanoprost 0.005 % eye drops 1 drp ophthalmic (eye) BEDTIME 08/14/20 06/09/23 Lactobacillus no.46-B. 1 cap PO DAILY 12/19/20 06/09/23 animalis-inulin 10 billion cell-100 mg capsule (Probiotic-10 (with inulin)) calcium carbonate 333 mg-magnesium 1 tab PO DAILY 12/19/20 06/09/23 oxide 133 mg-zinc sulf 5 mg tablet vit C,E,zinc,copper-gbmzu1u 250 1 cap PO DAILY 12/19/20 06/09/23 mg-lutein 5 mg-zeaxanthin 1 mg capsule (Ocuvite Adult 50 Plus) Previous Rx's Medication Instructions Recorded [employer]LIFT #1 ea 12/18/20 wheelchair #1 ea 03/22/21 apixaban 5 mg tablet (Eliquis) 5 mg PO BID #180 tabs 08/20/22 rosuvastatin 20 mg tablet 20 mg PO BEDTIME #90 tabs 08/21/22 metoprolol succinate 50 mg 50 mg PO DAILY #90 tabs 09/24/22 tablet,extended release 24 hr furosemide 40 mg tablet 40 mg PO DAILY #90 tabs 12/08/22 omeprazole 20 mg capsule,delayed 20 mg PO DAILY #30 caps 12/19/22 release spironolactone 25 mg tablet 25 mg PO DAILY #90 tabs 05/18/23 mirabegron 50 mg tablet,extended 50 mg PO DAILY 90 days #90 tabs 06/03/23 release 24 hr (Myrbetriq) tamsulosin 0.4 mg capsule 0.4 mg PO BEDTIME 90 days #90 caps 06/03/23 fluticasone propionate 110 2 puff PO BID #3 ea 06/12/23 mcg/actuation HFA aerosol inhaler Allergies Allergy/AdvReac Type Severity Reaction Status Date / Time ciprofloxacin [CIPROFLOXACIN] Allergy Unknown ITCHY FEET Verified 06/03/23 10:40 oxycodone [Percocet] AdvReac Unknown Unknown Verified 06/03/23 10:40 Review of Systems Review of Systems: Constitutional : No Weight loss, No Fever, No Chills, No Night Sweats, No Fatigue, No Malaise ENT/Mouth : No Hearing loss, No Ear Pain, No Nasal Congestion, No Sinus Pain, No Hoarseness, No sore throat, No Rhinorrhea, No Swallowing Difficulty Eyes: No Eye Pain, No Swelling, No Redness, No Foreign Body, No Discharge, No Vision Changes Cardiovascular : No Chest Pain, No SOB, No Dyspnea on Exertion, No Orthopnea, No Edema, No Palpitations Respiratory : No Cough, No Sputum, No Wheezing, No Smoke Exposure, No Dyspnea Gastrointestinal : No Nausea, No Vomiting, No Diarrhea, No Constipation, No abdominal Pain, No Hematochezia, No Melena Genitourinary : no irregular bleeding, No Dysuria, No Urinary Frequency, No Hematuria, No Urinary Incontinence, No Urgency, No Flank Pain, No Urinary Flow Changes, No Hesitancy Musculoskeletal : No joint pain, No Myalgias, No Joint Swelling Skin : Complaining of a skin tear on the dorsal aspect of the left foot Neuro : No Weakness, No Numbness, No Paresthesias, No Loss of Consciousness, No Dizziness, No Headache Psych : No Anxiety/Panic, No Depression, No SI/HI/AH/VH, No Social Issues, Heme/Lymph: No Bruising, No Bleeding,No Lymphadenopathy Endocrine : No Polyuria, No Polydipsia, No Temperature Intolerance PMFSH Past Medical History Medical History Confusion Pain and swelling of right lower leg Right knee pain Persistent atrial fibrillation Acute diastolic CHF (congestive heart failure) CHF (congestive heart failure) (HFpEF) heart failure with preserved ejection fraction Atrial flutter Hypotonic bladder Bladder neck contracture Paraphimosis Type 2 diabetes mellitus with hyperglycemia BPH (benign prostatic hyperplasia) Peripheral vascular disease Pulmonary nodule Hypertension CAD (coronary artery disease) COPD (chronic obstructive pulmonary disease) Vitamin D deficiency Hypercholesterolemia Tubular adenoma of colon Surgical History H/O inguinal hernia repair H/O vascular surgery History of appendectomy History of cataract surgery History of colonoscopy History of prostate surgery Family History Family History Father No problems noted. Mother CVD (cardiovascular disease) Social History Social History Household Members: Spouse Housing: House Do you presently have visiting nurse or other home services: No Alcohol intake: never Patient Tobacco Use Status: Former Tobacco user Tobacco use type: Cigarette Smoked in Last 30 Days: No e-Cigarette/Vaping Use: Never Used Second Hand Smoke Exposure: No Use of substances other than those prescribed or required for medical reasons: No Advance Directives: Yes Advance Directives on File: Yes Advance Directives Date on File: 04/11/21 service: Yes Current occupational status: retired Cognitive needs: Yes Hearing needs: Yes Vision needs: Yes Physical Exam Vital Signs: Vital Signs: Last Vital Signs Temp 98.9 F 06/18/23 17:01 Pulse 60 06/18/23 17:01 Resp 18 06/18/23 17:01 BP 146/56 H 06/18/23 17:01 Pulse Ox 96 06/18/23 17:01 O2 Del Method Room Air 06/18/23 17:01 BMI result Body Mass Index 23.1 Const: Other: Appearance: Alert. Oriented X3. No acute distress. Eyes: Pupils equal, round and reactive to light. ENT: Pharynx normal. Neck: Normal inspection. Neck supple. No lymph nodes noted. No crepitus, no C- spine tenderness CVS: Normal heart rate and rhythm. Pulses normal. Normal S1 and S2 Respiratory: No respiratory distress. Breath sounds normal. No Wheezing. No rales Abdomen: Soft and nontender. No rigidity. No distention. Skin: Skin warm and dry. Normal skin color. Normal skin turgor. 3 cm x 10 cm skin tear in the dorsum of the left foot. Extremities: No lower extremity edema. No Lacerations. No Rash Neuro: Oriented X 3. No motor deficit. No sensory deficit. Moving all extremities. No slurred speech. CN 2 through 12 grossly intact Psych: calm, cooperative, normal affect Course Course Course Narrative: -head and cervical spine pending. No head ache or neck pain. However, patient was on blood thinners, does not remember when his C-collar was alone, will ahead and do CT scans. Medical Decision Making Medical Decision Making MDM Narrative: -my interpretation of head CT: No intracranial bleed -my interpretation of x-ray of the knee: No fracture, no dislocation -I discussed the results with the patient, patient has an abrasion to the left foot on the dorsum -patient ready for discharge Differential Diagnosis Differential Diagnoses: The differential diagnosis associated with the presentation includes (Intracranial bleed, cervical fracture, contusion, concussion, left knee contusion/concussion dislocation/fracture) Admission/Observation Consideration of admission/observation: Escalation of care including admission/observation considered (Patient initially came in, admission considered, intracranial bleed suspected) Independent Interpretation I performed an independent interpretation of an: Plain X-Ray and CT Scan Radiology Impression Discussion of test interpretation with radiology: I have reviewed the radiologist's reading. Radiologist Impression: INDINGS: Medial compartment: There is moderate joint space narrowing. Marginal osteophytes. Findings compatible with moderate osteoarthritis. Lateral compartment marginal osteophytes without joint space narrowing indicative of mild to moderate osteoarthritis. Patellofemoral compartment: marginal osteophytes indicative of at least mild osteoarthritis. Small joint effusion Prominent arterial calcification. Vascular Stent noted in the distal thigh unchanged. XR/XR knee LT 2V IMPRESSION: Osteoarthritis of the left knee probably unchanged compared with most recent x-rays. Small joint effusion. No fracture. FINDINGS: CT examination of the brain shows age-related involutional changes with prominence of the ventricles and sulci. Periventricular white matter hypodensities are evident, likely on the basis of chronic microvascular ischemic disease. No acute hemorrhage, mass effect or shift is evident. In the posterior fossa, the brainstem, cerebellum and fourth ventricle are unremarkable. The orbits and bony calvarium are intact. The paranasal sinuses and mastoid air cells are well pneumatized and clear. CT/CT head/brain wo IV con IMPRESSION: Age-related involutional changes and microvascular disease. No acute hemorrhage, mass effect or shift. No acute intracranial pathology or significant interval change since 04/10/2021. Critical Care Time Critical Care Time Critical Care Time: Yes Total Critical Care Time: 60 Attestation: I have personally provided critical care time. Time includes review of lab data, radiology results, discussion with consultants, and monitoring for potential decompensation. Intervention performed as documented. Discharge Plan Discharge Clinical Impression: Fall, Abrasion, foot, Contusion of head Patient Disposition: Home, Self-Care Instructions: Fall Prevention (ED) Additional Instructions: Please follow-up with your primary care physician tomorrow. If you have any worsening or new symptoms, please return to the emergency room or call 911 Prescriptions: No Action (DME) [employer] STAIRLIFT See Rx Instructions .Route .MEDSUPPLY Qty: 1 0RF Rx Instructions: As directed (DME) wheelchair See Rx Instructions .Route .MEDSUPPLY Qty: 1 0RF Rx Instructions: As directed Eliquis 5 mg tablet 5 mg PO BID Qty: 180 3RF metoprolol succinate 50 mg tablet extended release 24 hr 50 mg PO DAILY Qty: 90 3RF furosemide 40 mg tablet 40 mg PO DAILY Qty: 90 3RF spironolactone 25 mg tablet 25 mg PO DAILY Qty: 90 2RF Protocol: Hold for SBP< HOLD for SBP < : 90 fluticasone propionate 110 mcg/actuation HFA aerosol inhaler 2 puff PO BID Qty: 3 3RF Ocuvite Adult 50 Plus 250-5-1 mg Capsule 1 cap PO DAILY calcium carb-mag ox-zinc sulf 333-133-5 mg Tablet 1 tab PO DAILY Probiotic-10 (with inulin) 10 billion cell -100 mg Capsule 1 cap PO DAILY dorzolamide-timolol 22.3-6.8 mg/mL drops 1 drp ophthalmic (eye) BID latanoprost 0.005 % drops 1 drp ophthalmic (eye) BEDTIME cholecalciferol (vitamin D3) 25 mcg (1,000 unit) capsule 25 mcg PO DAILY rosuvastatin 20 mg tablet 20 mg PO BEDTIME Qty: 90 2RF omeprazole 20 mg capsule,delayed release(DR/EC) 20 mg PO DAILY Qty: 30 0RF Myrbetriq 50 mg tablet extended release 24 hr 50 mg PO DAILY 90 Days Qty: 90 1RF tamsulosin 0.4 mg capsule 0.4 mg PO BEDTIME 90 Days Qty: 90 1RF
[2023-06-18 17:01] VITALS: BP 146/56; PULSE 60; RESP 18; TEMP 37.2; O2SAT 96
--- NOTE | 2023-06-18 22:10 | MHC.EDTECH ---
PATIENT WAS AMBULATED WITH GATE BELT AND WALKER.PATIENT WAS LIMITED TO WALKING A SHORT DISTANCE AND STATED HAVING KNEE PAIN.PATIENTS AND DAUGHTER STATED PATIENT APPEARED TO BE WALKING AT BASE LINE.PATIENT RATED PAIN 6 OUT OF 10.MD AND RN AWARE.
[2023-06-19 02:29] VITALS: BP 167/63; PULSE 73; RESP 17; TEMP 36.7; O2SAT 95
--- NOTE | 2023-06-19 02:31 | MHC.EDTECH ---
PT resting in bed respiration even and unlabored no distress noted plan of care ongoing
[2023-06-19 06:06] VITALS: BP 142/74; PULSE 69; RESP 16; TEMP 36.5; O2SAT 96
--- NOTE | 2023-06-19 07:02 | PC.NURSE ---
Resumed care of patient his morning, he is resting comfortably in bed. He is a.ox4, urinal at bedside, pt reporting no pain, is aware of the plan for the day at this time, awaiting PT/CM consult
[2023-06-19 07:20] VITALS: BP 134/69; RESP 12; TEMP 36.6; O2SAT 96
[2023-06-19 10:51] VITALS: BP 134/69; O2SAT 96
[2023-06-19 11:37] LABS: COVID-19 Test Negative (Negative); IDNOW Serial# BCCEAD1C
--- NOTE | 2023-06-19 11:52 | PC.NURSE ---
Pt having increased confusion, calling the nursing statement that he is stuck in an elevator. This investment underwriter just went into room to discuss with patient that he is not in an elevator, that he is at [facility], explained situation, pt put in hospital bed, diet order placed. Personal items in reach.
[2023-06-19 14:00] VITALS: BP 127/64; PULSE 116; RESP 20; TEMP 36.8; O2SAT 92
--- NOTE | 2023-06-19 14:48 | PHA.MEDREC ---
Pharmacy Consult ? Medication Reconciliation Pharmacy has completed the medication reconciliation. Spoke to patient at bedside, he was unsure. Spoke to Herminia ([phone]) who listed all medications with timing
--- NOTE | 2023-06-19 16:01 | MHC.CM.ED ---
Received case management consult overnight. Patient came to the ER due to a fall. Work up essentially negative. Physical therapy eval completed. Rehab is being recommended. Patient has not been inpatient in any facility in the past 30 days. Referrals sent to all 3 acute rehabs. Spoke with patient's , Herminia, via telephone at [phone]. Patient has been active wtih [facility] in the past. Herminia would prefer patient return home with [facility]. Referral made via [facility]. Herminia and her son will be at the ER around 430pm to transport patient home. Patient, Shavonne CABALLERO and Elsie BALL aware. Continue to monitor for d/c needs.
--- NOTE | 2023-06-19 16:17 | PC.NURSE ---
Patient transferred from main ED at 1400, awaiting disposition, family prefers patient discharged home with services vs rehab facility, patient confused, reporting no pain but stated he is unable to hear well on the right side asking if hearing aid battery can be changed. Val - patient experience supervisor pole yard was able to contact [facility] and batteries were replaced. Per msg from [facility] - Case Management family is to transport patient home with [facility] services after 1630
== END 2023-06-19 17:41 | disposition home or self-care (01) ==
PROVIDERS: Physician Assistant; Emergency Provider Emergency Medicine; PCP Internal Medicine
DX: S90.812A Abrasion, left foot, initial encounter (principal); S89.92XA Unspecified injury of left lower leg, initial encounter; S00.93XA Contusion of unspecified part of head, initial encounter; M54.2 Cervicalgia; R51.9 Headache, unspecified; M25.562 Pain in left knee; R26.81 Unsteadiness on feet; W01.0XXA Fall on same level from slipping, tripping and stumbling without subsequent striking against object, initial encounter; Y93.9 Activity, unspecified; Y92.9 Unspecified place or not applicable; Y99.9 Unspecified external cause status; Z20.822 Contact with and (suspected) exposure to COVID-19; Z79.899 Other long term (current) drug therapy; Z87.891 Personal history of nicotine dependence
CPT/HCPCS: 70450; 72125; 73560; 87635; 97162; 99284

== ENCOUNTER 2023-07-10 11:04 | Outpatient (AMB) | payer MEDICARE, SELFPAY ==
--- NOTE | 2023-07-10 11:27 | MHC.PC.OV ---
Vital Signs 07/10/23 11:30 Height 5 ft 6 in Weight 151 lb 14.376 oz BMI 24.5 BP 122/74 Blood Pressure Location Lt brachial Position Sitting Pulse 65 Pulse Source Pulse Oximeter Pulse Oximetry (%) 95 Oxygen Delivery Method Room Air Intake Visit Reasons: chf Allergies ciprofloxacin [CIPROFLOXACIN] Allergy (Unknown, Verified 07/10/23 11:30) ITCHY FEET oxycodone [Percocet] Adverse Reaction (Unknown, Verified 07/10/23 11:30) Unknown Medication List - Last Reconciled 07/10/23 by Darcy Otero MD [ACORN STAIRLIFT As directed] apixaban (Eliquis) 5 mg PO BID bacitracin 1 appl topical TID C,E,zinc,copper 65-vvdoh1r-llm 250-5-1 mg (Ocuvite Adult 50 Plus) 1 cap PO DAILY calcium carb-mag ox-zinc sulf 333-133-5 mg 1 tab PO DAILY PRN cholecalciferol (vitamin D3) 25 mcg PO DAILY dorzolamide-timolol 22.3-6.8 mg/mL 1 drp ophthalmic (eye) BID fluticasone propionate 110 mcg/actuation 2 puffs PO BID furosemide 40 mg PO DAILY Lactobacill 46-B.animal-inulin 10 billion cell -100 mg (Probiotic-10 (with inulin)) 1 cap PO DAILY latanoprost 0.005% 1 drp ophthalmic-Left BEDTIME metoprolol succinate ER 50 mg PO DAILY mirabegron ER (Myrbetriq) 50 mg PO DAILY 90 days rosuvastatin 20 mg PO BEDTIME spironolactone 25 mg See Protocol PO DAILY tamsulosin 0.4 mg PO DAILY [wheelchair As directed] Tobacco use date assessed: 12/19/22 Fall risk assessment: 2 + Falls in past year Last assessed Fall Risk: 07/10/23 Dental Screening Dental Screen Date: 07/10/23 Did you have a dental visit in the last 12 months?: No Did you have a dental problem in the last 6 months where you did not have access to dental care?: No Was dental information given to patient?: No HPI chf HPI Details 88-year-old male with multiple medical problems GERD atrial fibrillation congestive heart failure peripheral arterial disease diabetes mellitus BPH COPD hypercholesterolemia coming in for follow-up. Last seen in March 2023. Review of the notes in June 19 patient had a fall seen in the emergency room skin tear on the left foot x-rays were negative. Patient follows up with Cardiology in June 09 congestive heart failure with preserved ejection fraction continuing with diuretic atrial fibrillation for oral anticoagulation Eliquis 5 mg twice a day continue to monitor renal function twice a year. Echocardiogram done May 2023The left ventricular systolic function is normal. The calculated ejection fraction is 60% by biplane method. - Evidence suggests grade I (mild) diastolic dysfunction. - No obvious valvular pathology seen on this study. - Mild pulmonary hypertension is present. Patient also has neurogenic bladder and follows up with urology on tamsulosin andmyrbetriq PAtient has fallen out of bed multiple times but decline railing. [facility] Medical History Confusion Pain and swelling of right lower leg Right knee pain Persistent atrial fibrillation Acute diastolic CHF (congestive heart failure) CHF (congestive heart failure) (HFpEF) heart failure with preserved ejection fraction Atrial flutter Hypotonic bladder Bladder neck contracture Paraphimosis Type 2 diabetes mellitus with hyperglycemia BPH (benign prostatic hyperplasia) Peripheral vascular disease Pulmonary nodule Hypertension CAD (coronary artery disease) COPD (chronic obstructive pulmonary disease) Vitamin D deficiency Hypercholesterolemia Tubular adenoma of colon Surgical History H/O inguinal hernia repair H/O vascular surgery History of appendectomy History of cataract surgery History of colonoscopy History of prostate surgery Family History Father No problems noted. Mother CVD (cardiovascular disease) Social History Household Members: Spouse Housing: House Do you presently have visiting nurse or other home services: No Alcohol intake: never Patient Tobacco Use Status: Former Tobacco user Tobacco use type: Cigarette e-Cigarette/Vaping Use: Never Used Second Hand Smoke Exposure: No Advance Directives Date on File: 04/11/21 service: Yes Current occupational status: retired Cognitive needs: Yes Hearing needs: Yes Vision needs: Yes Questionnaire PHQ-9 Over the last 2 weeks, how often have you been bothered by any of the following problems? 1. Little interest or pleasure in doing things: not at all 2. Feeling down, depressed, or hopeless: not at all 3. Trouble falling or staying asleep, or sleeping too much: not at all 4. Feeling tired or having little energy: not at all 5. Poor appetite or overeating: not at all 6. Feeling bad about yourself - or that you are a failure or have let yourself or your family down: not at all 7. Trouble concentrating on things, such as reading the newspaper or watching television: not at all 8. Moving or speaking so slowly that other people could have noticed. Or the opposite - being so fidgety or restless that you have been moving around a lot more than usual: not at all 9. Thoughts that you would be better off or of hurting yourself in some way: not at all Total score: 0 Depression Screening Interpretation: Negative Source: Developed by Drs. Jonathan Mcneal, Fiona Bullard, Levi Nguyen and colleagues, with an educational lalitha from [employer]. Thrive Questionnaire Date Thrive assessed: 12/19/22 AUDIT C Alcohol Use Questionnaire (AUDIT-C) 1. How often do you have a drink containing alcohol?: Never 2. How many drinks containing alcohol do you have on a typical day when you are drinking?: 1 or 2 3. How often do you have six or more drinks on one occasion?: Never Total Score: 0 HUMBLE-7 AMB Questionnaire HUMBLE-7 Date HUMBLE - 7 assessed: 12/19/22 Source: Developed by Drs. Jonathan Mcneal, Fiona Bullard, Levi Nguyen and colleagues, with an educational lalitha from [employer]. Physical exam (Primary Care) Vital Signs: Last Vital Signs Pulse 65 07/10/23 11:30 BP 122/74 07/10/23 11:30 Pulse Ox 95 07/10/23 11:30 Oxygen Delivery Method Room Air 07/10/23 11:30 BMI result Body Mass Index 24.5 Tobacco/Smoking Status: Tobacco use Status Tobacco use date assessed 12/19/22 07/10/23 11:28 Patient Tobacco Use Status Former Tobacco user 07/10/23 11:28 Tobacco use type Cigarette 07/10/23 11:28 e-Cigarette/Vaping Use Never Used 07/10/23 11:28 PHQ-9: PHQ-9 Score PHQ-9: Total score 0 07/10/23 11:31 Depression Screening Interpretation: Negative Thrive Assessment: Date of Thrive Assessment Date Thrive assessed 12/19/22 07/10/23 11:28 Const General: alert; No acute distress Eyes Conjunctivae: conjunctivae normal Resp Auscultation: clear to auscultation bilaterally Cardio Rate: regular rate Rhythm: regular rhythm GI Inspection: Yes normal to inspection Extrem General: Yes normal to inspection and No edema Assessment and Plan Assessment & Plan (1) Paroxysmal A-fib: Code(s): I48.0 - Paroxysmal atrial fibrillation Plan: Continue with anticoagulation (2) Hypotonic bladder: Code(s): N31.2 - Flaccid neuropathic bladder, not elsewhere classified Plan: Patient follows up with urology on medication (3) Type 2 diabetes mellitus with hyperglycemia: Comment: March 2020 6.3, Dr. Brooks Code(s): E11.65 - Type 2 diabetes mellitus with hyperglycemia Qualifiers: Diabetes mellitus intermediate project manager insulin use: without long-term use Qualified Code(s): E11.65 - Type 2 diabetes mellitus with hyperglycemia Plan: Decrease the amount of carbohydrate intake, pasta, bread, rice and potatoes are all sugar and that is aside from all the sweet stuff, remember that fruits are good but they are Sweet also. Hemoglobin A1c goal of less than 7.0 patient is on diet control (4) BPH (benign prostatic hyperplasia): Code(s): N40.0 - Benign prostatic hyperplasia without lower urinary tract symptoms Plan: Continue with tamsulosin and patient follows up with urology (5) Peripheral vascular disease: Comment: Left SFA plasty Dr. Gant August 2018 Code(s): I73.9 - Peripheral vascular disease, unspecified Plan: When sitting down elevate the legs, exercise, and support stockings (6) COPD (chronic obstructive pulmonary disease): Code(s): J44.9 - Chronic obstructive pulmonary disease, unspecified Qualifiers: COPD type: emphysema Emphysema type: unspecified Qualified Code(s): J43.9 - Emphysema, unspecified Plan: Continue with inhaler as needed (7) Hypercholesterolemia: Code(s): E78.00 - Pure hypercholesterolemia, unspecified Plan: Avoid fried foods, chicken skin, eggs, butter margarine, pastries and meat. Be it pork or beef they have a lot of cholesterol LDL goal of less than 100 and triglyceride of less than 150 patient is taking rosuvastatin 20 mg once a day (8) GERD (gastroesophageal reflux disease): Code(s): K21.9 - Gastro-esophageal reflux disease without esophagitis Plan: Avoid the foods that causes that usually spicy foods, tomato products, juices, coffee, soda and foods that your sensitive to. After eating do not lie down, allow 3-4 hours before in lie down. And keep the head of bed above 30 degrees to avoid the acid from going up. (9) Congestive heart failure with preserved left ventricular function, NYHA class 3: Code(s): I50.30 - Unspecified diastolic (congestive) heart failure Plan: Continue with diuretic and spironolactone Orders: Orders B Type Natriuretic Peptide 3 Months I48.0 - Paroxysmal atrial fibrillation Comprehensive Met. Panel 3 Months I48.0 - Paroxysmal atrial fibrillation Complete Blood Count Auto Diff 3 Months I48.0 - Paroxysmal atrial fibrillation Thyroid Stimulating Hormone 3 Months I48.0 - Paroxysmal atrial fibrillation Creatinine Urine 3 Months E11.65 - Type 2 diabetes mellitus with hyperglycemia, I48.0 - Paroxysmal atrial fibrillation Free T4 (Free Thyroxine) 3 Months I48.0 - Paroxysmal atrial fibrillation Vitamin B12 and Folate 3 Months I48.0 - Paroxysmal atrial fibrillation Lipid Panel 3 Months E78.00 - Pure hypercholesterolemia, unspecified, I48.0 - Paroxysmal atrial fibrillation Microalbumin, Random (w Creat) 3 Months E11.65 - Type 2 diabetes mellitus with hyperglycemia, I48.0 - Paroxysmal atrial fibrillation Coding Level of Care Code Est Pt Level 4 (03696) Diagnoses Paroxysmal A-fib I48.0 Hypotonic bladder N31.2 Type 2 diabetes mellitus with hyperglycemia, without long-term current use of insulin E11.65 Diabetes mellitus long-term insulin use: without intermediate project manager use BPH (benign prostatic hyperplasia) N40.0 Peripheral vascular disease I73.9 Pulmonary emphysema, unspecified emphysema type J43.9 COPD type: emphysema Emphysema type: unspecified Hypercholesterolemia E78.00 GERD (gastroesophageal reflux disease) K21.9 Congestive heart failure with preserved left ventricular function, NYHA class 3 I50.30
[2023-07-10 11:30] VITALS: BP 122/74; PULSE 65; O2SAT 95; BMI 24.5
== END 2023-07-10 12:08 | disposition home or self-care (01) ==
PROVIDERS: PCP Internal Medicine; Visit Provider Internal Medicine
DX: I48.0 Paroxysmal atrial fibrillation (principal); E11.65 Type 2 diabetes mellitus with hyperglycemia; I73.9 Peripheral vascular disease, unspecified; J43.9 Emphysema, unspecified; I50.30 Unspecified diastolic (congestive) heart failure; N31.2 Flaccid neuropathic bladder, not elsewhere classified; N40.0 Benign prostatic hyperplasia without lower urinary tract symptoms; E78.00 Pure hypercholesterolemia, unspecified; K21.9 Gastro-esophageal reflux disease without esophagitis
CPT/HCPCS: 99214

== ENCOUNTER 2023-09-16 13:55 | Emergency (ER) | payer MEDICARE, SELFPAY ==
[2023-09-16] VITALS (9 sets, daily range): BP systolic 83–159; BP diastolic 36–74; PULSE 55–68; RESP 12–19; TEMP 36.4–36.6; O2SAT 94–96; BMI 27.5
--- NOTE | ~2023-09-16 | CT_ITS ---
EXAMINATION: CT CERVICAL SPINE WITHOUT CONTRAST CLINICAL INFORMATION: Trauma COMPARISON: Previous CT most recent June 2023 TECHNIQUE: Axial images through the cervical spine without IV contrast. Sagittal and coronal reconstructions on the technologist workstation were performed. This CT examination was performed using dose optimization techniques as appropriate, variously including the following: *Automated exposure control *Adjustment of mA and/or kV according to patient size (this includes techniques or standardized protocols for targeted exams where dose is matched to indication/reason for exam; i.e. extremities or head) *Use of iterative reconstruction technique DLP: 289 mGy-cm FINDINGS: Mild 2 mm anterior subluxation of C4 respect to C5. Bone alignment is otherwise normal. Bone alignment is otherwise normal. No acute fracture or dislocation. Well-corticated soft tissue ossifications posterior to the C4 to C6 spinous processes likely related to old trauma. Multilevel degenerative spondylosis and degenerative disc disease, greatest at C5-C6 and C6-C7. Bilateral multilevel facet arthritis. Degenerative changes at the C1 dens articulation. Prevertebral soft tissues are normal. Bilateral carotid calcification. Biapical pleural and parenchymal scarring and calcification. Small right upper lobe nodules, largest measuring 4 mm axial image 65 series 14. These appear similar to CTA of the chest March 2021. No chest CT follow-up recommended. Mild emphysema. CT/CT cervical spine wo IV con IMPRESSION: Degenerative changes. No acute fracture or dislocation. Fleischner guidelines were followed.
--- NOTE | ~2023-09-16 | XR_ITS ---
EXAMINATION: XR CHEST CLINICAL INFORMATION: chest pain COMPARISON: None available. TECHNIQUE: Frontal view of the chest was obtained. FINDINGS: The lungs are well-expanded without acute pneumonic process. There is no consolidation or pleural effusion. The heart size is borderline enlarged with mild prominence of pulmonary vascularity question mild congestion. There is mild spondylosis dorsal spine. XR/XR chest 1V IMPRESSION: Borderline enlarged heart with mild pulmonary vascular congestion.
--- NOTE | ~2023-09-16 | CT_ITS ---
EXAMINATION: CT HEAD WITHOUT CONTRAST CLINICAL INFORMATION: Fall. Head trauma. Patient on blood thinning medicine. COMPARISON: Previous head CT most recent June 2023 TECHNIQUE: Contiguous axial imaging was performed from the skull base to vertex without intravenous administration of contrast. This CT examination was performed using dose optimization techniques as appropriate, variously including the following: *Automated exposure control *Adjustment of mA and/or kV according to patient size (this includes techniques or standardized protocols for targeted exams where dose is matched to indication/reason for exam; i.e. extremities or head) *Use of iterative reconstruction technique DLP: 750 mGy-cm FINDINGS: There is no evidence of an extra-axial collection. There is no evidence of intra-axial or extra-axial hemorrhage. The ventricles and extra-axial CSF spaces are prominent suggestive of generalized atrophy. There is nonspecific periventricular white matter disease. No mass, mass effect or infarct. No skull fracture. Visualized paranasal sinuses, mastoid air cells and middle ears are clear. CT/CT head/brain wo IV con IMPRESSION: No acute findings. Generalized atrophy and nonspecific periventricular white matter disease similar to previous exam.
--- NOTE | 2023-09-16 14:02 | ED_ITS ---
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 History obtained from , HCP, who states patient fell asleep in chair and toppled over, + head strike, denies LOC. reports patient has been falling asleep a lot lately, decreased p.o. intake, in with upper respiratory symptoms. Patient with baseline confusion/dementia. Has walker and cane at home. cares for patient. Patient denies CP/SOB, abdominal pain, nausea/vomiting. Tdap up-to-date per our medical records MD complaint: fall Related Data Home Medications Medication Instructions Recorded Confirmed cholecalciferol (vitamin D3) 25 25 mcg PO DAILY 08/14/20 07/10/23 mcg (1,000 unit) capsule dorzolamide 22.3 mg-timolol 6.8 1 drp ophthalmic (eye) BID 08/14/20 07/10/23 mg/mL eye drops latanoprost 0.005 % eye drops 1 drp ophthalmic-Left BEDTIME 08/14/20 07/10/23 Lactobacillus no.46-B. 1 cap PO DAILY 12/19/20 07/10/23 animalis-inulin 10 billion cell-100 mg capsule (Probiotic-10 (with inulin)) calcium carbonate 333 mg-magnesium 1 tab PO DAILY PRN Heartburn 12/19/20 07/10/23 oxide 133 mg-zinc sulf 5 mg tablet vit C,E,zinc,copper-zadek3b 250 1 cap PO DAILY 12/19/20 07/10/23 mg-lutein 5 mg-zeaxanthin 1 mg capsule (Ocuvite Adult 50 Plus) tamsulosin 0.4 mg capsule 0.4 mg PO DAILY 06/19/23 07/10/23 Previous Rx's Medication Instructions Recorded ACORN STAIRLIFT #1 ea 12/18/20 wheelchair #1 ea 03/22/21 metoprolol succinate 50 mg 50 mg PO DAILY #90 tabs 09/24/22 tablet,extended release 24 hr furosemide 40 mg tablet 40 mg PO DAILY #90 tabs 12/08/22 spironolactone 25 mg tablet 25 mg PO DAILY #90 tabs 05/18/23 fluticasone propionate 110 2 puff PO BID #3 ea 06/12/23 mcg/actuation HFA aerosol inhaler bacitracin 500 unit/gram topical 1 appl topical TID #14 grams 06/18/23 ointment rosuvastatin 20 mg tablet 20 mg PO BEDTIME #90 tabs 08/19/23 apixaban 5 mg tablet (Eliquis) 5 mg PO BID #180 tabs 08/21/23 mirabegron 50 mg tablet,extended 50 mg PO DAILY 90 days #90 tabs 08/24/23 release 24 hr (Myrbetriq) Allergies Allergy/AdvReac Type Severity Reaction Status Date / Time ciprofloxacin [CIPROFLOXACIN] Allergy Unknown ITCHY FEET Verified 09/16/23 14:04 oxycodone [Percocet] AdvReac Unknown Unknown Verified 09/16/23 14:04 Review of Systems 2 Review of Systems: Constitutional: No Fever, No Chills, + Fatigue, No Malaise, + decreased p.o. intake ENT/Mouth: No Ear Pain, No sore throat, No Rhinorrhea, No Swallowing Difficulty Cardiovascular: No Chest Pain, No SOB, No Edema Respiratory: No Cough, No Sputum, No Dyspnea Gastrointestinal: No Nausea, No Vomiting, No Diarrhea, No Constipation, No Abdominal pain Genitourinary: No Dysuria, No Urinary Frequency, No Hematuria Musculoskeletal: + neck pain, No Myalgias, No Joint Swelling Skin: + laceration, No rash Neuro: No Weakness, No Loss of Consciousness, No Dizziness,+ Headache, + head strike Yes all other systems are reviewed and are negative Constitutional: Constitutional: Reports as per HPI Neurologic: Denies Abnormal speech present [facility] Past Medical History Attestation statement: The following information was validated with the patient. Source: old records reviewed Medical History Confusion Pain and swelling of right lower leg Right knee pain Persistent atrial fibrillation Acute diastolic CHF (congestive heart failure) CHF (congestive heart failure) (HFpEF) heart failure with preserved ejection fraction Atrial flutter Hypotonic bladder Bladder neck contracture Paraphimosis Type 2 diabetes mellitus with hyperglycemia BPH (benign prostatic hyperplasia) Peripheral vascular disease Pulmonary nodule Hypertension CAD (coronary artery disease) COPD (chronic obstructive pulmonary disease) Vitamin D deficiency Hypercholesterolemia Tubular adenoma of colon Surgical History History of colonoscopy H/O vascular surgery History of prostate surgery History of appendectomy History of cataract surgery H/O inguinal hernia repair Family History Family History Father No problems noted. Mother CVD (cardiovascular disease) Social History Social History Household Members: Spouse Housing: House Do you presently have visiting nurse or other home services: No Alcohol intake: never Comment: Telesitter Patient Tobacco Use Status: Former Tobacco user Tobacco use type: Cigarette Smoked in Last 30 Days: No e-Cigarette/Vaping Use: Never Used Second Hand Smoke Exposure: No Use of substances other than those prescribed or required for medical reasons: No Advance Directives: Yes Advance Directives on File: Yes Advance Directives Date on File: 04/11/21 service: Yes Current occupational status: retired Cognitive needs: Yes Hearing needs: Yes Vision needs: Yes Physical Exam 2 Vital Signs: Vital Signs: Last Vital Signs Temp 98 F 09/16/23 14:05 Pulse 67 09/16/23 14:05 Resp 19 09/16/23 14:05 BP 136/61 09/16/23 14:05 Pulse Ox 96 09/16/23 14:05 O2 Del Method Room Air 09/16/23 14:05 BMI result Body Mass Index 27.5 Const: General: cooperative and no acute distress O rientation/consciousness: oriented to person and oriented to place L imitations: no limitations (Underlying dementia) HEENT: Other: + 1 cm superficial laceration noted to l eft posterior scalp Head: Yes normal to inspection and No Preciado's sign Ears: hearing grossly normal bilaterally General nose exam: Normal external nose present Face and sinus: Yes normal facial exam Throat: Yes posterior oropharynx normal, Yes uvula midline and No uvular edema Eyes: General: appearance normal, both eyes and all related structures P upils: Equal, round and reactive pupils present EOM: EOMs intact bilaterally Neck: Other: C-collar in place Neck: Yes normal visual inspection and Yes no meningeal signs Resp: Effort & Inspection: normal respiratory effort and no respiratory distress Auscultation: clear to auscultation bilaterally Cardio: Rate: regular rate Heart sounds: S1 normal heart sound present and S2 normal heart sound present GI: Inspection: Yes normal to inspection Palpation (GI): Soft to palpation, nontender, no guarding and not rigid : General: Yes no CVA tenderness Back/Spine/Pelvis: Other: No midline cervical/thoracic/lumbar spinous tenderness/step-off or deformity Back: no CVA tenderness Skin: Rashes: no rashes Wounds: no wounds Neuro: General: oriented to person, oriented to place, tone normal, moves all extremities, no meningeal signs, no focal motor deficits and CN's II-XI intact bilaterally Cranial nerves: Yes CN's II-XII intact bilaterally and Yes Equal, round and reactive pupils present Cognition (Neuro): normal cognition (At baseline (per )) Speech: No Abnormal speech present Motor exam (neuro): 5/5 motor strength present throughout and no tremor noted Extrem: General: Yes normal to inspection Course Course Course Narrative: -1605--no leukocytosis. H&H at patient's baseline. BUN chronically elevated. Labs otherwise reassuring -COVID/flu/RSV negative -1630--ED care transferred to IDALIA Flanagan pending head/C-spine CT, CXR, UA, and PT/case management Procedures Laceration Laceration 1: Site: scalp Size (cm): 1 Description: linear Depth: simple, single layer Pre-repair: wound explored and irrigated extensively Number of sutures: 2 (tigre) Medical Decision Making Medical Decision Making [facility] Narrative: 88-year-old male with past medical history of GERD, AFib on Eliquis, CHF, PE, diabetes, BPH, COPD, HLD, presenting to the ED via EMS complaining of headache, neck pain, scalp laceration s/p mechanical fall out of chair 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 On exam vital signs stable, NAD, A&O x2 with baseline dementia, C-collar in place, superficial laceration noted to posterior scalp. Exam otherwise nonfocal. No focal neuro deficits. Concern for ICH vs fracture. Rule out metabolic/infectious etiology. Low suspicion for ACS/PE would like patient to go to STR if qualifies. Plan: EKG, labs, UA, CXR, head/C-spine CT, repair wound, PT/case management Please refer to course for remaining clinical decision making, interpretation of labs/imaging results, and discussions with consultants and/or family members. Differential Diagnosis Differential Diagnoses: The differential diagnosis associated with the presentation includes As above Admission/Observation Consideration of admission/observation: Escalation of care including admission/observation considered Lab Data MDM Lab Attestation statement: I reviewed the patient's lab results. 09/16/23 14:27 09/16/23 14:27 Labs: Lab Results 09/16/23 Range/Units 14:27 WBC 10.0 (4.8-10.8) X10*3/uL RBC 4.20 L (4.60-5.80) X10*6/uL Hgb 12.0 L (14.0-18.0) g/dl Hct 38.0 L (42.0-52.0) % MCV 90.5 (80.0-98.0) fL MCH 28.6 (27.0-33.0) pg MCHC 31.6 (31.0-36.0) g/dl RDW 13.3 (11.0-16.0) % Plt Count 302 (160-400) X10*3/uL MPV 8.9 L (9.4-12.4) fL Immature Gran % (Auto) 0.6 H (0.0-0.4) % Neut % (Auto) 72.0 (45-73) % Lymph % (Auto) 16.1 L (20-40) % [place] % (Auto) 9.0 (2-11) % Eos % (Auto) 1.6 (0-4) % Baso % (Auto) 0.7 (0-2) % Lymph # (Auto) 1.6 (1.2-4.9) X10*3/uL [place] # (Auto) 0.9 (0.1-1.2) X10*3/uL Eos # (Auto) 0.2 (0.0-0.4) X10*3/uL Baso # (Auto) 0.1 (0.0-0.2) X10*3/uL Abs Immat Gran (auto) 0.06 H (0.00-0.03) X10*3/uL Absolute Neuts (auto) 7.2 (2.0-8.3) x10*3/uL Absolute Nucleated RBC 0.000 (0.0-0.012) X10*3/uL Nucleated RBC % (auto) 0.0 (0.0-0.2) /100WBC PT 14.4 H (11.1-13.3) SEC INR 1.2 H (0.9-1.1) Sodium 140 (135-145) mmol/L Potassium 4.1 (3.3-5.1) mmol/L Chloride 107 (96-108) mmol/L Carbon Dioxide 25 (22-29) mmol/L Anion Gap 12 (12-20) BUN 26 H (9-16) mg/dL Creatinine 1.22 (0.5-1.4) mg/dL Estim Creat Clear Calc 41.1 Estimated GFR 56 Random Glucose 114 (60-115) mg/dL Calcium 9.1 (8.4-10.2) mg/dL Magnesium 2.4 (1.6-2.6) mg/dL Total Bilirubin 0.5 (0.0-1.0) mg/dL Direct Bilirubin 0.2 (0.0-0.5) mg/dL AST 17 (5-37) U/L ALT 18 (0-40) U/L Alkaline Phosphatase 81 (39-117) U/L Troponin I High Sens 4.2 (<3.5-35.0) ng/L Total Protein 6.8 (6.5-8.0) g/dL Albumin 3.9 (3.5-5.0) g/dL Influenza Type A (PCR) NEGATIVE (Negative) Influenza Type B (PCR) NEGATIVE (Negative) RSV RNA Qual (PCR) NEGATIVE (Negative) SARS-CoV-2 RNA (RT-PCR) NEGATIVE (Negative) Independent Interpretation I performed an independent interpretation of an: EKG (My interpretation EKG normal sinus rhythm with PACs rate of 70. MS interval 160. QTC 416. No STEMI) Radiology Impression Discussion of test interpretation with radiology: I have reviewed the radiologist's reading. Independent Historian Clinical information obtained from an independent historian. History obtained from or confirmed by: Spouse and EMS External Record Review External record reviewed: Inpatient record, Office record, Outpatient record, Prior outpatient labs, Prior outpatient radiology, Primary care record and Outside ED record Tests considered The following testing was considered but not selected: As above Chronic Conditions Patient?s care impacted by: Diabetes and Other (AFib on Eliquis) Discharge Plan Discharge Clinical Impression: Laceration of scalp, Fall, Head injury, Lethargy Patient Disposition: Still a Patient Prescriptions: No Action (DME) ACORN STAIRLIFT See Rx Instructions .Route .MEDSUPPLY Qty: 1 0RF Rx Instructions: As directed (DME) wheelchair See Rx Instructions .Route .MEDSUPPLY Qty: 1 0RF Rx Instructions: As directed metoprolol succinate 50 mg tablet extended release 24 hr 50 mg PO DAILY Qty: 90 3RF furosemide 40 mg tablet 40 mg PO DAILY Qty: 90 3RF spironolactone 25 mg tablet 25 mg PO DAILY Qty: 90 2RF Protocol: Hold for SBP< HOLD for SBP < : 90 fluticasone propionate 110 mcg/actuation HFA aerosol inhaler 2 puff PO BID Qty: 3 3RF rosuvastatin 20 mg tablet 20 mg PO BEDTIME Qty: 90 2RF Eliquis 5 mg tablet 5 mg PO BID Qty: 180 3RF Myrbetriq 50 mg tablet extended release 24 hr 50 mg PO DAILY 90 Days Qty: 90 1RF Ocuvite Adult 50 Plus 250-5-1 mg Capsule 1 cap PO DAILY calcium carb-mag ox-zinc sulf 333-133-5 mg Tablet 1 tab PO DAILY PRN (Reason: Heartburn) Probiotic-10 (with inulin) 10 billion cell -100 mg Capsule 1 cap PO DAILY bacitracin 500 unit/gram ointment 1 appl topical TID Qty: 14 0RF tamsulosin 0.4 mg capsule 0.4 mg PO DAILY dorzolamide-timolol 22.3-6.8 mg/mL drops 1 drp ophthalmic (eye) BID latanoprost 0.005 % drops 1 drp ophthalmic-Left BEDTIME cholecalciferol (vitamin D3) 25 mcg (1,000 unit) capsule 25 mcg PO DAILY
--- NOTE | 2023-09-16 14:10 | ECG_ITS ---
Test Reason : SLEEPY Blood Pressure : / mmHG Vent. Rate : 070 BPM Atrial Rate : 070 BPM P-R Int : 160 ms QRS Dur : 094 ms QT Int : 386 ms P-R-T Axes : 073 -02 070 degrees QTc Int : 416 ms Sinus rhythm with Premature atrial complexes Possible Anterior infarct (cited on or before 23-MAR-2021) Abnormal ECG When compared with ECG of 23-MAR-2021 13:45, Questionable change in initial forces of Septal leads Nonspecific T wave abnormality no longer evident in Inferior leads Referred By: Ana Baht Electronically Signed By:NADIYA BLANCO
[2023-09-16 14:32] LABS: MANUAL DIFF FLAG NO
[2023-09-16 14:40] LABS: Basophils Absolute Auto 0.1 X10*3/uL (0.0-0.2); Basophils Percent Auto 0.7 % (0-2); Eosinophils Absolute Auto 0.2 X10*3/uL (0.0-0.4); Eosinophils Percent Auto 1.6 % (0-4); INTERNATIONAL NORM RATIO 1.2 (0.9-1.1); Imm Gran Abs Auto 0.06 X10*3/uL (0.00-0.03); Imm Gran Pct Auto 0.6 % (0.0-0.4); Lymphocytes Absolute Auto 1.6 X10*3/uL (1.2-4.9); Lymphocytes Percent Auto 16.1 % (20-40); Mean Corpuscular HGB Conc 31.6 g/dl (31.0-36.0); Mean Corpuscular Hemoglobin 28.6 pg (27.0-33.0); Mean Corpuscular Volume 90.5 fL (80.0-98.0); Mean Platelet Volume 8.9 fL (9.4-12.4); Monocytes Absolute Auto 0.9 X10*3/uL (0.1-1.2); Neutrophils Absolute Auto 7.2 x10*3/uL (2.0-8.3); Platelet Count 302 X10*3/uL (160-400); Prothrombin Time 14.4 SEC (11.1-13.3); Red Cell Distribution Width 13.3 % (11.0-16.0)
[2023-09-16 14:53] LABS: Alanine Aminotransferase 18 U/L (0-40); Albumin Level 3.9 g/dL (3.5-5.0); Alkaline Phosphatase 81 U/L (39-117); Anion Gap 12 (12-20); Aspartate Amino Transferase 17 U/L (5-37); Bilirubin Direct 0.2 mg/dL (0.0-0.5); Bilirubin Total 0.5 mg/dL (0.0-1.0); Blood Urea Nitrogen 26 mg/dL (9-16); Calcium 9.1 mg/dL (8.4-10.2); Carbon Dioxide 25 mmol/L (22-29); Chloride 107 mmol/L (96-108); Creatinine Clr Calc Pharmacy 41.1; Estimated Glomerular Filt Rate 56; Glucose Random 114 mg/dL (60-115); Magnesium 2.4 mg/dL (1.6-2.6); Potassium 4.1 mmol/L (3.3-5.1); Sodium 140 mmol/L (135-145); Total Protein 6.8 g/dL (6.5-8.0)
[2023-09-16 15:00] LABS: Troponin-I High Sensitivity 4.2 ng/L (<3.5-35.0)
[2023-09-16 15:34] LABS: Influenza A PCR NEGATIVE (Negative); Influenza B PCR NEGATIVE (Negative); Resp Syncy Virus RNA Qual PCR NEGATIVE (Negative); SARS COV2 PCR INHOUSE NEGATIVE (Negative)
[2023-09-16 16:17] LABS: Appearance Urine Clear; Color Urine Yellow; Glucose Urine UA Negative (Negative); Leukocyte Esterase Urine Negative (Negative); Nitrite Urine Negative (Negative); Specific Gravity - Urine 1.015 (1.005-1.025); Urine Blood Negative (Negative); Urine Ketones Negative (Negative); Urine Protein Negative (Neg-Trace)
[2023-09-16] MEDS: guaiFENesin 200 MG/10 ML 10 ML LIQUID PO (18:53)
--- NOTE | 2023-09-16 21:34 | PHA.MEDREC ---
Pharmacy Consult ? Medication Reconciliation Pharmacy has completed the medication reconciliation. Patient's spouse Nidia confirmed medications. Leona Higginbotham, ErnstD
[2023-09-16] MEDS: Apixaban 5 MG TABLET PO (22:43)
[2023-09-16] MEDS: Atorvastatin Calcium 80 MG TABLET PO (22:43)
[2023-09-16] MEDS: Tamsulosin HCL 0.4 MG CAPSULE PO (22:43)
[2023-09-16] MEDS: Dorzolamide/Timolo 2.23%/0.68% 10 ML DRBTL 1 DROP EYE-BOTH (22:57)
--- NOTE | 2023-09-17 00:20 | MHC.EDTECH ---
Patient just came to overflow from the main emergency room ,Pt was transfer into hospital bed ,red sock given ,pt was assisted with urinal and fresh [place] water given ,bed alarm on bed .
--- NOTE | 2023-09-17 02:03 | PC.NURSE ---
This ticket writer assumed care of this Pt at 0000. Pt A&O to self, Pt WILLIAM had bilateral hearing aids. Denies any pain. Pt incontinent of urine, texas cath placed. Skin intact, pink, warm and dry. PO fluids provided.
--- NOTE | 2023-09-17 04:36 | PC.NURSE ---
Pt restless, took off texas cath, confused, states I don't have a , where is my clothing and attempting to get OOB. Needed multiple redirections and reassurance.
[2023-09-17 05:21] VITALS: BP 130/64; PULSE 62; RESP 16; TEMP 36.8; O2SAT 97
[2023-09-17 07:39] VITALS: BP 139/57; PULSE 62; RESP 20; O2SAT 94
[2023-09-17] MEDS: Apixaban 5 MG TABLET PO ×2 (07:41→20:40)
[2023-09-17] MEDS: Multivitamin TABLET 1 TAB PO (07:42)
[2023-09-17] MEDS: Metoprolol Succinate ER 50 MG TAB.ER.24H PO (07:42)
[2023-09-17] MEDS: Spironolactone 25 MG TABLET PO (07:42)
[2023-09-17] MEDS: Mirabegron 50 MG TAB.ER.24H PO (07:42)
[2023-09-17] MEDS: Furosemide 40 MG TABLET PO (07:42)
[2023-09-17] MEDS: Cholecalciferol (Vitamin D3) 25 MCG TABLET PO (07:42)
[2023-09-17] MEDS: Dorzolamide/Timolo 2.23%/0.68% 10 ML DRBTL 1 DROP EYE-BOTH ×2 (09:20→20:40)
--- NOTE | 2023-09-17 12:31 | MHC.EDTECH ---
patient was washed up with a complete bed changed
[2023-09-17 14:00] VITALS: BP 128/56; PULSE 58; RESP 20; TEMP 36.7; O2SAT 94
[2023-09-17 16:00] VITALS: BP 144/64; PULSE 61; RESP 16; TEMP 36.9; O2SAT 97
--- NOTE | 2023-09-17 16:20 | MHC.CM.ED ---
Spoke with patient's , Herminia, via telephone at [phone]. Patient's son was curious if patient could transfer to the [facility]. T/W explained [facility] only accepts watermaster care patients and has a waiting list. Herminia verbalizes understanding and feels patient can safely come home with VNA. Patient's son will come to the ER tomorrow to transport patient home. Patient has been active with [facility] in the past. Referral made via [facility]. Continue to monitor for d/c needs.
--- NOTE | 2023-09-17 17:57 | MHC.EDTECH ---
Patient was set up with dinner ,fed himself ate 100 % of meal and drank 240 ml fluids .
--- NOTE | 2023-09-17 19:38 | PC.NURSE ---
Assumed care of pt at 1900. PT watching tv at this. Does not appear to be in any acute distress, respirations even and unlabored. Pt denies pain at this time. Bed alarm on, bed locked in lowest position, call salgado within reach. Plan of care ongoing.
[2023-09-17] MEDS: Tamsulosin HCL 0.4 MG CAPSULE PO (20:40)
[2023-09-17] MEDS: Atorvastatin Calcium 80 MG TABLET PO (20:40)
[2023-09-17 22:36] VITALS: BP 145/74; PULSE 77; RESP 16; TEMP 37.2; O2SAT 94
--- NOTE | 2023-09-17 23:36 | PC.NURSE ---
Pt medicated as per DEC. taken whole with water without issue. Pericare provided, clean brief placed on pt. PT becoming increasingly disoriented- states he was bite twice and needed to leave. bed locked in lowest position, pt viable form nurses station. Plan of care ongoing.
--- NOTE | 2023-09-18 00:45 | PC.NURSE ---
Hourly rounding completed. PT appears to be sleeping. Respirations even and unlabored. Bed locked in lowest position, bed alarm on, video monitoring on, call salgado within reach. Plan of care on going
--- NOTE | 2023-09-18 01:54 | PC.NURSE ---
Hourly rounding complete. PT appears to be sleeping. Respirations even and unlabored. Call salgado within reach. Plan of care going.
--- NOTE | 2023-09-18 06:17 | PC.NURSE ---
Pericare provided. linens changed, new brief placed on pt. Repositioned for comfort. Call salgado within reach. safety precautions in place. plan of care ongoing.
[2023-09-18 06:30] VITALS: BP 139/64; PULSE 65; RESP 19; TEMP 36.4; O2SAT 93
[2023-09-18 08:12] LABS: Glucose, Whole Blood 104 mg/dL (60-115)
[2023-09-18] MEDS: Mirabegron 50 MG TAB.ER.24H PO (08:53)
[2023-09-18] MEDS: Apixaban 5 MG TABLET PO (08:54)
[2023-09-18] MEDS: Furosemide 40 MG TABLET PO (08:54)
[2023-09-18] MEDS: Dorzolamide/Timolo 2.23%/0.68% 10 ML DRBTL 1 DROP EYE-BOTH (08:54)
[2023-09-18] MEDS: Cholecalciferol (Vitamin D3) 25 MCG TABLET PO (08:54)
[2023-09-18] MEDS: Metoprolol Succinate ER 50 MG TAB.ER.24H PO (08:54)
[2023-09-18] MEDS: Multivitamin TABLET 1 TAB PO (08:54)
[2023-09-18] MEDS: Spironolactone 25 MG TABLET PO (08:54)
[2023-09-18] MEDS: Fluticasone Propionate 100 MCG BLST.W.DEV 2 PUFF INHALE (08:54)
--- NOTE | 2023-09-18 11:13 | MHC.EDTECH ---
patient was washed up with complete bed change
--- NOTE | 2023-09-18 11:20 | MHC.CM.PN ---
Addendum entered by Fadumo Benitez 09/18/23 16:00: [facility]ANIEL PUCKETT NOW SAYS THEY CAN SEE PT TOMORROW REFERRALS ALSO MADE TO [facility] PTS SON IS AWARE Addendum entered by Fadumo Benitez 09/18/23 15:11: CM MET WITH PTS SON, KARIE [phone] AT BEDSIDE HE REPORTS CONCERN THAT THE PT APPEARS DEHYDRATED AND WHEN HE GETS THAT WAY HE BECOMES MORE CONFUSED HE ALSO DISCUSSED CONCERNS THAT HIS FATHER WILL EVENTUALLY NEED CARE AT HOME OR SNF PLACEMENT PER DISCUSSION. REFERRALS WERE MADE TO [facility] KARIE AGREES TO TRANSPORT PT HOME ONCE HYDRATION IS PROVIDED HE ALSO ASKS THAT A NEW VNA REFERRAL GOES OUT HE PREFERS PT BE SEEN PRIOR TO THURSDAY HE REPORTS THEY HAVE ACTUALLY HAD A COUPLE DIFFERENT AGENCIES IN THE PAST SO THAT IS NOT SO IMPORTANT Original Note: PER CM NOTES, THE PLAN IS FOR PT TO DC HOME TODAY WITH VNA SERVICES NATHANIEL PUCKETT STATING THEY CANNOT START CARE PRIOR TO THURSDAY CM CALLED PTS , GOVIND [phone] WHO STATES A THURSDAY SOC WOULD BE FINE SHE SAYS SHE WAS WORRIED ABOUT THE PT COMING HOME BECAUSE SHE HAS A COLD HOWEVER SHE IS HAPPY THAT IT IS THE WEEKEND SO HER KIDS WILL BE AVAILABLE TO ASSIST GOVIND REPORTS THEIR SON WILL BE 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
[2023-09-18 11:38] LABS: Glucose, Whole Blood 130 mg/dL (60-115)
--- NOTE | 2023-09-18 12:29 | PC.NURSE ---
Pt drowsy at times. Confused. Ate 75% of breakfast with assist. Incontient x2 urine. Took all medications whole with sips of water.
[2023-09-18 13:55] VITALS: BP 114/60; PULSE 59; RESP 20; TEMP 36.6; O2SAT 98
[2023-09-18] MEDS: 0.9 % Sodium Chloride 1,000 ML 999 ML IV (15:42)
--- NOTE | 2023-09-18 15:45 | PC.NURSE ---
IV inserted,IV bolus started as ordered,lungs diminished bilaterally,patient comfortable .not in any distress,son at bedside
[2023-09-18 16:38] VITALS: BP 151/74; PULSE 78; RESP 16; TEMP 36.3; O2SAT 98
--- NOTE | 2023-09-18 16:57 | PC.NURSE ---
Bolus completed,patient tolerated it well,message sent to LIZZY Oconnor for discharge orders,son is at bedside.Patient voided 200 ml yellow urine in urinal and incontinent of large amt of urine .
--- NOTE | 2023-09-18 17:34 | MHC.EDTECH ---
This pct assumed care of pt at 1500 ,vitals taken ,blood sugar check ,Pt was incontinent of urine ,bed bath given ,Pt was assisted to get dress ,had dinner ate 60 % of meal ,drank 240 ml fluids .
[2023-09-18 17:35] LABS: Glucose, Whole Blood 109 mg/dL (60-115)
== END 2023-09-18 17:47 | disposition home or self-care (01) ==
PROVIDERS: Physician Assistant; Emergency Provider Emergency Medicine Emergency Medical Services; PCP Internal Medicine
DX: S09.90XA Unspecified injury of head, initial encounter (principal); S01.01XA Laceration without foreign body of scalp, initial encounter; W07.XXXA Fall from chair, initial encounter; R53.83 Other fatigue; Z20.822 Contact with and (suspected) exposure to COVID-19; Z20.828 Contact with and (suspected) exposure to other viral communicable diseases; Y93.89 Activity, other specified; Y92.019 Unspecified place in single-family (private) house as the place of occurrence of the external cause; Y99.9 Unspecified external cause status; E11.9 Type 2 diabetes mellitus without complications; I48.0 Paroxysmal atrial fibrillation; E78.00 Pure hypercholesterolemia, unspecified; I11.0 Hypertensive heart disease with heart failure; I50.9 Heart failure, unspecified; Z79.02 Long term (current) use of antithrombotics/antiplatelets; Z79.01 Long term (current) use of anticoagulants; Z79.899 Other long term (current) drug therapy
CPT/HCPCS: 0241U; 12011; 70450; 71045; 72125; 80048; 80076; 81003; 82947; 83735; 84484; 85025; 85610; 93005; 97162; 99285

== ENCOUNTER → 2023-09-16 14:10 | Outpatient (BNV) | payer MEDICARE, SELFPAY | PROVIDERS: Emergency Provider Emergency Medicine Emergency Medical Services; Visit Provider Internal Medicine | DX: I49.1 Atrial premature depolarization (principal); R94.31 Abnormal electrocardiogram [ECG] [EKG] | CPT/HCPCS: 93010 ==

== ENCOUNTER 2023-09-23 15:06 | Inpatient (IN) | payer MEDICARE, SELFPAY ==
[2023-09-23] VITALS (9 sets, daily range): BP systolic 114–170; BP diastolic 44–80; PULSE 57–85; RESP 15–26; TEMP 36.1–38.1; O2SAT 90–99; BMI 24.9
--- NOTE | ~2023-09-23 | XR_ITS ---
EXAMINATION: XR CHEST CLINICAL INFORMATION: Cough and fever COMPARISON: Previous chest x-ray 09/16/2023 TECHNIQUE: Frontal view of the chest was obtained. FINDINGS: The cardiac and mediastinal contours are normal. Coarse lung markings greatest at the left lung base questionable for infiltrate. Lungs are otherwise clear. No pleural effusion or pneumothorax. Degenerative changes of the spine. XR/XR chest 1V IMPRESSION: Question left base infiltrate.
--- NOTE | ~2023-09-23 | XR_ITS ---
EXAMINATION: XR CHEST CLINICAL INFORMATION: Hypoxia COMPARISON: Chest x-ray 09/23/2023. TECHNIQUE: Frontal view of the chest was obtained. FINDINGS: The lungs are hyperinflated with patchy opacity left lung base. Rest of lungs are clear. Heart size and pulmonary vascularity is normal. There is mild spondylosis of dorsal spine. XR/XR chest 1V IMPRESSION: Patchy opacity left lung base likely atelectasis or infiltrate. Similar findings were seen on the previous exam 09/23/2023.
--- NOTE | 2023-09-23 15:30 | MHC.CM.ED ---
Received telephone call from patient's son, Jonatan. Patient was d/c'd from ER on 09/18 with [facility]. Patient has been experiencing respiratory symptoms for a couple of days. Patient tested positive for Covid on a home test on 09/22. Patient's tested positive for Covid on 09/20. [facility] has also been involved with patient. Jonatan feels patient will need to be admitted. T/W explained patient will need a work up before being able to determine if admission was necessary. Jonatan verbalized understanding. Carla, shuttle operator aware. Continue to monitor for d/c needs.
--- NOTE | 2023-09-23 15:41 | ECG_ITS ---
Test Reason : COVID Blood Pressure : / mmHG Vent. Rate : 069 BPM Atrial Rate : 069 BPM P-R Int : 192 ms QRS Dur : 094 ms QT Int : 388 ms P-R-T Axes : 073 -06 071 degrees QTc Int : 415 ms Normal sinus rhythm Normal ECG When compared with ECG of 16-SEP-2023 14:20, Premature atrial complexes are no longer Present Referred By: Zuleima Swain Electronically Signed By:Margarito Mcarthur
--- NOTE | 2023-09-23 15:46 | ED_ITS ---
HPI - Weakness General Chief complaint: Weakness Stated complaint: +COVID,SOB,WEAK W/FALLS PER EMS Time Seen by Provider: 09/23/23 15:28 Source: EMS Mode of arrival: EMS Limitations: altered mental status History of Present Illness HPI Narrative: Patient comes to the emergency room via ambulance from home. Patient has advanced dementia and is a poor historian. Seems that patient lives at home with his and a daughter who takes care of them. According to EMS, the patient has been very weak, usually is able to get out of bed but has unable to do so. According to EMS, the patient's daughter tested them for COVID and patient was positive. They have also noted that patient has increased coughing. Patient denies chest pain or shortness of breath at this time. However, patient's history may not be reliable. Of note, patient was in the ED/case management for several days and discharged 5 days ago with VNA services at home. Related Data Home Medications Medication Instructions Recorded Confirmed cholecalciferol (vitamin D3) 25 25 mcg PO DAILY 08/14/20 09/23/23 mcg (1,000 unit) capsule dorzolamide 22.3 mg-timolol 6.8 1 drp ophthalmic (eye) BID 08/14/20 09/23/23 mg/mL eye drops latanoprost 0.005 % eye drops 1 drp ophthalmic-Left BEDTIME 08/14/20 09/23/23 Lactobacillus no.46-B. 1 cap PO DAILY 12/19/20 09/23/23 animalis-inulin 10 billion cell-100 mg capsule (Probiotic-10 (with inulin)) vit C,E,zinc,copper-ayavb0d 250 1 cap PO DAILY 12/19/20 09/23/23 mg-lutein 5 mg-zeaxanthin 1 mg capsule (Ocuvite Adult 50 Plus) tamsulosin 0.4 mg capsule 0.4 mg PO BEDTIME 06/19/23 09/23/23 Previous Rx's Medication Instructions Recorded ACORN STAIRLIFT #1 ea 12/18/20 wheelchair #1 ea 03/22/21 metoprolol succinate 50 mg 50 mg PO DAILY #90 tabs 09/24/22 tablet,extended release 24 hr furosemide 40 mg tablet 40 mg PO DAILY #90 tabs 12/08/22 spironolactone 25 mg tablet 25 mg PO DAILY #90 tabs 05/18/23 fluticasone propionate 110 2 puff PO BID #3 ea 06/12/23 mcg/actuation HFA aerosol inhaler rosuvastatin 20 mg tablet 20 mg PO BEDTIME #90 tabs 08/19/23 apixaban 5 mg tablet (Eliquis) 5 mg PO BID #180 tabs 08/21/23 mirabegron 50 mg tablet,extended 50 mg PO DAILY 90 days #90 tabs 08/24/23 release 24 hr (Myrbetriq) hospital bed #1 ea 09/21/23 Allergies Allergy/AdvReac Type Severity Reaction Status Date / Time ciprofloxacin [CIPROFLOXACIN] Allergy Unknown ITCHY FEET Verified 09/23/23 15:32 oxycodone [Percocet] AdvReac Unknown Unknown Verified 09/23/23 15:32 Review of Systems 2 Review of Systems: Patient complaining of coughing more than usual Yes Unobtainable due to mental condition (Dementia) [facility] Past Medical History Medical History Confusion Pain and swelling of right lower leg Right knee pain Persistent atrial fibrillation Acute diastolic CHF (congestive heart failure) CHF (congestive heart failure) (HFpEF) heart failure with preserved ejection fraction Atrial flutter Hypotonic bladder Bladder neck contracture Paraphimosis Type 2 diabetes mellitus with hyperglycemia BPH (benign prostatic hyperplasia) Peripheral vascular disease Pulmonary nodule Hypertension CAD (coronary artery disease) COPD (chronic obstructive pulmonary disease) Vitamin D deficiency Hypercholesterolemia Tubular adenoma of colon Surgical History History of colonoscopy H/O vascular surgery History of prostate surgery History of appendectomy History of cataract surgery H/O inguinal hernia repair Family History Family History Father No problems noted. Mother CVD (cardiovascular disease) Social History Social History Household Members: Spouse Housing: House Do you presently have visiting nurse or other home services: No Alcohol intake: never Comment: Telesitter Patient Tobacco Use Status: Former Tobacco user Tobacco use type: Cigarette Smoked in Last 30 Days: No e-Cigarette/Vaping Use: Never Used Second Hand Smoke Exposure: No Advance Directives: Yes Advance Directives on File: Yes Advance Directives Date on File: 04/11/21 service: Yes Current occupational status: retired Cognitive needs: Yes Hearing needs: Yes Vision needs: Yes Physical Exam 2 Vital Signs: Vital Signs: Last Vital Signs Temp 98.7 F 09/23/23 16:00 Pulse 67 09/23/23 16:00 Resp 26 H 09/23/23 16:12 BP 142/61 H 09/23/23 16:00 Pulse Ox 93 09/23/23 16:00 O2 Del Method Room Air 09/23/23 16:00 BMI result Body Mass Index 24.9 Const: Other: Appearance: Alert. No acute distress Eyes: Pupils equal, round and reactive to light. ENT: Pharynx normal. Neck: Normal inspection. Neck supple. No lymph nodes noted. No crepitus CVS: Normal heart rate and rhythm. Pulses normal. Normal S1 and S2 Respiratory: No respiratory distress. Breath sounds normal. No Wheezing. Bilateral rales, no crackles Abdomen: Soft and nontender. No rigidity. No distention. Skin: Skin warm and clammy Normal skin color. Normal skin turgor. Extremities: No lower extremity edema. No Lacerations. No Rash Neuro: Oriented X 3. No motor deficit. No sensory deficit. Moving all extremities. No slurred speech. CN 2 through 12 grossly intact Psych: calm, cooperative, normal affect Course Course Course Narrative: -patient was discharged from the ED/overflow, he was in the ED for several days. -all of patient's labs and imaging pending. Medications Administered Generic Name Dose Route Start Last Admin Trade Name Freq PRN Reason Stop Dose Admin Sodium Chloride 2,100 mls @ 150 mls/hr 09/23/23 15:40 09/23/23 16:11 Ns IVCONT 09/24/23 05:39 150 mls/hr .Q14H ONE Administration Discontinued Medications Generic Name Dose Route Start Last Admin Trade Name Freq PRN Reason Stop Dose Admin Dexamethasone Sodium Phosphate 6 mg 09/23/23 15:43 09/23/23 16:11 Dexamethasone Sod Phosphate 4 Mg/Ml Vial IVPUSH 09/23/23 15:44 6 mg ONCE ONE Administration Medical Decision Making Medical Decision Making [facility] Narrative: -at this time, 17:10, patient's chest x-rays became available, patient may have an infiltrate . Patient does have COVID. Patient will be treated empirically with Zosyn and fluids. Patient's IV fluids will be given slow, patient has history of heart failure. Patient's blood pressure within normal limits. Patient not tachycardic, sepsis is not suspected -my interpretation of chest x-ray: No obvious signs of pneumonia, there may be some overlapping atelectasis? Radiology reports a possible infiltrate, but it is unclear Differential Diagnosis Differential Diagnoses: The differential diagnosis associated with the presentation includes (COVID, influenza, pneumonia) Admission/Observation Consideration of admission/observation: Escalation of care including admission/observation considered Consult Healthcare Provider Management of the patient was discussed with: Hospitalist Lab Data MDM Lab Attestation statement: I reviewed the patient's lab results. 09/23/23 15:52 09/23/23 16:16 Labs: Lab Results 09/23/23 09/23/23 09/23/23 Range/Units 15:52 16:16 16:20 WBC 14.6 H (4.8-10.8) X10*3/uL RBC 4.18 L (4.60-5.80) X10*6/uL Hgb 12.1 L (14.0-18.0) g/dl Hct 37.7 L (42.0-52.0) % MCV 90.2 (80.0-98.0) fL MCH 28.9 (27.0-33.0) pg MCHC 32.1 (31.0-36.0) g/dl RDW 13.9 (11.0-16.0) % Plt Count 281 (160-400) X10*3/uL MPV 9.1 L (9.4-12.4) fL Immature Gran % (Auto) 0.5 H (0.0-0.4) % Neut % (Auto) 84.1 H (45-73) % Lymph % (Auto) 7.9 L (20-40) % Porter % (Auto) 7.4 (2-11) % Eos % (Auto) 0.0 (0-4) % Baso % (Auto) 0.1 (0-2) % Lymph # (Auto) 1.2 (1.2-4.9) X10*3/uL Porter # (Auto) 1.1 (0.1-1.2) X10*3/uL Eos # (Auto) 0.0 (0.0-0.4) X10*3/uL Baso # (Auto) 0.0 (0.0-0.2) X10*3/uL Abs Immat Gran (auto) 0.07 H (0.00-0.03) X10*3/uL Absolute Neuts (auto) 12.3 H (2.0-8.3) x10*3/uL Absolute Nucleated RBC 0.000 (0.0-0.012) X10*3/uL Nucleated RBC % (auto) 0.0 (0.0-0.2) /100WBC PT (11.1-13.3) SEC INR (0.9-1.1) VBG pH 7.48 H (7.32-7.43) VBG pCO2 28 mmHg VBG pO2 45 mmHg VBG HCO3 21 L (22-26) mmol/L VBG O2 Saturation 79.0 % VBG Base Excess -0.7 mmol/L Sodium 139 (135-145) mmol/L Potassium 4.3 (3.3-5.1) mmol/L Chloride 108 (96-108) mmol/L Carbon Dioxide 22 (22-29) mmol/L Anion Gap 13 (12-20) BUN 29 H (9-16) mg/dL Creatinine 1.19 (0.5-1.4) mg/dL Estim Creat Clear Calc 40.2 Estimated GFR 58 Random Glucose 98 (60-115) mg/dL Lactic Acid 2.6 H* (0.5-2.0) mmol/L Calcium 8.8 (8.4-10.2) mg/dL Total Bilirubin 0.5 (0.0-1.0) mg/dL Direct Bilirubin 0.2 (0.0-0.5) mg/dL AST 40 H (5-37) U/L ALT 23 (0-40) U/L Alkaline Phosphatase 67 (39-117) U/L Troponin I High Sens 22.0 D (<3.5-35.0) ng/L B-Natriuretic Peptide 181 H (<100) pg/mL Total Protein 6.8 (6.5-8.0) g/dL Albumin 3.8 (3.5-5.0) g/dL COVID-19 (CARLOS) Positive A (Negative) COVID-19 Clin Com See Note Influenza Type A (NINFA) Negative (Negative) Influenza Type B (NINFA) Negative (Negative) Influenza A & B Note See Note 09/23/23 Range/Units 16:24 WBC (4.8-10.8) X10*3/uL RBC (4.60-5.80) X10*6/uL Hgb (14.0-18.0) g/dl Hct (42.0-52.0) % MCV (80.0-98.0) fL MCH (27.0-33.0) pg MCHC (31.0-36.0) g/dl RDW (11.0-16.0) % Plt Count (160-400) X10*3/uL MPV (9.4-12.4) fL Immature Gran % (Auto) (0.0-0.4) % Neut % (Auto) (45-73) % Lymph % (Auto) (20-40) % Porter % (Auto) (2-11) % Eos % (Auto) (0-4) % Baso % (Auto) (0-2) % Lymph # (Auto) (1.2-4.9) X10*3/uL Porter # (Auto) (0.1-1.2) X10*3/uL Eos # (Auto) (0.0-0.4) X10*3/uL Baso # (Auto) (0.0-0.2) X10*3/uL Abs Immat Gran (auto) (0.00-0.03) X10*3/uL Absolute Neuts (auto) (2.0-8.3) x10*3/uL Absolute Nucleated RBC (0.0-0.012) X10*3/uL Nucleated RBC % (auto) (0.0-0.2) /100WBC PT 20.2 H D (11.1-13.3) SEC INR 1.7 H (0.9-1.1) VBG pH (7.32-7.43) VBG pCO2 mmHg VBG pO2 mmHg VBG HCO3 (22-26) mmol/L VBG O2 Saturation % VBG Base Excess mmol/L Sodium (135-145) mmol/L Potassium (3.3-5.1) mmol/L Chloride (96-108) mmol/L Carbon Dioxide (22-29) mmol/L Anion Gap (12-20) BUN (9-16) mg/dL Creatinine (0.5-1.4) mg/dL Estim Creat Clear Calc Estimated GFR Random Glucose (60-115) mg/dL Lactic Acid (0.5-2.0) mmol/L Calcium (8.4-10.2) mg/dL Total Bilirubin (0.0-1.0) mg/dL Direct Bilirubin (0.0-0.5) mg/dL AST (5-37) U/L ALT (0-40) U/L Alkaline Phosphatase (39-117) U/L Troponin I High Sens (<3.5-35.0) ng/L B-Natriuretic Peptide (<100) pg/mL Total Protein (6.5-8.0) g/dL Albumin (3.5-5.0) g/dL COVID-19 (CARLOS) (Negative) COVID-19 Clin Com Influenza Type A (NINFA) (Negative) Influenza Type B (NINFA) (Negative) Influenza A & B Note Independent Interpretation I performed an independent interpretation of an: EKG (My interpretation of EKG: Normal sinus rhythm, heart rate 69, ST segment depression or elevation, no T- wave inversion, QTC 415) and Plain X-Ray Radiology Impression Discussion of test interpretation with radiology: I have reviewed the radiologist's reading. Radiologist Impression: The cardiac and mediastinal contours are normal. Coarse lung markings greatest at the left lung base questionable for infiltrate. Lungs are otherwise clear. No pleural effusion or pneumothorax. Degenerative changes of the spine. XR/XR chest 1V IMPRESSION: Question left base infiltrate. Independent Historian Clinical information obtained from an independent historian. History obtained from or confirmed by: EMS Critical Care Time Critical Care Time Critical Care Time: Yes Total Critical Care Time: 75 Attestation: I have personally provided critical care time. Time includes review of lab data, radiology results, discussion with consultants, and monitoring for potential decompensation. Intervention performed as documented. Discharge Plan Discharge Clinical Impression: COVID-19, Pneumonia, Weakness Patient Disposition: Admitted As Inpatient Prescriptions: No Action (DME) ACORN STAIRLIFT See Rx Instructions .Route .MEDSUPPLY Qty: 1 0RF Rx Instructions: As directed (DME) wheelchair See Rx Instructions .Route .MEDSUPPLY Qty: 1 0RF Rx Instructions: As directed metoprolol succinate 50 mg tablet extended release 24 hr 50 mg PO DAILY Qty: 90 3RF furosemide 40 mg tablet 40 mg PO DAILY Qty: 90 3RF spironolactone 25 mg tablet 25 mg PO DAILY Qty: 90 2RF Protocol: Hold for SBP< HOLD for SBP < : 90 fluticasone propionate 110 mcg/actuation HFA aerosol inhaler 2 puff PO BID Qty: 3 3RF rosuvastatin 20 mg tablet 20 mg PO BEDTIME Qty: 90 2RF Eliquis 5 mg tablet 5 mg PO BID Qty: 180 3RF Myrbetriq 50 mg tablet extended release 24 hr 50 mg PO DAILY 90 Days Qty: 90 1RF (DME) hospital bed See Rx Instructions .Route .MEDSUPPLY Qty: 1 0RF Rx Instructions: As directed Ocuvite Adult 50 Plus 250-5-1 mg Capsule 1 cap PO DAILY Probiotic-10 (with inulin) 10 billion cell -100 mg Capsule 1 cap PO DAILY tamsulosin 0.4 mg capsule 0.4 mg PO BEDTIME dorzolamide-timolol 22.3-6.8 mg/mL drops 1 drp ophthalmic (eye) BID latanoprost 0.005 % drops 1 drp ophthalmic-Left BEDTIME cholecalciferol (vitamin D3) 25 mcg (1,000 unit) capsule 25 mcg PO DAILY
[2023-09-23 15:58] LABS: MANUAL DIFF FLAG NO
[2023-09-23 16:01] LABS: Basophils Percent Auto 0.1 % (0-2); Hematocrit 37.7 % (42.0-52.0); Hemoglobin 12.1 g/dl (14.0-18.0); Imm Gran Abs Auto 0.07 X10*3/uL (0.00-0.03); Imm Gran Pct Auto 0.5 % (0.0-0.4); Lymphocytes Absolute Auto 1.2 X10*3/uL (1.2-4.9); Lymphocytes Percent Auto 7.9 % (20-40); Mean Corpuscular HGB Conc 32.1 g/dl (31.0-36.0); Mean Corpuscular Hemoglobin 28.9 pg (27.0-33.0); Mean Corpuscular Volume 90.2 fL (80.0-98.0); Mean Platelet Volume 9.1 fL (9.4-12.4); Monocytes Absolute Auto 1.1 X10*3/uL (0.1-1.2); Monocytes Percent Auto 7.4 % (2-11); Neutrophils Absolute Auto 12.3 x10*3/uL (2.0-8.3); Neutrophils Percent Auto 84.1 % (45-73); Platelet Count 281 X10*3/uL (160-400); Red Blood Count 4.18 X10*6/uL (4.60-5.80); Red Cell Distribution Width 13.9 % (11.0-16.0); White Blood Count 14.6 X10*3/uL (4.8-10.8)
--- NOTE | 2023-09-23 16:06 | PHA.MEDREC ---
Pharmacy Consult ? Medication Reconciliation Pharmacy has completed the medication reconciliation. Patient just discharge 09/18 from the ER. Med rec completed by this [facility] on 09/16 prior to discharge. Med rec done by discharge summary. Leona Higginbotham, ErnstD
[2023-09-23 16:07] LABS: COVID-19 Test Positive (Negative); IDNOW Serial# 08D9AD1C
[2023-09-23] MEDS: 0.9 % Sodium Chloride 2,100 ML 150 ML IVCONT (16:11)
[2023-09-23] MEDS: dexAMETHasone sod phosphate 4 MG/ML VIAL 6 MG IVPUSH (16:11)
[2023-09-23 16:23] LABS: B Type Natriuretic Peptide 181 pg/mL (<100)
[2023-09-23 16:25] LABS: Venous Blood Gas Refer to POC result
[2023-09-23 16:26] LABS: VBG Base Excess -0.7 mmol/L; VBG HCO3 21 mmol/L (22-26); VBG pCO2 28 mmHg; VBG pH 7.48 (7.32-7.43); VBG pO2 45 mmHg
[2023-09-23 16:28] LABS: Lactic Acid 2.6 mmol/L (0.5-2.0)
[2023-09-23 16:36] LABS: INTERNATIONAL NORM RATIO 1.7 (0.9-1.1); Prothrombin Time 20.2 SEC (11.1-13.3)
[2023-09-23 16:38] LABS: IDNOW Serial# BCCEAD1C; Influenza A Negative (Negative); Influenza B2 Negative (Negative)
[2023-09-23 16:45] LABS: Alanine Aminotransferase 23 U/L (0-40); Albumin Level 3.8 g/dL (3.5-5.0); Alkaline Phosphatase 67 U/L (39-117); Anion Gap 13 (12-20); Aspartate Amino Transferase 40 U/L (5-37); Bilirubin Direct 0.2 mg/dL (0.0-0.5); Bilirubin Total 0.5 mg/dL (0.0-1.0); Blood Urea Nitrogen 29 mg/dL (9-16); Calcium 8.8 mg/dL (8.4-10.2); Carbon Dioxide 22 mmol/L (22-29); Chloride 108 mmol/L (96-108); Creatinine Clr Calc Pharmacy 40.2; Estimated Glomerular Filt Rate 58; Glucose Random 98 mg/dL (60-115); Potassium 4.3 mmol/L (3.3-5.1); Sodium 139 mmol/L (135-145); Total Protein 6.8 g/dL (6.5-8.0)
--- NOTE | 2023-09-23 16:51 | MHC.EDTECH ---
Addendum entered by Lakeisha Riggs 09/24/23 00:08: UPON CHANGING PATIENT THIS PCT NOTICE PATIENT HAS OLD BRUISE ON LEFT SIDE HIP ,RN REZA WAS MADE AWARE . Original Note: This pct assumed care of Patient at 1500 ,vitals taken ,ekg done and was read by Provider ,blood drawn including 2nd sets of blood culture ,and sent to lab ,Pt was inconient of urine ,carte given and bedding change ,,Call salgado within Pt reach .
[2023-09-23] MEDS: Piperacillin Sodium/Tazobactam 3.375 GM in 0.9 % Sodium Chloride 50 ML IV (17:42)
[2023-09-23 17:57] LABS: Reflex Lactate? Lactic Acid Added
--- NOTE | 2023-09-23 18:02 | PM.IMHP ---
History of Present Illness Date of Service: 09/23/23 Chief Complaint: Weakness, decrease PO intake An 88 years old male with PMH of GERD, AFib on Eliquis, CHF, PE, diabetes, BPH, COPD, HLD who presents to ED with increase weakness and decrease PO intake over the last 2 days. The patient was recently in the ED for a fall at home and went back home after fluids and PT Eval 5 [employer]. since then his family noticed worsening in physical strength and decrease appetite. his symptoms associated with cough and Upper respiratory symptoms. he has advanced dementia and could not contribute to the history. No chest pain, palpitations, SOB, nausea, vomiting, diarrhea or urinary symptoms. tested +ve Covid by family. In ED found to have elevated WBCs, LA with mild dehydration. Admitted for further evaluation and treatment. Review of Systems Review of Systems: No fever, chills but has generalized weakness No chest pain, palpitation having shortness of breath and coughing No abdominal pain, nausea or vomiting No urinary symptoms No any rash or wounds PMFSH Medical History Confusion Pain and swelling of right lower leg Right knee pain Persistent atrial fibrillation Acute diastolic CHF (congestive heart failure) CHF (congestive heart failure) (HFpEF) heart failure with preserved ejection fraction Atrial flutter Hypotonic bladder Bladder neck contracture Paraphimosis Type 2 diabetes mellitus with hyperglycemia BPH (benign prostatic hyperplasia) Peripheral vascular disease Pulmonary nodule Hypertension CAD (coronary artery disease) COPD (chronic obstructive pulmonary disease) Vitamin D deficiency Hypercholesterolemia Tubular adenoma of colon Family History Father No problems noted. Mother CVD (cardiovascular disease) Surgical History History of colonoscopy H/O vascular surgery History of prostate surgery History of appendectomy History of cataract surgery H/O inguinal hernia repair Social History Household Members: Spouse Housing: House Do you presently have visiting nurse or other home services: No Alcohol intake: never Comment: Telesitter Patient Tobacco Use Status: Former Tobacco user Tobacco use type: Cigarette Smoked in Last 30 Days: No e-Cigarette/Vaping Use: Never Used Second Hand Smoke Exposure: No Advance Directives: Yes Advance Directives on File: Yes Advance Directives Date on File: 04/11/21 service: Yes Current occupational status: retired Cognitive needs: Yes Hearing needs: Yes Vision needs: Yes Meds Allergies Allergy/AdvReac Type Severity Reaction Status Date / Time ciprofloxacin [CIPROFLOXACIN] Allergy Unknown ITCHY FEET Verified 09/23/23 15:32 oxycodone [Percocet] AdvReac Unknown Unknown Verified 09/23/23 15:32 Active Medications: Current Medications Acetaminophen (Acetaminophen 325 Mg Tablet) 650 mg PO Q6H PRN PRN Reason: Pain, Mild (Pain Scale 1-3) Dexamethasone (Dexamethasone 6 Mg Tablet) 6 mg PO DAILY [facility] Sodium Chloride (Ns) 2,100 mls @ 100 mls/hr IVCONT .Q21H ONE Stop: 09/24/23 12:39 Last Admin: 09/23/23 16:11 Dose: 150 mls/hr Doxycycline Hyclate 100 mg/ (Sodium Chloride) 250 mls @ 166.67 mls/hr IV Q12H [facility] Ondansetron HCl (Ondansetron Hcl 4 Mg/2 Ml Vial) 4 mg IVPUSH Q8H PRN PRN Reason: Nausea and Vomiting Sodium Chloride (0.9 % Sodium Chloride Flush 3 Ml Syringe) 3 ml IVFLUSH QSHIFT [facility] Home Medications Medication Instructions Recorded Confirmed Last Taken Type cholecalciferol (vitamin D3) 25 25 mcg PO DAILY 08/14/20 09/23/23 03/20/21 History mcg (1,000 unit) capsule dorzolamide 22.3 mg-timolol 6.8 1 drp ophthalmic (eye) BID 08/14/20 09/23/23 03/20/21 History mg/mL eye drops latanoprost 0.005 % eye drops 1 drp ophthalmic-Left BEDTIME 08/14/20 09/23/23 03/19/21 History Lactobacillus no.46-B. 1 cap PO DAILY 12/19/20 09/23/23 03/20/21 History animalis-inulin 10 billion cell-100 mg capsule (Probiotic-10 (with inulin)) vit C,E,zinc,copper-dfamh2q 250 1 cap PO DAILY 12/19/20 09/23/23 03/20/21 History mg-lutein 5 mg-zeaxanthin 1 mg capsule (Ocuvite Adult 50 Plus) tamsulosin 0.4 mg capsule 0.4 mg PO BEDTIME 06/19/23 09/23/23 Unknown History Physical Exam Vital Signs and Narrative: Vital Signs: Last Vital Signs Temp 98.7 F 09/23/23 16:00 Pulse 71 09/23/23 17:52 Resp 21 H 09/23/23 17:52 BP 145/58 H 09/23/23 17:52 Pulse Ox 93 09/23/23 17:52 O2 Del Method Room Air 09/23/23 17:52 BMI result Body Mass Index 24.9 Const: Other: Constitutional : Awake, frail looking, not in distress Neck : Normal inspection, Supple Cardiovascular : RRR, no JVP, no lower extremity edema Respiratory : fair bilateral air entry, no crackles, wheezes or rhonchi Gastrointestinal: soft, lax, Normal bowel sounds, Non tender Skin : Warm, Dry Neurological : Alert & oriented to self, No focal deficit Results Labs 09/23/23 15:52 09/23/23 16:16 Labs: Laboratory Results - last 24 hr 09/23/23 09/23/23 09/23/23 15:52 16:16 16:20 MCV 90.2 MCH 28.9 MCHC 32.1 RDW 13.9 Plt Count 281 MPV 9.1 L Immature Gran % (Auto) 0.5 H Neut % (Auto) 84.1 H Lymph % (Auto) 7.9 L [place] % (Auto) 7.4 Eos % (Auto) 0.0 Baso % (Auto) 0.1 Lymph # (Auto) 1.2 [place] # (Auto) 1.1 Eos # (Auto) 0.0 Baso # (Auto) 0.0 Abs Immat Gran (auto) 0.07 H Absolute Neuts (auto) 12.3 H Absolute Nucleated RBC 0.000 Nucleated RBC % (auto) 0.0 PT INR VBG pH 7.48 H VBG pCO2 28 VBG pO2 45 VBG HCO3 21 L VBG O2 Saturation 79.0 VBG Base Excess -0.7 Anion Gap 13 Estim Creat Clear Calc 40.2 Estimated GFR 58 Random Glucose 98 Lactic Acid 2.6 H* Calcium 8.8 Total Bilirubin 0.5 Direct Bilirubin 0.2 AST 40 H ALT 23 Alkaline Phosphatase 67 B-Natriuretic Peptide 181 H Total Protein 6.8 Albumin 3.8 COVID-19 (CARLOS) Positive A COVID-19 Clin Com See Note Influenza Type A (NINFA) Negative Influenza Type B (NINFA) Negative Influenza A & B Note See Note 09/23/23 16:24 MCV MCH MCHC RDW Plt Count MPV Immature Gran % (Auto) Neut % (Auto) Lymph % (Auto) [place] % (Auto) Eos % (Auto) Baso % (Auto) Lymph # (Auto) [place] # (Auto) Eos # (Auto) Baso # (Auto) Abs Immat Gran (auto) Absolute Neuts (auto) Absolute Nucleated RBC Nucleated RBC % (auto) PT 20.2 H D INR 1.7 H VBG pH VBG pCO2 VBG pO2 VBG HCO3 VBG O2 Saturation VBG Base Excess Anion Gap Estim Creat Clear Calc Estimated GFR Random Glucose Lactic Acid Calcium Total Bilirubin Direct Bilirubin AST ALT Alkaline Phosphatase B-Natriuretic Peptide Total Protein Albumin COVID-19 (CARLOS) COVID-19 Clin Com Influenza Type A (NINFA) Influenza Type B (NINFA) Influenza A & B Note Imaging Radiologist's Impressions: Impressions Chest X-Ray 09/23/23 16:28 IMPRESSION: Question left base infiltrate. Assessment and Plan (1) Weakness: Status: Acute (2) Pneumonia: Status: Acute (3) COVID-19: Status: Acute Plan An 88 years old male with PMH of GERD, AFib on Eliquis, CHF, PE, diabetes, BPH, COPD, HLD who presents to ED with increase weakness and decrease PO intake over the last 2 days. PHysical deconditioning 2/2 Covid19 infection No documented hypoxia No signs of sepsis IVF Dexamethasone 6 mg daily Wean O2 down as tolerated physical deconditioning given hx of falls Left lower lobe pneumonia CXR showing LLL infiltrates Pending cultures Doxycycline and Ceftriaxone Hx dCHF Hold Lasix for dehydration continue MEtoprolol and spironolactone HLD Statin BPH Tamsulosin Atrial flutter controlled, on Eliquis and Metoprolol DVT PPx Eliquis The patient will likely need 2 overnight hospital stay given generalized deconditioning and decrease PO intake and risk of falls and need of safe discharge plan which can not be done in less acute level of care Quality Stroke Does the patient have a stroke diagnosis?: No VTE Prior VTE?: No VTE Risk Level:: Medical - moderate - high VTE Device Contraindication: Treatment Not Indicated VTE Drug Contraindication: N/A - Med Ordered
[2023-09-23 18:09] LABS: Appearance Urine Clear; Color Urine Yellow; Glucose Urine UA Negative (Negative); Leukocyte Esterase Urine Negative (Negative); Nitrite Urine Negative (Negative); UMIC TRIGGER UACC YES; Urine Blood Trace (Negative); Urine Ketones Negative (Negative); Urine Protein Negative (Neg-Trace)
[2023-09-23 18:13] LABS: Bacteria Urine None Seen (None Seen); Hyaline Casts Urine 0-2 /LPF (0-2); RBC Urine 0-2 /HPF (0-2); Squamous Epithelial Cell Urine 0-2 /HPF (0-2); WBC Urine 0-5 /HPF (0-5)
--- NOTE | 2023-09-23 19:09 | PC.NURSE ---
pt has 2 tigre in the back of his head from a recent fall
[2023-09-23 19:14] LABS: Lactate Dehydrogenase 294 U/L (118-273)
[2023-09-23] MEDS: Doxycycline Hyclate 100 MG in 0.9 % Sodium Chloride 250 ML 166.67 MG IV (19:20)
[2023-09-23 19:33] LABS: Ferritin 66 ng/mL (20-250)
[2023-09-23 19:48] LABS: ~Lactic Acid-LAB USE ONLY 1.2 mmol/L (0.5-2.0)
--- NOTE | 2023-09-23 20:01 | PC.NURSE ---
this rn assumed care of pt. pt resting in stretcher comfortably. pt denies pain at this time. lung sounds clear bilaterally. pt noted to have two tigre in the back of head from previous fall, hospitalist aware.
[2023-09-23] MEDS: Fluticasone Propionate 100 MCG BLST.W.DEV 2 PUFF INHALE (20:32)
--- NOTE | 2023-09-23 21:06 | PC.NURSE ---
pt doxyxycline completed at this time. pt sleeping, respirations even and unlabored.
[2023-09-23] MEDS: Tamsulosin HCL 0.4 MG CAPSULE PO (21:19)
[2023-09-23] MEDS: Atorvastatin Calcium 80 MG TABLET PO (21:19)
[2023-09-23] MEDS: cefTRIAXone sodium 1 GM in 0.9 % Sodium Chloride 50 ML IV (21:19)
[2023-09-23] MEDS: Apixaban 5 MG TABLET PO (21:19)
--- NOTE | 2023-09-23 21:23 | PC.NURSE ---
pt medicated per dec. pharmacy contacted to bring up pt eye drops at this time.
[2023-09-23] MEDS: Dorzolamide/Timolo 2.23%/0.68% 10 ML DRBTL 1 DROP EYE-BOTH (21:26)
[2023-09-23] MEDS: Latanoprost 0.005 % Ophth Sol 2.5 ML DROPS 1 DROP EYE-LEFT (21:26)
--- NOTE | 2023-09-23 21:43 | PC.NURSE ---
pt eye drops placed at bedside.
--- NOTE | 2023-09-23 23:33 | MHC.EDTECH ---
Rounding done ,vitals taken pt comfortable ,no apparent distress noted ,Pt was offered food and fluids ,Patient said no he just want to sleep .
[2023-09-24] VITALS (8 sets, daily range): BP systolic 109–146; BP diastolic 60–68; PULSE 55–61; RESP 16–18; TEMP 36.2–36.9; O2SAT 91–96; BMI 24.9
--- NOTE | 2023-09-24 00:09 | MHC.EDTECH ---
PATIENT WAS INCONTINENT OF URINE ,CARE GIVEN AND BEDDING CHANGE ,PATIENT HAS A BED ON IMC ,WAITING FOR NURSE TO NURSE REPORT .
--- NOTE | 2023-09-24 00:10 | PC.NURSE ---
pt cleaned and repositioned in bed and cleaned. pt noted to have bruise in multiple stages to the left hip.
--- NOTE | 2023-09-24 00:58 | HO.SKINPHOTO ---
Location: Coccyx Category: Pressure Injury Stage: 1 Length: Width: Depth: cm non-blanchable redness to coccyx
[2023-09-24] MEDS: Doxycycline Hyclate 100 MG in 0.9 % Sodium Chloride 250 ML 166.67 MG IV ×2 (05:07→17:19)
[2023-09-24 06:21] LABS: Hematocrit 35.5 % (42.0-52.0); Hemoglobin 11.1 g/dl (14.0-18.0); Mean Corpuscular HGB Conc 31.3 g/dl (31.0-36.0); Mean Corpuscular Hemoglobin 28.4 pg (27.0-33.0); Mean Corpuscular Volume 90.8 fL (80.0-98.0); Mean Platelet Volume 9.1 fL (9.4-12.4); Platelet Count 250 X10*3/uL (160-400); Red Blood Count 3.91 X10*6/uL (4.60-5.80); White Blood Count 13.3 X10*3/uL (4.8-10.8)
[2023-09-24 06:35] LABS: Anion Gap 12 (12-20); Blood Urea Nitrogen 27 mg/dL (9-16); Calcium 8.6 mg/dL (8.4-10.2); Carbon Dioxide 22 mmol/L (22-29); Chloride 111 mmol/L (96-108); Creatinine Clr Calc Pharmacy 49.3; Estimated Glomerular Filt Rate > 60; Glucose Random 138 mg/dL (60-115); Potassium 3.9 mmol/L (3.3-5.1); Sodium 141 mmol/L (135-145)
[2023-09-24] MEDS: Spironolactone 25 MG TABLET PO (07:57)
[2023-09-24] MEDS: Metoprolol Succinate ER 50 MG TAB.ER.24H PO (07:58)
[2023-09-24] MEDS: Multivitamin TABLET 1 TAB PO (07:58)
[2023-09-24] MEDS: Cholecalciferol (Vitamin D3) 25 MCG TABLET PO (07:58)
[2023-09-24] MEDS: Mirabegron 50 MG TAB.ER.24H PO (07:58)
[2023-09-24] MEDS: 0.9 % Sodium Chloride Flush 3 ML SYRINGE IVFLUSH ×3 (07:58→20:31)
[2023-09-24] MEDS: dexAMETHasone 6 MG TABLET PO (07:58)
[2023-09-24] MEDS: Apixaban 5 MG TABLET PO ×2 (07:58→20:30)
[2023-09-24] MEDS: Fluticasone Propionate 100 MCG BLST.W.DEV 2 PUFF INHALE ×2 (08:06→22:40)
--- NOTE | 2023-09-24 08:51 | MHC.CM.PN ---
IMM 09/24. Pt covid+. Pt lives at home with his /HCP Herminia ([phone]). Herminia reports pt has a cane, walker, and transport wheelchair. She states he cannot return home, it is not an option, he is too heavy and doesn't do anything for himself, and is fully dependent on care. Per Herminia, it takes her and their son and daughter to assist him in getting ready for appointments, etc. Pt is active with [facility]. Per pts , they have been working with [facility] as well. Transport will likely be via BLS. DCP TBD, pending PT eval to assist with D/C dispo. PCP: Dr. Taveras Po
[2023-09-24] MEDS: Dorzolamide/Timolo 2.23%/0.68% 10 ML DRBTL 1 DROP EYE-BOTH ×2 (09:12→23:32)
--- NOTE | 2023-09-24 09:42 | P.PNIM_ITS ---
Subjective Subjective Date of Service: 09/24/23 Interval History: He was seen and evaluated Feels mildly better denies any fever or chills no reported overnight events Review of Systems Review of Systems: Yes all other systems are reviewed and are negative Physical Exam 2 Vital Signs: Vital Signs: Last Vital Signs Temp 97.7 F 09/24/23 07:07 Pulse 61 09/24/23 08:09 Resp 18 09/24/23 08:09 BP 125/60 09/24/23 07:07 Pulse Ox 93 09/24/23 07:07 O2 Del Method Room Air 09/24/23 07:07 BMI result Body Mass Index 24.9 Const: Other: Constitutional : Awake, frail looking, not in distress Neck : Normal inspection, Supple Cardiovascular : RRR, no JVP, no lower extremity edema Respiratory : fair bilateral air entry, no crackles, wheezes or rhonchi Gastrointestinal: soft, lax, Normal bowel sounds, Non tender Skin : Warm, Dry Neurological : Alert & oriented to self, No focal deficit Objective Data Active Medications Acetaminophen (Acetaminophen 325 Mg Tablet) 650 mg PO Q6H PRN PRN Reason: Pain, Mild (Pain Scale 1-3) Apixaban (Apixaban 5 Mg Tablet) 5 mg PO BID [facility] Last Admin: 09/24/23 07:58 Dose: 5 mg Documented By: MATTHIEU Atorvastatin Calcium (Atorvastatin Calcium 80 Mg Tablet) 80 mg PO BEDTIME [facility] Last Admin: 09/23/23 21:19 Dose: 80 mg Documented By: ARLEEN Dexamethasone (Dexamethasone 6 Mg Tablet) 6 mg PO DAILY [facility] Last Admin: 09/24/23 07:58 Dose: 6 mg Documented By: MATTHIEU Dorzolamide/Timolol (Dorzolamide/Timolo 2.23%/0.68% 10 Ml Drbtl) 1 drop EYE- BOTH BID [facility] Last Admin: 09/24/23 09:12 Dose: 1 drop Documented By: MATTHIEU Fluticasone Propionate (Fluticasone Propionate 100 Mcg Blst.W.Dev) 2 puff INHALE RBID [facility] Last Admin: 09/24/23 08:06 Dose: 2 puff Documented By: AUBREE Furosemide (Furosemide 40 Mg Tablet) 40 mg PO DAILY [facility]; Protocol Sodium Chloride (Ns) 2,100 mls @ 100 mls/hr IVCONT .Q21H ONE Stop: 09/24/23 12:39 Last Infusion: 09/24/23 08:59 Dose: Infused Documented By: MATTHIEU Doxycycline Hyclate 100 mg/ (Sodium Chloride) 250 mls @ 166.67 mls/hr IV Q12H [facility] Last Infusion: 09/24/23 06:41 Dose: Infused Documented By: OPAL Ceftriaxone Sodium 1 gm/ (Sodium Chloride) 50 mls @ 100 mls/hr IV Q24H [facility] Last Infusion: 09/23/23 21:49 Dose: Infused Documented By: ARLEEN Latanoprost (Latanoprost 0.005 % Ophth Susana 2.5 Ml Drops) 1 drop EYE-LEFT BEDTIME [facility] Last Admin: 09/23/23 21:26 Dose: 1 drop Documented By: ARLEEN Metoprolol Succinate (Metoprolol Succinate Er 50 Mg Tab.Er.24h) 50 mg PO DAILY [facility]; Protocol Last Admin: 09/24/23 07:58 Dose: 50 mg Documented By: MATTHIEU Mirabegron (Mirabegron 50 Mg Tab.Er.24h) 50 mg PO DAILY [facility] Last Admin: 09/24/23 07:58 Dose: 50 mg Documented By: MATTHIEU Multivitamins/Vitamin C (Multivitamin Tablet) 1 tab PO DAILY [facility] Last Admin: 09/24/23 07:58 Dose: 1 tab Documented By: MATTHIEU Ondansetron HCl (Ondansetron Hcl 4 Mg/2 Ml Vial) 4 mg IVPUSH Q8H PRN PRN Reason: Nausea and Vomiting Sodium Chloride (0.9 % Sodium Chloride Flush 3 Ml Syringe) 3 ml IVFLUSH QSHIFT [facility] Last Admin: 09/24/23 07:58 Dose: 3 ml Documented By: MATTHIEU Spironolactone (Spironolactone 25 Mg Tablet) 25 mg PO DAILY [facility]; Protocol Last Admin: 09/24/23 07:57 Dose: 25 mg Documented By: MATTHIEU Tamsulosin HCl (Tamsulosin Hcl 0.4 Mg Capsule) 0.4 mg PO BEDTIME [facility] Last Admin: 09/23/23 21:19 Dose: 0.4 mg Documented By: ARLEEN Vitamin D (Cholecalciferol (Vitamin D3) 25 Mcg Tablet) 25 mcg PO DAILY [facility] Last Admin: 09/24/23 07:58 Dose: 25 mcg Documented By: MATTHIEU Labs 09/24/23 06:10 09/24/23 06:10 Labs: Laboratory Results - last 24 hr 09/23/23 09/23/23 09/23/23 15:52 16:16 16:20 MCV 90.2 MCH 28.9 MCHC 32.1 RDW 13.9 Plt Count 281 MPV 9.1 L Immature Gran % (Auto) 0.5 H Neut % (Auto) 84.1 H Lymph % (Auto) 7.9 L [place] % (Auto) 7.4 Eos % (Auto) 0.0 Baso % (Auto) 0.1 Lymph # (Auto) 1.2 [place] # (Auto) 1.1 Eos # (Auto) 0.0 Baso # (Auto) 0.0 Abs Immat Gran (auto) 0.07 H Absolute Neuts (auto) 12.3 H Absolute Nucleated RBC 0.000 Nucleated RBC % (auto) 0.0 PT INR VBG pH 7.48 H VBG pCO2 28 VBG pO2 45 VBG HCO3 21 L VBG O2 Saturation 79.0 VBG Base Excess -0.7 Anion Gap 13 Estim Creat Clear Calc 40.2 Estimated GFR 58 Random Glucose 98 Lactic Acid 2.6 H* Lactic Acid F/U @ 2Hr Calcium 8.8 Ferritin 66 Total Bilirubin 0.5 Direct Bilirubin 0.2 AST 40 H ALT 23 Alkaline Phosphatase 67 Lactate Dehydrogenase 294 H C-Reactive Protein 6.50 H B-Natriuretic Peptide 181 H Total Protein 6.8 Albumin 3.8 Urine Color Urine Appearance Urine pH Ur Specific [place] Urine Protein Urine Glucose (UA) Urine Ketones Urine Blood Urine Nitrite Ur Leukocyte Esterase Urine RBC Urine WBC Ur Squamous Epith Cells Urine Bacteria Hyaline Casts COVID-19 (CARLOS) Positive A COVID-19 Clin Com See Note Influenza Type A (NINFA) Negative Influenza Type B (NINFA) Negative Influenza A & B Note See Note 09/23/23 09/23/23 09/23/23 16:24 17:56 19:26 MCV MCH MCHC RDW Plt Count MPV Immature Gran % (Auto) Neut % (Auto) Lymph % (Auto) [place] % (Auto) Eos % (Auto) Baso % (Auto) Lymph # (Auto) [place] # (Auto) Eos # (Auto) Baso # (Auto) Abs Immat Gran (auto) Absolute Neuts (auto) Absolute Nucleated RBC Nucleated RBC % (auto) PT 20.2 H D INR 1.7 H VBG pH VBG pCO2 VBG pO2 VBG HCO3 VBG O2 Saturation VBG Base Excess Anion Gap Estim Creat Clear Calc Estimated GFR Random Glucose Lactic Acid Lactic Acid F/U @ 2Hr 1.2 Calcium Ferritin Total Bilirubin Direct Bilirubin AST ALT Alkaline Phosphatase Lactate Dehydrogenase C-Reactive Protein B-Natriuretic Peptide Total Protein Albumin Urine Color Yellow Urine Appearance Clear Urine pH 5.0 Ur Specific [place] 1.010 Urine Protein Negative Urine Glucose (UA) Negative Urine Ketones Negative Urine Blood Trace H Urine Nitrite Negative Ur Leukocyte Esterase Negative Urine RBC 0-2 Urine WBC 0-5 Ur Squamous Epith Cells 0-2 Urine Bacteria None Seen Hyaline Casts 0-2 COVID-19 (CARLOS) COVID-19 Clin Com Influenza Type A (NINFA) Influenza Type B (NINFA) Influenza A & B Note 09/24/23 06:10 MCV 90.8 MCH 28.4 MCHC 31.3 RDW 14.0 Plt Count 250 MPV 9.1 L Immature Gran % (Auto) Neut % (Auto) Lymph % (Auto) [place] % (Auto) Eos % (Auto) Baso % (Auto) Lymph # (Auto) [place] # (Auto) Eos # (Auto) Baso # (Auto) Abs Immat Gran (auto) Absolute Neuts (auto) Absolute Nucleated RBC 0.000 Nucleated RBC % (auto) 0.0 PT INR VBG pH VBG pCO2 VBG pO2 VBG HCO3 VBG O2 Saturation VBG Base Excess Anion Gap 12 Estim Creat Clear Calc 49.3 Estimated GFR > 60 Random Glucose 138 H Lactic Acid Lactic Acid F/U @ 2Hr Calcium 8.6 Ferritin Total Bilirubin Direct Bilirubin AST ALT Alkaline Phosphatase Lactate Dehydrogenase C-Reactive Protein B-Natriuretic Peptide Total Protein Albumin Urine Color Urine Appearance Urine pH Ur Specific [place] Urine Protein Urine Glucose (UA) Urine Ketones Urine Blood Urine Nitrite Ur Leukocyte Esterase Urine RBC Urine WBC Ur Squamous Epith Cells Urine Bacteria Hyaline Casts COVID-19 (CARLOS) COVID-19 Clin Com Influenza Type A (NINFA) Influenza Type B (NINFA) Influenza A & B Note Assessment and Plan (1) Weakness: Status: Acute (2) Pneumonia: Status: Acute (3) COVID-19: Status: Acute Plan An 88 years old male with PMH of GERD, AFib on Eliquis, CHF, PE, diabetes, BPH, COPD, HLD who presents to ED with increase weakness and decrease PO intake over the last 2 days. PHysical deconditioning 2/2 Covid19 infection No documented hypoxia No signs of sepsis DC IVF Dexamethasone 6 mg daily Wean O2 down as tolerated physical deconditioning given hx of falls Left lower lobe pneumonia CXR showing LLL infiltrates Pending cultures Doxycycline and Ceftriaxone Hx dCHF Hold Lasix for dehydration continue MEtoprolol and spironolactone HLD Statin BPH Tamsulosin Atrial flutter controlled, on Eliquis and Metoprolol DVT PPx Eliquis The patient will likely need overnight hospital stay given generalized deconditioning and decrease PO intake and risk of falls and need of safe discharge plan which can not be done in less acute level of care Quality Stroke Does the patient have a stroke diagnosis?: No VTE Prior VTE?: No VTE Risk Level:: Medical - moderate - high VTE Device Contraindication: Treatment Not Indicated VTE Drug Contraindication: N/A - Med Ordered
[2023-09-24] MEDS: cefTRIAXone sodium 1 GM in 0.9 % Sodium Chloride 50 ML IV (20:26)
[2023-09-24] MEDS: Acetaminophen 325 MG TABLET 650 MG PO (20:30)
[2023-09-24] MEDS: Tamsulosin HCL 0.4 MG CAPSULE PO (20:30)
[2023-09-24] MEDS: Atorvastatin Calcium 80 MG TABLET PO (20:30)
[2023-09-25] VITALS (9 sets, daily range): BP systolic 134–159; BP diastolic 58–91; PULSE 57–76; RESP 15–24; TEMP 36.4–37.2; O2SAT 92–96
[2023-09-25] MEDS: Doxycycline Hyclate 100 MG in 0.9 % Sodium Chloride 250 ML 166.67 MG IV ×2 (05:25→16:43)
[2023-09-25 07:46] LABS: Anion Gap 11 (12-20); Blood Urea Nitrogen 28 mg/dL (9-16); C Reactive Protein 4.47 mg/dL (< or = 0.50); Calcium 8.6 mg/dL (8.4-10.2); Carbon Dioxide 23 mmol/L (22-29); Chloride 110 mmol/L (96-108); Creatinine Clr Calc Pharmacy 50.3; Estimated Glomerular Filt Rate > 60; Glucose Random 121 mg/dL (60-115); Lactate Dehydrogenase 225 U/L (118-273); Potassium 3.7 mmol/L (3.3-5.1); Sodium 140 mmol/L (135-145)
[2023-09-25] MEDS: Fluticasone Propionate 100 MCG BLST.W.DEV 2 PUFF INHALE ×2 (07:54→19:54)
[2023-09-25] MEDS: Cholecalciferol (Vitamin D3) 25 MCG TABLET PO (08:14)
[2023-09-25] MEDS: Mirabegron 50 MG TAB.ER.24H PO (08:14)
[2023-09-25] MEDS: Multivitamin TABLET 1 TAB PO (08:14)
[2023-09-25] MEDS: Furosemide 40 MG TABLET PO (08:14)
[2023-09-25] MEDS: dexAMETHasone 6 MG TABLET PO (08:14)
[2023-09-25] MEDS: 0.9 % Sodium Chloride Flush 3 ML SYRINGE IVFLUSH ×3 (08:14→21:04)
[2023-09-25] MEDS: Metoprolol Succinate ER 50 MG TAB.ER.24H PO (08:14)
[2023-09-25] MEDS: Apixaban 5 MG TABLET PO ×2 (08:14→21:01)
[2023-09-25] MEDS: Spironolactone 25 MG TABLET PO (08:14)
[2023-09-25] MEDS: Dorzolamide/Timolo 2.23%/0.68% 10 ML DRBTL 1 DROP EYE-BOTH (08:15)
--- NOTE | 2023-09-25 11:05 | HO.PM.IMPN ---
Subjective Subjective Date of Service: 09/25/23 Interval History: He was seen and evaluated denies any fever or chills weaker overall, difficulties feeding himself reported coughing with meals Review of Systems Review of Systems: Yes all other systems are reviewed and are negative Physical Exam Vital Signs: Vital Signs: Last Vital Signs Temp 97.6 F 09/25/23 07:14 Pulse 57 09/25/23 08:00 Resp 18 09/25/23 08:00 BP 159/68 H 09/25/23 07:14 Pulse Ox 93 09/25/23 07:14 O2 Del Method Room Air 09/25/23 07:14 BMI result Body Mass Index 24.9 Const: Other: Constitutional : Awake, frail looking, not in distress Neck : Normal inspection, Supple Cardiovascular : RRR, no JVP, no lower extremity edema Respiratory : fair bilateral air entry, no crackles, wheezes or rhonchi Gastrointestinal: soft, lax, Normal bowel sounds, Non tender Skin : Warm, Dry Neurological : Alert & oriented to self, No focal deficit Objective Data Active Medications Acetaminophen (Acetaminophen 325 Mg Tablet) 650 mg PO Q6H PRN PRN Reason: Pain, Mild (Pain Scale 1-3) Last Admin: 09/24/23 20:30 Dose: 650 mg Documented By: TATIANNA Apixaban (Apixaban 5 Mg Tablet) 5 mg PO BID [facility] Last Admin: 09/25/23 08:14 Dose: 5 mg Documented By: MICKEY Atorvastatin Calcium (Atorvastatin Calcium 80 Mg Tablet) 80 mg PO BEDTIME [facility] Last Admin: 09/24/23 20:30 Dose: 80 mg Documented By: TATIANNA Dexamethasone (Dexamethasone 6 Mg Tablet) 6 mg PO DAILY [facility] Last Admin: 09/25/23 08:14 Dose: 6 mg Documented By: MICKEY Dorzolamide/Timolol (Dorzolamide/Timolo 2.23%/0.68% 10 Ml Drbtl) 1 drop EYE-BOTH BID [facility] Last Admin: 09/25/23 08:15 Dose: 1 drop Documented By: MICKEY Fluticasone Propionate (Fluticasone Propionate 100 Mcg Blst.W.Dev) 2 puff INHALE RBID [facility] Last Admin: 09/25/23 07:54 Dose: 2 puff Documented By: JOSE D Furosemide (Furosemide 40 Mg Tablet) 40 mg PO DAILY [facility]; Protocol Last Admin: 09/25/23 08:14 Dose: 40 mg Documented By: MICKEY Doxycycline Hyclate 100 mg/ (Sodium Chloride) 250 mls @ 166.67 mls/hr IV Q12H [facility] Last Infusion: 09/25/23 06:55 Dose: Infused Documented By: MICKEY Ceftriaxone Sodium 1 gm/ (Sodium Chloride) 50 mls @ 100 mls/hr IV Q24H [facility] Last Infusion: 09/24/23 21:00 Dose: Infused Documented By: TATIANNA Latanoprost (Latanoprost 0.005 % Ophth Susana 2.5 Ml Drops) 1 drop EYE-LEFT BEDTIME [facility] Last Admin: 09/24/23 23:36 Dose: Not Given Documented By: TATIANNA Non-Admin Reason: Med Not Available Metoprolol Succinate (Metoprolol Succinate Er 50 Mg Tab.Er.24h) 50 mg PO DAILY [facility]; Protocol Last Admin: 09/25/23 08:14 Dose: 50 mg Documented By: MICKEY Mirabegron (Mirabegron 50 Mg Tab.Er.24h) 50 mg PO DAILY [facility] Last Admin: 09/25/23 08:14 Dose: 50 mg Documented By: MICKEY Multivitamins/Vitamin C (Multivitamin Tablet) 1 tab PO DAILY [facility] Last Admin: 09/25/23 08:14 Dose: 1 tab Documented By: MICKEY Ondansetron HCl (Ondansetron Hcl 4 Mg/2 Ml Vial) 4 mg IVPUSH Q8H PRN PRN Reason: Nausea and Vomiting Sodium Chloride (0.9 % Sodium Chloride Flush 3 Ml Syringe) 3 ml IVFLUSH QSHIFT [facility] Last Admin: 09/25/23 08:14 Dose: 3 ml Documented By: MICKEY Spironolactone (Spironolactone 25 Mg Tablet) 25 mg PO DAILY [facility]; Protocol Last Admin: 09/25/23 08:14 Dose: 25 mg Documented By: MICKEY Tamsulosin HCl (Tamsulosin Hcl 0.4 Mg Capsule) 0.4 mg PO BEDTIME [facility] Last Admin: 09/24/23 20:30 Dose: 0.4 mg Documented By: TATIANNA Vitamin D (Cholecalciferol (Vitamin D3) 25 Mcg Tablet) 25 mcg PO DAILY [facility] Last Admin: 09/25/23 08:14 Dose: 25 mcg Documented By: MICKEY Labs 09/24/23 06:10 09/25/23 07:08 Labs: Laboratory Results - last 24 hr 09/25/23 07:08 Hold Purple Top SEE NOTE Anion Gap 11 L Estim Creat Clear Calc 50.3 Estimated GFR > 60 Random Glucose 121 H Calcium 8.6 Lactate Dehydrogenase 225 C-Reactive Protein 4.47 H Microbiology Microbiology Results: Microbiology 09/23/23 16:15 Blood Culture - Preliminary Blood - Venous No growth after 24 hours. 09/23/23 15:51 Blood Culture - Preliminary Blood - Venous No growth after 24 hours. Assessment and Plan (1) Weakness: Status: Acute (2) Pneumonia: Status: Acute (3) COVID-19: Status: Acute Plan An 88 years old male with PMH of GERD, AFib on Eliquis, CHF, PE, diabetes, BPH, COPD, HLD who presents to ED with increase weakness and decrease PO intake over the last 2 days. 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 TECH rec modified diet advance as tolerated Hx dCHF Hold Lasix for dehydration continue MEtoprolol and spironolactone HLD Statin BPH Tamsulosin Atrial flutter controlled, on Eliquis and Metoprolol DVT PPx Eliquis The patient will likely need overnight hospital stay given generalized deconditioning and decrease PO intake and risk of falls and need of safe discharge plan which can not be done in less acute level of care Quality Stroke Does the patient have a stroke diagnosis?: No VTE Prior VTE?: No VTE Risk Level:: Medical - moderate - high VTE Device Contraindication: Treatment Not Indicated VTE Drug Contraindication: N/A - Med Ordered
--- NOTE | 2023-09-25 11:09 | MHC.SL.SWA ---
Speech Pathologist Impression:Risk of aspiration, oropharyngeal dysphagia Risk of Aspiration Due to: Neurological Condition History of Pneumonia Reduced Cognition Dysphasia Diet Status: START on NDD2/NTL Liquid Consistency and Strategies for Safe Swallow: Liquid Intake Recommendation: [place] Thick Liquid Intake Strategies: Small Sips No Straws Solid Food Consistency: Dietary Recommendations: Grnd/Mech Altered (NDD2) Additional Modifications to Solid Foods: Recommend start on GROUND/MECH ALTERED (NDD2) diet with NECTAR THICK liquids, pills CRUSHED in PUREE. Pt attempts to feed himself, but may need assistance opening containers and ensuring food is easily accessible on tray. Aspiration precautions apply. Oral Medication Intake: Crushed with Puree Please contact the pharmacy regarding appropriate crushable or liquid drug formulations that are available whenever modified delivery is recommended. Compensatory Strategies and Precautions to be Taken for Safe Swallow: Sitting Upright (90 deg) Double Swallow No Straw Small Bites and Sips Rate of Ingestion Change Oral Check Avoid Specific Foods Supervision While Eating and Drinking for Safe Swallow: Total Supervision (1:1) Swallowing Recommended Treatments: Compens. Strategy Educat. Recommendation for Speech: Inpatient Speech Therapy Bagger And Stock Handler Helper Clinican/Clinical Fellow: No Supervisory Statement: I have reviewed and agree with the student/clinical fellow's documentation: N/A Speech Language Pathologist: Shadia Ybarra M.A., CCC-FIELD COUNSEL
--- NOTE | 2023-09-25 15:30 | MHC.CM.PN ---
EMR reviewed and per MD rounds, pt is not medically cleared for D/C due to STR placement pending available private room (due to covid-19 infection), or can D/C when covid recovered. CM will continue to follow.
[2023-09-25] MEDS: cefTRIAXone sodium 1 GM in 0.9 % Sodium Chloride 50 ML IV (21:01)
[2023-09-25] MEDS: Atorvastatin Calcium 80 MG TABLET PO (21:02)
[2023-09-26] VITALS (7 sets, daily range): BP systolic 138–159; BP diastolic 60–78; PULSE 60–69; RESP 16–20; TEMP 36.2–36.9; O2SAT 91–95
[2023-09-26] MEDS: Doxycycline Hyclate 100 MG in 0.9 % Sodium Chloride 250 ML 166.67 MG IV ×2 (05:36→17:45)
[2023-09-26] MEDS: Fluticasone Propionate 100 MCG BLST.W.DEV 2 PUFF INHALE ×2 (08:26→20:12)
--- NOTE | 2023-09-26 09:45 | P.PNIM_ITS ---
Subjective Subjective Date of Service: 09/26/23 Interval History: He was seen and evaluated denies any fever or chills weaker overall, tolerating modified diet reported coughing with meals Review of Systems Review of Systems: Yes all other systems are reviewed and are negative Physical Exam 2 Vital Signs: Vital Signs: Last Vital Signs Temp 97.1 F 09/26/23 07:25 Pulse 62 09/26/23 08:29 Resp 16 09/26/23 08:29 BP 150/60 H 09/26/23 07:25 Pulse Ox 93 09/26/23 07:25 O2 Del Method Room Air 09/26/23 07:25 BMI result Body Mass Index 24.9 Const: Other: Constitutional : Awake, frail looking, not in distress Neck : Normal inspection, Supple Cardiovascular : RRR, no JVP, no lower extremity edema Respiratory : fair bilateral air entry, no crackles, wheezes or rhonchi Gastrointestinal: soft, lax, Normal bowel sounds, Non tender Skin : Warm, Dry Neurological : Alert & oriented to self, No focal deficit Objective Data Active Medications Acetaminophen (Acetaminophen 325 Mg Tablet) 650 mg PO Q6H PRN PRN Reason: Pain, Mild (Pain Scale 1-3) Last Admin: 09/24/23 20:30 Dose: 650 mg Documented By: TATIANNA Apixaban (Apixaban 5 Mg Tablet) 5 mg PO BID [facility] Last Admin: 09/25/23 21:01 Dose: 5 mg Documented By: ERIKA Atorvastatin Calcium (Atorvastatin Calcium 80 Mg Tablet) 80 mg PO BEDTIME [facility] Last Admin: 09/25/23 21:02 Dose: 80 mg Documented By: ERIKA Dexamethasone (Dexamethasone 6 Mg Tablet) 6 mg PO DAILY [facility] Last Admin: 09/25/23 08:14 Dose: 6 mg Documented By: MICKEY Dorzolamide/Timolol (Dorzolamide/Timolo 2.23%/0.68% 10 Ml Drbtl) 1 drop EYE- BOTH BID [facility] Last Admin: 09/25/23 22:40 Dose: Not Given Documented By: ERIKA Non-Admin Reason: Med Not Available Fluticasone Propionate (Fluticasone Propionate 100 Mcg Blst.W.Dev) 2 puff INHALE RBID [facility] Last Admin: 09/26/23 08:26 Dose: 2 puff Documented By: EDWARD Furosemide (Furosemide 40 Mg Tablet) 40 mg PO DAILY [facility]; Protocol Last Admin: 09/25/23 08:14 Dose: 40 mg Documented By: MICKEY Doxycycline Hyclate 100 mg/ (Sodium Chloride) 250 mls @ 166.67 mls/hr IV Q12H [facility] Last Infusion: 09/26/23 07:25 Dose: Infused Documented By: ERICA Ceftriaxone Sodium 1 gm/ (Sodium Chloride) 50 mls @ 100 mls/hr IV Q24H [facility] Last Infusion: 09/25/23 22:40 Dose: Infused Documented By: ERIKA Latanoprost (Latanoprost 0.005 % Ophth Susana 2.5 Ml Drops) 1 drop EYE-LEFT BEDTIME [facility] Last Admin: 09/25/23 22:40 Dose: Not Given Documented By: ERIKA Non-Admin Reason: Med Not Available Metoprolol Succinate (Metoprolol Succinate Er 50 Mg Tab.Er.24h) 50 mg PO DAILY [facility]; Protocol Last Admin: 09/25/23 08:14 Dose: 50 mg Documented By: MICKEY Mirabegron (Mirabegron 50 Mg Tab.Er.24h) 50 mg PO DAILY [facility] Last Admin: 09/25/23 08:14 Dose: 50 mg Documented By: MICKEY Multivitamins/Vitamin C (Multivitamin Tablet) 1 tab PO DAILY [facility] Last Admin: 09/25/23 08:14 Dose: 1 tab Documented By: MICKEY Ondansetron HCl (Ondansetron Hcl 4 Mg/2 Ml Vial) 4 mg IVPUSH Q8H PRN PRN Reason: Nausea and Vomiting Sodium Chloride (0.9 % Sodium Chloride Flush 3 Ml Syringe) 3 ml IVFLUSH QSHIFT [facility] Last Admin: 09/25/23 21:04 Dose: 3 ml Documented By: ERIKA Spironolactone (Spironolactone 25 Mg Tablet) 25 mg PO DAILY [facility]; Protocol Last Admin: 09/25/23 08:14 Dose: 25 mg Documented By: MICKEY Tamsulosin HCl (Tamsulosin Hcl 0.4 Mg Capsule) 0.4 mg PO BEDTIME [facility] Last Admin: 09/25/23 21:26 Dose: Not Given Documented By: HO.ROCK Non-Admin Reason: Patient Refused Vitamin D (Cholecalciferol (Vitamin D3) 25 Mcg Tablet) 25 mcg PO DAILY [facility] Last Admin: 09/25/23 08:14 Dose: 25 mcg Documented By: MICKEY Labs 09/24/23 06:10 09/25/23 07:08 Microbiology Microbiology Results: Microbiology 09/23/23 16:15 Blood Culture - Preliminary Blood - Venous No growth after 48 hours. 09/23/23 15:51 Blood Culture - Preliminary Blood - Venous No growth after 48 hours. Assessment and Plan (1) Weakness: Status: Acute (2) Pneumonia: Status: Acute (3) COVID-19: Status: Acute Plan An 88 years old male with PMH of GERD, AFib on Eliquis, CHF, PE, diabetes, BPH, COPD, HLD who presents to ED with increase weakness and decrease PO intake over the last 2 days. 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 advance as tolerated Hx dCHF Hold Lasix for dehydration continue MEtoprolol and spironolactone HLD Statin BPH Tamsulosin Atrial flutter controlled, on Eliquis and Metoprolol DVT PPx Eliquis The patient will likely need overnight hospital stay given generalized deconditioning and decrease PO intake and risk of falls and need of safe discharge plan which can not be done in less acute level of care Quality Stroke Does the patient have a stroke diagnosis?: No VTE Prior VTE?: No VTE Risk Level:: Medical - moderate - high VTE Device Contraindication: Treatment Not Indicated VTE Drug Contraindication: N/A - Med Ordered
[2023-09-26] MEDS: Apixaban 5 MG TABLET PO ×2 (10:21→21:16)
[2023-09-26] MEDS: Spironolactone 25 MG TABLET PO (10:21)
[2023-09-26] MEDS: Cholecalciferol (Vitamin D3) 25 MCG TABLET PO (10:21)
[2023-09-26] MEDS: Metoprolol Succinate ER 50 MG TAB.ER.24H PO (10:21)
[2023-09-26] MEDS: dexAMETHasone 6 MG TABLET PO (10:21)
[2023-09-26] MEDS: Multivitamin TABLET 1 TAB PO (10:21)
[2023-09-26] MEDS: Furosemide 40 MG TABLET PO (10:21)
[2023-09-26] MEDS: Dorzolamide/Timolo 2.23%/0.68% 10 ML DRBTL 1 DROP EYE-BOTH ×2 (10:22→21:29)
[2023-09-26] MEDS: Mirabegron 50 MG TAB.ER.24H PO (10:22)
[2023-09-26] MEDS: 0.9 % Sodium Chloride Flush 3 ML SYRINGE IVFLUSH ×2 (17:45→21:31)
[2023-09-26] MEDS: Atorvastatin Calcium 80 MG TABLET PO (21:16)
[2023-09-26] MEDS: Tamsulosin HCL 0.4 MG CAPSULE PO (21:16)
[2023-09-26] MEDS: cefTRIAXone sodium 1 GM in 0.9 % Sodium Chloride 50 ML IV (21:17)
[2023-09-27] VITALS (8 sets, daily range): BP systolic 138–184; BP diastolic 76–83; PULSE 56–106; RESP 17–21; TEMP 36.7–37.2; O2SAT 90–93
[2023-09-27] MEDS: Doxycycline Hyclate 100 MG in 0.9 % Sodium Chloride 250 ML 166.67 MG IV ×2 (06:11→18:23)
[2023-09-27 07:24] LABS: Anion Gap 16 (12-20); Blood Urea Nitrogen 26 mg/dL (9-16); Calcium 8.7 mg/dL (8.4-10.2); Carbon Dioxide 19 mmol/L (22-29); Chloride 113 mmol/L (96-108); Creatinine Clr Calc Pharmacy 54.3; Estimated Glomerular Filt Rate > 60; Glucose Random 111 mg/dL (60-115); Sodium 144 mmol/L (135-145)
[2023-09-27 07:25] LABS: C Reactive Protein 1.72 mg/dL (< or = 0.50)
[2023-09-27] MEDS: Fluticasone Propionate 100 MCG BLST.W.DEV 2 PUFF INHALE ×2 (07:47→19:55)
[2023-09-27] MEDS: Mirabegron 50 MG TAB.ER.24H PO (08:54)
[2023-09-27] MEDS: Metoprolol Succinate ER 50 MG TAB.ER.24H PO (08:54)
[2023-09-27] MEDS: Apixaban 5 MG TABLET PO ×2 (08:54→20:23)
[2023-09-27] MEDS: 0.9 % Sodium Chloride Flush 3 ML SYRINGE IVFLUSH ×2 (08:54→15:59)
[2023-09-27] MEDS: Spironolactone 25 MG TABLET PO (08:54)
[2023-09-27] MEDS: Cholecalciferol (Vitamin D3) 25 MCG TABLET PO (08:54)
[2023-09-27] MEDS: Multivitamin TABLET 1 TAB PO (08:54)
[2023-09-27] MEDS: Furosemide 40 MG TABLET PO (08:54)
[2023-09-27] MEDS: dexAMETHasone 6 MG TABLET PO (08:54)
[2023-09-27] MEDS: Dorzolamide/Timolo 2.23%/0.68% 10 ML DRBTL 1 DROP EYE-BOTH ×2 (08:55→20:26)
--- NOTE | 2023-09-27 10:24 | HO.PM.IMPN ---
Subjective Subjective Date of Service: 09/27/23 Interval History: He was seen and evaluated denies any fever or chills weaker overall, tolerating modified diet reported coughing with meals Review of Systems Review of Systems: Yes all other systems are reviewed and are negative Physical Exam Vital Signs: Vital Signs: Last Vital Signs Temp 98.6 F 09/27/23 07:34 Pulse 67 09/27/23 07:49 Resp 18 09/27/23 07:49 BP 184/80 H 09/27/23 07:34 Pulse Ox 92 09/27/23 07:34 O2 Del Method Room Air 09/27/23 07:34 BMI result Body Mass Index 24.9 Const: Other: Constitutional : Awake, frail looking, not in distress Neck : Normal inspection, Supple Cardiovascular : RRR, no JVP, no lower extremity edema Respiratory : fair bilateral air entry, no crackles, wheezes or rhonchi Gastrointestinal: soft, lax, Normal bowel sounds, Non tender Skin : Warm, Dry Neurological : Alert & oriented to self, No focal deficit Objective Data Active Medications Acetaminophen (Acetaminophen 325 Mg Tablet) 650 mg PO Q6H PRN PRN Reason: Pain, Mild (Pain Scale 1-3) Last Admin: 09/24/23 20:30 Dose: 650 mg Documented By: TATIANNA Apixaban (Apixaban 5 Mg Tablet) 5 mg PO BID [facility] Last Admin: 09/27/23 08:54 Dose: 5 mg Documented By: ERICA Atorvastatin Calcium (Atorvastatin Calcium 80 Mg Tablet) 80 mg PO BEDTIME [facility] Last Admin: 09/26/23 21:16 Dose: 80 mg Documented By: GUADALUPE Dexamethasone (Dexamethasone 6 Mg Tablet) 6 mg PO DAILY [facility] Last Admin: 09/27/23 08:54 Dose: 6 mg Documented By: ERICA Dorzolamide/Timolol (Dorzolamide/Timolo 2.23%/0.68% 10 Ml Drbtl) 1 drop EYE-BOTH BID [facility] Last Admin: 09/27/23 08:55 Dose: 1 drop Documented By: ERICA Fluticasone Propionate (Fluticasone Propionate 100 Mcg Blst.W.Dev) 2 puff INHALE RBID [facility] Last Admin: 09/27/23 07:47 Dose: 2 puff Documented By: HO.BLASCL Furosemide (Furosemide 40 Mg Tablet) 40 mg PO DAILY [facility]; Protocol Last Admin: 09/27/23 08:54 Dose: 40 mg Documented By: ERICA Doxycycline Hyclate 100 mg/ (Sodium Chloride) 250 mls @ 166.67 mls/hr IV Q12H [facility] Last Infusion: 09/27/23 08:51 Dose: Infused Documented By: ERICA Ceftriaxone Sodium 1 gm/ (Sodium Chloride) 50 mls @ 100 mls/hr IV Q24H [facility] Last Infusion: 09/26/23 23:28 Dose: Infused Documented By: GUADALUPE Latanoprost (Latanoprost 0.005 % Ophth Susana 2.5 Ml Drops) 1 drop EYE-LEFT BEDTIME [facility] Last Admin: 09/26/23 21:30 Dose: Not Given Documented By: GUADALUPE Non-Admin Reason: Med Not Available Metoprolol Succinate (Metoprolol Succinate Er 50 Mg Tab.Er.24h) 50 mg PO DAILY [facility]; Protocol Last Admin: 09/27/23 08:54 Dose: 50 mg Documented By: ERICA Mirabegron (Mirabegron 50 Mg Tab.Er.24h) 50 mg PO DAILY [facility] Last Admin: 09/27/23 08:54 Dose: 50 mg Documented By: ERICA Multivitamins/Vitamin C (Multivitamin Tablet) 1 tab PO DAILY [facility] Last Admin: 09/27/23 08:54 Dose: 1 tab Documented By: ERICA Ondansetron HCl (Ondansetron Hcl 4 Mg/2 Ml Vial) 4 mg IVPUSH Q8H PRN PRN Reason: Nausea and Vomiting Sodium Chloride (0.9 % Sodium Chloride Flush 3 Ml Syringe) 3 ml IVFLUSH QSHIFT [facility] Last Admin: 09/27/23 08:54 Dose: 3 ml Documented By: ERICA Spironolactone (Spironolactone 25 Mg Tablet) 25 mg PO DAILY [facility]; Protocol Last Admin: 09/27/23 08:54 Dose: 25 mg Documented By: ERICA Tamsulosin HCl (Tamsulosin Hcl 0.4 Mg Capsule) 0.4 mg PO BEDTIME [facility] Last Admin: 09/26/23 21:16 Dose: 0.4 mg Documented By: GUADALUPE Vitamin D (Cholecalciferol (Vitamin D3) 25 Mcg Tablet) 25 mcg PO DAILY [facility] Last Admin: 09/27/23 08:54 Dose: 25 mcg Documented By: ERICA Labs 09/24/23 06:10 09/27/23 07:01 Labs: Laboratory Results - last 24 hr 09/27/23 07:01 Anion Gap 16 Estim Creat Clear Calc 54.3 Estimated GFR > 60 Random Glucose 111 Calcium 8.7 C-Reactive Protein 1.72 H Assessment and Plan (1) Weakness: Status: Acute (2) Pneumonia: Status: Acute (3) COVID-19: Status: Acute Plan An 88 years old male with PMH of GERD, AFib on Eliquis, CHF, PE, diabetes, BPH, COPD, HLD who presents to ED with increase weakness and decrease PO intake over the last 2 days. 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 as tolerated Hx dCHF Hold Lasix for dehydration continue MEtoprolol and spironolactone HLD Statin BPH Tamsulosin Atrial flutter controlled, on Eliquis and Metoprolol DVT PPx Eliquis The patient will likely need overnight hospital stay given generalized deconditioning and decrease PO intake and risk of falls and need of safe discharge plan which can not be done in less acute level of care Quality Stroke Does the patient have a stroke diagnosis?: No VTE Prior VTE?: No VTE Risk Level:: Medical - moderate - high VTE Device Contraindication: Treatment Not Indicated VTE Drug Contraindication: N/A - Med Ordered
[2023-09-27] MEDS: Tamsulosin HCL 0.4 MG CAPSULE PO (20:23)
[2023-09-27] MEDS: cefTRIAXone sodium 1 GM in 0.9 % Sodium Chloride 50 ML IV (20:23)
[2023-09-27] MEDS: Atorvastatin Calcium 80 MG TABLET PO (20:23)
[2023-09-27] MEDS: Latanoprost 0.005 % Ophth Sol 2.5 ML DROPS 1 DROP EYE-LEFT (21:37)
[2023-09-28] VITALS (8 sets, daily range): BP systolic 119–171; BP diastolic 58–88; PULSE 59–65; RESP 16–20; TEMP 36.4–37.3; O2SAT 90–94
[2023-09-28] MEDS: 0.9 % Sodium Chloride Flush 3 ML SYRINGE IVFLUSH ×4 (00:10→20:58)
[2023-09-28] MEDS: Doxycycline Hyclate 100 MG in 0.9 % Sodium Chloride 250 ML 166.67 MG IV ×2 (06:10→17:58)
[2023-09-28] MEDS: Metoprolol Succinate ER 50 MG TAB.ER.24H PO (08:01)
[2023-09-28] MEDS: Spironolactone 25 MG TABLET PO (08:01)
[2023-09-28] MEDS: Furosemide 40 MG TABLET PO (08:01)
[2023-09-28] MEDS: Mirabegron 50 MG TAB.ER.24H PO (08:01)
[2023-09-28] MEDS: Apixaban 5 MG TABLET PO ×2 (08:01→20:58)
[2023-09-28] MEDS: dexAMETHasone 6 MG TABLET PO (08:01)
[2023-09-28] MEDS: Multivitamin TABLET 1 TAB PO (08:01)
[2023-09-28] MEDS: Cholecalciferol (Vitamin D3) 25 MCG TABLET PO (08:01)
[2023-09-28] MEDS: Fluticasone Propionate 100 MCG BLST.W.DEV 2 PUFF INHALE ×2 (08:02→20:08)
[2023-09-28] MEDS: Dorzolamide/Timolo 2.23%/0.68% 10 ML DRBTL 1 DROP EYE-BOTH ×2 (08:02→21:01)
[2023-09-28] MEDS: amLODIPine Besylate 5 MG TABLET PO (08:16)
[2023-09-28 08:41] LABS: COVID-19 Test Positive (Negative); IDNOW Serial# 08D9AD1C
--- NOTE | 2023-09-28 10:30 | MHC.SL.SWA ---
Speech Pathologist Impression: Risk of aspiration, oropharyngeal dysphagia Risk of Aspiration Due to: Neurological Condition History of Pneumonia Reduced Cognition Dysphasia Diet Status: Pt continues to cough on thin liquids. UPGRADE to CHOPPED (NDD3) diet, continue NECTAR THICK liquids Liquid Consistency and Strategies for Safe Swallow: Liquid Intake Recommendation: [place] Thick Liquid Intake Strategies: Small Sips No Straws Solid Food Consistency: Dietary Recommendations: Chopped/Advanced (NDD3) Additional Modifications to Solid Foods: Recommend UPGRADE solids to CHOPPED/ADVANCED (NDD3), continue on NECTAR THICK liquids, pills CRUSHED in PUREE. Maintain aspiration precautions with total 1:1 supervision during PO intake. Oral Medication Intake: Crushed with Puree Please contact the pharmacy regarding appropriate crushable or liquid drug formulations that are available whenever modified delivery is recommended. Compensatory Strategies and Precautions to be Taken for Safe Swallow: Sitting Upright (90 deg) Double Swallow No Straw Small Bites and Sips Alternate Liquids/Solids Rate of Ingestion Change Avoid Specific Foods Supervision While Eating and Drinking for Safe Swallow: Total Supervision (1:1) Foods to Avoid: Hard, sticky, or dry foods; mixed consistencies (i.e. thin broth with solid ingredients) Swallowing Recommended Treatments: Compens. Strategy Educat. Recommendation for Speech: Inpatient Speech Therapy Housekeeper Head Clinican/Clinical Fellow: No Supervisory Statement: I have reviewed and agree with the student/clinical fellow's documentation: N/A Speech Language Pathologist: Shadia Ybarra M.A., CCC-[place]
--- NOTE | 2023-09-28 11:59 | MHC.CM.PN ---
EMR reviewed and per MD rounds, pt is medically cleared pending STR placement, covid PCR remains positive today. [facility] care following and can offer private bed when available (while still covid +) vs shared room if covid negative or when covid recovered (day 10). CM will continue to follow.
--- NOTE | 2023-09-28 12:43 | HO.PM.IMPN ---
Subjective Subjective Date of Service: 09/28/23 Interval History: He was seen and evaluated denies any fever or chills feels weak overall reported coughing with meals ; modified diet Review of Systems Review of Systems: Yes all other systems are reviewed and are negative Physical Exam Vital Signs: Vital Signs: Last Vital Signs Temp 99.1 F 09/28/23 12:00 Pulse 64 09/28/23 12:00 Resp 20 09/28/23 12:00 BP 143/68 H 09/28/23 12:00 Pulse Ox 92 09/28/23 12:00 O2 Del Method Room Air 09/28/23 12:00 BMI result Body Mass Index 24.9 Const: Other: Constitutional : Awake, frail looking, not in distress Neck : Normal inspection, Supple Cardiovascular : RRR, no JVP, no lower extremity edema Respiratory : fair bilateral air entry, no crackles, wheezes or rhonchi Gastrointestinal: soft, lax, Normal bowel sounds, Non tender Skin : Warm, Dry Neurological : Alert & oriented to self, No focal deficit Objective Data Active Medications Acetaminophen (Acetaminophen 325 Mg Tablet) 650 mg PO Q6H PRN PRN Reason: Pain, Mild (Pain Scale 1-3) Last Admin: 09/24/23 20:30 Dose: 650 mg Documented By: TATIANNA Amlodipine Besylate (Amlodipine Besylate 5 Mg Tablet) 5 mg PO DAILY [facility]; Protocol Last Admin: 09/28/23 08:16 Dose: 5 mg Documented By: WESLEY Apixaban (Apixaban 5 Mg Tablet) 5 mg PO BID [facility] Last Admin: 09/28/23 08:01 Dose: 5 mg Documented By: WESLEY Atorvastatin Calcium (Atorvastatin Calcium 80 Mg Tablet) 80 mg PO BEDTIME [facility] Last Admin: 09/27/23 20:23 Dose: 80 mg Documented By: BENOIT Dexamethasone (Dexamethasone 6 Mg Tablet) 6 mg PO DAILY [facility] Last Admin: 09/28/23 08:01 Dose: 6 mg Documented By: WESLEY Dorzolamide/Timolol (Dorzolamide/Timolo 2.23%/0.68% 10 Ml Drbtl) 1 drop EYE-BOTH BID [facility] Last Admin: 09/28/23 08:02 Dose: 1 drop Documented By: WESLEY Fluticasone Propionate (Fluticasone Propionate 100 Mcg Blst.W.Dev) 2 puff INHALE RBID [facility] Last Admin: 09/28/23 08:02 Dose: 2 puff Documented By: WESLEY Furosemide (Furosemide 40 Mg Tablet) 40 mg PO DAILY [facility]; Protocol Last Admin: 09/28/23 08:01 Dose: 40 mg Documented By: WESLEY Doxycycline Hyclate 100 mg/ (Sodium Chloride) 250 mls @ 166.67 mls/hr IV Q12H [facility] Last Infusion: 09/28/23 08:02 Dose: Infused Documented By: WESLEY Ceftriaxone Sodium 1 gm/ (Sodium Chloride) 50 mls @ 100 mls/hr IV Q24H [facility] Last Infusion: 09/27/23 20:56 Dose: Infused Documented By: BENOIT Latanoprost (Latanoprost 0.005 % Ophth Susana 2.5 Ml Drops) 1 drop EYE-LEFT BEDTIME [facility] Last Admin: 09/27/23 21:37 Dose: 1 drop Documented By: BENOIT Metoprolol Succinate (Metoprolol Succinate Er 50 Mg Tab.Er.24h) 50 mg PO DAILY [facility]; Protocol Last Admin: 09/28/23 08:01 Dose: 50 mg Documented By: WESLEY Mirabegron (Mirabegron 50 Mg Tab.Er.24h) 50 mg PO DAILY [facility] Last Admin: 09/28/23 08:01 Dose: 50 mg Documented By: WESLEY Multivitamins/Vitamin C (Multivitamin Tablet) 1 tab PO DAILY [facility] Last Admin: 09/28/23 08:01 Dose: 1 tab Documented By: WESLEY Ondansetron HCl (Ondansetron Hcl 4 Mg/2 Ml Vial) 4 mg IVPUSH Q8H PRN PRN Reason: Nausea and Vomiting Sodium Chloride (0.9 % Sodium Chloride Flush 3 Ml Syringe) 3 ml IVFLUSH QSHIFT [facility] Last Admin: 09/28/23 08:01 Dose: 3 ml Documented By: WESLEY Spironolactone (Spironolactone 25 Mg Tablet) 25 mg PO DAILY [facility]; Protocol Last Admin: 09/28/23 08:01 Dose: 25 mg Documented By: WESLEY Tamsulosin HCl (Tamsulosin Hcl 0.4 Mg Capsule) 0.4 mg PO BEDTIME [facility] Last Admin: 09/27/23 20:23 Dose: 0.4 mg Documented By: BENOIT Vitamin D (Cholecalciferol (Vitamin D3) 25 Mcg Tablet) 25 mcg PO DAILY [facility] Last Admin: 09/28/23 08:01 Dose: 25 mcg Documented By: WESLEY Labs 09/24/23 06:10 09/27/23 07:01 Labs: Laboratory Results - last 24 hr 09/28/23 08:07 COVID-19 (CARLOS) Positive A COVID-19 Clin Com See Note Assessment and Plan (1) Weakness: Status: Acute (2) COVID-19: Status: Acute Plan An 88 years old male with PMH of GERD, AFib on Eliquis, CHF, PE, diabetes, BPH, COPD, HLD who presents to ED with increase weakness and decrease PO intake over the last 2 days. PHysical deconditioning 2/2 Covid19 infection Dexamethasone 6 mg daily (09/23) trending down CRP and LDH on room air encourage PO intake retested positive , will need to wait for 10 days prior to placement at facility. 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
--- NOTE | 2023-09-28 15:52 | HO.WOUND ---
Wound Consult: Initial 88yr old male admitted to [facility] on?09/23/23 17:54 - See progress notes and H&P for detailed history. Wound consult placed for Left Buttock - pt agreeable to assessment and photo documentation. Pt baseline incontinence level of stool. Per discussion with direct care staff frequent loose stools throughout shift. Bilateral Buttocks Etiology: MASD-IAD (Moisture Associated Skin Damage - Incontinent Associated Dermatitis) Wound Bed: Left buttocks with irregular boarders and partial thickness tissue loss - consistent with Moisture and not pressure Right buttocks pink red intact tissue remains blanchable throughout - consistent with incontinence location and pooling in bed Drainage / Odor: None noted at the time of my assessment Edges: ? Irregular and adherent Harleen wound: No Induration, Fluctuance or Warmth noted Pain: Mild tenderness noted Goals of Treatment: ? Triad Barrier cream to protect from moisture and frequent loose stools. Recommendations: 1. Turn and Reposition every 2 hours and as needed for patient comfort. 2. Off Load all bony prominences with use of pillows and heel boots if needed.? Apply Preventative foams where needed. ? 3. Monitor for incontinence and moisture control, use barrier creams when needed for prevention and treatment. 4. Provide adequate and supplemental nutrition. 5. Order low air loss mattress. 6. Bilateral Buttocks - Off Load Pressure - Cleanse with PH balance spray, pat dry. ?Apply thin layer of Triad to wound bed - only pat and dab no scrub and rub when soiling occurs. Reapply thin layer PRN after each episode of incontinence. Re-consult wound care Nurse for wound deterioration or wound changes.
[2023-09-28] MEDS: Tamsulosin HCL 0.4 MG CAPSULE PO (20:58)
[2023-09-28] MEDS: cefTRIAXone sodium 1 GM in 0.9 % Sodium Chloride 50 ML IV (20:58)
[2023-09-28] MEDS: Atorvastatin Calcium 80 MG TABLET PO (20:58)
[2023-09-28] MEDS: Latanoprost 0.005 % Ophth Sol 2.5 ML DROPS 1 DROP EYE-LEFT (21:01)
[2023-09-29] VITALS (8 sets, daily range): BP systolic 120–163; BP diastolic 58–77; PULSE 55–73; RESP 17–20; TEMP 36.1–36.8; O2SAT 87–95
--- NOTE | 2023-09-29 00:14 | PC.NURSE ---
1999 BP slightly elevated. Rechecked and its still elevated 170/80. notified. no further order from the .
[2023-09-29] MEDS: Doxycycline Hyclate 100 MG in 0.9 % Sodium Chloride 250 ML 166.67 MG IV ×2 (05:58→17:24)
[2023-09-29] MEDS: Fluticasone Propionate 100 MCG BLST.W.DEV 2 PUFF INHALE ×2 (08:20→20:24)
--- NOTE | 2023-09-29 09:58 | HO.PM.IMPN ---
Subjective Subjective Date of Service: 09/29/23 Interval History: He was seen and evaluated denies any fever or chills feels weak overall Started on O2 supplement reported coughing with meals ; modified diet Review of Systems Review of Systems: Yes all other systems are reviewed and are negative Physical Exam Vital Signs: Vital Signs: Last Vital Signs Temp 97.0 F 09/29/23 07:46 Pulse 70 09/29/23 08:22 Resp 17 09/29/23 08:22 BP 133/61 09/29/23 07:46 Pulse Ox 90 L 09/29/23 07:46 O2 Del Method Nasal Cannula 09/29/23 07:46 O2 Flow Rate 2 09/29/23 07:46 BMI result Body Mass Index 24.9 Const: Other: Constitutional : Awake, frail looking, not in distress Neck : Normal inspection, Supple Cardiovascular : RRR, no JVP, no lower extremity edema Respiratory : fair bilateral air entry, no crackles, wheezes or rhonchi, On O2 supplement Gastrointestinal: soft, lax, Normal bowel sounds, Non tender Skin : Warm, Dry Neurological : Alert & oriented to self, No focal deficit Objective Data Active Medications Acetaminophen (Acetaminophen 325 Mg Tablet) 650 mg PO Q6H PRN PRN Reason: Pain, Mild (Pain Scale 1-3) Last Admin: 09/24/23 20:30 Dose: 650 mg Documented By: TATIANNA Amlodipine Besylate (Amlodipine Besylate 5 Mg Tablet) 5 mg PO DAILY [facility]; Protocol Last Admin: 09/28/23 08:16 Dose: 5 mg Documented By: WESLEY Apixaban (Apixaban 5 Mg Tablet) 5 mg PO BID [facility] Last Admin: 09/28/23 20:58 Dose: 5 mg Documented By: RHIANNA Atorvastatin Calcium (Atorvastatin Calcium 80 Mg Tablet) 80 mg PO BEDTIME [facility] Last Admin: 09/28/23 20:58 Dose: 80 mg Documented By: RHIANNA Dexamethasone (Dexamethasone 6 Mg Tablet) 6 mg PO DAILY [facility] Last Admin: 09/28/23 08:01 Dose: 6 mg Documented By: WESLEY Dorzolamide/Timolol (Dorzolamide/Timolo 2.23%/0.68% 10 Ml Drbtl) 1 drop EYE-BOTH BID [facility] Last Admin: 09/28/23 21:01 Dose: 1 drop Documented By: RHIANNA Fluticasone Propionate (Fluticasone Propionate 100 Mcg Blst.W.Dev) 2 puff INHALE RBID [facility] Last Admin: 09/29/23 08:20 Dose: 2 puff Documented By: SARAH Furosemide (Furosemide 40 Mg Tablet) 40 mg PO DAILY [facility]; Protocol Last Admin: 09/28/23 08:01 Dose: 40 mg Documented By: WESLEY Doxycycline Hyclate 100 mg/ (Sodium Chloride) 250 mls @ 166.67 mls/hr IV Q12H [facility] Last Infusion: 09/29/23 07:44 Dose: Infused Documented By: ZANE Ceftriaxone Sodium 1 gm/ (Sodium Chloride) 50 mls @ 100 mls/hr IV Q24H [facility] Last Infusion: 09/28/23 21:29 Dose: Infused Documented By: RHIANNA Latanoprost (Latanoprost 0.005 % Ophth Susana 2.5 Ml Drops) 1 drop EYE-LEFT BEDTIME [facility] Last Admin: 09/28/23 21:01 Dose: 1 drop Documented By: RHIANNA Metoprolol Succinate (Metoprolol Succinate Er 50 Mg Tab.Er.24h) 50 mg PO DAILY [facility]; Protocol Last Admin: 09/28/23 08:01 Dose: 50 mg Documented By: WESLEY Mirabegron (Mirabegron 50 Mg Tab.Er.24h) 50 mg PO DAILY [facility] Last Admin: 09/28/23 08:01 Dose: 50 mg Documented By: WESLEY Multivitamins/Vitamin C (Multivitamin Tablet) 1 tab PO DAILY [facility] Last Admin: 09/28/23 08:01 Dose: 1 tab Documented By: WESLEY Ondansetron HCl (Ondansetron Hcl 4 Mg/2 Ml Vial) 4 mg IVPUSH Q8H PRN PRN Reason: Nausea and Vomiting Sodium Chloride (0.9 % Sodium Chloride Flush 3 Ml Syringe) 3 ml IVFLUSH QSHIFT [facility] Last Admin: 09/28/23 20:58 Dose: 3 ml Documented By: RHIANNA Spironolactone (Spironolactone 25 Mg Tablet) 25 mg PO DAILY [facility]; Protocol Last Admin: 09/28/23 08:01 Dose: 25 mg Documented By: WESLEY Tamsulosin HCl (Tamsulosin Hcl 0.4 Mg Capsule) 0.4 mg PO BEDTIME [facility] Last Admin: 09/28/23 20:58 Dose: 0.4 mg Documented By: RHIANNA Vitamin D (Cholecalciferol (Vitamin D3) 25 Mcg Tablet) 25 mcg PO DAILY [facility] Last Admin: 09/28/23 08:01 Dose: 25 mcg Documented By: WESLEY Labs 09/24/23 06:10 09/27/23 07:01 Microbiology Microbiology Results: Microbiology 09/23/23 16:15 Blood Culture - Final Blood - Venous No growth after 5 days. 09/23/23 15:51 Blood Culture - Final Blood - Venous No growth after 5 days. Assessment and Plan (1) Weakness: Status: Acute (2) Pneumonia: Status: Acute (3) COVID-19: Status: Acute Plan An 88 years old male with PMH of GERD, AFib on Eliquis, CHF, PE, diabetes, BPH, COPD, HLD who presents to ED with increase weakness and decrease PO intake over the last 2 days. PHysical deconditioning 2/2 Covid19 infection Dexamethasone 6 mg daily (09/23) trending down CRP and LDH Titrate O2 as tolerated encourage PO intake retested positive , will need to wait for 10 days prior to placement at facility. 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 Physical deconditioning SNF Hx dCHF Hold Lasix for dehydration continue MEtoprolol and spironolactone HLD Statin BPH Tamsulosin Atrial flutter controlled, on Eliquis and Metoprolol DVT PPx Eliquis The patient will likely need overnight hospital stay given generalized deconditioning and decrease PO intake and risk of falls and need of safe discharge plan which can not be done in less acute level of care Quality Stroke Does the patient have a stroke diagnosis?: No VTE Prior VTE?: No VTE Risk Level:: Medical - moderate - high VTE Device Contraindication: Treatment Not Indicated VTE Drug Contraindication: N/A - Med Ordered
[2023-09-29] MEDS: Cholecalciferol (Vitamin D3) 25 MCG TABLET PO (10:17)
[2023-09-29] MEDS: Furosemide 40 MG TABLET PO (10:17)
[2023-09-29] MEDS: dexAMETHasone 6 MG TABLET PO (10:17)
[2023-09-29] MEDS: Mirabegron 50 MG TAB.ER.24H PO (10:18)
[2023-09-29] MEDS: Spironolactone 25 MG TABLET PO (10:18)
[2023-09-29] MEDS: Multivitamin TABLET 1 TAB PO (10:18)
[2023-09-29] MEDS: Metoprolol Succinate ER 50 MG TAB.ER.24H PO (10:18)
[2023-09-29] MEDS: 0.9 % Sodium Chloride Flush 3 ML SYRINGE IVFLUSH ×3 (10:18→20:22)
[2023-09-29] MEDS: Apixaban 5 MG TABLET PO ×2 (10:18→20:18)
[2023-09-29] MEDS: amLODIPine Besylate 5 MG TABLET PO (10:18)
[2023-09-29] MEDS: Dorzolamide/Timolo 2.23%/0.68% 10 ML DRBTL 1 DROP EYE-BOTH ×2 (10:19→20:21)
--- NOTE | 2023-09-29 16:04 | MHC.SL.DTX ---
Dysphagia Diet modifications: Last documented Solid diet consistencies: Chopped/Advanced (NDD3) Last documented Liquid consistency: [place] Thick Last documented Medication Administration: Changes made to current diet?: Yes: Upgrade liquids to Thin Liquid Consistency and Strategies: Liquid Intake Recommendation: Thin Compensatory Strategies for Safe Swallow: Small Sips No Straws Compensatory Strategies for Safe Swallow(b): Sitting Upright (90 deg) Double Swallow No Straw Small Bites and Sips Alternate Liquids/Solids Rate of Ingestion Change Avoid Specific Foods Solid Food Consistency: Dietary Recommendations: Chopped/Advanced (NDD3) Additional Modifications to Solids: Recommend continue solids of CHOPPED/ADVANCED (NDD3), UPGRADE to THIN liquids, pills CRUSHED in PUREE. Maintain aspiration precautions with total 1:1 supervision during PO intake. Oral Medication Intake: Crushed with Puree Strategies and Precautions to be Taken for Safe Swallow: Sitting Upright (90 deg) Double Swallow No Straw Small Bites and Sips Alternate Liquids/Solids Rate of Ingestion Change Avoid Specific Foods Supervision While Eating and/Drinking: Total Assistance (1:1) Foods to Avoid: Hard, sticky, or dry foods; mixed consistencies (i.e. thin broth with solid ingredients) Swallowing Recommended Treatments: Compens. Strategy Educat. Level of Impact on: Daily activities: Interpersonal interactions: Education: Employment: Community: Prognosis for Improvement: Recommendation for Speech: Inpatient Speech Therapy Comment: 1:1 supervision and strict aspiration precautions Frequency/Duration: Date Range for Service Req: Timeline to reassess: Additional Comments: Pt's CXR showed LLL infiltrates. Pt was seen by WOUND NURSE 09/25 and displayed some overt signs/symptoms of aspiration on thin liquid. He has dentures, was recommended to start on a ground diet (NDD2) for ease of mastication and nectar thick liquids. Pt w/ hx including advanced dementia, GERD, and COPD. Pt reportedly lives at home w/ /HCP. Per MD, pt has been overall weak, tolerating modified diet. Treatment: Pt is resting in bed on arrival. He awakens to his name and light touch. He is dysphonic, but is able to communicate. His tray at bedside is accurate to his current order. He is provided bites of Puree Solids and Advanced Solids with delay oral phase greater for Advanced Solids, but adequate oral clearance with no overt s/s of aspiration. He benefitted from more time to prepare this solid bolus. He tolerated [place]-Thick Liquids via Spoon and administered Cup sip. He tolerated Thin Liquids progressively via Ice Chip, Spoon, Cup and eventually Straw with no overt s/s of aspiration. Given hydration needs, WOUND NURSE recommending advancement to Thin Liquids based on these results. Continue to monitor and adjust as needed given compromised respiratory status. Assessment: Medical Review Coordinator Clinican/Clinical Fellow: No Supervisory Statement: I have reviewed and agree with the student/clinical fellow's documentation: N/A Speech Language Pathologist: Gulshan Webb M.A., [facility]-WOUND NURSE
[2023-09-29] MEDS: Atorvastatin Calcium 80 MG TABLET PO (20:17)
[2023-09-29] MEDS: Acetaminophen 325 MG TABLET 650 MG PO (20:17)
[2023-09-29] MEDS: Tamsulosin HCL 0.4 MG CAPSULE PO (20:18)
[2023-09-29] MEDS: cefTRIAXone sodium 1 GM in 0.9 % Sodium Chloride 50 ML IV (20:20)
[2023-09-29] MEDS: Latanoprost 0.005 % Ophth Sol 2.5 ML DROPS 1 DROP EYE-LEFT (20:21)
[2023-09-30] VITALS (7 sets, daily range): BP systolic 102–168; BP diastolic 47–78; PULSE 55–65; RESP 16–20; TEMP 36.2–37; O2SAT 91–100
[2023-09-30] MEDS: Doxycycline Hyclate 100 MG in 0.9 % Sodium Chloride 250 ML 166.67 MG IV ×2 (06:40→18:28)
[2023-09-30] MEDS: Fluticasone Propionate 100 MCG BLST.W.DEV 2 PUFF INHALE ×2 (08:02→20:09)
[2023-09-30] MEDS: amLODIPine Besylate 5 MG TABLET PO (09:17)
[2023-09-30] MEDS: 0.9 % Sodium Chloride Flush 3 ML SYRINGE IVFLUSH ×3 (09:17→20:48)
[2023-09-30] MEDS: Cholecalciferol (Vitamin D3) 25 MCG TABLET PO (09:17)
[2023-09-30] MEDS: Multivitamin TABLET 1 TAB PO (09:17)
[2023-09-30] MEDS: Apixaban 5 MG TABLET PO ×2 (09:18→20:47)
[2023-09-30] MEDS: Furosemide 40 MG TABLET PO (09:18)
[2023-09-30] MEDS: dexAMETHasone 6 MG TABLET PO (09:18)
[2023-09-30] MEDS: Mirabegron 50 MG TAB.ER.24H PO (09:18)
[2023-09-30] MEDS: Metoprolol Succinate ER 50 MG TAB.ER.24H PO (09:18)
[2023-09-30] MEDS: Spironolactone 25 MG TABLET PO (09:19)
[2023-09-30] MEDS: Dorzolamide/Timolo 2.23%/0.68% 10 ML DRBTL 1 DROP EYE-BOTH ×2 (09:40→20:48)
--- NOTE | 2023-09-30 10:48 | HO.PM.IMPN ---
Subjective Subjective Date of Service: 09/30/23 Interval History: He was seen and evaluated denies any fever or chills feels weak overall Started on O2 supplement reported coughing with meals ; modified diet Review of Systems Review of Systems: Yes all other systems are reviewed and are negative Physical Exam Vital Signs: Vital Signs: Last Vital Signs Temp 97.1 F 09/30/23 08:00 Pulse 56 09/30/23 08:02 Resp 18 09/30/23 08:02 BP 168/78 H 09/30/23 08:00 Pulse Ox 93 09/30/23 08:00 O2 Del Method Nasal Cannula 09/30/23 08:00 O2 Flow Rate 2 09/30/23 08:00 BMI result Body Mass Index 24.9 Const: Other: Constitutional : Awake, frail looking, not in distress Neck : Normal inspection, Supple Cardiovascular : RRR, no JVP, no lower extremity edema Respiratory : fair bilateral air entry, no crackles, wheezes or rhonchi, On O2 supplement Gastrointestinal: soft, lax, Normal bowel sounds, Non tender Skin : Warm, Dry Neurological : Alert & oriented to self, No focal deficit Objective Data Active Medications Acetaminophen (Acetaminophen 325 Mg Tablet) 650 mg PO Q6H PRN PRN Reason: Pain, Mild (Pain Scale 1-3) Last Admin: 09/29/23 20:17 Dose: 650 mg Documented By: AUDRA Amlodipine Besylate (Amlodipine Besylate 5 Mg Tablet) 5 mg PO DAILY [facility]; Protocol Last Admin: 09/30/23 09:17 Dose: 5 mg Documented By: CHRISTIAN Apixaban (Apixaban 5 Mg Tablet) 5 mg PO BID [facility] Last Admin: 09/30/23 09:18 Dose: 5 mg Documented By: CHRISTIAN Atorvastatin Calcium (Atorvastatin Calcium 80 Mg Tablet) 80 mg PO BEDTIME [facility] Last Admin: 09/29/23 20:17 Dose: 80 mg Documented By: AUDRA Dexamethasone (Dexamethasone 6 Mg Tablet) 6 mg PO DAILY [facility] Last Admin: 09/30/23 09:18 Dose: 6 mg Documented By: CHRISTIAN Dorzolamide/Timolol (Dorzolamide/Timolo 2.23%/0.68% 10 Ml Drbtl) 1 drop EYE-BOTH BID [facility] Last Admin: 09/29/23 20:21 Dose: 1 drop Documented By: AUDRA Fluticasone Propionate (Fluticasone Propionate 100 Mcg Blst.W.Dev) 2 puff INHALE RBID [facility] Last Admin: 09/30/23 08:02 Dose: 2 puff Documented By: SARAH Furosemide (Furosemide 40 Mg Tablet) 40 mg PO DAILY [facility]; Protocol Last Admin: 09/30/23 09:18 Dose: 40 mg Documented By: CHRISTIAN Doxycycline Hyclate 100 mg/ (Sodium Chloride) 250 mls @ 166.67 mls/hr IV Q12H [facility] Last Infusion: 09/30/23 08:30 Dose: Infused Documented By: CHRISTIAN Ceftriaxone Sodium 1 gm/ (Sodium Chloride) 50 mls @ 100 mls/hr IV Q24H [facility] Last Infusion: 09/29/23 20:50 Dose: Infused Documented By: AUDRA Latanoprost (Latanoprost 0.005 % Ophth Susana 2.5 Ml Drops) 1 drop EYE-LEFT BEDTIME [facility] Last Admin: 09/29/23 20:21 Dose: 1 drop Documented By: AUDRA Metoprolol Succinate (Metoprolol Succinate Er 50 Mg Tab.Er.24h) 50 mg PO DAILY [facility]; Protocol Last Admin: 09/30/23 09:18 Dose: 50 mg Documented By: CHRISTIAN Mirabegron (Mirabegron 50 Mg Tab.Er.24h) 50 mg PO DAILY [facility] Last Admin: 09/30/23 09:18 Dose: 50 mg Documented By: CHRISTIAN Multivitamins/Vitamin C (Multivitamin Tablet) 1 tab PO DAILY [facility] Last Admin: 09/30/23 09:17 Dose: 1 tab Documented By: CHRISTIAN Ondansetron HCl (Ondansetron Hcl 4 Mg/2 Ml Vial) 4 mg IVPUSH Q8H PRN PRN Reason: Nausea and Vomiting Sodium Chloride (0.9 % Sodium Chloride Flush 3 Ml Syringe) 3 ml IVFLUSH QSHIFT [facility] Last Admin: 09/30/23 09:17 Dose: 3 ml Documented By: CHRISTIAN Spironolactone (Spironolactone 25 Mg Tablet) 25 mg PO DAILY [facility]; Protocol Last Admin: 09/30/23 09:19 Dose: 25 mg Documented By: CHRISTIAN Tamsulosin HCl (Tamsulosin Hcl 0.4 Mg Capsule) 0.4 mg PO BEDTIME [facility] Last Admin: 09/29/23 20:18 Dose: 0.4 mg Documented By: AUDRA Vitamin D (Cholecalciferol (Vitamin D3) 25 Mcg Tablet) 25 mcg PO DAILY [facility] Last Admin: 09/30/23 09:17 Dose: 25 mcg Documented By: CHRISTIAN Labs 09/24/23 06:10 09/27/23 07:01 Assessment and Plan (1) Weakness: Status: Acute (2) Pneumonia: Status: Acute (3) COVID-19: Status: Acute Plan An 88 years old male with PMH of GERD, AFib on Eliquis, CHF, PE, diabetes, BPH, COPD, HLD who presents to ED with increase weakness and decrease PO intake over the last 2 days. PHysical deconditioning 2/2 Covid19 infection Dexamethasone 6 mg daily (09/23) trending down CRP and LDH Titrate O2 as tolerated encourage PO intake retested positive , will need to wait for 10 days prior to placement at facility. 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 Physical deconditioning SNF Hx dCHF Lasix continue MEtoprolol and spironolactone HLD Statin BPH Tamsulosin Atrial flutter controlled, on Eliquis and Metoprolol DVT PPx Eliquis The patient will likely need overnight hospital stay given generalized deconditioning and decrease PO intake and risk of falls and need of safe discharge plan which can not be done in less acute level of care Quality Stroke Does the patient have a stroke diagnosis?: No VTE Prior VTE?: No VTE Risk Level:: Medical - moderate - high VTE Device Contraindication: Treatment Not Indicated VTE Drug Contraindication: N/A - Med Ordered
--- NOTE | 2023-09-30 12:14 | MHC.SL.SWA ---
Risk of Aspiration Due to: Neurological Condition History of Pneumonia Reduced Cognition Dysphasia Diet Status: NO CHANGE Liquid Consistency and Strategies for Safe Swallow: Liquid Intake Recommendation: Thin Liquid Intake Strategies: Small Sips Solid Food Consistency: Dietary Recommendations: Chopped/Advanced (NDD3) Oral Medication Intake: Crushed with Puree Please contact the pharmacy regarding appropriate crushable or liquid drug formulations that are available whenever modified delivery is recommended. Compensatory Strategies and Precautions to be Taken for Safe Swallow: Sitting Upright (90 deg) Small Bites and Sips Alternate Liquids/Solids Avoid Specific Foods Supervision While Eating and Drinking for Safe Swallow: Total Assistance (1:1) Foods to Avoid: Hard, sticky, or dry foods; mixed consistencies (i.e. thin broth with solid ingredients) Swallowing Recommended Treatments: Compens. Strategy Educat. Recommendation for Speech: Inpatient Speech Therapy Comment: Recommend patient continue with CHOPPED/ADVANCED solids (NDD3), thin liquids (cue small, slow sips), and pills crushed in puree. PROJECT SCIENTIST will continue to follow to monitor tolerance and re-assess for potential upgrade if appropriate. Patient is 1-1 feed requiring frequent assistance w/tray and obtaining bites of food. Patient benefits from cues to take sip of liquid following every 1-2 bites. Maintain aspiration precautions with total 1:1 supervision during PO intake. Rate Engineer Clinican/Clinical Fellow: No Supervisory Statement: I have reviewed and agree with the student/clinical fellow's documentation: N/A Speech Language Pathologist: Radha Nolasco M.A., [facility]-PROJECT SCIENTIST
--- NOTE | 2023-09-30 13:18 | MHC.CM.PN ---
Pt awaiting rehab placement, needs to have a neg COVID test, will re-test today, if she positive, can go to [facility] ([facility]) on Sat, day 10. CM to follow and assist with DC plan.
[2023-09-30] MEDS: Tamsulosin HCL 0.4 MG CAPSULE PO (20:47)
[2023-09-30] MEDS: cefTRIAXone sodium 1 GM in 0.9 % Sodium Chloride 50 ML IV (20:47)
[2023-09-30] MEDS: Atorvastatin Calcium 80 MG TABLET PO (20:47)
[2023-09-30] MEDS: Latanoprost 0.005 % Ophth Sol 2.5 ML DROPS 1 DROP EYE-LEFT (20:48)
[2023-10-01] VITALS (8 sets, daily range): BP systolic 113–162; BP diastolic 60–78; PULSE 55–72; RESP 13–19; TEMP 36.1–37; O2SAT 88–96
[2023-10-01] MEDS: Doxycycline Hyclate 100 MG in 0.9 % Sodium Chloride 250 ML 166.67 MG IV ×2 (05:28→18:27)
[2023-10-01] MEDS: Fluticasone Propionate 100 MCG BLST.W.DEV 2 PUFF INHALE ×2 (08:40→20:02)
--- NOTE | 2023-10-01 08:50 | HO.PM.IMPN ---
Subjective Subjective Date of Service: 10/01/23 Interval History: no copmlaints Review of Systems Review of Systems: Yes all other systems are reviewed and are negative Physical Exam Vital Signs: Vital Signs: Last Vital Signs Temp 98.6 F 10/01/23 03:35 Pulse 55 10/01/23 08:44 Resp 18 10/01/23 08:44 BP 137/78 10/01/23 03:35 Pulse Ox 96 10/01/23 03:35 O2 Del Method Nasal Cannula 10/01/23 03:35 O2 Flow Rate 2 10/01/23 03:35 BMI result Body Mass Index 24.9 Const: Other: Constitutional : Awake, frail looking, not in distress Neck : Normal inspection, Supple Cardiovascular : RRR, no JVP, no lower extremity edema Respiratory : fair bilateral air entry, no crackles, wheezes or rhonchi, On O2 supplement Gastrointestinal: soft, lax, Normal bowel sounds, Non tender Skin : Warm, Dry Neurological : Alert & oriented to self, No focal deficit Objective Data Active Medications Acetaminophen (Acetaminophen 325 Mg Tablet) 650 mg PO Q6H PRN PRN Reason: Pain, Mild (Pain Scale 1-3) Last Admin: 09/29/23 20:17 Dose: 650 mg Documented By: AUDRA Amlodipine Besylate (Amlodipine Besylate 5 Mg Tablet) 5 mg PO DAILY COUNTS INCLUDE 234 BEDS AT THE [facility]; Protocol Last Admin: 09/30/23 09:17 Dose: 5 mg Documented By: CHRISTIAN Apixaban (Apixaban 5 Mg Tablet) 5 mg PO BID COUNTS INCLUDE 234 BEDS AT THE [facility] Last Admin: 09/30/23 20:47 Dose: 5 mg Documented By: ELIESER Atorvastatin Calcium (Atorvastatin Calcium 80 Mg Tablet) 80 mg PO BEDTIME COUNTS INCLUDE 234 BEDS AT THE [facility] Last Admin: 09/30/23 20:47 Dose: 80 mg Documented By: ELIESER Dexamethasone (Dexamethasone 6 Mg Tablet) 6 mg PO DAILY COUNTS INCLUDE 234 BEDS AT THE [facility] Last Admin: 09/30/23 09:18 Dose: 6 mg Documented By: CHRISTIAN Dorzolamide/Timolol (Dorzolamide/Timolo 2.23%/0.68% 10 Ml Drbtl) 1 drop EYE-BOTH BID COUNTS INCLUDE 234 BEDS AT THE [facility] Last Admin: 09/30/23 20:48 Dose: 1 drop Documented By: ELIESER Fluticasone Propionate (Fluticasone Propionate 100 Mcg Blst.WOctavia) 2 puff INHALE RBID COUNTS INCLUDE 234 BEDS AT THE [facility] Last Admin: 10/01/23 08:40 Dose: 2 puff Documented By: MARCIA Furosemide (Furosemide 40 Mg Tablet) 40 mg PO DAILY COUNTS INCLUDE 234 BEDS AT THE [facility]; Protocol Last Admin: 09/30/23 09:18 Dose: 40 mg Documented By: CHRISTIAN Doxycycline Hyclate 100 mg/ (Sodium Chloride) 250 mls @ 166.67 mls/hr IV Q12H COUNTS INCLUDE 234 BEDS AT THE [facility] Last Admin: 10/01/23 05:28 Dose: 166.67 mls/hr Documented By: ELIESER Ceftriaxone Sodium 1 gm/ (Sodium Chloride) 50 mls @ 100 mls/hr IV Q24H COUNTS INCLUDE 234 BEDS AT THE [facility] Last Infusion: 10/01/23 03:45 Dose: Infused Documented By: ELIESER Latanoprost (Latanoprost 0.005 % Ophth Susana 2.5 Ml Drops) 1 drop EYE-LEFT BEDTIME COUNTS INCLUDE 234 BEDS AT THE [facility] Last Admin: 09/30/23 20:48 Dose: 1 drop Documented By: ELIESER Metoprolol Succinate (Metoprolol Succinate Er 50 Mg Tab.Er.24h) 50 mg PO DAILY COUNTS INCLUDE 234 BEDS AT THE [facility]; Protocol Last Admin: 09/30/23 09:18 Dose: 50 mg Documented By: CHRISTIAN Mirabegron (Mirabegron 50 Mg Tab.Er.24h) 50 mg PO DAILY COUNTS INCLUDE 234 BEDS AT THE [facility] Last Admin: 09/30/23 09:18 Dose: 50 mg Documented By: CHRISTIAN Multivitamins/Vitamin C (Multivitamin Tablet) 1 tab PO DAILY COUNTS INCLUDE 234 BEDS AT THE [facility] Last Admin: 09/30/23 09:17 Dose: 1 tab Documented By: CHRISTIAN Ondansetron HCl (Ondansetron Hcl 4 Mg/2 Ml Vial) 4 mg IVPUSH Q8H PRN PRN Reason: Nausea and Vomiting Sodium Chloride (0.9 % Sodium Chloride Flush 3 Ml Syringe) 3 ml IVFLUSH QSHIFT COUNTS INCLUDE 234 BEDS AT THE [facility] Last Admin: 09/30/23 20:48 Dose: 3 ml Documented By: ELIESER Spironolactone (Spironolactone 25 Mg Tablet) 25 mg PO DAILY COUNTS INCLUDE 234 BEDS AT THE [facility]; Protocol Last Admin: 09/30/23 09:19 Dose: 25 mg Documented By: CHRISTIAN Tamsulosin HCl (Tamsulosin Hcl 0.4 Mg Capsule) 0.4 mg PO BEDTIME COUNTS INCLUDE 234 BEDS AT THE [facility] Last Admin: 09/30/23 20:47 Dose: 0.4 mg Documented By: ELIESER Vitamin D (Cholecalciferol (Vitamin D3) 25 Mcg Tablet) 25 mcg PO DAILY COUNTS INCLUDE 234 BEDS AT THE [facility] Last Admin: 09/30/23 09:17 Dose: 25 mcg Documented By: CHRISTIAN Labs 09/24/23 06:10 09/27/23 07:01 Assessment and Plan (1) Weakness: Status: Acute (2) Pneumonia: Status: Acute (3) COVID-19: Status: Acute Plan An 88 years old male with PMH of GERD, AFib on Eliquis, CHF, PE, diabetes, BPH, COPD, HLD who presents to ED with increase weakness and decrease PO intake over the last 2 days. PHysical deconditioning 2/2 Covid19 infection Dexamethasone 6 mg daily (09/23) (end 10/03) trending down CRP and LDH Titrate O2 as tolerated encourage PO intake retested positive , will need to wait for 10 days prior to placement at facility. 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 as tolerated Physical deconditioning SNF Hx dCHF Lasix continue MEtoprolol and spironolactone HLD Statin BPH Tamsulosin Atrial flutter controlled, on Eliquis and Metoprolol DVT PPx Eliquis The patient will likely need overnight hospital stay given generalized deconditioning and decrease PO intake and risk of falls and need of safe discharge plan which can not be done in less acute level of care Quality Stroke Does the patient have a stroke diagnosis?: No VTE Prior VTE?: No VTE Risk Level:: Medical - moderate - high VTE Device Contraindication: Treatment Not Indicated VTE Drug Contraindication: N/A - Med Ordered
[2023-10-01] MEDS: Mirabegron 50 MG TAB.ER.24H PO (10:41)
[2023-10-01] MEDS: dexAMETHasone 6 MG TABLET PO (10:42)
[2023-10-01] MEDS: Cholecalciferol (Vitamin D3) 25 MCG TABLET PO (10:42)
[2023-10-01] MEDS: Multivitamin TABLET 1 TAB PO (10:42)
[2023-10-01] MEDS: amLODIPine Besylate 5 MG TABLET PO (10:42)
[2023-10-01] MEDS: Spironolactone 25 MG TABLET PO (10:42)
[2023-10-01] MEDS: Metoprolol Succinate ER 50 MG TAB.ER.24H PO (10:42)
[2023-10-01] MEDS: Apixaban 5 MG TABLET PO ×2 (10:42→20:46)
[2023-10-01] MEDS: 0.9 % Sodium Chloride Flush 3 ML SYRINGE IVFLUSH ×3 (10:43→20:46)
[2023-10-01] MEDS: Furosemide 40 MG TABLET PO (10:43)
[2023-10-01] MEDS: Dorzolamide/Timolo 2.23%/0.68% 10 ML DRBTL 1 DROP EYE-BOTH ×2 (10:43→20:46)
[2023-10-01 11:15] LABS: IDNOW Serial# BCCEAD1C
[2023-10-01 11:16] LABS: COVID-19 Test Positive (Negative)
--- NOTE | 2023-10-01 12:43 | P.CDIM_ITS ---
PROVIDER RESPONSE TEXT: To clarify, the appropriate diagnosis supported by the clinical indicators: incontinent associated dermatitis QUERY TEXT: PHYSICIAN'S DOCUMENTATION REQUEST Date of Query: 10/01/2023 12:36 PM EST Patient Name: Jonatan Del Toro Admit Date: 09/23/2023 Dear Homero Crowell, A review of the medical record indicates additional documentation may be needed. Please review below and update the documentation accordingly. Clinical Indicators: Per Wound Note 09/28/23: Bilateral Buttocks Etiology: MASD-IAD (Moisture Associated Skin Damage - Incontinent Associated Dermatitis) Wound Bed: Left buttocks with irregular boarders and partial thickness tissue loss - consistent with Moisture and not pressure Right buttocks pink red intact tissue remains blanchable throughout - consistent with incontinence lo cation and pooling in bed Drainage / Odor: None noted at the time of my assessment Edges: Irregular and adherent Harleen wound: No Induration, Fluctuance or Warmth noted Pain: Mild tenderness noted Goals of Treatment: Triad Barrier cream to protect from moisture and frequent loose stools. The following diagnoses or signs and symptoms were noted in the patient record: Based on the above, could you clarify the appropriate diagnosis, if significant, that supports the ab ove abnormalities and additional evaluation, monitoring, and/or treatment rendered: incontinent associated dermatitis Other (explain) Clinically unable to determine (explain) Thank you, Tejal Morton RN Use of terms such as suspected, likely, concern for, or probable (associated with a specific diagnosi s that is being evaluated, monitored, or treated as if it exists) are acceptable and can be coded in the inpatient se tting, when documented at the time of discharge. Please use your independent medical judgment in providing your response. THIS QUERY IS PART OF THE PERMANENT MEDICAL RECORD
--- NOTE | 2023-10-01 15:32 | MHC.SL.SWA ---
Speech Pathologist Impression: Risk of Aspiration Due to: Neurological Condition History of Pneumonia Reduced Cognition Dysphasia Diet Status: Recommend continue on Chopped/Advanced (NDD3) with Thin liquids and pills crushed in puree, which patient appears to be tolerating well. LINE PATROLMAN will continue to follow to monitor tolerance and re-assess for potential upgrade if appropriate. Patient is 1-1 supervision during meals as he requires frequent assistance w/tray and obtaining bites of food. Patient benefits from cues to take sip of liquid following every 1-2 bites. Liquid Consistency and Strategies for Safe Swallow: Liquid Intake Recommendation: Thin Liquid Intake Strategies: Small Sips Solid Food Consistency: Dietary Recommendations: Chopped/Advanced (NDD3) Additional Modifications to Solid Foods: Recommend continue solids of CHOPPED/ADVANCED (NDD3), UPGRADE to THIN liquids, pills CRUSHED in PUREE. Maintain aspiration precautions with total 1:1 supervision during PO intake. Oral Medication Intake: Crushed with Puree Please contact the pharmacy regarding appropriate crushable or liquid drug formulations that are available whenever modified delivery is recommended. Compensatory Strategies and Precautions to be Taken for Safe Swallow: Sitting Upright (90 deg) Small Bites and Sips Alternate Liquids/Solids Avoid Specific Foods Supervision While Eating and Drinking for Safe Swallow: Total Supervision (1:1) Foods to Avoid: Hard, sticky, or dry foods; mixed consistencies (i.e. thin broth with solid ingredients) Swallowing Recommended Treatments: Compens. Strategy Educat. Recommendation for Speech: Inpatient Speech Therapy Comment: Patient was seen at lunch. Patient alone in room, had towel as bib, and was attempting to feed self, with some food spilling from fork to bib. Patient took forkfuls of ground turkey and mashed potatoes, and demonstrated a moderately long period of mastication, orally manipulating bolus, followed by a timely swallow, and no sigs of aspiration. Patient alternated bites of food with sips of gingerale by straw, with no difficulties noted. Patient was assisted with getting more food on utensils, opening juice, cutting up dessert into bite size, manageable pieces. Patient was very pleasant and cooperative throughout. Recommend continue on Chopped/Advanced (NDD3) with Thin liquids and pills crushed in puree, which patient appears to be tolerating well. Frequency/Duration: Date Range for Service Req: Timeline to reassess: Topology Teacher Clinican/Clinical Fellow: No Supervisory Statement: I have reviewed and agree with the student/clinical fellow's documentation: N/A Speech Language Pathologist: Sharon Sullivan M.A., CCC-LINE PATROLMAN
[2023-10-01] MEDS: Atorvastatin Calcium 80 MG TABLET PO (20:45)
[2023-10-01] MEDS: Tamsulosin HCL 0.4 MG CAPSULE PO (20:46)
[2023-10-01] MEDS: cefTRIAXone sodium 1 GM in 0.9 % Sodium Chloride 50 ML IV (20:46)
[2023-10-01] MEDS: Latanoprost 0.005 % Ophth Sol 2.5 ML DROPS 1 DROP EYE-LEFT (20:46)
[2023-10-02] VITALS (8 sets, daily range): BP systolic 127–161; BP diastolic 60–74; PULSE 55–72; RESP 16–32; TEMP 36.1–36.7; O2SAT 90–96
[2023-10-02] MEDS: Doxycycline Hyclate 100 MG in 0.9 % Sodium Chloride 250 ML 166.67 MG IV ×2 (05:49→17:04)
[2023-10-02] MEDS: Fluticasone Propionate 100 MCG BLST.W.DEV 2 PUFF INHALE ×2 (07:52→19:03)
[2023-10-02] MEDS: Metoprolol Succinate ER 50 MG TAB.ER.24H PO (09:34)
[2023-10-02] MEDS: Furosemide 40 MG TABLET PO (09:34)
[2023-10-02] MEDS: Cholecalciferol (Vitamin D3) 25 MCG TABLET PO (09:34)
[2023-10-02] MEDS: Apixaban 5 MG TABLET PO ×2 (09:34→22:09)
[2023-10-02] MEDS: amLODIPine Besylate 5 MG TABLET PO (09:34)
[2023-10-02] MEDS: Mirabegron 50 MG TAB.ER.24H PO (09:34)
[2023-10-02] MEDS: Spironolactone 25 MG TABLET PO (09:34)
[2023-10-02] MEDS: Multivitamin TABLET 1 TAB PO (09:34)
[2023-10-02] MEDS: dexAMETHasone 6 MG TABLET PO (09:34)
[2023-10-02] MEDS: Dorzolamide/Timolo 2.23%/0.68% 10 ML DRBTL 1 DROP EYE-BOTH ×2 (09:38→22:10)
--- NOTE | 2023-10-02 09:42 | MHC.CM.PN ---
EMR REVIEWED, PER ACCEPTING SNF PT CAN BE RETESTED DAILY AND CAN DC IF NEGATIVE OR CAN DC ON DAY 10 WHICH IS 10/04, CM WILL CONT TO FOLLOW DC NEEDS.
[2023-10-02] MEDS: 0.9 % Sodium Chloride Flush 3 ML SYRINGE IVFLUSH ×3 (09:47→23:30)
--- NOTE | 2023-10-02 10:13 | P.PNIM_ITS ---
Subjective Subjective Date of Service: 10/02/23 Interval History: no copmlaints Review of Systems Review of Systems: Yes all other systems are reviewed and are negative Physical Exam 2 Vital Signs: Vital Signs: Last Vital Signs Temp 97.9 F 10/02/23 06:56 Pulse 55 10/02/23 07:55 Resp 16 10/02/23 07:55 BP 127/60 10/02/23 06:56 Pulse Ox 91 L 10/02/23 06:56 O2 Del Method Nasal Cannula 10/02/23 06:56 O2 Flow Rate 2 10/02/23 03:06 BMI result Body Mass Index 24.9 Const: Other: Constitutional : Awake, frail looking, not in distress Neck : Normal inspection, Supple Cardiovascular : RRR, no JVP, no lower extremity edema Respiratory : fair bilateral air entry, no crackles, wheezes or rhonchi, On O2 supplement Gastrointestinal: soft, lax, Normal bowel sounds, Non tender Skin : Warm, Dry Neurological : Alert & oriented to self, No focal deficit Objective Data Active Medications Acetaminophen (Acetaminophen 325 Mg Tablet) 650 mg PO Q6H PRN PRN Reason: Pain, Mild (Pain Scale 1-3) Last Admin: 09/29/23 20:17 Dose: 650 mg Documented By: AUDRA Amlodipine Besylate (Amlodipine Besylate 5 Mg Tablet) 5 mg PO DAILY [facility]; Protocol Last Admin: 10/02/23 09:34 Dose: 5 mg Documented By: ABIOLA Apixaban (Apixaban 5 Mg Tablet) 5 mg PO BID [facility] Last Admin: 10/02/23 09:34 Dose: 5 mg Documented By: ABIOLA Atorvastatin Calcium (Atorvastatin Calcium 80 Mg Tablet) 80 mg PO BEDTIME [facility] Last Admin: 10/01/23 20:45 Dose: 80 mg Documented By: ELIESER Dexamethasone (Dexamethasone 6 Mg Tablet) 6 mg PO DAILY [facility] Last Admin: 10/02/23 09:34 Dose: 6 mg Documented By: ABIOLA Dorzolamide/Timolol (Dorzolamide/Timolo 2.23%/0.68% 10 Ml Drbtl) 1 drop EYE- BOTH BID [facility] Last Admin: 10/02/23 09:38 Dose: 1 drop Documented By: ABIOLA Fluticasone Propionate (Fluticasone Propionate 100 Mcg Blst.W.Dev) 2 puff INHALE RBID [facility] Last Admin: 10/02/23 07:52 Dose: 2 puff Documented By: MARCIA Furosemide (Furosemide 40 Mg Tablet) 40 mg PO DAILY [facility]; Protocol Last Admin: 10/02/23 09:34 Dose: 40 mg Documented By: ABIOLA Doxycycline Hyclate 100 mg/ (Sodium Chloride) 250 mls @ 166.67 mls/hr IV Q12H [facility] Last Infusion: 10/02/23 07:41 Dose: Infused Documented By: ABIOLA Ceftriaxone Sodium 1 gm/ (Sodium Chloride) 50 mls @ 100 mls/hr IV Q24H [facility] Last Infusion: 10/01/23 21:43 Dose: Infused Documented By: ELIESER Latanoprost (Latanoprost 0.005 % Ophth Susana 2.5 Ml Drops) 1 drop EYE-LEFT BEDTIME [facility] Last Admin: 10/01/23 20:46 Dose: 1 drop Documented By: ELIESER Metoprolol Succinate (Metoprolol Succinate Er 50 Mg Tab.Er.24h) 50 mg PO DAILY [facility]; Protocol Last Admin: 10/02/23 09:34 Dose: 50 mg Documented By: ABIOLA Mirabegron (Mirabegron 50 Mg Tab.Er.24h) 50 mg PO DAILY [facility] Last Admin: 10/02/23 09:34 Dose: 50 mg Documented By: ABIOLA Multivitamins/Vitamin C (Multivitamin Tablet) 1 tab PO DAILY [facility] Last Admin: 10/02/23 09:34 Dose: 1 tab Documented By: ABIOLA Ondansetron HCl (Ondansetron Hcl 4 Mg/2 Ml Vial) 4 mg IVPUSH Q8H PRN PRN Reason: Nausea and Vomiting Sodium Chloride (0.9 % Sodium Chloride Flush 3 Ml Syringe) 3 ml IVFLUSH QSHIFT [facility] Last Admin: 10/02/23 09:47 Dose: 3 ml Documented By: ABIOLA Spironolactone (Spironolactone 25 Mg Tablet) 25 mg PO DAILY [facility]; Protocol Last Admin: 10/02/23 09:34 Dose: 25 mg Documented By: ABIOLA Tamsulosin HCl (Tamsulosin Hcl 0.4 Mg Capsule) 0.4 mg PO BEDTIME [facility] Last Admin: 10/01/23 20:46 Dose: 0.4 mg Documented By: ELIESER Vitamin D (Cholecalciferol (Vitamin D3) 25 Mcg Tablet) 25 mcg PO DAILY [facility] Last Admin: 10/02/23 09:34 Dose: 25 mcg Documented By: ABIOLA Labs 09/24/23 06:10 09/27/23 07:01 Labs: Laboratory Results - last 24 hr 10/01/23 10:40 COVID-19 ([facility]) Positive A COVID-19 Clin Com See Note Assessment and Plan (1) Weakness: Status: Acute (2) Pneumonia: Status: Acute (3) COVID-19: Status: Acute Plan An 88 years old male with PMH of GERD, AFib on Eliquis, CHF, PE, diabetes, BPH, COPD, HLD who presents to ED with increase weakness and decrease PO intake over the last 2 days. PHysical deconditioning 2/2 Covid19 infection Dexamethasone 6 mg daily (09/23) (end 10/03) trending down CRP and LDH Titrate O2 as tolerated encourage PO intake retested positive , will need to wait for 10 days prior to placement at facility. 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 Physical deconditioning SNF Hx dCHF Lasix continue MEtoprolol and spironolactone HLD Statin BPH Tamsulosin Atrial flutter controlled, on Eliquis and Metoprolol DVT PPx Eliquis The patient will likely need overnight hospital stay given generalized deconditioning and decrease PO intake and risk of falls and need of safe discharge plan which can not be done in less acute level of care Quality Stroke Does the patient have a stroke diagnosis?: No VTE Prior VTE?: No VTE Risk Level:: Medical - moderate - high VTE Device Contraindication: Treatment Not Indicated VTE Drug Contraindication: N/A - Med Ordered
--- NOTE | 2023-10-02 13:35 | MHC.SL.SWA ---
Speech Pathologist Impression: Risk of aspiration, oropharyngeal dysphagia Risk of Aspiration Due to: Neurological Condition History of Pneumonia Reduced Cognition Dysphasia Diet Status: Recommend continue on Chopped/Advanced (NDD3) with Thin liquids and pills crushed in puree, which patient appears to be tolerating well. BILLET HEATER will continue to follow to monitor tolerance and re-assess for potential upgrade if appropriate. Patient is 1-1 supervision during meals as he requires frequent assistance w/tray and obtaining bites of food. Patient benefits from cues to take sip of liquid following every 1-2 bites. Liquid Consistency and Strategies for Safe Swallow: Liquid Intake Recommendation: Thin Liquid Intake Strategies: Small Sips Solid Food Consistency: Dietary Recommendations: Chopped/Advanced (NDD3) Additional Modifications to Solid Foods: Recommend continue solids of CHOPPED/ADVANCED (NDD3), UPGRADE to THIN liquids, pills CRUSHED in PUREE. Maintain aspiration precautions with total 1:1 supervision during PO intake. Oral Medication Intake: Crushed with Puree Please contact the pharmacy regarding appropriate crushable or liquid drug formulations that are available whenever modified delivery is recommended. Compensatory Strategies and Precautions to be Taken for Safe Swallow: Sitting Upright (90 deg) Small Bites and Sips Alternate Liquids/Solids Rate of Ingestion Change Avoid Specific Foods Supervision While Eating and Drinking for Safe Swallow: Total Supervision (1:1) Foods to Avoid: Hard, sticky, or dry foods; mixed consistencies (i.e. thin broth with solid ingredients) Swallowing Recommended Treatments: Compens. Strategy Educat. Recommendation for Speech: Inpatient Speech Therapy Comment: 1:1 supervision and strict aspiration precautions Screw Machine Operator Swiss Type Clinican/Clinical Fellow: No Supervisory Statement: I have reviewed and agree with the student/clinical fellow's documentation: N/A Speech Language Pathologist: Shadia Ybarra M.A., [facility]-BILLET HEATER
--- NOTE | 2023-10-02 16:04 | P.EN_ITS ---
Event Note Date of Service: 10/02/23 Event Note: Patient seen for removal of tigre to occipital scalp. [place] placed 3+ weeks ago after patient fell and sustained laceration to scalp. Two tigre were removed without incident. Occipital scalp laceration well-healed with no sign of infection. Time Spent With Patient Time: Total time managing care of this patient today ____ minutes.
[2023-10-02 16:53] LABS: Hematocrit 40.1 % (42.0-52.0); Mean Corpuscular HGB Conc 32.4 g/dl (31.0-36.0); Mean Corpuscular Hemoglobin 28.7 pg (27.0-33.0); Mean Corpuscular Volume 88.5 fL (80.0-98.0); Mean Platelet Volume 9.5 fL (9.4-12.4); Platelet Count 362 X10*3/uL (160-400); Red Blood Count 4.53 X10*6/uL (4.60-5.80); Red Cell Distribution Width 13.6 % (11.0-16.0); White Blood Count 15.3 X10*3/uL (4.8-10.8)
[2023-10-02 17:06] LABS: Anion Gap 12 (12-20); Blood Urea Nitrogen 34 mg/dL (9-16); Calcium 8.7 mg/dL (8.4-10.2); Carbon Dioxide 21 mmol/L (22-29); Chloride 109 mmol/L (96-108); Creatinine Clr Calc Pharmacy 53.7; Estimated Glomerular Filt Rate > 60; Glucose Random 173 mg/dL (60-115); Sodium 138 mmol/L (135-145)
[2023-10-02 17:18] LABS: B Type Natriuretic Peptide 135 pg/mL (<100)
[2023-10-02] MEDS: cefTRIAXone sodium 1 GM in 0.9 % Sodium Chloride 50 ML IV (22:05)
[2023-10-02] MEDS: Atorvastatin Calcium 80 MG TABLET PO (22:09)
[2023-10-02] MEDS: Tamsulosin HCL 0.4 MG CAPSULE PO (22:09)
[2023-10-02] MEDS: Latanoprost 0.005 % Ophth Sol 2.5 ML DROPS 1 DROP EYE-LEFT (22:10)
[2023-10-03] VITALS (7 sets, daily range): BP systolic 106–152; BP diastolic 54–77; PULSE 53–73; RESP 17–20; TEMP 36.1–36.5; O2SAT 88–94
[2023-10-03 06:15] LABS: Hematocrit 38.8 % (42.0-52.0); Hemoglobin 12.5 g/dl (14.0-18.0); Mean Corpuscular HGB Conc 32.2 g/dl (31.0-36.0); Mean Corpuscular Hemoglobin 28.3 pg (27.0-33.0); Mean Corpuscular Volume 87.8 fL (80.0-98.0); Mean Platelet Volume 9.5 fL (9.4-12.4); Platelet Count 335 X10*3/uL (160-400); Red Blood Count 4.42 X10*6/uL (4.60-5.80); Red Cell Distribution Width 13.7 % (11.0-16.0); White Blood Count 12.4 X10*3/uL (4.8-10.8)
[2023-10-03 06:31] LABS: Alanine Aminotransferase 133 U/L (0-40); Albumin Level 2.9 g/dL (3.5-5.0); Alkaline Phosphatase 66 U/L (39-117); Anion Gap 14 (12-20); Aspartate Amino Transferase 53 U/L (5-37); Bilirubin Direct 0.3 mg/dL (0.0-0.5); Bilirubin Total 0.6 mg/dL (0.0-1.0); Blood Urea Nitrogen 35 mg/dL (9-16); Calcium 8.6 mg/dL (8.4-10.2); Carbon Dioxide 19 mmol/L (22-29); Chloride 110 mmol/L (96-108); Creatinine Clr Calc Pharmacy 58.3; Estimated Glomerular Filt Rate > 60; Glucose Fasting 146 mg/dL (60-99); Magnesium 2.5 mg/dL (1.6-2.6); Potassium 3.9 mmol/L (3.3-5.1); Sodium 139 mmol/L (135-145); Total Protein 5.7 g/dL (6.5-8.0)
[2023-10-03] MEDS: Doxycycline Hyclate 100 MG in 0.9 % Sodium Chloride 250 ML 166.7 MG IV ×2 (06:44→17:09)
[2023-10-03] MEDS: Fluticasone Propionate 100 MCG BLST.W.DEV 2 PUFF INHALE ×2 (08:06→19:51)
[2023-10-03] MEDS: Multivitamin TABLET 1 TAB PO (09:16)
[2023-10-03] MEDS: Spironolactone 25 MG TABLET PO (09:16)
[2023-10-03] MEDS: Furosemide 40 MG TABLET PO (09:16)
[2023-10-03] MEDS: Apixaban 5 MG TABLET PO ×2 (09:16→21:41)
[2023-10-03] MEDS: Mirabegron 50 MG TAB.ER.24H PO (09:16)
[2023-10-03] MEDS: amLODIPine Besylate 5 MG TABLET PO (09:16)
[2023-10-03] MEDS: Cholecalciferol (Vitamin D3) 25 MCG TABLET PO (09:16)
[2023-10-03] MEDS: dexAMETHasone 6 MG TABLET PO (09:16)
[2023-10-03] MEDS: Dorzolamide/Timolo 2.23%/0.68% 10 ML DRBTL 1 DROP EYE-BOTH ×2 (09:17→21:40)
[2023-10-03] MEDS: 0.9 % Sodium Chloride Flush 3 ML SYRINGE IVFLUSH ×2 (09:17→17:10)
--- NOTE | 2023-10-03 09:33 | P.PNIM_ITS ---
Subjective Subjective Date of Service: 10/03/23 Interval History: no new complaints, overall weak Physical Exam 2 Vital Signs: Vital Signs: Last Vital Signs Temp 97.0 F 10/03/23 07:07 Pulse 55 10/03/23 08:10 Resp 20 10/03/23 08:10 BP 113/65 10/03/23 07:07 Pulse Ox 94 10/03/23 07:07 O2 Del Method Nasal Cannula 10/03/23 07:07 O2 Flow Rate 2 10/03/23 00:00 BMI result Body Mass Index 24.9 Const: Other: Constitutional : Awake, frail looking, not in distress Neck : Normal inspection, Supple Cardiovascular : RRR, no JVP, no lower extremity edema Respiratory : fair bilateral air entry, no crackles, wheezes or rhonchi, On O2 supplement Gastrointestinal: soft, lax, Normal bowel sounds, Non tender Skin : Warm, Dry Neurological : Alert & oriented to self, No focal deficit Objective Data Active Medications Acetaminophen (Acetaminophen 325 Mg Tablet) 650 mg PO Q6H PRN PRN Reason: Pain, Mild (Pain Scale 1-3) Last Admin: 09/29/23 20:17 Dose: 650 mg Documented By: AUDRA Amlodipine Besylate (Amlodipine Besylate 5 Mg Tablet) 5 mg PO DAILY [facility]; Protocol Last Admin: 10/03/23 09:16 Dose: 5 mg Documented By: ABIOLA Apixaban (Apixaban 5 Mg Tablet) 5 mg PO BID [facility] Last Admin: 10/03/23 09:16 Dose: 5 mg Documented By: ABIOLA Atorvastatin Calcium (Atorvastatin Calcium 80 Mg Tablet) 80 mg PO BEDTIME [facility] Last Admin: 10/02/23 22:09 Dose: 80 mg Documented By: ALESHA Dexamethasone (Dexamethasone 6 Mg Tablet) 6 mg PO DAILY [facility] Last Admin: 10/03/23 09:16 Dose: 6 mg Documented By: ABIOLA Dorzolamide/Timolol (Dorzolamide/Timolo 2.23%/0.68% 10 Ml Drbtl) 1 drop EYE- BOTH BID [facility] Last Admin: 10/03/23 09:17 Dose: 1 drop Documented By: ABIOLA Fluticasone Propionate (Fluticasone Propionate 100 Mcg Blst.W.Dev) 2 puff INHALE RBID [facility] Last Admin: 10/03/23 08:06 Dose: 2 puff Documented By: AUBREE Furosemide (Furosemide 40 Mg Tablet) 40 mg PO DAILY [facility]; Protocol Last Admin: 10/03/23 09:16 Dose: 40 mg Documented By: ABIOLA Doxycycline Hyclate 100 mg/ (Sodium Chloride) 250 mls @ 166.67 mls/hr IV Q12H [facility] Last Infusion: 10/03/23 09:18 Dose: Infused Documented By: ABIOLA Ceftriaxone Sodium 1 gm/ (Sodium Chloride) 50 mls @ 100 mls/hr IV Q24H [facility] Last Infusion: 10/02/23 23:30 Dose: Infused Documented By: ALESHA Latanoprost (Latanoprost 0.005 % Ophth Susana 2.5 Ml Drops) 1 drop EYE-LEFT BEDTIME [facility] Last Admin: 10/02/23 22:10 Dose: 1 drop Documented By: ALESHA Metoprolol Succinate (Metoprolol Succinate Er 50 Mg Tab.Er.24h) 50 mg PO DAILY [facility]; Protocol Last Admin: 10/03/23 09:17 Dose: Not Given Documented By: ABIOLA Non-Admin Reason: Patient Condition Contraindication Mirabegron (Mirabegron 50 Mg Tab.Er.24h) 50 mg PO DAILY [facility] Last Admin: 10/03/23 09:16 Dose: 50 mg Documented By: ABIOLA Multivitamins/Vitamin C (Multivitamin Tablet) 1 tab PO DAILY [facility] Last Admin: 10/03/23 09:16 Dose: 1 tab Documented By: ABIOLA Ondansetron HCl (Ondansetron Hcl 4 Mg/2 Ml Vial) 4 mg IVPUSH Q8H PRN PRN Reason: Nausea and Vomiting Sodium Chloride (0.9 % Sodium Chloride Flush 3 Ml Syringe) 3 ml IVFLUSH QSHIFT [facility] Last Admin: 10/03/23 09:17 Dose: 3 ml Documented By: ABIOLA Spironolactone (Spironolactone 25 Mg Tablet) 25 mg PO DAILY [facility]; Protocol Last Admin: 10/03/23 09:16 Dose: 25 mg Documented By: ABIOLA Tamsulosin HCl (Tamsulosin Hcl 0.4 Mg Capsule) 0.4 mg PO BEDTIME [facility] Last Admin: 10/02/23 22:09 Dose: 0.4 mg Documented By: ALESHA Vitamin D (Cholecalciferol (Vitamin D3) 25 Mcg Tablet) 25 mcg PO DAILY [facility] Last Admin: 10/03/23 09:16 Dose: 25 mcg Documented By: ABIOLA Labs 10/03/23 06:02 10/03/23 06:02 Labs: Laboratory Results - last 24 hr 10/02/23 10/03/23 16:46 06:02 MCV 88.5 87.8 MCH 28.7 28.3 MCHC 32.4 32.2 RDW 13.6 13.7 Plt Count 362 D 335 MPV 9.5 9.5 Absolute Nucleated RBC 0.000 0.000 Nucleated RBC % (auto) 0.0 0.0 Anion Gap 12 14 Estim Creat Clear Calc 53.7 58.3 Estimated GFR > 60 > 60 Random Glucose 173 H Fasting Glucose 146 H Calcium 8.7 8.6 Magnesium 2.5 Total Bilirubin 0.6 Direct Bilirubin 0.3 AST 53 H ALT 133 H Alkaline Phosphatase 66 B-Natriuretic Peptide 135 H Total Protein 5.7 L Albumin 2.9 L Assessment and Plan (1) Weakness: Status: Acute (2) Pneumonia: Status: Acute (3) COVID-19: Status: Acute Plan An 88 years old male with PMH of GERD, AFib on Eliquis, CHF, PE, diabetes, BPH, COPD, HLD who presents to ED with increase weakness and decrease PO intake over the last 2 days. PHysical deconditioning 2/2 Covid19 infection Dexamethasone 6 mg daily (09/23) (end 10/03) trending down CRP and LDH Titrate O2 as tolerated encourage PO intake retested positive , will need to wait for 10 days prior to placement at facility. 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 Physical deconditioning SNF Hx dCHF Lasix continue MEtoprolol and spironolactone HLD Statin BPH Tamsulosin Atrial flutter controlled, on Eliquis and Metoprolol DVT PPx Eliquis The patient will likely need overnight hospital stay given generalized deconditioning and decrease PO intake and risk of falls and need of safe discharge plan which can not be done in less acute level of care Quality Stroke Does the patient have a stroke diagnosis?: No VTE Prior VTE?: No VTE Risk Level:: Medical - moderate - high VTE Device Contraindication: Treatment Not Indicated VTE Drug Contraindication: N/A - Med Ordered
[2023-10-03] MEDS: Atorvastatin Calcium 80 MG TABLET PO (21:40)
[2023-10-03] MEDS: Tamsulosin HCL 0.4 MG CAPSULE PO (21:41)
[2023-10-03] MEDS: Latanoprost 0.005 % Ophth Sol 2.5 ML DROPS 1 DROP EYE-LEFT (21:44)
[2023-10-04] VITALS (8 sets, daily range): BP systolic 101–154; BP diastolic 61–82; PULSE 55–65; RESP 18–20; TEMP 36.2–37; O2SAT 90–95
--- NOTE | 2023-10-04 08:21 | MHC.CM.PN ---
FEMI RECEIVED A VM MESSAGE FROM PTS SON, KARIE YESTERDAY. KARIE INDICATED HIS FATHERS LEFT HEARING AID HAD BEEN LOST AND HE WAS CALLING TO SEE IF IT HAD BEEN LOCATED FEMI CONFIRMED WITH PTS RN THAT IT WAS IN FACT RECOVERED FEMI CALLED KARIE BACK WITH ABOVE INFORMATION YESTERDAY AT [phone]
[2023-10-04] MEDS: Fluticasone Propionate 100 MCG BLST.W.DEV 2 PUFF INHALE ×2 (08:26→20:04)
[2023-10-04] MEDS: Furosemide 40 MG TABLET PO (09:17)
[2023-10-04] MEDS: dexAMETHasone 6 MG TABLET PO (09:17)
[2023-10-04] MEDS: Metoprolol Succinate ER 50 MG TAB.ER.24H PO (09:17)
[2023-10-04] MEDS: Cholecalciferol (Vitamin D3) 25 MCG TABLET PO (09:18)
[2023-10-04] MEDS: Spironolactone 25 MG TABLET PO (09:18)
[2023-10-04] MEDS: Mirabegron 50 MG TAB.ER.24H PO (09:18)
[2023-10-04] MEDS: Apixaban 5 MG TABLET PO ×2 (09:18→22:44)
[2023-10-04] MEDS: Multivitamin TABLET 1 TAB PO (09:18)
[2023-10-04] MEDS: amLODIPine Besylate 5 MG TABLET PO (09:18)
[2023-10-04] MEDS: Dorzolamide/Timolo 2.23%/0.68% 10 ML DRBTL 1 DROP EYE-BOTH ×2 (09:20→22:43)
[2023-10-04] MEDS: 0.9 % Sodium Chloride Flush 3 ML SYRINGE IVFLUSH ×3 (09:27→22:46)
--- NOTE | 2023-10-04 10:08 | MHC.SL.SWA ---
Risk of Aspiration Due to: Neurological Condition History of Pneumonia Reduced Cognition Dysphasia Diet Status: Liquid Consistency and Strategies for Safe Swallow: Liquid Intake Recommendation: Thin Liquid Intake Strategies: Small Sips Solid Food Consistency: Dietary Recommendations: Chopped/Advanced (NDD3) Oral Medication Intake: Crushed with Puree Please contact the pharmacy regarding appropriate crushable or liquid drug formulations that are available whenever modified delivery is recommended. Compensatory Strategies and Precautions to be Taken for Safe Swallow: Sitting Upright (90 deg) Small Bites and Sips Alternate Liquids/Solids Rate of Ingestion Change Avoid Specific Foods Supervision While Eating and Drinking for Safe Swallow: Total Supervision (1:1) Foods to Avoid: Hard, sticky, or dry foods; mixed consistencies (i.e. thin broth with solid ingredients) Swallowing Recommended Treatments: Compens. Strategy Educat. Recommendation for Speech: Inpatient Speech Therapy Recommend continue on Chopped/Advanced (NDD3) with Thin liquids and pills crushed in puree. ESTATE PLANNING DIRECTOR will continue to follow to monitor tolerance and re-assess for potential upgrade if appropriate. Patient is 1-1 TOTAL SUPERVISION during meals to provide cues, monitor for s/s aspiration, and assist w/tray as needed. Patient benefits from cues to take sip of liquid following every 1-2 bites. Encourage liquids via cup during mealtime. Recommend outpatient MBSS if patient continues to present w/ cough during meals following hospital d/c. Comment: 1:1 supervision and strict aspiration precautions Towboat Engineer Clinican/Clinical Fellow: No Supervisory Statement: I have reviewed and agree with the student/clinical fellow's documentation: N/A Speech Language Pathologist: Radha Nolasco M.A., [facility]-ESTATE PLANNING DIRECTOR
--- NOTE | 2023-10-04 10:19 | PM.DS ---
DS: Providers Provider Date of Service: 10/06/23 Date of admission: 09/23/23 17:54 Primary care physician: Darcy Otero MD Consults: 09/27/23 21:34 Consult to Wound Care Routine Reason for consultation: stage 2 pressure injury left buttock DS: Diagnosis Discharge Diagnosis (1) Weakness: Status: Acute (2) Pneumonia: Status: Acute (3) COVID-19: Status: Acute DS: Summary Hospital Course Hospital Course: from initial hpi: 88 years old male with PMH of GERD, AFib on Eliquis, CHF, PE, diabetes, BPH, COPD, HLD who presents to ED with increase weakness and decrease PO intake over the last 2 days. 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 since then his family noticed worsening in physical strength and decrease appetite. his symptoms associated with cough and Upper respiratory symptoms. he has advanced dementia and could not contribute to the history. No chest pain, palpitations, SOB, nausea, vomiting, diarrhea or urinary symptoms. tested +ve Covid by family. In ED found to have elevated WBCs, LA with mild dehydration. Admitted for further evaluation and treatment. hospital course: Patient was admitted for acute hypoxic respiratory failure secondary to COVID pneumonia complicated by aspiration pneumonia. He received Decadron, full course of ceftriaxone doxycycline, was seen by speech therapy recommended ndd3 solids, thin liquids, one-to-one feeds. He was able to be titrated down to 2 L O2, should continue to titrate to goal of 91-94% oxygen saturation. Due to significant physical deconditioning due to COVID and pneumonia was seen by physical therapy recommended short-term rehab. For chronic diastolic CHF was continue on Lasix, for hyperlipidemia was continue on statin. For BPH was continued on Flomax. For paroxysmal atrial flutter was continued on Eliquis and metoprolol. Patient is medically stable will be discharged to residential facility, he continues to be at high risk for recurrent aspiration events, precautions should be taken to minimize those risks as much as possible (see LOG CHECK SCALER note) Time Attestation Discharge coordination time: Greater than 30 minutes Quality: Safe Use of Opioids Does Pt have an Active Cancer Diagnosis on the Problem List?: No Quality: Stroke Does the patient have a stroke diagnosis?: No Physical Exam Vital Signs: Vital Signs: Last Vital Signs Temp 98.6 F 10/04/23 07:35 Pulse 65 10/04/23 08:27 Resp 20 10/04/23 08:27 BP 132/66 10/04/23 07:35 Pulse Ox 93 10/04/23 07:35 O2 Del Method Nasal Cannula 10/04/23 07:35 O2 Flow Rate 2 10/04/23 03:08 BMI result Body Mass Index 24.9 Const: Other: Constitutional : Awake, frail looking, not in distress Neck : Normal inspection, Supple Cardiovascular : RRR, no JVP, no lower extremity edema Respiratory : fair bilateral air entry, no crackles, wheezes or rhonchi, On O2 supplement Gastrointestinal: soft, lax, Normal bowel sounds, Non tender Skin : Warm, Dry Neurological : Alert & oriented to self, No focal deficit Discharge Plan Discharge Anticipated Discharge Date/Time: 10/04/23 10:16 Patient Disposition: er SNF Discharge Diagnosis: covid, aspiration penu[place] Referrals: Po,Darcy Langley MD [Primary Care Provider] - 1 Week Discharge Medications: Continued (DME) [employer] STAIRLIFT See Rx Instructions .Route .MEDSUPPLY Qty: 1 0RF Rx Instructions: As directed (DME) wheelchair See Rx Instructions .Route .MEDSUPPLY Qty: 1 0RF Rx Instructions: As directed metoprolol succinate 50 mg tablet extended release 24 hr 50 mg PO DAILY Qty: 90 3RF furosemide 40 mg tablet 40 mg PO DAILY Qty: 90 3RF spironolactone 25 mg tablet 25 mg PO DAILY Qty: 90 2RF Protocol: Hold for SBP< HOLD for SBP < : 90 fluticasone propionate 110 mcg/actuation HFA aerosol inhaler 2 puff PO BID Qty: 3 3RF rosuvastatin 20 mg tablet 20 mg PO BEDTIME Qty: 90 2RF Eliquis 5 mg tablet 5 mg PO BID Qty: 180 3RF Myrbetriq 50 mg tablet extended release 24 hr 50 mg PO DAILY 90 Days Qty: 90 1RF (DME) hospital bed See Rx Instructions .Route .MEDSUPPLY Qty: 1 0RF Rx Instructions: As directed Ocuvite Adult 50 Plus 250-5-1 mg Capsule 1 cap PO DAILY Probiotic-10 (with inulin) 10 billion cell -100 mg Capsule 1 cap PO DAILY tamsulosin 0.4 mg capsule 0.4 mg PO BEDTIME dorzolamide-timolol 22.3-6.8 mg/mL drops 1 drp ophthalmic (eye) BID latanoprost 0.005 % drops 1 drp ophthalmic-Left BEDTIME cholecalciferol (vitamin D3) 25 mcg (1,000 unit) capsule 25 mcg PO DAILY Discharge Orders: Discharge Order (Routine); Ordered 10/06/23 Ordered By: Homero Crowell Diet: ndd3, thin liquid 1:1 Activity on Discharge: As tolerated Stand Alone Forms: Patient Portal Discharge page Care Plan Goals: recovery Health Concerns: frailty, aspiration, recent covid Plan of Treatment: modified diet as above, physical therapy, wean o2 as tolerated to goal of 91-94% Assessment: see above
--- NOTE | 2023-10-04 10:23 | P.PNIM_ITS ---
Subjective Subjective Date of Service: 10/04/23 Interval History: no new complaints, overall weak Physical Exam 2 Vital Signs: Vital Signs: Last Vital Signs Temp 98.6 F 10/04/23 07:35 Pulse 65 10/04/23 08:27 Resp 20 10/04/23 08:27 BP 132/66 10/04/23 07:35 Pulse Ox 93 10/04/23 07:35 O2 Del Method Nasal Cannula 10/04/23 07:35 O2 Flow Rate 2 10/04/23 03:08 BMI result Body Mass Index 24.9 Const: Other: Constitutional : Awake, frail looking, not in distress Neck : Normal inspection, Supple Cardiovascular : RRR, no JVP, no lower extremity edema Respiratory : fair bilateral air entry, no crackles, wheezes or rhonchi, On O2 supplement Gastrointestinal: soft, lax, Normal bowel sounds, Non tender Skin : Warm, Dry Neurological : Alert & oriented to self, No focal deficit Objective Data Active Medications Acetaminophen (Acetaminophen 325 Mg Tablet) 650 mg PO Q6H PRN PRN Reason: Pain, Mild (Pain Scale 1-3) Last Admin: 09/29/23 20:17 Dose: 650 mg Documented By: AUDRA Amlodipine Besylate (Amlodipine Besylate 5 Mg Tablet) 5 mg PO DAILY [facility]; Protocol Last Admin: 10/04/23 09:18 Dose: 5 mg Documented By: ABIOLA Apixaban (Apixaban 5 Mg Tablet) 5 mg PO BID [facility] Last Admin: 10/04/23 09:18 Dose: 5 mg Documented By: ABIOLA Atorvastatin Calcium (Atorvastatin Calcium 80 Mg Tablet) 80 mg PO BEDTIME [facility] Last Admin: 10/03/23 21:40 Dose: 80 mg Documented By: ALESHA Dexamethasone (Dexamethasone 6 Mg Tablet) 6 mg PO DAILY [facility] Last Admin: 10/04/23 09:17 Dose: 6 mg Documented By: ABIOLA Dorzolamide/Timolol (Dorzolamide/Timolo 2.23%/0.68% 10 Ml Drbtl) 1 drop EYE- BOTH BID [facility] Last Admin: 10/04/23 09:20 Dose: 1 drop Documented By: ABIOLA Fluticasone Propionate (Fluticasone Propionate 100 Mcg Blst.W.Dev) 2 puff INHALE RBID [facility] Last Admin: 10/04/23 08:26 Dose: 2 puff Documented By: AUBREE Furosemide (Furosemide 40 Mg Tablet) 40 mg PO DAILY [facility]; Protocol Last Admin: 10/04/23 09:17 Dose: 40 mg Documented By: ABIOLA Latanoprost (Latanoprost 0.005 % Ophth Susana 2.5 Ml Drops) 1 drop EYE-LEFT BEDTIME [facility] Last Admin: 10/03/23 21:44 Dose: 1 drop Documented By: ALESHA Metoprolol Succinate (Metoprolol Succinate Er 50 Mg Tab.Er.24h) 50 mg PO DAILY [facility]; Protocol Last Admin: 10/04/23 09:17 Dose: 50 mg Documented By: ABIOLA Mirabegron (Mirabegron 50 Mg Tab.Er.24h) 50 mg PO DAILY [facility] Last Admin: 10/04/23 09:18 Dose: 50 mg Documented By: ABIOLA Multivitamins/Vitamin C (Multivitamin Tablet) 1 tab PO DAILY [facility] Last Admin: 10/04/23 09:18 Dose: 1 tab Documented By: ABIOLA Ondansetron HCl (Ondansetron Hcl 4 Mg/2 Ml Vial) 4 mg IVPUSH Q8H PRN PRN Reason: Nausea and Vomiting Sodium Chloride (0.9 % Sodium Chloride Flush 3 Ml Syringe) 3 ml IVFLUSH QSHIFT [facility] Last Admin: 10/04/23 09:27 Dose: 3 ml Documented By: ABIOLA Spironolactone (Spironolactone 25 Mg Tablet) 25 mg PO DAILY [facility]; Protocol Last Admin: 10/04/23 09:18 Dose: 25 mg Documented By: ABIOLA Tamsulosin HCl (Tamsulosin Hcl 0.4 Mg Capsule) 0.4 mg PO BEDTIME [facility] Last Admin: 10/03/23 21:41 Dose: 0.4 mg Documented By: ALESHA Vitamin D (Cholecalciferol (Vitamin D3) 25 Mcg Tablet) 25 mcg PO DAILY [facility] Last Admin: 10/04/23 09:18 Dose: 25 mcg Documented By: ABIOLA Labs 10/03/23 06:02 10/03/23 06:02 Assessment and Plan (1) Weakness: Status: Acute (2) Pneumonia: Status: Acute (3) COVID-19: Status: Acute Plan An 88 years old male with PMH of GERD, AFib on Eliquis, CHF, PE, diabetes, BPH, COPD, HLD who presents to ED with increase weakness and decrease PO intake over the last 2 days. 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
--- NOTE | 2023-10-04 10:39 | MHC.CM.PN ---
Per MD, Patient is on day 11 today, since positive Covid. PT is recommending STR and [facility] has accepted Patient. CM awaits a response from [facility] to determine if they can accept Patient today. CM will follow.
[2023-10-04] MEDS: Tamsulosin HCL 0.4 MG CAPSULE PO (22:44)
[2023-10-04] MEDS: Atorvastatin Calcium 80 MG TABLET PO (22:45)
[2023-10-04] MEDS: Latanoprost 0.005 % Ophth Sol 2.5 ML DROPS 1 DROP EYE-LEFT (22:45)
[2023-10-05] VITALS (8 sets, daily range): BP systolic 118–135; BP diastolic 63–79; PULSE 57–67; RESP 16–20; TEMP 36–36.8; O2SAT 89–94
[2023-10-05] MEDS: Fluticasone Propionate 100 MCG BLST.W.DEV 2 PUFF INHALE ×2 (07:43→18:40)
--- NOTE | 2023-10-05 08:17 | HO.PM.IMPN ---
Subjective Subjective Date of Service: 10/05/23 Interval History: no new complaints, overall weak Physical Exam Vital Signs: Vital Signs: Last Vital Signs Temp 97.2 F 10/05/23 07:15 Pulse 58 10/05/23 07:46 Resp 16 10/05/23 07:46 BP 122/64 10/05/23 07:15 Pulse Ox 89 L 10/05/23 07:15 O2 Del Method Nasal Cannula 10/05/23 07:15 O2 Flow Rate 2 10/05/23 03:48 BMI result Body Mass Index 24.9 Const: Other: Constitutional : Awake, frail looking, not in distress Neck : Normal inspection, Supple Cardiovascular : RRR, no JVP, no lower extremity edema Respiratory : fair bilateral air entry, no crackles, wheezes or rhonchi, On O2 supplement Gastrointestinal: soft, lax, Normal bowel sounds, Non tender Skin : Warm, Dry Neurological : Alert & oriented to self, No focal deficit Objective Data Active Medications Acetaminophen (Acetaminophen 325 Mg Tablet) 650 mg PO Q6H PRN PRN Reason: Pain, Mild (Pain Scale 1-3) Last Admin: 09/29/23 20:17 Dose: 650 mg Documented By: AUDRA Amlodipine Besylate (Amlodipine Besylate 5 Mg Tablet) 5 mg PO DAILY [facility]; Protocol Last Admin: 10/04/23 09:18 Dose: 5 mg Documented By: ABIOLA Apixaban (Apixaban 5 Mg Tablet) 5 mg PO BID [facility] Last Admin: 10/04/23 22:44 Dose: 5 mg Documented By: ALESHA Atorvastatin Calcium (Atorvastatin Calcium 80 Mg Tablet) 80 mg PO BEDTIME [facility] Last Admin: 10/04/23 22:45 Dose: 80 mg Documented By: ALESHA Dexamethasone (Dexamethasone 6 Mg Tablet) 6 mg PO DAILY [facility] Last Admin: 10/04/23 09:17 Dose: 6 mg Documented By: ABIOLA Dorzolamide/Timolol (Dorzolamide/Timolo 2.23%/0.68% 10 Ml Drbtl) 1 drop EYE-BOTH BID [facility] Last Admin: 10/04/23 22:43 Dose: 1 drop Documented By: ALESHA Fluticasone Propionate (Fluticasone Propionate 100 Mcg Blst.W.Dev) 2 puff INHALE RBID [facility] Last Admin: 10/05/23 07:43 Dose: 2 puff Documented By: MARCIA Furosemide (Furosemide 40 Mg Tablet) 40 mg PO DAILY [facility]; Protocol Last Admin: 10/04/23 09:17 Dose: 40 mg Documented By: ABIOLA Latanoprost (Latanoprost 0.005 % Ophth Susana 2.5 Ml Drops) 1 drop EYE-LEFT BEDTIME [facility] Last Admin: 10/04/23 22:45 Dose: 1 drop Documented By: ALESHA Metoprolol Succinate (Metoprolol Succinate Er 50 Mg Tab.Er.24h) 50 mg PO DAILY [facility]; Protocol Last Admin: 10/04/23 09:17 Dose: 50 mg Documented By: ABIOLA Mirabegron (Mirabegron 50 Mg Tab.Er.24h) 50 mg PO DAILY [facility] Last Admin: 10/04/23 09:18 Dose: 50 mg Documented By: ABIOLA Multivitamins/Vitamin C (Multivitamin Tablet) 1 tab PO DAILY [facility] Last Admin: 10/04/23 09:18 Dose: 1 tab Documented By: ABIOLA Ondansetron HCl (Ondansetron Hcl 4 Mg/2 Ml Vial) 4 mg IVPUSH Q8H PRN PRN Reason: Nausea and Vomiting Sodium Chloride (0.9 % Sodium Chloride Flush 3 Ml Syringe) 3 ml IVFLUSH QSHIFT [facility] Last Admin: 10/04/23 22:46 Dose: 3 ml Documented By: ALESHA Spironolactone (Spironolactone 25 Mg Tablet) 25 mg PO DAILY [facility]; Protocol Last Admin: 10/04/23 09:18 Dose: 25 mg Documented By: ABIOLA Tamsulosin HCl (Tamsulosin Hcl 0.4 Mg Capsule) 0.4 mg PO BEDTIME [facility] Last Admin: 10/04/23 22:44 Dose: 0.4 mg Documented By: ALESHA Vitamin D (Cholecalciferol (Vitamin D3) 25 Mcg Tablet) 25 mcg PO DAILY [facility] Last Admin: 10/04/23 09:18 Dose: 25 mcg Documented By: ABIOLA Labs 10/03/23 06:02 10/03/23 06:02 Assessment and Plan (1) Weakness: Status: Acute (2) Pneumonia: Status: Acute (3) COVID-19: Status: Acute Plan An 88 years old male with PMH of GERD, AFib on Eliquis, CHF, PE, diabetes, BPH, COPD, HLD who presents to ED with increase weakness and decrease PO intake over the last 2 days. 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
[2023-10-05] MEDS: Multivitamin TABLET 1 TAB PO (09:15)
[2023-10-05] MEDS: Metoprolol Succinate ER 50 MG TAB.ER.24H PO (09:15)
[2023-10-05] MEDS: Furosemide 40 MG TABLET PO (09:15)
[2023-10-05] MEDS: Cholecalciferol (Vitamin D3) 25 MCG TABLET PO (09:15)
[2023-10-05] MEDS: Mirabegron 50 MG TAB.ER.24H PO (09:15)
[2023-10-05] MEDS: amLODIPine Besylate 5 MG TABLET PO (09:16)
[2023-10-05] MEDS: Spironolactone 25 MG TABLET PO (09:16)
[2023-10-05] MEDS: Apixaban 5 MG TABLET PO ×2 (09:16→19:46)
[2023-10-05] MEDS: 0.9 % Sodium Chloride Flush 3 ML SYRINGE IVFLUSH ×3 (09:19→19:46)
[2023-10-05] MEDS: Dorzolamide/Timolo 2.23%/0.68% 10 ML DRBTL 1 DROP EYE-BOTH ×2 (10:00→19:46)
[2023-10-05] MEDS: Tamsulosin HCL 0.4 MG CAPSULE PO (19:45)
[2023-10-05] MEDS: Latanoprost 0.005 % Ophth Sol 2.5 ML DROPS 1 DROP EYE-LEFT (19:46)
[2023-10-05] MEDS: Atorvastatin Calcium 80 MG TABLET PO (19:46)
[2023-10-06] VITALS: BP 113/67; PULSE 64; RESP 20; TEMP 36.3; O2SAT 94
[2023-10-06 03:19] VITALS: BP 140/67; PULSE 62; RESP 18; TEMP 36.1; O2SAT 94
[2023-10-06 07:37] VITALS: BP 125/59; PULSE 73; RESP 18; TEMP 36.4; O2SAT 92
[2023-10-06] MEDS: Fluticasone Propionate 100 MCG BLST.W.DEV 2 PUFF INHALE (08:34)
[2023-10-06 08:36] VITALS: PULSE 67; RESP 20; O2SAT 94
[2023-10-06] MEDS: amLODIPine Besylate 5 MG TABLET PO (08:55)
[2023-10-06] MEDS: Apixaban 5 MG TABLET PO (08:55)
[2023-10-06] MEDS: Furosemide 40 MG TABLET PO (08:55)
[2023-10-06] MEDS: Metoprolol Succinate ER 50 MG TAB.ER.24H PO (08:55)
[2023-10-06] MEDS: Multivitamin TABLET 1 TAB PO (08:55)
[2023-10-06] MEDS: 0.9 % Sodium Chloride Flush 3 ML SYRINGE IVFLUSH (08:55)
[2023-10-06] MEDS: Mirabegron 50 MG TAB.ER.24H PO (08:55)
[2023-10-06] MEDS: Cholecalciferol (Vitamin D3) 25 MCG TABLET PO (08:55)
[2023-10-06] MEDS: Spironolactone 25 MG TABLET PO (08:55)
[2023-10-06] MEDS: Dorzolamide/Timolo 2.23%/0.68% 10 ML DRBTL 1 DROP EYE-BOTH (08:59)
--- NOTE | 2023-10-06 09:02 | HO.PM.IMPN ---
Subjective Subjective Date of Service: 10/06/23 Interval History: no new complaints, overall weak Physical Exam Vital Signs: Vital Signs: Last Vital Signs Temp 97.5 F 10/06/23 07:37 Pulse 67 10/06/23 08:36 Resp 20 10/06/23 08:36 BP 125/59 L 10/06/23 07:37 Pulse Ox 92 10/06/23 07:37 O2 Del Method Nasal Cannula 10/06/23 07:37 O2 Flow Rate 2 10/06/23 07:37 BMI result Body Mass Index 24.9 Const: Other: Constitutional : Awake, frail looking, not in distress Neck : Normal inspection, Supple Cardiovascular : RRR, no JVP, no lower extremity edema Respiratory : fair bilateral air entry, no crackles, wheezes or rhonchi, On O2 supplement Gastrointestinal: soft, lax, Normal bowel sounds, Non tender Skin : Warm, Dry Neurological : Alert & oriented to self, No focal deficit Objective Data Active Medications Acetaminophen (Acetaminophen 325 Mg Tablet) 650 mg PO Q6H PRN PRN Reason: Pain, Mild (Pain Scale 1-3) Last Admin: 09/29/23 20:17 Dose: 650 mg Documented By: AUDRA Amlodipine Besylate (Amlodipine Besylate 5 Mg Tablet) 5 mg PO DAILY [facility]; Protocol Last Admin: 10/06/23 08:55 Dose: 5 mg Documented By: JABIER Apixaban (Apixaban 5 Mg Tablet) 5 mg PO BID [facility] Last Admin: 10/06/23 08:55 Dose: 5 mg Documented By: JABIER Atorvastatin Calcium (Atorvastatin Calcium 80 Mg Tablet) 80 mg PO BEDTIME [facility] Last Admin: 10/05/23 19:46 Dose: 80 mg Documented By: ELIESER Dorzolamide/Timolol (Dorzolamide/Timolo 2.23%/0.68% 10 Ml Drbtl) 1 drop EYE-BOTH BID [facility] Last Admin: 10/06/23 08:59 Dose: 1 drop Documented By: JABIER Fluticasone Propionate (Fluticasone Propionate 100 Mcg Blst.W.Dev) 2 puff INHALE RBID [facility] Last Admin: 10/06/23 08:34 Dose: 2 puff Documented By: AUBREE Furosemide (Furosemide 40 Mg Tablet) 40 mg PO DAILY [facility]; Protocol Last Admin: 10/06/23 08:55 Dose: 40 mg Documented By: JABIER Latanoprost (Latanoprost 0.005 % Ophth Susana 2.5 Ml Drops) 1 drop EYE-LEFT BEDTIME [facility] Last Admin: 10/05/23 19:46 Dose: 1 drop Documented By: ELIESER Metoprolol Succinate (Metoprolol Succinate Er 50 Mg Tab.Er.24h) 50 mg PO DAILY [facility]; Protocol Last Admin: 10/06/23 08:55 Dose: 50 mg Documented By: JABIER Mirabegron (Mirabegron 50 Mg Tab.Er.24h) 50 mg PO DAILY [facility] Last Admin: 10/06/23 08:55 Dose: 50 mg Documented By: JABIER Multivitamins/Vitamin C (Multivitamin Tablet) 1 tab PO DAILY [facility] Last Admin: 10/06/23 08:55 Dose: 1 tab Documented By: JABIER Ondansetron HCl (Ondansetron Hcl 4 Mg/2 Ml Vial) 4 mg IVPUSH Q8H PRN PRN Reason: Nausea and Vomiting Sodium Chloride (0.9 % Sodium Chloride Flush 3 Ml Syringe) 3 ml IVFLUSH QSHIFT [facility] Last Admin: 10/06/23 08:55 Dose: 3 ml Documented By: JABIER Spironolactone (Spironolactone 25 Mg Tablet) 25 mg PO DAILY [facility]; Protocol Last Admin: 10/06/23 08:55 Dose: 25 mg Documented By: JABIER Tamsulosin HCl (Tamsulosin Hcl 0.4 Mg Capsule) 0.4 mg PO BEDTIME [facility] Last Admin: 10/05/23 19:45 Dose: 0.4 mg Documented By: ELEISER Vitamin D (Cholecalciferol (Vitamin D3) 25 Mcg Tablet) 25 mcg PO DAILY [facility] Last Admin: 10/06/23 08:55 Dose: 25 mcg Documented By: JABIER Labs 10/03/23 06:02 10/03/23 06:02 Assessment and Plan (1) Weakness: Status: Acute (2) Pneumonia: Status: Acute (3) COVID-19: Status: Acute Plan An 88 years old male with PMH of GERD, AFib on Eliquis, CHF, PE, diabetes, BPH, COPD, HLD who presents to ED with increase weakness and decrease PO intake over the last 2 days. 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
--- NOTE | 2023-10-06 11:47 | MHC.CM.PN ---
Second IMM given 10/06. Pt is medically cleared for D/C to STR at [facility], via BLS/[facility] transport at 2pm today. Pt and his updated and in agreement with plan.
[2023-10-06 11:50] VITALS: BP 106/65; PULSE 62; RESP 18; TEMP 36.3; O2SAT 94
== END 2023-10-06 14:30 | disposition skilled nursing facility (03) | DRG 177 ==
LOC: HO.ED 17:21 → HO.EDOVER 18:32 → HO.IMC 23:47
PROVIDERS: Admitting Provider Student in an Organized Health Care Education/Training Program; Emergency Provider Emergency Medicine; PCP Internal Medicine; Visit Provider Internal Medicine
DX: U07.1 COVID-19 (principal); J12.82 Pneumonia due to coronavirus disease 2019; J69.0 Pneumonitis due to inhalation of food and vomit; J96.01 Acute respiratory failure with hypoxia; I48.92 Unspecified atrial flutter; I50.32 Chronic diastolic (congestive) heart failure; F03.90 Unspecified dementia, unspecified severity, without behavioral disturbance, psychotic disturbance, mood disturbance, and anxiety; L24.A2 Irritant contact dermatitis due to fecal, urinary or dual incontinence; R13.10 Dysphagia, unspecified; N40.0 Benign prostatic hyperplasia without lower urinary tract symptoms; E11.9 Type 2 diabetes mellitus without complications; E86.0 Dehydration; E78.5 Hyperlipidemia, unspecified; Z87.891 Personal history of nicotine dependence; Z79.01 Long term (current) use of anticoagulants; Z79.51 Long term (current) use of inhaled steroids; Z79.899 Other long term (current) drug therapy
CPT/HCPCS: 36415; 71045; 80048; 80076; 81001; 82728; 82803; 83605; 83615; 83735; 83880; 84484; 85025; 85027; 85610; 86140; 87040; 87502; 87635; 92526; 92610; 93005; 94640; 97162; 97530; 99285; J0696; J1100; J2543; J8540

== ENCOUNTER → 2023-09-23 15:41 | Outpatient (BNV) | payer MEDICARE, SELFPAY | PROVIDERS: Admitting Provider Student in an Organized Health Care Education/Training Program; Emergency Provider Emergency Medicine; Visit Provider Internal Medicine Cardiovascular Disease | DX: U07.1 COVID-19 (principal) | CPT/HCPCS: 93010 ==

== ENCOUNTER → 2023-09-23 17:54 | Outpatient (BNV) | payer MEDICARE, SELFPAY | PROVIDERS: Admitting Provider Student in an Organized Health Care Education/Training Program; Emergency Provider Emergency Medicine; Visit Provider Student in an Organized Health Care Education/Training Program | DX: R53.1 Weakness (principal); J18.9 Pneumonia, unspecified organism; U07.1 COVID-19 | CPT/HCPCS: 99223; 99231; 99232; 99233; 99239; 99499 ==

== ENCOUNTER 2023-10-26 13:25 | Inpatient (IN) | payer MEDICARE, SELFPAY ==
[2023-10-26] VITALS (12 sets, daily range): BP systolic 92–131; BP diastolic 55–64; PULSE 64–95; RESP 12–27; TEMP 36.2–38.3; O2SAT 85–98; BMI 19.5
--- NOTE | ~2023-10-26 | XR_ITS ---
EXAMINATION: XR CHEST CLINICAL INFORMATION: SOB. COMPARISON: Chest x-ray 10/02/2023. TECHNIQUE: Frontal view of the chest was obtained. FINDINGS: The lungs are well-expanded with patchy opacification in left lung base. Rest lungs are clear and expanded. The heart size and progress clarities normal. There is mild spondylosis dorsal spine. XR/XR chest 1V IMPRESSION: Patchy opacity left lung base likely atelectasis or infiltrate. Similar findings were seen on previous exam 10/02/2023.
--- NOTE | 2023-10-26 14:14 | PC.NURSE ---
pt switched to venturi mask per dr. sánchez order - pt resting between 88%-92% on 8L via venturi.
--- NOTE | 2023-10-26 14:15 | ECG_ITS ---
Test Reason : SOB Blood Pressure : / mmHG Vent. Rate : 089 BPM Atrial Rate : 089 BPM P-R Int : 178 ms QRS Dur : 092 ms QT Int : 362 ms P-R-T Axes : 044 -23 079 degrees QTc Int : 440 ms Sinus rhythm with Premature atrial complexes Otherwise normal ECG When compared with ECG of 23-SEP-2023 16:37, Premature atrial complexes are now Present Referred By: Ar Barriga Electronically Signed By:NADIYA BLANCO
--- NOTE | 2023-10-26 14:18 | PC.NURSE ---
RT bedside assessing pt at this time. family bedside for support.
--- NOTE | 2023-10-26 14:21 | ED_ITS ---
HPI - SOB/Dyspnea General Chief Complaint: Dyspnea Stated Complaint: LOW SAT 80'S PER EMS,RECENT COVID/PNA FROM SNF Time Seen by Provider: 10/26/23 13:55 Source: family and other ([facility] records) History of Present Illness HPI Narrative: 88 years old with history of aspiration pneumonitis, COPD, paroxysmal AFib, GERD, HFpEF, CAD, hyperlipidemia, hypertension, presents to the emergency room for shortness of breath. According to EMS patient was saturating high 70s low 80s on 10 L. According to family which is at bedside patient was eating when he sleeps became blue and he seemed to become short of breath. Family reports that at baseline patient is alert and able to have a simple conversation however on arrival patient is not responding to question except for yes or no. He seems however alert, he is tachypneic with [id number] respiratory distress. Unclear he feels chest pain, abdomen does not appear to be tender No vomiting since arrival in the ED. Related Data Home Medications Medication Instructions Recorded Confirmed cholecalciferol (vitamin D3) 25 25 mcg PO DAILY 08/14/20 09/23/23 mcg (1,000 unit) capsule dorzolamide 22.3 mg-timolol 6.8 1 drp ophthalmic (eye) BID 08/14/20 09/23/23 mg/mL eye drops latanoprost 0.005 % eye drops 1 drp ophthalmic-Left BEDTIME 08/14/20 09/23/23 Lactobacillus no.46-B. 1 cap PO DAILY 12/19/20 09/23/23 animalis-inulin 10 billion cell-100 mg capsule (Probiotic-10 (with inulin)) vit C,E,zinc,copper-[id number] 250 1 cap PO DAILY 12/19/20 09/23/23 mg-lutein 5 mg-zeaxanthin 1 mg capsule (Ocuvite Adult 50 Plus) tamsulosin 0.4 mg capsule 0.4 mg PO BEDTIME 06/19/23 09/23/23 Previous Rx's Medication Instructions Recorded [employer] STAIRLIFT #1 ea 12/18/20 wheelchair #1 ea 03/22/21 metoprolol succinate 50 mg 50 mg PO DAILY #90 tabs 09/24/22 tablet,extended release 24 hr furosemide 40 mg tablet 40 mg PO DAILY #90 tabs 12/08/22 spironolactone 25 mg tablet 25 mg PO DAILY #90 tabs 05/18/23 fluticasone propionate 110 2 puff PO BID #3 ea 06/12/23 mcg/actuation HFA aerosol inhaler rosuvastatin 20 mg tablet 20 mg PO BEDTIME #90 tabs 08/19/23 apixaban 5 mg tablet (Eliquis) 5 mg PO BID #180 tabs 08/21/23 mirabegron 50 mg tablet,extended 50 mg PO DAILY 90 days #90 tabs 08/24/23 release 24 hr (Myrbetriq) hospital bed #1 ea 09/21/23 Allergies Allergy/AdvReac Type Severity Reaction Status Date / Time ciprofloxacin [CIPROFLOXACIN] Allergy Unknown ITCHY FEET Verified 09/23/23 15:32 oxycodone [Percocet] AdvReac Unknown Unknown Verified 09/23/23 15:32 Review of Systems 2 Review of Systems: Yes Unobtainable due to mental status PMFSH Past Medical History Onset Date is defined in the Problem List Problems that require an onset date and time if occurred within 24 hrs of arrival to the ED Aortic Dissection and Rupture; Neurologic impairment; Cardiopulmonary Arrest; Endotracheal Intubation; Insertion or Replacement of Mechanical Circulatory Assist Device Medical History Confusion Pain and swelling of right lower leg Right knee pain Persistent atrial fibrillation Acute diastolic CHF (congestive heart failure) CHF (congestive heart failure) (HFpEF) heart failure with preserved ejection fraction Atrial flutter Hypotonic bladder Bladder neck contracture Paraphimosis Type 2 diabetes mellitus with hyperglycemia BPH (benign prostatic hyperplasia) Peripheral vascular disease Pulmonary nodule Hypertension CAD (coronary artery disease) COPD (chronic obstructive pulmonary disease) Vitamin D deficiency Hypercholesterolemia Tubular adenoma of colon Surgical History History of colonoscopy H/O vascular surgery History of prostate surgery History of appendectomy History of cataract surgery H/O inguinal hernia repair Family History Family History Father No problems noted. Mother CVD (cardiovascular disease) Social History Social History Household Members: Family Housing: House Do you presently have visiting nurse or other home services: Yes Alcohol intake: never Comment: Telesitter Patient Tobacco Use Status: Former Tobacco user Tobacco use type: Cigarette Smoked in Last 30 Days: No e-Cigarette/Vaping Use: Never Used Second Hand Smoke Exposure: No Use of substances other than those prescribed or required for medical reasons: No Advance Directives: Yes Advance Directives on File: Yes Advance Directives Date on File: 04/11/21 service: No Current occupational status: retired Cognitive needs: Yes Hearing needs: Yes Vision needs: Yes Physical Exam 2 Vital Signs: Vital Signs: Last Vital Signs Temp 100.9 F H 10/26/23 15:30 Pulse 86 10/26/23 16:00 Resp 22 H 10/26/23 16:00 BP 112/64 10/26/23 15:30 Pulse Ox 96 10/26/23 16:00 O2 Del Method Nasal Cannula 10/26/23 16:00 O2 Flow Rate 2 10/26/23 16:00 BMI result Body Mass Index 19.5 General: Alert, Not in Distress Skin: Mottled HEENT: Atraumatic, No Exudate or Pharyngeal Erythema Resp: tachypneic, poor air entry, no wheezing, some crackles Cardio: tachycardia, irregular ABD: Abd soft, non tender, no guarding or rebound. Normal Bowel sounds. : No cva tenderness Neuro: uncooperative but calm Course Reevaluation(s) Reevaluation #1: Patient is more alert after being placed on OxyMask. Mottled skin has resolved. Heart rate 90-95 Blood pressure has been within normal limits. I personally reviewed the patient's chest x-ray which showed bilateral consolidation possibly secondary to aspiration. Patient is a CBC showed increase of WBC. Time: 15:14 Reevaluation #2: Patient febrile, likely secondary to pulmonary source. Will order a blood culture and considering outpatient as fever he now fulfill sepsis criteria and therefore will start him on IV fluids. We will start him on a L which is less than 30 mL/kg but I have concern for fluid overload and therefore will reassess clinically once the 1 L is given. Time: 15:32 Reevaluation #3: Patient COVID swab is positive. At this time I think patient is likely febrile for discuss and will old on antibiotic. Patient will be given dexamethasone 6 mg IV for COVID pneumonia requiring oxygen. Contacted hospitalist for admission. Time: 15:41 Additional Reevaluation(s): Discussed with hospitalist, patient has improved and now is back to baseline. It is possible that the patient episode was secondary to aspiration, was diagnosed with COVID 3 weeks ago. Will hold on antibiotic. We will admit to hospital Medications Administered Discontinued Medications Generic Name Dose Route Start Last Admin Trade Name Pardeepq PRN Reason Stop Dose Admin Albuterol/Ipratropium 3 ml 10/26/23 14:15 10/26/23 14:30 Albuterol/Iprat 2.5/0.5mg 3 Ml Ampul.Neb INHALE 10/26/23 14:16 Not Given ONCE ONE Albuterol/Ipratropium 3 ml 10/26/23 14:15 10/26/23 14:30 Albuterol/Iprat 2.5/0.5mg 3 Ml Ampul.Neb INHALE 10/26/23 14:16 Not Given ONCE ONE Albuterol Sulfate 5 mg/ 0 mg 10/26/23 14:30 10/26/23 14:35 Albuterol/Ipratropium 3 ml INHALE 10/26/23 14:31 7.5 each ONCE ONE Administration Medical Decision Making Medical Decision Making MDM Narrative: 88 years old presenting to the emergency room for new onset shortness of breath and lethargy. Possibly secondary to aspiration/pneumonia. Patient also has history of COPD and this could be COPD exacerbation. Other possible differential diagnoses include viral pneumonia. Patient was saturating 80% on 10 L per EMS. Saturating 83% in ED with NC 4liters Lab Data 10/26/23 14:34 10/26/23 14:34 Labs: Lab Results 10/26/23 10/26/23 Range/Units 14:34 14:38 WBC 14.9 H (4.8-10.8) X10*3/uL RBC 4.54 L (4.60-5.80) X10*6/uL Hgb 12.9 L (14.0-18.0) g/dl Hct 40.4 L (42.0-52.0) % MCV 89.0 (80.0-98.0) fL MCH 28.4 (27.0-33.0) pg MCHC 31.9 (31.0-36.0) g/dl RDW 15.9 (11.0-16.0) % Plt Count 295 (160-400) X10*3/uL MPV 9.4 (9.4-12.4) fL Immature Gran % (Auto) Cancelled Neut % (Auto) Cancelled Lymph % (Auto) Cancelled [place] % (Auto) Cancelled Eos % (Auto) Cancelled Baso % (Auto) Cancelled Lymph # (Auto) Cancelled [place] # (Auto) Cancelled Eos # (Auto) Cancelled Baso # (Auto) Cancelled Abs Immat Gran (auto) Cancelled Absolute Neuts (auto) Cancelled Absolute Nucleated RBC 0.000 (0.0-0.012) X10*3/uL Nucleated RBC % (auto) 0.0 (0.0-0.2) /100WBC Neutrophils % (Manual) 86 H (45-73) % Band Neutrophils % 9 H (3-5) % Lymphocytes % (Manual) 2 L (20-40) % Monocytes % (Manual) 3 (2-11) % Abs Neuts (Manual) 14.2 H (2.0-8.3) X10*3/uL Lymphocytes # (Manual) 0.3 L (1.2-4.9) X10*3/uL Monocytes # (Manual) 0.4 (0.1-1.2) X10*3/uL Platelet Estimate NORMAL (NORMAL) Plt Morphology Comment NORMAL RBC Morphology NOTED [place] Cells 2+ (3-5) /OIF Smear Tech's Comments MANUAL DIFF VBG pH 7.38 (7.32-7.43) VBG pCO2 28 mmHg VBG pO2 43 mmHg VBG HCO3 17 L (22-26) mmol/L VBG O2 Saturation 68.0 % VBG Base Excess -6.2 mmol/L Sodium 137 (135-145) mmol/L Potassium 4.5 (3.3-5.1) mmol/L Chloride 105 (96-108) mmol/L Carbon Dioxide 18 L (22-29) mmol/L Anion Gap 19 (12-20) BUN 30 H (9-16) mg/dL Creatinine 1.55 H (0.5-1.4) mg/dL Estim Creat Clear Calc 29.7 Estimated GFR 43 Random Glucose 162 H (60-115) mg/dL Calcium 9.0 (8.4-10.2) mg/dL Troponin I High Sens 18.1 (<3.5-35.0) ng/L Influenza Type A (PCR) NEGATIVE (Negative) Influenza Type B (PCR) NEGATIVE (Negative) RSV RNA Qual (PCR) NEGATIVE (Negative) SARS-CoV-2 RNA (RT-PCR) POSITIVE A (Negative) Discharge Plan Discharge Clinical Impression: COVID Patient Disposition: Admitted As Inpatient
--- NOTE | 2023-10-26 14:27 | PC.NURSE ---
pt switched from from venturi mask to oxymask by RT - pt resting at 91% on 14L via oxymask.
[2023-10-26] MEDS: Albuterol Sulfate 5 MG, Albuterol/Iprat 2.5/0.5MG 3 ML 3 ML INHALE (14:35)
--- NOTE | 2023-10-26 14:35 | PC.NURSE ---
labs obtained/sent to lab. breathing treatment being completed via RT.
[2023-10-26 14:43] LABS: Hematocrit 40.4 % (42.0-52.0); Hemoglobin 12.9 g/dl (14.0-18.0); Mean Corpuscular HGB Conc 31.9 g/dl (31.0-36.0); Mean Corpuscular Hemoglobin 28.4 pg (27.0-33.0); Mean Platelet Volume 9.4 fL (9.4-12.4); Platelet Count 295 X10*3/uL (160-400); Red Blood Count 4.54 X10*6/uL (4.60-5.80); Red Cell Distribution Width 15.9 % (11.0-16.0); White Blood Count 14.9 X10*3/uL (4.8-10.8)
[2023-10-26 14:43] LABS: Venous Blood Gas Refer to POC result
[2023-10-26 14:45] LABS: VBG Base Excess -6.2 mmol/L; VBG HCO3 17 mmol/L (22-26); VBG pCO2 28 mmHg; VBG pH 7.38 (7.32-7.43); VBG pO2 43 mmHg
[2023-10-26 15:07] LABS: SLIDE REVIEW MANUAL DIFF
[2023-10-26 15:09] LABS: Band Neutrophils Percent 9 % (3-5); Lymphocytes Absolute Manual 0.3 X10*3/uL (1.2-4.9); Lymphocytes Percent Manual 2 % (20-40); Monocytes Absolute Manual 0.4 X10*3/uL (0.1-1.2); Monocytes Percent Manual 3 % (2-11); Neutrophils Absolute Manual 14.2 X10*3/uL (2.0-8.3); Neutrophils Percent Manual 86 % (45-73)
[2023-10-26 15:11] LABS: Anion Gap 19 (12-20); Blood Urea Nitrogen 30 mg/dL (9-16); Burr Cells 2+ (3-5) /OIF; Carbon Dioxide 18 mmol/L (22-29); Chloride 105 mmol/L (96-108); Creatinine Clr Calc Pharmacy 29.7; Estimated Glomerular Filt Rate 43; Glucose Random 162 mg/dL (60-115); Platelet Estimate NORMAL (NORMAL); Platelet Morphology Comment NORMAL; Potassium 4.5 mmol/L (3.3-5.1); RBC Morphology NOTED; Sodium 137 mmol/L (135-145)
[2023-10-26 15:14] LABS: Troponin-I High Sensitivity 18.1 ng/L (<3.5-35.0)
[2023-10-26 15:27] LABS: Influenza A PCR NEGATIVE (Negative); Influenza B PCR NEGATIVE (Negative); Resp Syncy Virus RNA Qual PCR NEGATIVE (Negative); SARS COV2 PCR INHOUSE POSITIVE (Negative)
--- NOTE | 2023-10-26 15:31 | PC.NURSE ---
pt felt warm- per md rectal temp taken- 100.9. breathing well on simple face mask. cleaned for stool incont w new pad/blanket.
--- NOTE | 2023-10-26 16:22 | P.HPHOSP_ITS ---
History of Present Illness Date of Service: 10/26/23 Chief Complaint: Hypoxia 88-year-old gentleman resident of [facility] with past medical history of paroxysmal atrial fibrillation on Eliquis, GERD, HFpEF, CAD, hyperlipidemia, hypertension, history of aspiration pneumonitis, recently discharged from [facility] after being treated for physical deconditioning due to COVID-19 and acute hypoxic respiratory failure due to COVID pneumonia complicated by aspiration pneumonia patient treated with Decadron and full course of ceftriaxone and doxycycline was seen by speech therapy and they recommended ndd3, thin liquid 1:1 feedings, patient brought in to [place] ED due to symptoms of shortness of breath, increased work of breathing, nonproductive cough, oxygenation in high 70s to low 80s on 10 L via simple mask upon EMS arrival, patient placed on 15 L via non-rebreather breather, patient unable to provide meaningful history since oriented to self only with underlying history of dementia, most of the history obtained by ED provider and patient's , as per he was recently allowed to feed himself and while eating today he became short of breath and his lips and fingers turned blue, and his oxygenation was in high 70s to 80s, as per currently he is on pureed diet and has lost 14 lb since admission to nursing facility, on arrival to the emergency room patient was noted to be tachypneic with mild to moderate respiratory distress, was febrile, tachycardic, COVID swab positive, initially COVID swab was positive on , chest x-ray showed no acute infiltrate, patient is being admitted to [facility] with acute on chronic hypoxic respiratory failure likely due to aspiration. Review of Systems 2 Review of Systems: Unable to obtain review of system due to mental status. REPLACED BY [facility] Medical History Confusion Pain and swelling of right lower leg Right knee pain Persistent atrial fibrillation Acute diastolic CHF (congestive heart failure) CHF (congestive heart failure) (HFpEF) heart failure with preserved ejection fraction Atrial flutter Hypotonic bladder Bladder neck contracture Paraphimosis Type 2 diabetes mellitus with hyperglycemia BPH (benign prostatic hyperplasia) Peripheral vascular disease Pulmonary nodule Hypertension CAD (coronary artery disease) COPD (chronic obstructive pulmonary disease) Vitamin D deficiency Hypercholesterolemia Tubular adenoma of colon Family History Father No problems noted. Mother CVD (cardiovascular disease) Surgical History History of colonoscopy H/O vascular surgery History of prostate surgery History of appendectomy History of cataract surgery H/O inguinal hernia repair Social History (Updated 10/27/23 @ 07:51 by Patricia Renteria RN) Household Members: Unknown / Unable to assess Housing: [facility] Do you presently have visiting nurse or other home services: Yes Alcohol intake: never Comment: Telesitter Patient Tobacco Use Status: Former Tobacco user Tobacco use type: Cigarette Smoked in Last 30 Days: No e-Cigarette/Vaping Use: Never Used Patient Interested in Nicotine Replacement: No Patient Given Instructions on How to Stop Smoking: No Second Hand Smoke Exposure: No Use of substances other than those prescribed or required for medical reasons: No Currently Displaying Signs/Symptoms of Drug Intoxication Withdrawal: No Any prior treatment program specific to substance use: No Have you been hit, kicked, punched, or otherwise hurt by someone within the past year? If so, by whom?: No Do you feel safe in your current relationship?: No Is there a partner from a previous relationship who is making you feel unsafe now?: No Advance Directives: Yes Advance Directives on File: Yes Advance Directives Date on File: 04/11/21 Do you have thoughts of harming others: None Do you have a plan to hurt others: No Plan Recently lost weight without trying: Yes How much weight loss: 14-23 pounds Eating poorly because of decreased appetite: Yes Nutrition screen score: 5 Nutrition Risks: Emaciation/Cachexia Poor oral hygiene: No service: No Current occupational status: retired Cognitive needs: Yes Hearing needs: Yes Vision needs: Yes Meds Allergies Allergy/AdvReac Type Severity Reaction Status Date / Time ciprofloxacin [CIPROFLOXACIN] Allergy Unknown ITCHY FEET Verified 09/23/23 15:32 oxycodone [Percocet] AdvReac Unknown Unknown Verified 09/23/23 15:32 Home Medications Medication Instructions Recorded Confirmed Last Taken Type cholecalciferol (vitamin D3) 25 25 mcg PO DAILY 08/14/20 10/26/23 03/20/21 History mcg (1,000 unit) capsule dorzolamide 22.3 mg-timolol 6.8 1 drp ophthalmic (eye) BID 08/14/20 10/26/23 03/20/21 History mg/mL eye drops latanoprost 0.005 % eye drops 1 drp ophthalmic-Left BEDTIME 08/14/20 10/26/23 03/19/21 History vit C,E,zinc,copper-ysxml6l 250 1 cap PO DAILY 12/19/20 10/26/23 03/20/21 History mg-lutein 5 mg-zeaxanthin 1 mg capsule (Ocuvite Adult 50 Plus) tamsulosin 0.4 mg capsule 0.4 mg PO BEDTIME 06/19/23 10/26/23 Unknown History Physical Exam 2 Vital Signs and Narrative: Vital Signs: Last Vital Signs Temp 100.9 F H 10/26/23 15:30 Pulse 86 10/26/23 16:00 Resp 22 H 10/26/23 16:00 BP 112/64 10/26/23 15:30 Pulse Ox 96 10/26/23 16:00 O2 Del Method Nasal Cannula 10/26/23 16:00 O2 Flow Rate 2 10/26/23 16:00 BMI result Body Mass Index 19.5 Const: Other: General awake, frail, resting comfortably in no acute distress. Anicteric sclera Neck supple no JVD. CVS regular rate rhythm, Respiratory lungs clear to auscultation, no respiratory distress, no wheeze, no rhonchi, upper airway gurgling. Gastrointestinal abdomen soft, non tender, bowel sounds audible, no guarding , no rigidity. Extremities no edema. Neuro nonfocal , moving all 4 extremity ,speech clear, oriented to self only Skin no rash Results Labs 10/27/23 07:05 10/27/23 07:05 Labs: Laboratory Results - last 24 hr 10/26/23 10/26/23 14:34 14:38 MCV 89.0 MCH 28.4 MCHC 31.9 RDW 15.9 Plt Count 295 MPV 9.4 Immature Gran % (Auto) Cancelled Neut % (Auto) Cancelled Lymph % (Auto) Cancelled [place] % (Auto) Cancelled Eos % (Auto) Cancelled Baso % (Auto) Cancelled Lymph # (Auto) Cancelled [place] # (Auto) Cancelled Eos # (Auto) Cancelled Baso # (Auto) Cancelled Abs Immat Gran (auto) Cancelled Absolute Neuts (auto) Cancelled Absolute Nucleated RBC 0.000 Nucleated RBC % (auto) 0.0 Neutrophils % (Manual) 86 H Band Neutrophils % 9 H Lymphocytes % (Manual) 2 L Monocytes % (Manual) 3 Abs Neuts (Manual) 14.2 H Lymphocytes # (Manual) 0.3 L Monocytes # (Manual) 0.4 Platelet Estimate NORMAL Plt Morphology Comment NORMAL RBC Morphology NOTED Radhika Cells 2+ (3-5) Smear Tech's Comments MANUAL DIFF VBG pH 7.38 VBG pCO2 28 VBG pO2 43 VBG HCO3 17 L VBG O2 Saturation 68.0 VBG Base Excess -6.2 Anion Gap 19 Estim Creat Clear Calc 29.7 Estimated GFR 43 Random Glucose 162 H Calcium 9.0 Influenza Type A (PCR) NEGATIVE Influenza Type B (PCR) NEGATIVE RSV RNA Qual (PCR) NEGATIVE SARS-CoV-2 RNA (RT-PCR) POSITIVE A Imaging Radiologist's Impressions: Impressions Chest X-Ray 10/26/23 14:25 IMPRESSION: Patchy opacity left lung base likely atelectasis or infiltrate. Similar findings were seen on previous exam 10/02/2023. Assessment and Plan (1) Acute on chronic hypoxic respiratory failure: Status: Acute Plan 88 years old male with PMH of GERD, PAFib on Eliquis, CHF, PE, diabetes, BPH, COPD, HLD who presents to ED due to acute on chronic hypoxic respiratory failure likely due to aspiration pneumonia. Acute on chronic hypoxic respiratory failure likely due to aspiration pneumonia/sepsis. Admit to telemetry/remains COVID positive initially diagnosed Meet sepsis criteria due to leukocytosis, tachypnea, tachycardia, had low-grade fever Oxygenation improved, will gradually wean oxygen, on 2 L of baseline oxygen IV Zosyn, NPO, speech therapy evaluation Medication crushed in applesauce Acute kidney injury right likely prerenal with decreased by mouth intake/and being on diuretics,give IVF, follow BMP. Dysphagia obtain speech therapy eval, NPO for now meds crushed in applesauce History of diastolic congestive heart failure no acute decompensation hold Lasix /Aldactone due to LIS History of hyperlipidemia hold statins while NPO Paroxysmal atrial fibrillation on metoprolol and Eliquis. History of stage II pressure injury left buttock continue dressing change Moderate malnutrition, supplements added BPH continue Flomax DVT prophylaxis eliquis Code status DNR DNI. Patient will need two night inpatient hospitalization due to acute hypoxic respiratory failure, aspiration pneumonia requiring IV antibiotics, sepsis workup. Quality Stroke Does the patient have a stroke diagnosis?: No VTE Prior VTE?: No VTE Risk Level:: Medical - moderate - high VTE Device Contraindication: Treatment Not Indicated VTE Drug Contraindication: N/A - Med Ordered
[2023-10-26] MEDS: Acetaminophen 1,000 MG/100 ML PIGGYBACK 400 MG IV (16:54)
[2023-10-26] MEDS: 0.9 % Sodium Chloride 500 ML 999 ML IV (16:55)
[2023-10-26] MEDS: dexAMETHasone sod phosphate 4 MG/ML VIAL 6 MG IVPUSH (16:55)
--- NOTE | 2023-10-26 17:46 | PHA.MEDREC ---
Pharmacy Consult ? Medication Reconciliation Pharmacy has completed the medication reconciliation.Patient medication confirmed through and claim history Tayla Ribeiro CPhT
--- NOTE | 2023-10-26 18:40 | PC.NURSE ---
breathing well. boosted. no distress. given new red socks. pillow placed under feet
[2023-10-26] MEDS: Piperacillin Sodium/Tazobactam 2.25 GM in 0.9 % Sodium Chloride 50 ML IV (18:49)
[2023-10-26] MEDS: Dextrose 5 % and Lactated Ring 1,000 ML 100 ML IVCONT (19:38)
[2023-10-26] MEDS: Latanoprost 0.005 % Ophth Sol 2.5 ML DROPS 1 DROP EYE-LEFT (21:10)
[2023-10-26] MEDS: Apixaban 5 MG TABLET PO (21:10)
[2023-10-26] MEDS: Dorzolamide/Timolo 2.23%/0.68% 10 ML DRBTL 1 DROP EYE-BOTH (21:10)
--- NOTE | 2023-10-26 21:23 | PM.SEPSBOL4 ---
Sepsis Bolus Exclusion Sepsis Bolus Exclusion Date of Occurrence: 10/26/23 This patient met severe sepsis criteria due to the following condition(s):: Documentation of septic shock In my clinical judgement the administration of 30 ml/kg of crystalloid would be detrimental to this patient due to the patient's following conditions:: Concern for fluid overload Replace the 30 mls/kg with (*zero amount not acceptable): *Note: One of the montoya must be documented Crystalloids amount given in mls: (rate must be at least 150cc/hr): 1,000 At a rate of (must be > 125 cchr):: 999
[2023-10-27] MEDS: Piperacillin Sodium/Tazobactam 2.25 GM in 0.9 % Sodium Chloride 50 ML IV ×4 (00:05→18:06)
[2023-10-27] MEDS: 0.9 % Sodium Chloride Flush 3 ML SYRINGE IVFLUSH ×4 (00:06→19:51)
[2023-10-27 03:25] VITALS: BP 141/65; PULSE 58; RESP 18; TEMP 36.4; O2SAT 94
[2023-10-27] MEDS: Dextrose 5 % and Lactated Ring 1,000 ML 100 ML IVCONT (05:20)
--- NOTE | 2023-10-27 06:29 | HO.SKINPHOTO ---
Present upon admission. COMPA
[2023-10-27 07:23] VITALS: BP 110/59; PULSE 94; RESP 20; TEMP 36.1; O2SAT 95
[2023-10-27 07:42] LABS: Anion Gap 13 (12-20); Blood Urea Nitrogen 29 mg/dL (9-16); Calcium 8.4 mg/dL (8.4-10.2); Carbon Dioxide 21 mmol/L (22-29); Chloride 110 mmol/L (96-108); Creatinine Clr Calc Pharmacy 41.9; Estimated Glomerular Filt Rate > 60; Glucose Random 193 mg/dL (60-115); Potassium 3.8 mmol/L (3.3-5.1); Sodium 140 mmol/L (135-145)
[2023-10-27 08:18] LABS: Hematocrit 31.7 % (42.0-52.0); Mean Corpuscular HGB Conc 33.1 g/dl (31.0-36.0); Mean Corpuscular Hemoglobin 28.6 pg (27.0-33.0); Mean Corpuscular Volume 86.4 fL (80.0-98.0); Mean Platelet Volume 9.7 fL (9.4-12.4); Platelet Count 276 X10*3/uL (160-400); Red Blood Count 3.67 X10*6/uL (4.60-5.80); Red Cell Distribution Width 15.6 % (11.0-16.0); White Blood Count 9.7 X10*3/uL (4.8-10.8)
[2023-10-27 08:26] LABS: Hemoglobin 10.5 g/dl (14.0-18.0)
--- NOTE | 2023-10-27 10:37 | MHC.SL.SWA ---
Speech Pathologist Impression: Risk of Aspiration Due to: Medically Fragile Neurological Condition History of Pneumonia Poor PO Intake Reduced Cognition Weak Cough Dysphasia Diet Status: Liquid Consistency and Strategies for Safe Swallow: Liquid Intake Recommendation: [place] Thick Liquid Intake Strategies: No Straws Solid Food Consistency: Dietary Recommendations: Pureed (NDD1) Additional Modifications to Solid Foods: Oral Medication Intake: Crushed with Puree Please contact the pharmacy regarding appropriate crushable or liquid drug formulations that are available whenever modified delivery is recommended. Compensatory Strategies and Precautions to be Taken for Safe Swallow: Sitting Upright (90 deg) No Straw Liquids from Cup Small Bites and Sips Alternate Liquids/Solids Oral Check Avoid Specific Foods Supervision While Eating and Drinking for Safe Swallow: Total Assistance (1:1) Foods to Avoid: Mixed consistencies, overly sticky Purees. Swallowing Recommended Treatments: Compens. Strategy Educat. Recommendation for Speech: Inpatient Speech Therapy Modified Barium Swallow Study - Inpatient Comment: Recommend RESUME diet of PUREE SOLIDS (NDD1) and NECTAR-THICK LIQUIDS. MEDS CRUSHED in PUREE. Ensure aspiration precautions at all times. Pt will require TOTAL ASSISTANCE during meals. Recommend updated MBSS if not able to gain information from LTC. JAVASCRIPT WEB DEVELOPER will continue to follow. Frequency/Duration: Date Range for Service Req: Timeline to reassess: PRN Beater Room Supervisor Clinican/Clinical Fellow: No Supervisory Statement: I have reviewed and agree with the student/clinical fellow's documentation: N/A Speech Language Pathologist: Gulshan Webb M.A., CCC-JAVASCRIPT WEB DEVELOPER
[2023-10-27 10:49] VITALS: BMI 19.5
--- NOTE | 2023-10-27 10:54 | MHC.CLN ---
PT IS MODERATELY MALNOURISHED PT WITH MILDLY DEPLETED SUBCUTANEOUS FAT AND MUSCLE MASS, WITH POOR PO INTAKE CONSUMING <50% FOR >1 MONTH AND 11% SIGNIFICANT WT LOSS X 6 MONTHS. PREVIOUS WT HX 69.4KG (03/26/23) TRIGGERS FOR 11% SIGNIFICANT WT LOSS X 6 MONTHS PT APPEARS FRAIL AND THIN. REPORTS 14# WT LOSS SINCE ADMISSION TO SNF; UBW 150# DIET RX: CARDIAC PUREED WITH NT LIQ-WILL D/C CARDIAC DIET R/T ADVANCED AGE AND POOR PO RECOMMEND ADDING MAGIC CUP TID TO INCREASE KCALS PT IS TOTAL ASSIST WITH MEALS PLANT OPERATOR/SHIFT SUPERVISOR FOLLOWING FOR APPROPRIATE DIET CONSISTENCY SUPPLEMENT TO PROVIDE 810KCALS, 27G PROTEIN MONITOR PO INTAKE AND ENCOURAGE SUPPLEMENT SEE ALSO FULL CLINICAL NUTRITION ASSESSMENT
[2023-10-27 11:11] VITALS: BP 104/58; PULSE 98; RESP 20; TEMP 36.9; O2SAT 94
--- NOTE | 2023-10-27 11:39 | HO.PM.IMPN ---
Subjective Subjective Date of Service: 10/27/23 Interval History: Admitted for hypoxia likely due to aspiration, hard of hearing, denies shortness of breath, no pain seen by speech therapy they recommend pureed and nectar thick liquids. Review of Systems All other system reviewed and negative. Physical Exam Vital Signs: Vital Signs: Last Vital Signs Temp 98.5 F 10/27/23 11:11 Pulse 98 10/27/23 11:11 Resp 20 10/27/23 11:11 BP 104/58 L 10/27/23 11:11 Pulse Ox 94 10/27/23 11:11 O2 Del Method Nasal Cannula 10/27/23 11:11 O2 Flow Rate 2 10/27/23 11:11 BMI result Body Mass Index 19.5 Const: Other: General awake, frail, resting comfortably in no acute distress. Anicteric sclera Neck supple no JVD. CVS regular rate rhythm, Respiratory lungs clear to auscultation, no respiratory distress, no wheeze, no rhonchi, no upper airway conducting sounds Gastrointestinal abdomen soft, non tender, bowel sounds audible, no guarding , no rigidity. Extremities no edema. Neuro nonfocal , moving all 4 extremity ,speech clear, oriented to self only Skin no rash Objective Data Active Medications Acetaminophen (Acetaminophen 325 Mg Tablet) 650 mg PO Q6H PRN PRN Reason: Pain, Mild (Pain Scale 1-3) Apixaban (Apixaban 5 Mg Tablet) 5 mg PO BID [facility] Last Admin: 10/27/23 08:43 Dose: Not Given Documented By: JETT Non-Admin Reason: NPO Docusate Sodium (Docusate Sodium 100 Mg Capsule) 100 mg PO DAILY PRN PRN Reason: Constipation Dorzolamide/Timolol (Dorzolamide/Timolo 2.23%/0.68% 10 Ml Drbtl) 1 drop EYE-BOTH BID [facility] Last Admin: 10/26/23 21:10 Dose: 1 drop Documented By: ROLANDA Piperacillin Sod/Tazobactam (Sod 2.25 gm/ Sodium Chloride) 50 mls @ 100 mls/hr IV Q6H [facility] Last Infusion: 10/27/23 05:56 Dose: Infused Documented By: TATIANNA Dextrose/Lactated Ringer's (D5lr) 1,000 mls @ 100 mls/hr IVCONT .Q10H [facility] Last Admin: 10/27/23 05:20 Dose: 100 mls/hr Documented By: TATIANNA Latanoprost (Latanoprost 0.005 % Ophth Susana 2.5 Ml Drops) 1 drop EYE-LEFT BEDTIME [facility] Last Admin: 10/26/23 21:10 Dose: 1 drop Documented By: ROALNDA Magnesium Hydroxide (Milk Of Magnesia 30 Ml Oral.Susp) 30 ml PO DAILY PRN PRN Reason: Constipation Melatonin (Melatonin 3 Mg Tablet) 3 mg PO BEDTIME PRN PRN Reason: Insomnia Ondansetron HCl (Ondansetron Hcl 4 Mg/2 Ml Vial) 4 mg IVPUSH Q8H PRN PRN Reason: Nausea and Vomiting Sodium Chloride (0.9 % Sodium Chloride Flush 3 Ml Syringe) 3 ml IVFLUSH QSHIFT [facility] Last Admin: 10/27/23 00:06 Dose: 3 ml Documented By: TATIANNA Vitamin D (Cholecalciferol (Vitamin D3) 25 Mcg Tablet) 25 mcg PO DAILY [facility] Last Admin: 10/27/23 08:43 Dose: Not Given Documented By: JETT Non-Admin Reason: NPO Labs 10/27/23 07:05 10/27/23 07:05 Labs: Laboratory Results - last 24 hr 10/26/23 10/26/23 10/27/23 14:34 14:38 07:05 MCV 89.0 86.4 MCH 28.4 28.6 MCHC 31.9 33.1 RDW 15.9 15.6 Plt Count 295 276 MPV 9.4 9.7 Immature Gran % (Auto) Cancelled Neut % (Auto) Cancelled Lymph % (Auto) Cancelled [place] % (Auto) Cancelled Eos % (Auto) Cancelled Baso % (Auto) Cancelled Lymph # (Auto) Cancelled [place] # (Auto) Cancelled Eos # (Auto) Cancelled Baso # (Auto) Cancelled Abs Immat Gran (auto) Cancelled Absolute Neuts (auto) Cancelled Absolute Nucleated RBC 0.000 0.000 Nucleated RBC % (auto) 0.0 0.0 Neutrophils % (Manual) 86 H Band Neutrophils % 9 H Lymphocytes % (Manual) 2 L Monocytes % (Manual) 3 Abs Neuts (Manual) 14.2 H Lymphocytes # (Manual) 0.3 L Monocytes # (Manual) 0.4 Platelet Estimate NORMAL Plt Morphology Comment NORMAL RBC Morphology NOTED [place] Cells 2+ (3-5) Smear Tech's Comments MANUAL DIFF VBG pH 7.38 VBG pCO2 28 VBG pO2 43 VBG HCO3 17 L VBG O2 Saturation 68.0 VBG Base Excess -6.2 Anion Gap 19 13 Estim Creat Clear Calc 29.7 41.9 Estimated GFR 43 > 60 Random Glucose 162 H 193 H Calcium 9.0 8.4 D Influenza Type A (PCR) NEGATIVE Influenza Type B (PCR) NEGATIVE RSV RNA Qual (PCR) NEGATIVE SARS-CoV-2 RNA (RT-PCR) POSITIVE A Assessment and Plan (1) Acute on chronic hypoxic respiratory failure: Status: Acute Plan 88 years old male with PMH of GERD, PAFib on Eliquis, CHF, PE, diabetes, BPH, COPD, HLD who presents to ED due to acute on chronic hypoxic respiratory failure likely due to aspiration pneumonia. Acute on chronic hypoxic respiratory failure likely due to aspiration pneumonia/sepsis. COVID positive initially diagnosed All features of sepsis resolved Oxygenation improved, will gradually wean oxygen, on 2 L of baseline oxygen on IV Zosyn, seen by speech therapy they recommend pureed and nectar thick liquid with one-to-one feeds , likely patient choked on food while feeding himself Acute kidney injury likely prerenal with decreased by mouth intake/and being on diuretics, resolved will DC IV fluids Dysphagia seen speech therapy recommended pureed nectar thick and one-to-one feeds History of diastolic congestive heart failure no acute decompensation , Lasix /Aldactone held due to LIS, follow clinical course and resume Lasix History of hyperlipidemia resume statins Paroxysmal atrial fibrillation on metoprolol and Eliquis. Moderate malnutrition, supplements added History of stage II buttock injury resolved, being followed by wound nurse BPH continue Flomax DVT prophylaxis eliquis Code status DNR DNI. Patient will need two night inpatient hospitalization due to acute hypoxic respiratory failure, aspiration pneumonia requiring IV antibiotics, sepsis workup. Quality Stroke Does the patient have a stroke diagnosis?: No VTE Prior VTE?: No VTE Risk Level:: Medical - moderate - high VTE Device Contraindication: Treatment Not Indicated VTE Drug Contraindication: N/A - Med Ordered
[2023-10-27] MEDS: Dorzolamide/Timolo 2.23%/0.68% 10 ML DRBTL 1 DROP EYE-BOTH ×2 (12:36→19:51)
--- NOTE | 2023-10-27 13:17 | MHC.CM.PN ---
Patient is Covid positive; CM spoke with /HCP/Herminia @ [phone] and addressed IMM with her (original will be mailed certified letter to Herminia and a copy has been placed on the chart). Patient has applied for [facility] and per Herminia, she will be telling [facility] to hold the bed because [facility] will retro back 90 days and cover the bed hold. Patient is transitioning to LTC from [facility]. [facility] has initiated and will lita for dc planning.
[2023-10-27 15:44] VITALS: BP 110/55; PULSE 92; RESP 18; TEMP 36.7; O2SAT 96
--- NOTE | 2023-10-27 16:35 | HO.WOUND ---
Wound Consult: Initial 88yr old [place] [facility] [place] See progress notes and H&P for detailed history. Pt recent admissions see chart review of details. Wound consult placed for buttock - pt agreeable to assessment and photo documentation. Pt baseline incontinence level of stool and urine (Condom cath in place). Incontinence care for soft stool provided. Previous admission assessment 09/2024 Bilateral Buttocks Etiology: MASD-IAD (Moisture Associated Skin Damage - Incontinent Associated Dermatitis) with Fungal Dermatitis Wound Bed: Bilateral buttock red maroon blanchable with irregular boarders and partial thickness tissue loss in scattered areas - consistent with Moisture and not pressure Right buttocks pink red intact tissue remains blanchable throughout - consistent with incontinence location and pooling in bed - fungal dermatitis satellite lesions noted Drainage / Odor: None noted at the time of my assessment Edges: ? Irregular and adherent Harleen wound: No Induration, Fluctuance or Warmth noted Pain: Mild tenderness noted Goals of Treatment: ? Triad Barrier cream to protect from moisture and friction Recommendations: 1. Turn and Reposition every 2 hours and as needed for patient comfort. 2. Off Load all bony prominences with use of pillows and heel boots if needed.? Apply Preventative foams where needed. ? 3. Monitor for incontinence and moisture control, use barrier creams when needed for prevention and treatment. 4. Provide adequate and supplemental nutrition. 5. Order low air loss mattress. 6. Bilateral Buttocks - Off Load Pressure - Cleanse with PH balance spray, pat dry. ?Apply thin layer of Triad to wound bed - only pat and dab no scrub and rub when soiling occurs. Reapply thin layer PRN after each episode of incontinence. Re-consult wound care Nurse for wound deterioration or wound changes.
[2023-10-27 19:28] VITALS: BP 94/56; PULSE 107; RESP 20; TEMP 36.6; O2SAT 88
[2023-10-27 19:47] VITALS: BP 107/56; PULSE 90
[2023-10-27] MEDS: Atorvastatin Calcium 20 MG TABLET PO (19:50)
[2023-10-27] MEDS: Melatonin 3 MG TABLET PO (19:51)
[2023-10-27] MEDS: Tamsulosin HCL 0.4 MG CAPSULE PO (19:51)
[2023-10-27] MEDS: Latanoprost 0.005 % Ophth Sol 2.5 ML DROPS 1 DROP EYE-LEFT (19:51)
[2023-10-27] MEDS: Apixaban 5 MG TABLET PO (19:51)
[2023-10-28] VITALS: BP 103/62; PULSE 74; RESP 17; TEMP 36.5; O2SAT 96
[2023-10-28] MEDS: Piperacillin Sodium/Tazobactam 2.25 GM in 0.9 % Sodium Chloride 50 ML IV ×2 (01:23→06:09)
[2023-10-28 04:00] VITALS: BP 110/57; PULSE 90; RESP 18; TEMP 36.4; O2SAT 92
[2023-10-28 07:22] VITALS: BP 100/60; PULSE 86; RESP 18; TEMP 36.6; O2SAT 97
[2023-10-28 07:45] LABS: Hematocrit 35.2 % (42.0-52.0); Hemoglobin 11.2 g/dl (14.0-18.0); Mean Corpuscular HGB Conc 31.8 g/dl (31.0-36.0); Mean Corpuscular Hemoglobin 28.3 pg (27.0-33.0); Mean Corpuscular Volume 88.9 fL (80.0-98.0); Mean Platelet Volume 9.8 fL (9.4-12.4); Platelet Count 310 X10*3/uL (160-400); Red Blood Count 3.96 X10*6/uL (4.60-5.80); White Blood Count 10.3 X10*3/uL (4.8-10.8)
[2023-10-28 08:01] LABS: Anion Gap 12 (12-20); Blood Urea Nitrogen 26 mg/dL (9-16); Calcium 8.5 mg/dL (8.4-10.2); Carbon Dioxide 24 mmol/L (22-29); Chloride 111 mmol/L (96-108); Creatinine Clr Calc Pharmacy 40.4; Estimated Glomerular Filt Rate > 60; Glucose Random 144 mg/dL (60-115); Potassium 3.6 mmol/L (3.3-5.1); Sodium 143 mmol/L (135-145)
[2023-10-28] MEDS: 0.9 % Sodium Chloride Flush 3 ML SYRINGE IVFLUSH ×2 (09:03→17:32)
[2023-10-28] MEDS: Apixaban 5 MG TABLET PO (09:03)
[2023-10-28] MEDS: Cholecalciferol (Vitamin D3) 25 MCG TABLET PO (09:03)
[2023-10-28] MEDS: Dorzolamide/Timolo 2.23%/0.68% 10 ML DRBTL 1 DROP EYE-BOTH (09:03)
[2023-10-28] MEDS: Metoprolol Succinate ER 50 MG TAB.ER.24H PO (09:03)
--- NOTE | 2023-10-28 10:19 | P.CDIM_ITS ---
PROVIDER RESPONSE TEXT: To clarify, the appropriate diagnosis supported by the clinical indicators: Clinically unable to determine (explain): please place right queries take help from sepsis codinator if needed QUERY TEXT: PHYSICIAN'S DOCUMENTATION REQUEST Date of Query: 10/28/2023 08:21 AM EST Patient Name: Jonatan Del Toro Admit Date: 10/26/2023 Dear [place] Pedro, A review of the medical record indicates additional documentation may be needed. Please review below and update the documentation accordingly. Clinical Indicators: Sepsis event note dated 10/26 - This patient met severe sepsis criteria due to the following condition : Documentation of Septic shock. BP 94/56 L Temp 100.9 Wbc 14.9 Hr 107 H IV Zosyn Please clarify which of the following is the most likely etiology of the above symptoms and treatment rendered: Septic shock possible, suspected, probable, ruled out, resolved etc. Shock, unknown type Hypotension Indicate type/etiology, such as idiopathic, neurogenic or orthostatic, post-procedural, postoperative , due to hemodialysis, chronic, drug induced (indicate drug), etc. Hypotension, unknown type/etiology Other (explain) Clinically unable to determine (explain) Thank you, Paige Keith, CCS, CDIS Use of terms such as suspected, likely, concern for, or probable (associated with a specific diagnosi s that is being evaluated, monitored, or treated as if it exists) are acceptable and can be coded in the inpatient se tting, when documented at the time of discharge. Please use your independent medical judgment in providing your response. THIS QUERY IS PART OF THE PERMANENT MEDICAL RECORD
[2023-10-28 11:03] VITALS: BP 105/61; PULSE 85; RESP 20; TEMP 36.6; O2SAT 99
--- NOTE | 2023-10-28 11:26 | P.DS_ITS ---
DS: Providers Provider Date of Service: 10/28/23 Date of admission: 10/26/23 17:00 Primary care physician: Darcy Otero MD Consults: 10/27/23 08:03 Consult to Wound Care Routine Reason for consultation: DTI/ST2? Buttocks/ recent here. Has provider been notified: No DS: Diagnosis Discharge Diagnosis (1) Acute on chronic hypoxic respiratory failure: Status: Acute DS: Summary Hospital Course Hospital Course: History of presenting illness: Date of Service: 10/26/23 Chief Complaint: Hypoxia 88-year-old gentleman resident of [facility] with past medical history of paroxysmal atrial fibrillation on Eliquis, GERD, HFpEF, CAD, hyperlipidemia, hypertension, history of aspiration pneumonitis, recently discharged from [facility] after being treated for physical deconditioning due to COVID-19 and acute hypoxic respiratory failure due to COVID pneumonia complicated by aspiration pneumonia patient treated with Decadron and full course of ceftriaxone and doxycycline was seen by speech therapy and they recommended ndd3, thin liquid 1:1 feedings, patient brought in to [place] ED due to symptoms of shortness of breath, increased work of breathing, nonproductive cough, oxygenation in high 70s to low 80s on 10 L via simple mask upon EMS arrival, patient placed on 15 L via non-rebreather breather, patient unable to provide meaningful history since oriented to self only with underlying history of dementia, most of the history obtained by ED provider and patient's , as per he was recently allowed to feed himself and while eating today he became short of breath and his lips and fingers turned blue, and his oxygenation was in high 70s to 80s, as per currently he is on pureed diet and has lost 14 lb since admission to nursing facility, on arrival to the emergency room patient was noted to be tachypneic with mild to moderate respiratory distress, was febrile, tachycardic, COVID swab positive, initially COVID swab was positive on , chest x-ray showed no acute infiltrate, patient is being admitted to [facility] with acute on chronic hypoxic respiratory failure likely due to aspiration. Hospital course: 88 years old male with PMH of GERD, PAFib on Eliquis, CHF, PE, diabetes, BPH, COPD, HLD who presents to ED due to acute on chronic hypoxic respiratory failure likely due to aspiration pneumonia and sepsis, patient treated with IV Zosyn, oxygen analgesics and fluids patient evaluated by speech therapy due to history of dysphagia and symptoms occurring while patient was feeding himself, they recommended pureed and nectar thick liquids with one-to-one feeds and close monitoring for aspiration, patient oxygenation improved he is afebrile tolerating diet therefore will discharge back to rehab facility with current dietary recommendations and on by mouth antibiotic for 3 more days patient has been COVID positive since 09/23/23 No treatment required. Acute kidney injury likely prerenal with decreased by mouth intake/and being on diuretics, treated with IV fluids renal function returned to baseline will discontinue Lasix and Aldactone and recommend to use diuretics the patient noted to have leg edema, shortness of breath or weight gain more than 2-3 lb in few days . Dysphagia seen speech therapy recommended pureed nectar thick and one-to-one feeds History of diastolic congestive heart failure no acute decompensation , discont inue all diuretics as above History of hyperlipidemia resume statins Paroxysmal atrial fibrillation continue on metoprolol and Eliquis. Moderate malnutrition, recommend to take supplements . History of stage II buttock injury resolved, now noted to have moisture associated skin damage both buttocks/and fungal dermatitis, wound nurse recommend offload pressure clean with pH balance spray, pat dry, apply thin layer of triad to wound bed, only Pat and dab, no scrub and rub when soiling occurs, reapply thin layer as needed after each episode of incontinence BPH continue Flomax Time Attestation Discharge coordination time: Greater than 30 minutes Quality: Safe Use of Opioids Does Pt have an Active Cancer Diagnosis on the Problem List?: No Quality: Stroke Does the patient have a stroke diagnosis?: No Physical Exam Vital Signs: Vital Signs: Last Vital Signs Temp 97.9 F 10/28/23 11:03 Pulse 85 10/28/23 11:03 Resp 20 10/28/23 11:03 BP 105/61 10/28/23 11:03 Pulse Ox 99 10/28/23 11:03 O2 Del Method Nasal Cannula 10/28/23 11:03 O2 Flow Rate 2 10/28/23 11:03 BMI result Body Mass Index 19.5 Const: Other: General awake, frail, resting comfortably in no acute distress. Anicteric sclera Neck supple no JVD. CVS regular rate rhythm, Respiratory lungs clear to auscultation, no respiratory distress, no wheeze, no rhonchi Gastrointestinal abdomen soft, non tender, bowel sounds audible, no guarding , no rigidity. Extremities no edema. Neuro non focal , moving all 4 extremity ,speech clear, oriented to self only Skin no rash DS: Data Data Completed and Pending Labs on day of discharge: Laboratory Results - last 24 hr 10/28/23 06:42 WBC 10.3 RBC 3.96 L Hgb 11.2 L Hct 35.2 L MCV 88.9 MCH 28.3 MCHC 31.8 RDW 16.0 Plt Count 310 MPV 9.8 Absolute Nucleated RBC 0.000 Nucleated RBC % (auto) 0.0 Sodium 143 Potassium 3.6 Chloride 111 H Carbon Dioxide 24 Anion Gap 12 BUN 26 H Creatinine 1.14 Estim Creat Clear Calc 40.4 Estimated GFR > 60 Random Glucose 144 H Calcium 8.5 Preliminary micro results at discharge 10/26/23 19:24 Blood Culture - Preliminary Blood - Venous No growth after 24 hours. 10/26/23 16:15 Blood Culture - Preliminary Blood - Venous No growth after 24 hours. Discharge Plan Discharge Anticipated Discharge Date/Time: 10/28/23 11:16 Patient Disposition: er [facility] Discharge Diagnosis: Acute on chronic hypoxic respiratory failure Sepsis due to aspiration pneumonia Acute kidney injury Dysphagia Referrals: Po,Darcy Langley MD [Primary Care Provider] - 1 Week Discharge Medications: New amoxicillin-pot clavulanate 400-57 mg/5 mL Suspension For Reconstitution 10 ml PO BID Qty: 75 0RF Continued (DME) [employer] See Rx Instructions .Route .MEDSUPPLY Qty: 1 0RF Rx Instructions: As directed ([facility] [place]) wheelchair See Rx Instructions .Route .MEDSUPPLY Qty: 1 0RF Rx Instructions: As directed metoprolol succinate 50 mg tablet extended release 24 hr 50 mg PO DAILY Qty: 90 3RF rosuvastatin 20 mg tablet 20 mg PO BEDTIME Qty: 90 2RF Eliquis 5 mg tablet 5 mg PO BID Qty: 180 3RF Myrbetriq 50 mg tablet extended release 24 hr 50 mg PO DAILY 90 Days Qty: 90 1RF ([facility] [place]) hospital bed See Rx Instructions .Route .MEDSUPPLY Qty: 1 0RF Rx Instructions: As directed Ocuvite Adult 50 Plus 250-5-1 mg Capsule 1 cap PO DAILY tamsulosin 0.4 mg capsule 0.4 mg PO BEDTIME dorzolamide-timolol 22.3-6.8 mg/mL drops 1 drp ophthalmic (eye) BID latanoprost 0.005 % drops 1 drp ophthalmic-Left BEDTIME cholecalciferol (vitamin D3) 25 mcg (1,000 unit) capsule 25 mcg PO DAILY Discontinued furosemide 40 mg tablet 40 mg PO DAILY Qty: 90 3RF spironolactone 25 mg tablet 25 mg PO DAILY Qty: 90 2RF Protocol: Hold for SBP< HOLD for SBP < : 90 Discharge Orders: Discharge Order (Routine); Ordered 10/28/23 Ordered By: [place] Pedro Diet: pureed/nectar thick Activity on Discharge: As tolerated Stand Alone Forms: Patient Portal Discharge page Care Plan Goals: Take pureed/nectar thick liquids one-to-one feed Continue oxygen home dose Take Augmentin 875mg twice daily for 3 more days Monitor closely for shortness of breath, use Lasix as needed with leg swelling, rapid weight gain 2-3 lb in 2-3 days Health Concerns: Hold Lasix and Aldactone Plan of Treatment: Follow-up with primary care physician Assessment: As above
--- NOTE | 2023-10-28 11:39 | MHC.CLN ---
F/U PT IS MODERATELY MALNOURISHED SEE FULL CLINICAL NUTRITION ASSESSMENT DATED 10/27/23 PO INTAKE 75% X 1 MEAL DIET RX: PUREED WITH NT LIQ-APPROPRIATE RECEIVING MAGIC CUP TID TO INCREASE KCALS PT IS TOTAL ASSIST WITH MEALS SUPPLEMENT TO PROVIDE 810KCALS, 27G PROTEIN WITH 100% ACCEPTANCE MONITOR PO INTAKE AND ENCOURAGE SUPPLEMENT
--- NOTE | 2023-10-28 12:29 | PC.NURSE ---
Pt observed to be voiding small amounts at a time. Pt bladder scanned for 442 mL. MD notified. RN instructed not to straight cath per MD as pt is prescribed Flomax and Myrbitriq. No other concerns at this time
--- NOTE | 2023-10-28 12:54 | MHC.CM.PN ---
PLAN IS FOR EMS TRANSPORT BACK TO [facility] TODAY. [facility] PLANS FOR 17:00 AUTOM[employer]IVE DISMANT[employer]ER. RN AND UNIT TO BE MADE AWARE. , GOVIND, AWARE OF PLAN ([phone]). IMM 10/27/23 PREVIOUSLY COMPLETED
--- NOTE | 2023-10-28 15:05 | MHC.SLORD ---
Speech Language Pathology Order Status: RADIO BROADCASTER Gulshan received message from [facility] RADIO BROADCASTER regarding 10/14/2023 Modified Barium Swallow (MBSS): Penetration on Thin Liquids via Cup and Spoon, Aspiration with Consecutive Swallows. Recommendation was for Puree and [place]-Thick Liquids. This clinician attempted to call [facility] again to ask for report to be faxed; no answer at nurses station. Per RN, patient is tolerating these recommendations at this time. Patient reportedly tolerated small pills (not able to be crushed) whole in puree and other meds crushed in puree. Patient pending d/c. Recommend continued dysphagia tx at next level of care. Patient may benefit from f/u MBSS approx. 1-2 months from 10/14/23 study.
[2023-10-28 15:13] VITALS: BP 124/61; PULSE 85; RESP 18; TEMP 36.6
== END 2023-10-28 18:03 | disposition home or self-care (01) | DRG 871 ==
LOC: HO.ED 15:42 → HO.EDOVER 17:06 → HO.IMC 21:52
PROVIDERS: Admitting Provider Hospitalist; Emergency Provider Student in an Organized Health Care Education/Training Program; PCP Internal Medicine; Visit Provider Hospitalist
DX: A41.9 Sepsis, unspecified organism (principal); J69.0 Pneumonitis due to inhalation of food and vomit; J96.21 Acute and chronic respiratory failure with hypoxia; U07.1 COVID-19; N17.9 Acute kidney failure, unspecified; E44.0 Moderate protein-calorie malnutrition; I50.32 Chronic diastolic (congestive) heart failure; Z68.1 Body mass index [BMI] 19.9 or less, adult; N40.0 Benign prostatic hyperplasia without lower urinary tract symptoms; E78.5 Hyperlipidemia, unspecified; B36.9 Superficial mycosis, unspecified; Z66 Do not resuscitate; R13.10 Dysphagia, unspecified; I48.0 Paroxysmal atrial fibrillation; I25.10 Atherosclerotic heart disease of native coronary artery without angina pectoris; J44.9 Chronic obstructive pulmonary disease, unspecified; Z87.891 Personal history of nicotine dependence; Z79.01 Long term (current) use of anticoagulants; Z79.899 Other long term (current) drug therapy
CPT/HCPCS: 0241U; 36415; 71045; 80048; 82803; 84484; 85007; 85025; 85027; 87040; 92610; 93005; 94640; 99285; J0131; J1100; J2543

== ENCOUNTER → 2023-10-26 14:15 | Outpatient (BNV) | payer MEDICARE, SELFPAY | PROVIDERS: Emergency Provider Student in an Organized Health Care Education/Training Program; PCP Internal Medicine; Visit Provider Internal Medicine | DX: I49.1 Atrial premature depolarization (principal) | CPT/HCPCS: 93010 ==

== ENCOUNTER → 2023-10-26 17:00 | Outpatient (BNV) | payer MEDICARE, SELFPAY | PROVIDERS: Admitting Provider Hospitalist; Emergency Provider Student in an Organized Health Care Education/Training Program; PCP Internal Medicine; Visit Provider Hospitalist | DX: J96.21 Acute and chronic respiratory failure with hypoxia (principal); N17.9 Acute kidney failure, unspecified | CPT/HCPCS: 99223; 99233; 99239 ==

== ENCOUNTER 2023-10-31 10:08 | Emergency (ER) | payer MEDICARE, SELFPAY ==
[2023-10-31] VITALS (8 sets, daily range): BP systolic 107–131; BP diastolic 39–78; PULSE 89–145; RESP 15–21; TEMP 36.6–36.8; O2SAT 93–98; BMI 23.2
--- NOTE | ~2023-10-31 | XR_ITS ---
EXAMINATION: XR CHEST CLINICAL INFORMATION: Recent pneumonia. Hypertension. COMPARISON: Chest x-ray October 26, 2023 TECHNIQUE: 2 views of the chest were obtained. FINDINGS: Cardiac silhouette is normal in size. Atherosclerotic disease of the aortic arch. The lungs are well aerated.. Persistent but improving subtle opacity of the left lung base. No lobar consolidation. Tiny bilateral pleural effusions. No pneumothorax.. Degenerative changes of the spine. XR/XR chest 2V IMPRESSION: Persistent but improving subtle opacity of the left lung base.
--- NOTE | 2023-10-31 10:18 | ECG_ITS ---
Test Reason : AFIB/ IRREGULAR HEARTBEAT Blood Pressure : / mmHG Vent. Rate : 136 BPM Atrial Rate : 300 BPM P-R Int : 000 ms QRS Dur : 086 ms QT Int : 302 ms P-R-T Axes : 000 -11 234 degrees QTc Int : 454 ms Atrial flutter with variable A-V block Nonspecific T wave abnormality Abnormal ECG When compared with ECG of 26-OCT-2023 15:20, Atrial flutter has replaced Sinus rhythm Vent. rate has increased BY 47 BPM Referred By: Eveline Pa Electronically Signed By:NADIYA BLANCO
--- NOTE | 2023-10-31 10:32 | ED_ITS ---
HPI - Weakness General Chief complaint: Weakness Stated complaint: LOW BLOOD PRESSURE LETHARGIC WEAKNESS Time Seen by Provider: 10/31/23 10:09 Source: patient and EMS Mode of arrival: EMS Limitations: no limitations History of Present Illness HPI Narrative: 88 years old with history of aspiration pneumonia (recent admit 10/26-10/28, discharged on 2L NC and on oral Augmentin with last dose 11/01), COPD, paroxysmal AFib, GERD, HFpEF, CAD, hyperlipidemia, hypertension here with concern for low blood pressure. Per half-way staff patient had a systolic blood pressure this morning of 70 systolic. On EMS arrival patient's blood pressure was 90 systolic. During transport his systolic blood pressures were over 100. Patient has no current complaints. He denies chest pain, shortness of breath, palpitations, weakness, dizziness. He did receive all his morning medications. He is on Eliquis and is rate controlled with metoprolol. Related Data Home Medications Medication Instructions Recorded Confirmed cholecalciferol (vitamin D3) 25 25 mcg PO DAILY 08/14/20 10/26/23 mcg (1,000 unit) capsule dorzolamide 22.3 mg-timolol 6.8 1 drp ophthalmic (eye) BID 08/14/20 10/26/23 mg/mL eye drops latanoprost 0.005 % eye drops 1 drp ophthalmic-Left BEDTIME 08/14/20 10/26/23 vit C,E,zinc,copper-inize1s 250 1 cap PO DAILY 12/19/20 10/26/23 mg-lutein 5 mg-zeaxanthin 1 mg capsule (Ocuvite Adult 50 Plus) tamsulosin 0.4 mg capsule 0.4 mg PO BEDTIME 06/19/23 10/26/23 Previous Rx's Medication Instructions Recorded ACORN STAIRLIFT #1 ea 12/18/20 wheelchair #1 ea 03/22/21 metoprolol succinate 50 mg 50 mg PO DAILY #90 tabs 09/24/22 tablet,extended release 24 hr rosuvastatin 20 mg tablet 20 mg PO BEDTIME #90 tabs 08/19/23 apixaban 5 mg tablet (Eliquis) 5 mg PO BID #180 tabs 08/21/23 mirabegron 50 mg tablet,extended 50 mg PO DAILY 90 days #90 tabs 08/24/23 release 24 hr (Myrbetriq) hospital bed #1 ea 09/21/23 amoxicillin 400 mg-potassium 10 ml PO BID #75 mL 10/28/23 clavulanate 57 mg/5 mL oral suspension Allergies Allergy/AdvReac Type Severity Reaction Status Date / Time ciprofloxacin [CIPROFLOXACIN] Allergy Unknown ITCHY FEET Verified 09/23/23 15:32 oxycodone [Percocet] AdvReac Unknown Unknown Verified 09/23/23 15:32 Review of Systems 2 Review of Systems: Yes all other systems are reviewed and are negative Constitutional: Constitutional: Reports no additional constitutional complaints, Denies body ache(s), Denies chills, Denies fever(s), Denies headache(s) and Denies weakness Eyes: Eyes: Reports no additional eye complaints and Denies change in vision ENT: Reports system reviewed and no additional complaints, except as documented, Denies dizziness, Denies headache(s), Denies nasal congestion, Denies nasal discharge and Denies neck pain Cardiovascular: Cardiovascular: Reports no additional cardiovascular complaints, Denies chest pain, Denies leg edema and Denies dyspnea Respiratory: Respiratory: Reports no additional respiratory complaints, Denies cough and Denies dyspnea Gastrointestinal: Gastrointestinal: Reports no additional gastrointestinal complaints, Denies abdominal pain, Denies diarrhea, Denies nausea and Denies vomiting Genitourinary: Genitourinary: Denies urinary incontinence Musculoskeletal: Musculoskeletal: Reports no additional musculoskeletal complaints, Denies back pain, Denies arthralgias, Denies joint swelling, Denies neck pain, Denies numbness and Denies tingling Integumentary/Breasts: Skin/Breast: Reports system reviewed and no additional complaints, except as docu and Denies rash Neurologic: Reports system reviewed and no additional complaints, except as documented, Denies Abnormal speech present, Denies dizziness, Denies headache(s), Denies numbness, Denies tingling and Denies weakness PMFSH Past Medical History Attestation statement: The following information was validated with the patient. Source: old records reviewed and nursing notes reviewed Onset Date is defined in the Problem List Problems that require an onset date and time if occurred within 24 hrs of arrival to the ED Aortic Dissection and Rupture; Neurologic impairment; Cardiopulmonary Arrest; Endotracheal Intubation; Insertion or Replacement of Mechanical Circulatory Assist Device Medical History Confusion Pain and swelling of right lower leg Right knee pain Persistent atrial fibrillation Acute diastolic CHF (congestive heart failure) CHF (congestive heart failure) (HFpEF) heart failure with preserved ejection fraction Atrial flutter Hypotonic bladder Bladder neck contracture Paraphimosis Type 2 diabetes mellitus with hyperglycemia BPH (benign prostatic hyperplasia) Peripheral vascular disease Pulmonary nodule Hypertension CAD (coronary artery disease) COPD (chronic obstructive pulmonary disease) Vitamin D deficiency Hypercholesterolemia Tubular adenoma of colon Surgical History History of colonoscopy H/O vascular surgery History of prostate surgery History of appendectomy History of cataract surgery H/O inguinal hernia repair Family History Family History Father No problems noted. Mother CVD (cardiovascular disease) Social History Social History Household Members: Unknown / Unable to assess Housing: Half-Way Do you presently have visiting nurse or other home services: Yes Alcohol intake: never Comment: Telesitter Patient Tobacco Use Status: Former Tobacco user Tobacco use type: Cigarette e-Cigarette/Vaping Use: Never Used Second Hand Smoke Exposure: No Advance Directives: Yes Advance Directives on File: Yes Advance Directives Date on File: 10/07/23 service: No Current occupational status: retired Cognitive needs: Yes Hearing needs: Yes Vision needs: Yes Physical Exam 2 Vital Signs: Vital Signs: Last Vital Signs Temp 97.8 F 10/31/23 15:38 Pulse 98 10/31/23 15:38 Resp 16 10/31/23 15:38 BP 111/51 L 10/31/23 15:38 Pulse Ox 95 10/31/23 15:38 O2 Del Method Nasal Cannula 10/31/23 15:38 O2 Flow Rate 2 10/31/23 15:38 Oxygen Flow Rate 2 10/31/23 10:14 BMI result Body Mass Index 23.2 Const: General: cooperative, healthy appearing, comfortable and no acute distress Orientation/consciousness: patient oriented x3 Limitations: no limitations HEENT: Head: Yes normal to inspection Ears: hearing grossly normal bilaterally General nose exam: Normal external nose present Face and sinus: Yes normal facial exam Mouth: Normal oral and palatal mucosa present Throat: Yes posterior oropharynx normal Eyes: General: appearance normal, both eyes and all related structures P upils: Equal, round and reactive pupils present Neck: Neck: Yes normal visual inspection Chest: Chest palpation & inspection: normal inspection of the chest Resp: Effort & Inspection: normal respiratory effort Auscultation: clear to auscultation bilaterally Cardio: Rate: tachycardic Rhythm: abnormal rhythm Peripheral pulses: P eripheral pulses 2+ throughout GI: Inspection: Yes normal to inspection Palpation (GI): Soft to palpation and nontender Auscultation: normal bowel sounds Back/Spine/Pelvis: Thoracic/Lumbar Spine: thoracic and lumbar spine normal to inspection Skin: General skin exam: no rashes or lesions noted Neuro: General: patient oriented x3, moves all extremities, no focal motor deficits and normal sensation to monofilament Cranial nerves: Yes Equal, round and reactive pupils present Cognition (Neuro): normal cognition S peech: No Abnormal speech present Motor exam (neuro): 5/5 motor strength present throughout Extrem: General: Yes normal to inspection, Yes no pedal edema and Yes no calf tenderness Course Course Course Narrative: Rate improved with lopressor IV down to 90-100, Orthos were positive so gentle hydration ordered Reevaluation(s) Reevaluation #1: 1400-Patient feels well. Blood pressure has been stable during his stay. Hr with slight variability but patient asymptomatic. Family updated. Will transfer back to [facility]. Medications Administered Discontinued Medications Generic Name Dose Route Start Last Admin Trade Name Freq PRN Reason Stop Dose Admin Sodium Chloride 500 mls @ 999 mls/hr 10/31/23 12:39 10/31/23 13:59 Ns IV 10/31/23 13:09 Infused .Q31M STA Infusion Metoprolol Tartrate 2.5 mg 10/31/23 10:32 10/31/23 10:45 Metoprolol Tartrate 5 Mg/5 Ml Vial IVPUSH 10/31/23 10:33 2.5 mg ONCE ONE Administration Medical Decision Making Medical Decision Making [facility] Narrative: 88 years old with history of aspiration pneumonia (recent admit 10/26-10/28, discharged on 2L NC and on oral Augmentin with last dose 11/01), COPD, paroxysmal AFib, GERD, HFpEF, CAD, hyperlipidemia, hypertension here with concern for low blood pressure.? Per half-way staff patient had a systolic blood pressure this morning of 70 systolic.? On EMS arrival patient's blood pressure was 90 systolic.? During transport his systolic blood pressures were over 100.? Patient has no current complaints.? He denies chest pain, shortness of breath, palpitations, weakness, dizziness.? He did receive all his morning medications.? He is on Eliquis and is rate controlled with metoprolol. On arrival patient blood pressure 124/76. His heart rate is 130s to 140s irregular. He is afebrile. He has no current complaints. EKG was obtained which showed a flutter with a rate of 136. Patient did receive his morning metoprolol and is anticoagulated with Eliquis. Will obtain labs, EKG, CXR, orthos Discussed case with Dr Delgadillo. Will give lopressor 2.5mg IV and reassess heart rate Differential Diagnosis Differential Diagnoses: The differential diagnosis associated with the presentation includes Atrial flutter Electroyte abnormality, anemia, orthostatic hypotension Low concern for ACS, CHF, PE Admission/Observation Consideration of admission/observation: Escalation of care including admission/observation considered Lab Data MDM Lab Attestation statement: I reviewed the patient's lab results. 10/31/23 10:40 10/31/23 10:40 Labs: Lab Results 10/31/23 Range/Units 10:40 WBC 12.5 H (4.8-10.8) X10*3/uL RBC 4.62 (4.60-5.80) X10*6/uL Hgb 13.1 L (14.0-18.0) g/dl Hct 41.8 L (42.0-52.0) % MCV 90.5 (80.0-98.0) fL MCH 28.4 (27.0-33.0) pg MCHC 31.3 (31.0-36.0) g/dl RDW 16.2 H (11.0-16.0) % Plt Count 373 (160-400) X10*3/uL MPV 9.3 L (9.4-12.4) fL Immature Gran % (Auto) 4.5 H (0.0-0.4) % Neut % (Auto) 82.4 H (45-73) % Lymph % (Auto) 7.8 L (20-40) % [place] % (Auto) 4.3 (2-11) % Eos % (Auto) 0.4 (0-4) % Baso % (Auto) 0.6 (0-2) % Lymph # (Auto) 1.0 L (1.2-4.9) X10*3/uL [place] # (Auto) 0.5 (0.1-1.2) X10*3/uL Eos # (Auto) 0.1 (0.0-0.4) X10*3/uL Baso # (Auto) 0.1 (0.0-0.2) X10*3/uL Abs Immat Gran (auto) 0.56 H (0.00-0.03) X10*3/uL Absolute Neuts (auto) 10.3 H (2.0-8.3) x10*3/uL Absolute Nucleated RBC 0.000 (0.0-0.012) X10*3/uL Nucleated RBC % (auto) 0.0 (0.0-0.2) /100WBC Sodium 144 (135-145) mmol/L Potassium 4.0 (3.3-5.1) mmol/L Chloride 112 H (96-108) mmol/L Carbon Dioxide 19 L (22-29) mmol/L Anion Gap 17 (12-20) BUN 16 (9-16) mg/dL Creatinine 1.03 (0.5-1.4) mg/dL Estim Creat Clear Calc 48.1 Estimated GFR > 60 Random Glucose 162 H (60-115) mg/dL Calcium 8.8 (8.4-10.2) mg/dL Magnesium 2.2 (1.6-2.6) mg/dL Total Bilirubin 0.5 (0.0-1.0) mg/dL Direct Bilirubin 0.1 (0.0-0.5) mg/dL AST 30 (5-37) U/L ALT 49 H (0-40) U/L Alkaline Phosphatase 78 (39-117) U/L Troponin I High Sens 15.7 (<3.5-35.0) ng/L Total Protein 6.3 L (6.5-8.0) g/dL Albumin 2.8 L (3.5-5.0) g/dL Independent Interpretation I performed an independent interpretation of an: EKG and Plain X-Ray Interpretation: I independently reviewed the EKG which shows atrial flutter with a rate of 136 I independently reviewed the x-ray and agree rad report Radiology Impression Discussion of test interpretation with radiology: I have reviewed the radiologist's reading. Radiologist Impression: [facility] [address] [place] [address] XRay Report Signed Patient: Jonatan Del Toro MR#: [id number] : 1935 Acct:[id number] Age/Sex: 88 / M ADM Date: 10/31/23 Loc: .ED Attending Dr: Ordering Physician: Eveline Valentin NP Date of Service: 10/31/23 Procedure(s): XR chest 2V Accession Number(s): [id number] cc: Darcy Otero MD; Eveline Valentin NP~ EXAMINATION: XR CHEST CLINICAL INFORMATION: Recent pneumonia. Hypertension. COMPARISON: Chest x-ray October 26, 2023 TECHNIQUE: 2 views of the chest were obtained. FINDINGS: Cardiac silhouette is normal in size. Atherosclerotic disease of the aortic arch. The lungs are well aerated.. Persistent but improving subtle opacity of the left lung base. No lobar consolidation. Tiny bilateral pleural effusions. No pneumothorax.. Degenerative changes of the spine. XR/XR chest 2V IMPRESSION: Persistent but improving subtle opacity of the left lung base. Independent Historian Clinical information obtained from an independent historian. History obtained from or confirmed by: EMS External Record Review External record reviewed: Inpatient record from recent admission Critical Care Time Critical Care Time Critical Care Time: Yes Total Critical Care Time: 60 Attestation: Atrial flutter with high rates >130s requiring IV rate control medication Discharge Plan Discharge Clinical Impression: Orthostatic hypotension, Atrial flutter Patient Disposition: Xfer [facility] Transfer Details: [facility] Instructions: Atrial Flutter (ED), Hypotension (ED) Prescriptions: No Action (DME) ACORN STAIRLIFT See Rx Instructions .Route .MEDSUPPLY Qty: 1 0RF Rx Instructions: As directed (DME) wheelchair See Rx Instructions .Route .MEDSUPPLY Qty: 1 0RF Rx Instructions: As directed metoprolol succinate 50 mg tablet extended release 24 hr 50 mg PO DAILY Qty: 90 3RF rosuvastatin 20 mg tablet 20 mg PO BEDTIME Qty: 90 2RF Eliquis 5 mg tablet 5 mg PO BID Qty: 180 3RF Myrbetriq 50 mg tablet extended release 24 hr 50 mg PO DAILY 90 Days Qty: 90 1RF (DME) hospital bed See Rx Instructions .Route .MEDSUPPLY Qty: 1 0RF Rx Instructions: As directed Ocuvite Adult 50 Plus 250-5-1 mg Capsule 1 cap PO DAILY amoxicillin-pot clavulanate 400-57 mg/5 mL Suspension For Reconstitution 10 ml PO BID Qty: 75 0RF tamsulosin 0.4 mg capsule 0.4 mg PO BEDTIME dorzolamide-timolol 22.3-6.8 mg/mL drops 1 drp ophthalmic (eye) BID latanoprost 0.005 % drops 1 drp ophthalmic-Left BEDTIME cholecalciferol (vitamin D3) 25 mcg (1,000 unit) capsule 25 mcg PO DAILY Referrals: Po,Darcy Langley MD [Primary Care Provider] -
[2023-10-31 10:43] LABS: MANUAL DIFF FLAG NO
[2023-10-31] MEDS: Metoprolol Tartrate 5 MG/5 ML VIAL 2.5 MG IVPUSH (10:45)
[2023-10-31 10:49] LABS: Basophils Absolute Auto 0.1 X10*3/uL (0.0-0.2); Basophils Percent Auto 0.6 % (0-2); Eosinophils Absolute Auto 0.1 X10*3/uL (0.0-0.4); Eosinophils Percent Auto 0.4 % (0-4); Hematocrit 41.8 % (42.0-52.0); Hemoglobin 13.1 g/dl (14.0-18.0); Imm Gran Abs Auto 0.56 X10*3/uL (0.00-0.03); Imm Gran Pct Auto 4.5 % (0.0-0.4); Lymphocytes Percent Auto 7.8 % (20-40); Mean Corpuscular HGB Conc 31.3 g/dl (31.0-36.0); Mean Corpuscular Hemoglobin 28.4 pg (27.0-33.0); Mean Corpuscular Volume 90.5 fL (80.0-98.0); Mean Platelet Volume 9.3 fL (9.4-12.4); Monocytes Absolute Auto 0.5 X10*3/uL (0.1-1.2); Monocytes Percent Auto 4.3 % (2-11); Neutrophils Absolute Auto 10.3 x10*3/uL (2.0-8.3); Neutrophils Percent Auto 82.4 % (45-73); Platelet Count 373 X10*3/uL (160-400); Red Blood Count 4.62 X10*6/uL (4.60-5.80); Red Cell Distribution Width 16.2 % (11.0-16.0); White Blood Count 12.5 X10*3/uL (4.8-10.8)
[2023-10-31 11:02] LABS: Alanine Aminotransferase 49 U/L (0-40); Albumin Level 2.8 g/dL (3.5-5.0); Alkaline Phosphatase 78 U/L (39-117); Anion Gap 17 (12-20); Aspartate Amino Transferase 30 U/L (5-37); Bilirubin Direct 0.1 mg/dL (0.0-0.5); Bilirubin Total 0.5 mg/dL (0.0-1.0); Blood Urea Nitrogen 16 mg/dL (9-16); Calcium 8.8 mg/dL (8.4-10.2); Carbon Dioxide 19 mmol/L (22-29); Chloride 112 mmol/L (96-108); Creatinine Clr Calc Pharmacy 48.1; Estimated Glomerular Filt Rate > 60; Glucose Random 162 mg/dL (60-115); Magnesium 2.2 mg/dL (1.6-2.6); Sodium 144 mmol/L (135-145); Total Protein 6.3 g/dL (6.5-8.0)
[2023-10-31 11:08] LABS: Troponin-I High Sensitivity 15.7 ng/L (<3.5-35.0)
[2023-10-31] MEDS: 0.9 % Sodium Chloride 500 ML 999 ML IV (12:49)
--- NOTE | 2023-10-31 18:50 | PC.NURSE ---
patient IV removed, 4x4 dressing placed
== END 2023-10-31 19:34 | disposition skilled nursing facility (03) ==
PROVIDERS: Nurse Practitioner Family; Emergency Provider Student in an Organized Health Care Education/Training Program; PCP Internal Medicine
DX: I48.92 Unspecified atrial flutter (principal); I95.1 Orthostatic hypotension; R53.1 Weakness; E11.9 Type 2 diabetes mellitus without complications; I11.0 Hypertensive heart disease with heart failure; I50.31 Acute diastolic (congestive) heart failure; E78.00 Pure hypercholesterolemia, unspecified; Z79.01 Long term (current) use of anticoagulants
CPT/HCPCS: 36415; 71046; 80048; 80076; 83735; 84484; 85025; 93005; 96361; 96374; 99284

== ENCOUNTER → 2023-10-31 10:18 | Outpatient (BNV) | payer MEDICARE, SELFPAY | PROVIDERS: Emergency Provider Student in an Organized Health Care Education/Training Program; PCP Internal Medicine; Visit Provider Internal Medicine | DX: I48.92 Unspecified atrial flutter (principal); R94.31 Abnormal electrocardiogram [ECG] [EKG] | CPT/HCPCS: 93010 ==

== ENCOUNTER 2024-04-14 22:24 | Emergency (ER) | payer MEDICARE, SELFPAY ==
--- NOTE | ~2024-04-14 | CT_ITS ---
EXAMINATION: CT CERVICAL SPINE WITHOUT CONTRAST; UNENHANCED CT OF THE HEAD. CLINICAL INFORMATION: Fall with head strike. Eliquis. COMPARISON: CT head and cervical spine 09/16/2023 TECHNIQUE: Routine unenhanced CT of the head with multiple coronal and sagittal reformatted images; routine unenhanced CT of the cervical spine with multiple coronal and sagittal reformatted images. This CT examination was performed using dose optimization techniques as appropriate, variously including the following: *Automated exposure control *Adjustment of mA and/or kV according to patient size (this includes techniques or standardized protocols for targeted exams where dose is matched to indication/reason for exam; i.e. extremities or head) *Use of iterative reconstruction technique DLP: 992 mGy-cm FINDINGS: No intracranial hemorrhage, tumors or acute infarcts identified. 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 Marked subcortical and periventricular white matter patchy hypodensities. Cranial atherosclerosis. Bilateral ocular lens replacements. Right frontal extra cranial soft tissue inflammatory changes. Opacification of a small number scattered left mastoid air cells. No middle ear cavity effusions. CT cervical spine: Diffuse osteopenia. No fractures or acute appearing subluxations noted. Multilevel chronic spondylosis. No prevertebral fluid collections or soft tissue inflammatory changes. Dense bilateral carotid bulb calcific atherosclerosis. Centrilobular emphysema noted in the visualized lung apices. CT/CT cervical spine wo IV con IMPRESSION: CT HEAD: 1. No acute intracranial abnormalities. 2. Marked diffuse parenchymal volume loss and chronic microangiopathic ischemic changes. 3. Right frontal extracranial soft tissue inflammatory changes. CT CERVICAL SPINE: 1. No acute abnormalities. 2. Multilevel chronic spondylosis.
--- NOTE | ~2024-04-14 | CT_ITS ---
EXAMINATION: CT CERVICAL SPINE WITHOUT CONTRAST; UNENHANCED CT OF THE HEAD. CLINICAL INFORMATION: Fall with head strike. Eliquis. COMPARISON: CT head and cervical spine 09/16/2023 TECHNIQUE: Routine unenhanced CT of the head with multiple coronal and sagittal reformatted images; routine unenhanced CT of the cervical spine with multiple coronal and sagittal reformatted images. This CT examination was performed using dose optimization techniques as appropriate, variously including the following: *Automated exposure control *Adjustment of mA and/or kV according to patient size (this includes techniques or standardized protocols for targeted exams where dose is matched to indication/reason for exam; i.e. extremities or head) *Use of iterative reconstruction technique DLP: 992 mGy-cm FINDINGS: No intracranial hemorrhage, tumors or acute infarcts identified. 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 Marked subcortical and periventricular white matter patchy hypodensities. Cranial atherosclerosis. Bilateral ocular lens replacements. Right frontal extra cranial soft tissue inflammatory changes. Opacification of a small number scattered left mastoid air cells. No middle ear cavity effusions. CT cervical spine: Diffuse osteopenia. No fractures or acute appearing subluxations noted. Multilevel chronic spondylosis. No prevertebral fluid collections or soft tissue inflammatory changes. Dense bilateral carotid bulb calcific atherosclerosis. Centrilobular emphysema noted in the visualized lung apices. CT/CT head/brain wo IV con IMPRESSION: CT HEAD: 1. No acute intracranial abnormalities. 2. Marked diffuse parenchymal volume loss and chronic microangiopathic ischemic changes. 3. Right frontal extracranial soft tissue inflammatory changes. CT CERVICAL SPINE: 1. No acute abnormalities. 2. Multilevel chronic spondylosis.
[2024-04-14 22:28] VITALS: BP 168/74; PULSE 77; O2SAT 95
[2024-04-14 22:31] VITALS: BP 109/70; PULSE 73; RESP 21; TEMP 36.6; O2SAT 95; BMI 24.4
--- NOTE | 2024-04-14 22:32 | ED.FALL ---
HPI - Fall General Chief Complaint: Fall Stated Complaint: FALL WITH HEAD STRIKE, ON ELIQUIS,HAS DEMENTIA Time Seen by Provider: 04/14/24 22:31 Source: patient and EMS Mode of arrival: EMS Limitations: no limitations History of Present Illness ED Provider: Clint Pacheco PA-C HPI Narrative: 89 y/o male with history of dementia, paroxysmal afib on eliquis, gait instability, GERD, CHF, anemia, PVD, COPD with chronic hypoxic resp failure on 2L NC, DM2, HLD who presents to the ER from [facility] for evaluation of a fall out of bed resulting in a laceration to the top of his head. Patient states he was walking in the basement of his home when he missed a step, fell and hit his head. He is confused. He is on sure of the 2 events of the injury today. Per EMS he reportedly hit his head on the corner of the night stand. It was not witnessed. He was found to have a laceration to the top of his head that was bleeding so he was sent to the ER for further evaluation. He was placed in a cervical collar prior to transportation. He denies any neck pain but does report pain at the site of the laceration. He denies any chest pain, shortness of breath, abdominal pain, nausea, vomiting. MD complaint: fall Onset (ago): hour(s) Fall from: out of bed Fall witnessed: no [facility] Loss of consciousness: unsure Symptoms prior to fall: none Location of injury: head Associated symptoms (after fall): headache Related Data Home Medications ?Medication ?Instructions ?Recorded ?Confirmed cholecalciferol (vitamin D3) 25 25 mcg PO DAILY 08/14/20 10/26/23 mcg (1,000 unit) capsule dorzolamide 22.3 mg-timolol 6.8 1 drp ophthalmic (eye) BID 08/14/20 10/26/23 mg/mL eye drops latanoprost 0.005 % eye drops 1 drp ophthalmic-Left BEDTIME 08/14/20 10/26/23 vit C,E,zinc,copper-qjbva0x 250 1 cap PO DAILY 12/19/20 10/26/23 mg-lutein 5 mg-zeaxanthin 1 mg capsule (Ocuvite Adult 50 Plus) tamsulosin 0.4 mg capsule 0.4 mg PO BEDTIME 06/19/23 10/26/23 Previous Rx's ?Medication ?Instructions ?Recorded [employer] STAIRLIFT #1 ea 12/18/20 wheelchair #1 ea 03/22/21 metoprolol succinate 50 mg 50 mg PO DAILY #90 tabs 09/24/22 tablet,extended release 24 hr rosuvastatin 20 mg tablet 20 mg PO BEDTIME #90 tabs 08/19/23 apixaban 5 mg tablet (Eliquis) 5 mg PO BID #180 tabs 08/21/23 mirabegron 50 mg tablet,extended 50 mg PO DAILY 90 days #90 tabs 08/24/23 release 24 hr (Myrbetriq) hospital bed #1 ea 09/21/23 amoxicillin 400 mg-potassium 10 ml PO BID #75 mL 10/28/23 clavulanate 57 mg/5 mL oral suspension Allergies Allergy/AdvReac Type Severity Reaction Status Date / Time ciprofloxacin [CIPROFLOXACIN] Allergy Unknown ITCHY FEET Verified 04/14/24 22:38 oxycodone [Percocet] AdvReac Unknown Unknown Verified 04/14/24 22:38 Review of Systems Review of Systems: Yes all other systems are reviewed and are negative [facility] Past Medical History Medical History Confusion Pain and swelling of right lower leg Right knee pain Persistent atrial fibrillation Acute diastolic CHF (congestive heart failure) CHF (congestive heart failure) (HFpEF) heart failure with preserved ejection fraction Atrial flutter Hypotonic bladder Bladder neck contracture Paraphimosis Type 2 diabetes mellitus with hyperglycemia BPH (benign prostatic hyperplasia) Peripheral vascular disease Pulmonary nodule Hypertension CAD (coronary artery disease) COPD (chronic obstructive pulmonary disease) Vitamin D deficiency Hypercholesterolemia Tubular adenoma of colon Surgical History History of colonoscopy H/O vascular surgery History of prostate surgery History of appendectomy History of cataract surgery H/O inguinal hernia repair Family History Family History Father No problems noted. Mother CVD (cardiovascular disease) Social History Social History Household Members: Unknown / Unable to assess Housing: Assisted Do you presently have visiting nurse or other home services: Yes Unable to assess alcohol history related to: Unknown Alcohol intake: never Comment: Telesitter Patient Tobacco Use Status: Former Tobacco user Tobacco use type: Cigarette Smoked in Last 30 Days: No e-Cigarette/Vaping Use: Never Used Second Hand Smoke Exposure: No Use of substances other than those prescribed or required for medical reasons: No Advance Directives: Yes Advance Directives on File: Yes Advance Directives Date on File: 10/07/23 service: No Current occupational status: retired Cognitive needs: Yes Hearing needs: Yes Vision needs: Yes Physical Exam Vital Signs: Vital Signs: Last Vital Signs Temp 97.9 F 04/14/24 22:41 Pulse 76 04/15/24 00:49 Resp 16 04/15/24 00:49 BP 143/67 H 04/15/24 00:49 Pulse Ox 95 04/15/24 00:49 O2 Del Method Room Air 04/15/24 00:49 O2 Flow Rate 1 04/14/24 22:41 Oxygen Flow Rate 2 04/14/24 22:31 BMI result Body Mass Index 24.4 Appearance: Alert elderly male. Oriented X2. No acute distress. Head: normocephalic, 5cm laceration on the top of the head w/ a 1.5cm area centrally with flap and active bleeding Eyes: Pupils equal, round and reactive to light. ENT: Pharynx normal. No tonsillar swelling or exudate. Neck: Normal inspection. Neck supple. No midline tenderness CVS: Normal heart rate and rhythm. Pulses normal. Respiratory: No respiratory distress. Breath sounds normal. Abdomen: Soft and nontender. +BS x4 Skin: Skin warm and dry. Normal skin color. Normal skin turgor. No rashes. Extremities: No lower extremity edema. No joint swelling. Pelvis is stable. Neuro/psych: Oriented X 2, plesantly confused. Generalized weakness noted Procedures Laceration Laceration 1: Site: scalp Size (cm): 5 Description: irregular Depth: simple, single layer Pre-repair: irrigated extensively and deep structures intact Skin layer closed with: other (tigre x3) Medical Decision Making Medical Decision Making MDM Narrative: 89 y/o male with history of dementia, paroxysmal afib on eliquis, gait instability, GERD, CHF, anemia, PVD, COPD with chronic hypoxic resp failure on 2L NC, DM2, HLD who presents to the ER from [facility] for evaluation of a fall out of bed resulting in a laceration to the top of his head. He was not witnessed, unsure of loss of consciousness. He is on anticoagulation. He reports a headache. CT scan was performed which did not show any acute intracranial hemorrhage. Wound care performed and tigre were used to close the wound. Per review of his records from [facility] he is nonambulatory at baseline. He seems to be at his baseline. He is stable for discharge back to custodial facility. Differential Diagnosis Differential Diagnoses: The differential diagnosis associated with the presentation includes Superficial laceration, deep laceration, skull fracture, intracranial hemorrhage, subdural hematoma Admission/Observation Consideration of admission/observation: Escalation of care including admission/observation considered Elderly male with head trauma considered observation/admission Independent Interpretation I performed an independent interpretation of an: CT Scan Interpretation: No acute edema or stroke appreciated, agree with radiology read Radiology Impression Discussion of test interpretation with radiology: I have reviewed the radiologist's reading. Radiologist Impression: EXAMINATION: CT CERVICAL SPINE WITHOUT CONTRAST; UNENHANCED CT OF THE HEAD. CLINICAL INFORMATION: Fall with head strike. Eliquis. COMPARISON: CT head and cervical spine 09/16/2023 TECHNIQUE: Routine unenhanced CT of the head with multiple coronal and sagittal reformatted images; routine unenhanced CT of the cervical spine with multiple coronal and sagittal reformatted images. This CT examination was performed using dose optimization techniques as appropriate, variously including the following: *Automated exposure control *Adjustment of mA and/or kV according to patient size (this includes techniques or standardized protocols for targeted exams where dose is matched to indication/reason for exam; i.e. extremities or head) *Use of iterative reconstruction technique DLP: 992 mGy-cm FINDINGS: No intracranial hemorrhage, tumors or acute infarcts identified. 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 Marked subcortical and periventricular white matter patchy hypodensities. Cranial atherosclerosis. Bilateral ocular lens replacements. Right frontal extra cranial soft tissue inflammatory changes. Opacification of a small number scattered left mastoid air cells. No middle ear cavity effusions. CT cervical spine: Diffuse osteopenia. No fractures or acute appearing subluxations noted. Multilevel chronic spondylosis. No prevertebral fluid collections or soft tissue inflammatory changes. Dense bilateral carotid bulb calcific atherosclerosis. Centrilobular emphysema noted in the visualized lung apices. CT/CT cervical spine wo IV con IMPRESSION: CT HEAD: 1. No acute intracranial abnormalities. 2. Marked diffuse parenchymal volume loss and chronic microangiopathic ischemic changes. 3. Right frontal extracranial soft tissue inflammatory changes. CT CERVICAL SPINE: 1. No acute abnormalities. 2. Multilevel chronic spondylosis. Independent Historian Clinical information obtained from an independent historian. History obtained from or confirmed by: EMS External Record Review External record reviewed: Outpatient record, Prior outpatient labs and Prior outpatient radiology Tests considered The following testing was considered but not selected: Considered EKG and basic lab workup over there was no preceding symptoms prior to fall Chronic Conditions Patient?s care impacted by: Other (AFib on anticoagulation, dementia) Critical Care Time Critical Care Time Critical Care Time: No Discharge Plan Discharge Clinical Impression: Laceration of head Qualifiers: Encounter type: initial encounter Location of open wound of head: scalp Foreign body presence: without foreign body Qualified Code(s): S01.01XA - Laceration without foreign body of scalp, initial encounter Patient Disposition: Xfer [facility] Transfer Details: [facility] Instructions: Head Laceration (ED) Additional Instructions: 3 tigre were used to close your wound today You will need your tigre out in 10-14 days. See you doctor for this or come back to the ER and we will remove them. Do not get wet for 24 hours, after that you can briefly wash with soap and water then pat dry. If you develop new or worsening symptoms call 911 or come back to the ER for further evaluation. Prescriptions: No Action (DME) ACORN STAIRLIFT See Rx Instructions .Route .MEDSUPPLY Qty: 1 0RF Rx Instructions: As directed (DME) wheelchair See Rx Instructions .Route .MEDSUPPLY Qty: 1 0RF Rx Instructions: As directed metoprolol succinate 50 mg tablet extended release 24 hr 50 mg PO DAILY Qty: 90 3RF rosuvastatin 20 mg tablet 20 mg PO BEDTIME Qty: 90 2RF Eliquis 5 mg tablet 5 mg PO BID Qty: 180 3RF Myrbetriq 50 mg tablet extended release 24 hr 50 mg PO DAILY 90 Days Qty: 90 1RF (DME) hospital bed See Rx Instructions .Route .MEDSUPPLY Qty: 1 0RF Rx Instructions: As directed Ocuvite Adult 50 Plus 250-5-1 mg Capsule 1 cap PO DAILY amoxicillin-pot clavulanate 400-57 mg/5 mL Suspension For Reconstitution 10 ml PO BID Qty: 75 0RF tamsulosin 0.4 mg capsule 0.4 mg PO BEDTIME dorzolamide-timolol 22.3-6.8 mg/mL drops 1 drp ophthalmic (eye) BID latanoprost 0.005 % drops 1 drp ophthalmic-Left BEDTIME cholecalciferol (vitamin D3) 25 mcg (1,000 unit) capsule 25 mcg PO DAILY Print Language: [place]
[2024-04-14 22:39] VITALS: BP 109/70; PULSE 73; RESP 21; TEMP 36.6; O2SAT 95
[2024-04-14 22:41] VITALS: BP 109/70; PULSE 71; RESP 14; TEMP 36.6; O2SAT 96
[2024-04-15 00:49] VITALS: BP 143/67; PULSE 76; RESP 16; O2SAT 95
[2024-04-15 01:44] VITALS: BP 143/67; PULSE 76; RESP 16; TEMP 36.6; O2SAT 95
--- NOTE | 2024-04-15 01:49 | PC.NURSE ---
report called to [facility]
== END 2024-04-15 01:49 | disposition skilled nursing facility (03) ==
PROVIDERS: Emergency Provider Internal Medicine
DX: S01.01XA Laceration without foreign body of scalp, initial encounter (principal); R51.9 Headache, unspecified; M54.2 Cervicalgia; I48.0 Paroxysmal atrial fibrillation; W06.XXXA Fall from bed, initial encounter; Y93.9 Activity, unspecified; Y92.003 Bedroom of unspecified non-institutional (private) residence as the place of occurrence of the external cause; Y99.8 Other external cause status; Z79.01 Long term (current) use of anticoagulants; Z79.899 Other long term (current) drug therapy
CPT/HCPCS: 12002; 70450; 72125; 99284

== ENCOUNTER 2024-06-05 11:47 | Emergency (ER) | payer MEDICARE, SELFPAY ==
--- NOTE | ~2024-06-05 | CT_ITS ---
EXAMINATION: CT HEAD WITHOUT CONTRAST CT CERVICAL SPINE WITHOUT CONTRAST CLINICAL INFORMATION: None provided. COMPARISON: CT scans dating between April 14, 2024 and March 20, 2021. TECHNIQUE: CT of the head and cervical spine were performed without intravenous contrast. Multiplanar reformats were rendered and reviewed. This CT examination was performed using dose optimization techniques as appropriate, variously including the following: *Automated exposure control *Adjustment of mA and/or kV according to patient size (this includes techniques or standardized protocols for targeted exams where dose is matched to indication/reason for exam; i.e. extremities or head) *Use of iterative reconstruction technique DLP: 1001 mGy-cm. FINDINGS: CT head: No intracranial hemorrhage, large infarction, or mass lesion is seen. Diffuse cortical atrophy. Bilateral periventricular white matter hypodensity, nonspecific. These findings appear similar compared with April 14, 2024. No extra-axial collection is appreciated. The ventricles are probably upper normal in size. Calcification of the distal aspects of the vertebral arteries and internal carotid arteries. Opacification of multiple left mastoid air cells. The visualized paranasal sinuses appear clear. Suspect right maxillary antrostomy. Mild deviation of the nasal septum toward the left. Suspect bilateral lens extractions. CT cervical spine: The vertebral body heights appear maintained. No cervical spine fracture is seen. The cervical alignment appears normal. Moderate disc degenerative change at C6-C7, with posterior osteophyte formation mildly compressing the cervical spinal canal as well as mild to moderate bilateral neural foraminal narrowing at this level. The paraspinal soft tissues appear within normal limits. The partially imaged lung apices appear clear. Calcification of the carotid bulbs. CT/CT cervical spine wo IV con IMPRESSION: No clinical history provided, limiting the study. Recommend clinical correlation. CT head: No acute intracranial finding. Left mastoiditis. Additional findings as above. CT cervical spine: No cervical spine fracture or traumatic malalignment identified. Additional findings as above. Electronically signed by: Adrian Jones MD 06/05/2024 03:08 PM EDT
[2024-06-05 11:50] VITALS: BP 136/68; PULSE 75; O2SAT 95
[2024-06-05 12:04] VITALS: BP 148/70; PULSE 71; RESP 18; TEMP 36.8; O2SAT 97; BMI 19.8
--- NOTE | 2024-06-05 12:07 | ED_ITS ---
HPI - Fall General Chief Complaint: Fall Stated Complaint: FALL,L EYEBROW LAC,+THINNER,-LOC,FROM SNF Time Seen by Provider: 06/05/24 12:01 Source: patient Mode of arrival: ambulatory Limitations: no limitations History of Present Illness ED Provider: Eveline Morris APRN HPI Narrative: 89 yo male with history of dementia, paroxysmal afib on eliquis, gait instability, GERD, CHF, anemia, PVD, COPD with chronic hypoxic resp failure on 2L NC, DM2, HLD here with complaints of unwitnessed fall out of bed which occurred at [facility]. +head strike. No LOC. He is on eliquis. Tetanus UTD. Is at baseline per staff. Related Data Home Medications ?Medication ?Instructions ?Recorded ?Confirmed cholecalciferol (vitamin D3) 25 25 mcg PO DAILY 08/14/20 10/26/23 mcg (1,000 unit) capsule dorzolamide 22.3 mg-timolol 6.8 1 drp ophthalmic (eye) BID 08/14/20 10/26/23 mg/mL eye drops latanoprost 0.005 % eye drops 1 drp ophthalmic-Left BEDTIME 08/14/20 10/26/23 vit C,E,zinc,copper-jhlsf3q 250 1 cap PO DAILY 12/19/20 10/26/23 mg-lutein 5 mg-zeaxanthin 1 mg capsule (Ocuvite Adult 50 Plus) tamsulosin 0.4 mg capsule 0.4 mg PO BEDTIME 06/19/23 10/26/23 Previous Rx's ?Medication ?Instructions ?Recorded ACORN STAIRLIFT #1 ea 12/18/20 wheelchair #1 ea 03/22/21 metoprolol succinate 50 mg 50 mg PO DAILY #90 tabs 09/24/22 tablet,extended release 24 hr rosuvastatin 20 mg tablet 20 mg PO BEDTIME #90 tabs 08/19/23 apixaban 5 mg tablet (Eliquis) 5 mg PO BID #180 tabs 08/21/23 mirabegron 50 mg tablet,extended 50 mg PO DAILY 90 days #90 tabs 08/24/23 release 24 hr (Myrbetriq) hospital bed #1 ea 09/21/23 amoxicillin 400 mg-potassium 10 ml PO BID #75 mL 10/28/23 clavulanate 57 mg/5 mL oral suspension Allergies Allergy/AdvReac Type Severity Reaction Status Date / Time ciprofloxacin [CIPROFLOXACIN] Allergy Unknown ITCHY FEET Verified 06/05/24 12:06 oxycodone [Percocet] AdvReac Unknown Unknown Verified 04/14/24 22:38 Review of Systems 2 Review of Systems: Yes Unobtainable due to mental status Neurologic: Reports confusion Psychiatric: Psychiatric: Reports confusion PMFSH Past Medical History Attestation statement: The following information was validated with the patient. Source: old records reviewed and nursing notes reviewed Medical History COVID Confusion Pain and swelling of right lower leg Right knee pain Persistent atrial fibrillation Acute diastolic CHF (congestive heart failure) CHF (congestive heart failure) (HFpEF) heart failure with preserved ejection fraction Atrial flutter Hypotonic bladder Bladder neck contracture Paraphimosis Type 2 diabetes mellitus with hyperglycemia BPH (benign prostatic hyperplasia) Peripheral vascular disease Pulmonary nodule Hypertension CAD (coronary artery disease) COPD (chronic obstructive pulmonary disease) Vitamin D deficiency Hypercholesterolemia Tubular adenoma of colon Surgical History History of colonoscopy H/O vascular surgery History of prostate surgery History of appendectomy History of cataract surgery H/O inguinal hernia repair Family History Family History Father No problems noted. Mother CVD (cardiovascular disease) Social History Social History Household Members: Unknown / Unable to assess Housing: Long-Term Do you presently have visiting nurse or other home services: Yes Unable to assess alcohol history related to: Unknown Alcohol intake: never Comment: Telesitter Patient Tobacco Use Status: Former Tobacco user Tobacco use type: Cigarette Smoked in Last 30 Days: No e-Cigarette/Vaping Use: Never Used Second Hand Smoke Exposure: No Use of substances other than those prescribed or required for medical reasons: No Advance Directives: Yes Advance Directives on File: Yes Advance Directives Date on File: 10/07/23 service: No Current occupational status: retired Cognitive needs: Yes Hearing needs: Yes Vision needs: Yes Physical Exam 2 Vital Signs: Vital Signs: Last Vital Signs Temp 98.3 F 06/05/24 12:04 Pulse 71 06/05/24 12:04 Resp 18 06/05/24 12:04 BP 148/70 H 06/05/24 12:04 Pulse Ox 97 06/05/24 12:04 O2 Del Method Room Air 06/05/24 12:04 BMI result Body Mass Index 19.8 Const: General: alert and confusion Orientation/consciousness: confusion Limitations: altered mental status HEENT: Head: No Preciado's sign and No raccoon eyes Head images: 1. +lac-4cm x 3cm Ears: hearing grossly normal bilaterally and TM's normal bilaterally General nose exam: Normal external nose present Face and sinus: Yes normal facial exam Mouth: Normal oral and palatal mucosa present Throat: Yes posterior oropharynx normal Eyes: General: appearance normal, both eyes and all related structures P upils: Equal, round and reactive pupils present Neck: Other: +cervical collar in place No midline tenderness, step-offs or deformities Neck: Yes normal visual inspection Chest: Chest palpation & inspection: normal inspection of the chest Resp: Effort & Inspection: normal respiratory effort Auscultation: clear to auscultation bilaterally Cardio: Rate: regular rate Rhythm: regular rhythm Peripheral pulses: P eripheral pulses 2+ throughout GI: Inspection: Yes normal to inspection Palpation (GI): Soft to palpation and nontender Auscultation: normal bowel sounds Back/Spine/Pelvis: Thoracic/Lumbar Spine: thoracic and lumbar spine normal to inspection Skin: General skin exam: no rashes or lesions noted Neuro: General: tone normal, moves all extremities, no focal motor deficits and confusion Cranial nerves: Yes Equal, round and reactive pupils present, Yes Normal facial strength present and Yes Midline tongue present Extrem: General: Yes normal to inspection, Yes no pedal edema and Yes no calf tenderness Course Course Course Narrative: CT head and cervical spine are negative. Patient is at his baseline. See procedure note for wound repair. Will discharge back today [facility]. Reviewed worrisome signs and symptoms of when to return to the emergency room. Comfortable plan for discharge home Medications Administered Discontinued Medications Generic Name Dose Route Start Last Admin Trade Name Freq PRN Reason Stop Dose Admin Lidocaine HCl 2 ml 06/05/24 13:16 06/05/24 14:41 Lidocaine Hcl 1 % Mpf 2 Ml Vial INFILTRATI 06/05/24 13:17 2 ml ONCE ONE Administration Lidocaine HCl 2 ml 06/05/24 13:16 06/05/24 14:42 Lidocaine Hcl 1 % Mpf 2 Ml Vial INFILTRATI 06/05/24 13:17 2 ml ONCE ONE Administration Lidocaine HCl 2 ml 06/05/24 13:16 06/05/24 14:42 Lidocaine Hcl 1 % Mpf 2 Ml Vial INFILTRATI 06/05/24 13:17 2 ml ONCE ONE Administration Procedures Laceration Laceration 1: Site: face Side (If applicable): left Size (cm): 7 Description: other (V shaped) Depth: simple, single layer Local Anesthetic: lidocaine 1% Amount of anesthesia used (mL): 4 Pre-repair: wound explored and irrigated extensively Skin layer closed with: other (prolene) Size (cm): 6-0 Number of sutures: 10 Technique: simple, interrupted Medical Decision Making Medical Decision Making MDM Narrative: 89 yo male with history of dementia, paroxysmal afib on eliquis, gait instability, GERD, CHF, anemia, PVD, COPD with chronic hypoxic resp failure on 2L NC, DM2, HLD here with complaints of unwitnessed fall out of bed which occurred at [facility]. +head strike. No LOC. He is on eliquis. Tetanus UTD. Is at baseline per staff. +lac over left head Patient is confused, otherwise neuro intact. VSS Will obtain ct head/cervical spine Need wound repair Differential Diagnosis Differential Diagnoses: The differential diagnosis associated with the presentation includes laceration, contusion, ICH, skull fracture, cervical fx Admission/Observation Consideration of admission/observation: Escalation of care including admission/observation considered CT negative, no abnormal findings requiring transfer for tertiary care center Independent Interpretation I performed an independent interpretation of an: CT Scan Interpretation: I independently reviewed the CT scan agree with the radiologist's Radiology Impression Discussion of test interpretation with radiology: I have reviewed the radiologist's reading. Radiologist Impression: [address] [address] [address] Scan Report Signed Patient: Jonatan Del Toro MR#: [id number] : 1935 Acct:[id number] Age/Sex: 89 / M ADM Date: 06/05/24 Loc: HO.ED Attending Dr: Ordering Physician: Eveline Valentin NP Date of Service: 06/05/24 Procedure(s): CT head/brain wo IV con Accession Number(s): [id number] cc: MERCEDES AUSTIN MD; Eveline Valentin NP~ EXAMINATION: CT HEAD WITHOUT CONTRAST CT CERVICAL SPINE WITHOUT CONTRAST CLINICAL INFORMATION: None provided. COMPARISON: CT scans dating between April 14, 2024 and March 20, 2021. TECHNIQUE: CT of the head and cervical spine were performed without intravenous contrast. Multiplanar reformats were rendered and reviewed. This CT examination was performed using dose optimization techniques as appropriate, variously including the following: *Automated exposure control *Adjustment of mA and/or kV according to patient size (this includes techniques or standardized protocols for targeted exams where dose is matched to indication/reason for exam; i.e. extremities or head) *Use of iterative reconstruction technique DLP: 1001 mGy-cm. FINDINGS: CT head: No intracranial hemorrhage, large infarction, or mass lesion is seen. Diffuse cortical atrophy. Bilateral periventricular white matter hypodensity, nonspecific. These findings appear similar compared with April 14, 2024. No extra-axial collection is appreciated. The ventricles are probably upper normal in size. Calcification of the distal aspects of the vertebral arteries and internal carotid arteries. Opacification of multiple left mastoid air cells. The visualized paranasal sinuses appear clear. Suspect right maxillary antrostomy. Mild deviation of the nasal septum toward the left. Suspect bilateral lens extractions. CT cervical spine: The vertebral body heights appear maintained. No cervical spine fracture is seen. The cervical alignment appears normal. Moderate disc degenerative change at C6-C7, with posterior osteophyte formation mildly compressing the cervical spinal canal as well as mild to moderate bilateral neural foraminal narrowing at this level. The paraspinal soft tissues appear within normal limits. The partially imaged lung apices appear clear. Calcification of the carotid bulbs. CT/CT head/brain wo IV con IMPRESSION: No clinical history provided, limiting the study. Recommend clinical correlation. CT head: No acute intracranial finding. Left mastoiditis. Additional findings as above. CT cervical spine: No cervical spine fracture or traumatic malalignment identified. Additional findings as above. Electronically signed by: Adrian Jones MD 06/05/2024 03:08 PM EDT Independent Historian Clinical information obtained from an independent historian. History obtained from or confirmed by: EMS Discharge Plan Discharge Clinical Impression: Laceration of head Patient Disposition: Xfer SNF Instructions: Head Laceration (ED) Additional Instructions: Sutures should be removed in 7 days Prescriptions: No Action (DME) ACORN STAIRLIFT See Rx Instructions .Route .MEDSUPPLY Qty: 1 0RF Rx Instructions: As directed (DME) wheelchair See Rx Instructions .Route .MEDSUPPLY Qty: 1 0RF Rx Instructions: As directed metoprolol succinate 50 mg tablet extended release 24 hr 50 mg PO DAILY Qty: 90 3RF rosuvastatin 20 mg tablet 20 mg PO BEDTIME Qty: 90 2RF Eliquis 5 mg tablet 5 mg PO BID Qty: 180 3RF Myrbetriq 50 mg tablet extended release 24 hr 50 mg PO DAILY 90 Days Qty: 90 1RF (DME) hospital bed See Rx Instructions .Route .MEDSUPPLY Qty: 1 0RF Rx Instructions: As directed Ocuvite Adult 50 Plus 250-5-1 mg Capsule 1 cap PO DAILY amoxicillin-pot clavulanate 400-57 mg/5 mL Suspension For Reconstitution 10 ml PO BID Qty: 75 0RF tamsulosin 0.4 mg capsule 0.4 mg PO BEDTIME dorzolamide-timolol 22.3-6.8 mg/mL drops 1 drp ophthalmic (eye) BID latanoprost 0.005 % drops 1 drp ophthalmic-Left BEDTIME cholecalciferol (vitamin D3) 25 mcg (1,000 unit) capsule 25 mcg PO DAILY Print Language: Brazilian
--- NOTE | 2024-06-05 12:27 | PC.NURSE ---
pt oriented to self, knows he is in the hospital. Hard of hearing. on2L oxygen from facility for CHF. lac to left eyebrown, no eye involvement. Lac cleaned and gauze applied. Collar on, awaiting CT scan.
[2024-06-05] MEDS: Lidocaine HCl 1 % MPF 2 ML VIAL INFILTRATI ×3 (14:41→14:42)
[2024-06-05 17:57] VITALS: BP 148/71; PULSE 78; RESP 20; TEMP 36.7; O2SAT 95
[2024-06-05 18:45] VITALS: BP 148/71; PULSE 78; RESP 20; TEMP 36.7; O2SAT 95
== END 2024-06-05 18:46 | disposition skilled nursing facility (03) ==
PROVIDERS: Emergency Provider Emergency Medicine; PCP Internal Medicine
DX: S01.112A Laceration without foreign body of left eyelid and periocular area, initial encounter (principal); R26.81 Unsteadiness on feet; I48.0 Paroxysmal atrial fibrillation; R51.9 Headache, unspecified; M54.2 Cervicalgia; W06.XXXA Fall from bed, initial encounter; Y93.89 Activity, other specified; Y92.092 Bedroom in other non-institutional residence as the place of occurrence of the external cause; Y99.8 Other external cause status; Z79.01 Long term (current) use of anticoagulants; Z79.899 Other long term (current) drug therapy
CPT/HCPCS: 12014; 70450; 72125; 99284